=== PATIENT | male | born 1995 ===

== ENCOUNTER 2022-11-09 15:23 | Emergency (ER) | payer SELFPAY ==
[2022-11-09] MEDS ORDERED: cloNIDine HCL 0.1 MG TAB ONE (15:42)
[2022-11-09] MEDS ORDERED: NA CHLORIDE 0.9% 2,000 ML ONE (15:43)
[2022-11-09] MEDS ORDERED: ONDANSETRON 4 MG/2 ML VIAL ONE (15:43)
[2022-11-09 16:02] LABS: Absolute Lymphocytes (CBC) 3.2 K/uL (0.7-4.9); Hematocrit 38.8 % (39.6-49.0); Lymphocytes % 41.7 % (15.3-44.8); MCV 90.7 fL (80-100); MPV 7.5 fL (7.6-11.3); RBC Red Blood Cell Count 4.27 M/uL (4.33-5.43)
[2022-11-09 16:04] LABS: Specific Gravity 1.011 (1.005-1.030); Urine Bacteria None Seen /HPF (<20); Urine Bilirubin NEGATIVE (Negative); Urine Blood Negative (Negative); Urine Clarity Turbid (Clear); Urine Color Colorless (Yellow); Urine Glucose NEGATIVE (Negative); Urine Protein NEGATIVE (Negative); Urine RBC <5 /HPF (None Seen); Urine Urobilinogen Normal (Normal); Urine pH 7.5 (5.0-7.0)
--- OUTSIDE RECORDS SUMMARY | 2022-11-09 16:09 | XMS REPORT | Continuity of Care Document ---
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 oral 5-20 TID, PRN l tablet 01:31: Muscle [place] 00 Spasm, X 10 day, # 30 tab, 0 Refill(s), 170.18, cm, 09/16/20 20:25:00 CDT, Height, 81.818, kg, 09/16/20 20:25:00 CDT, Weight celecoxib Yes 100 mg = 1 Me moria 100 MG Oral 5-20 cap, PO, l Capsule 01:31: BID, PRN Benjamín n [Celebrex] 00 as needed for pain, # 30 cap, 0 Refill(s), 170.18, cm, 09/16/20 20:25:00 CDT, Height, 81.818, kg, 09/16/20 20:25:00 CDT, Weight { Yes See Mem[facility] (Methylpred 5-20 Instructio l nisolone 4 01:31: ns, PO, Herm sharad MG Oral 00 Take by Tablet mouth as [Medrol]) } directed Pack on label., [Medrol X 6 day, # Dosepak] 21 tab, 0 Refill(s), 170.18, cm, 09/16/20 20:25:00 CDT, Height, 81.818, kg, 09/16/20 20:25:00 CDT, Weight Flexeril 10 Yes 10 mg, PO, Memoria mg oral 5-20 TID, PRN l tablet 01:31: Muscle [place] 00 Spasm, X 10 day, # 30 tab, 0 Refill(s), 170.18, cm, 09/16/20 20:25:00 CDT, Height, 81.818, kg, 09/16/20 20:25:00 CDT, Weight celecoxib Yes 100 mg = 1 Me moria 100 MG Oral 5-20 cap, PO, l Capsule 01:31: BID, PRN Benjamín n [Celebrex] 00 as needed for pain, # 30 cap, 0 Refill(s), 170.18, cm, 09/16/20 20:25:00 CDT, Height, 81.818, kg, 09/16/20 20:25:00 CDT, Weight Dexamethaso No Notes: Doni delvin ne 5-20 dexamethas l 01:29: one 10 [place] 00 mg/1 ml VL INJ PF MEDICATION WASTE Product Size: 10 mg Product Wasted: ___ mg Ketorolac 2020-0 No 4 days Memor ia 5-20 l 01:29: MEDICATION [place] 00 WASTE Product Size: 60 mg Product Wasted: ___ mg Ketorolac 2020-0 No 4 days Mem[facility] ia 5-20 l 01:29: MEDICATION [place] 00 WASTE Product Size: 60 mg Product Wasted: ___ mg Dexamethaso 2020- No Notes: Doni delvin ne 5-20 dexamethas l 01:29: one 10 [place] 00 mg/1 ml VL INJ PF MEDICATION WASTE Product Size: 10 mg Product Wasted: ___ mg Acetaminoph Yes 1 tab, PO, Memoria en 300 MG / 5-11 Q6H, PRN l Codeine 08:52: Pain, X 3 Tamiko nn Phosphate 00 day, # 12 30 MG Oral tab, 0 Tablet Refill(s), [Tylenol Pharmacy: with [facility] Codeine #3] Pharmacy 18[facility], 172.72, cm, 09/08/20 2:31:00 CDT, Height, 86.364, kg, 09/08/20 2:31:00 CDT, Weight meloxicam Yes 7.5 mg = 1 Me moria 7.5 mg oral 5-11 tab, PO, l tablet 08:52: Daily, # [place] 00 10 tab, 0 Refill(s), Pharmacy: [facility], 172.72, cm, 09/08/20 2:31:00 CDT, Height, 86.364, kg, 09/08/20 2:31:00 CDT, Weight meloxicam 2020- Yes 7.5 mg = 1 Me moria 7.5 mg oral 5-11 tab, PO, l tablet 08:52: Daily, # [place] 00 10 tab, 0 Refill(s), Pharmacy: [facility], 172.72, cm, 09/08/20 2:31:00 CDT, Height, 86.364, kg, 09/08/20 2:31:00 CDT, Weight Acetaminoph 2020-0 Yes 1 tab, PO, Memoria en 300 MG / 5-11 Q6H, PRN l Codeine 08:52: Pain, X 3 Tamiko nn Phosphate 00 day, # 12 30 MG Oral tab, 0 Tablet Refill(s), [Tylenol Pharmacy: with [facility] #3] Pharmacy 1837, 172.72, cm, 09/08/20 2:31:00 CDT, Height, 86.364, kg, 09/08/20 2:31:00 CDT, Weight ketOROLAC 2020-0 No 30 mg, Memori a 30 mg/mL 5-11 Route: IM, l injectable 08:39: Drug form: H ermann solution 00 INJ, ONCE, Dosing Weight 86.364, kg, Priority: STAT, Start date: 09/08/20 3:39:00 CDT, Stop date: 09/08/20 3:39:00 CDT Flexeril 2020-0 No 10 mg, Memoria 5-11 Route: PO, l 08:39: ONCE, [place] Dosing Weight 86.364, kg, Priority: STAT, Start date: 09/08/20 3:39:00 CDT, Stop date: 09/08/20 3:39:00 CDT Acetaminoph 2020-0 No 1 tab, Doni delvin en 325 MG / 5-11 Route: PO, l Hydrocodone 08:39: Drug Form: [place] Bitartrate 00 TAB, 5 MG Oral Dosing Tablet Weight [[place] 86.364, 5/325] kg, ONCE, STAT, Start date: 09/08/20 3:39:00 CDT, Stop date: 09/08/20 3:39:00 CDT ketOROLAC 2020-0 No 30 mg, Memori a 30 mg/mL 5-11 Route: IM, l injectable 08:39: Drug form: H ermann solution 00 INJ, ONCE, Dosing Weight 86.364, kg, Priority: STAT, Start date: 09/08/20 3:39:00 CDT, Stop date: 09/08/20 3:39:00 CDT Flexeril 2020-0 No 10 mg, Memoria 5-11 Route: PO, l 08:39: ONCE, [place] 00 Dosing Weight 86.364, kg, Priority: STAT, Start date: 09/08/20 3:39:00 CDT, Stop date: 09/08/20 3:39:00 CDT Acetaminoph 0 No 1 tab, Doni delvin en 325 MG / 09-08 Route: PO, l Hydrocodone 08:39: Drug Form: [place] Bitartrate 00 TAB, 5 MG Oral Dosing Tablet Weight [[place] 86.364, 5/325] kg, ONCE, STAT, Start date: 09/08/20 3:39:00 CDT, Stop date: 09/08/20 3:39:00 CDT Ketorolac 2019-05 Yes 10 mg = 1 Mem oria Tromethamin 0-29 tab, PO, l e 10 MG 21:31: Q6H, X 5 Benjamín n Oral Tablet 00 day, # 20 tab, 0 Refill(s) Cyclobenzap 2019-05 Yes 10 mg = 1 M emoria rine 0-29 tab, PO, l hydrochlori 21:31: TID, PRN He rmann de 10 MG 00 for spasm, Oral Tablet X 10 day, [Flexeril] # 15 tab, 0 Refill(s) gabapentin 2019-05 Yes 300 mg = 1 M emoria 300 MG Oral 0-29 cap, PO, l Capsule 21:31: TID, # 30 Tamiko nn 00 cap, 0 Refill(s) Ketorolac 2019-05 Yes 10 mg = 1 Mem oria Tromethamin 0-29 tab, PO, l e 10 MG 21:31: Q6H, X 5 Benjamín n Oral Tablet 00 day, # 20 tab, 0 Refill(s) Cyclobenzap 2019-05 Yes 10 mg = 1 M emoria rine 0-29 tab, PO, l hydrochlori 21:31: TID, PRN He rmann de 10 MG 00 for spasm, Oral Tablet X 10 day, [Flexeril] # 15 tab, 0 Refill(s) gabapentin 2019-05 Yes 300 mg = 1 M emoria 300 MG Oral 0-29 cap, PO, l Capsule 21:31: TID, # 30 Tamiko nn 00 cap, 0 Refill(s) Morphine 2019-05 No Notes: Memoria 0-29 (Same l 20:15: as:MORPhin [place] 00 e Sulfate) Morphine 2019-05 No Notes: Memoria 0-29 (Same l 20:15: as:MORPhin [place] 00 e Sulfate) ketOROLAC 2019- No 15 mg, Memori a 30 mg/mL 0-29 Route: l injectable 19:51: IVP, Drug He rmann solution 00 form: INJ, ONCE, Dosing Weight 90.909, kg, Priority: STAT, Start date: 02/27/20 14:51:00 CDT, Stop date: 02/27/20 14:51:00 CDT Flexeril 2019- No 10 mg, Memoria 0-29 Route: PO, l 19:51: ONCE, [place] 00 Dosing Weight 90.909, kg, Priority: STAT, Start date: 02/27/20 14:51:00 CDT, Stop date: 02/27/20 14:51:00 CDT ketOROLAC 2019-05 No 15 mg, Memori a 30 mg/mL 0-29 Route: l injectable 19:51: IVP, Drug He r[place] solution 00 form: INJ, ONCE, Dosing Weight 90.909, kg, Priority: STAT, Start date: 02/27/20 14:51:00 CDT, Stop date: 02/27/20 14:51:00 CDT Flexeril 2019-05 No 10 mg, Memoria 0-29 Route: PO, l 19:51: ONCE, [place] 00 Dosing Weight 90.909, kg, Priority: STAT, Start date: 02/27/20 14:51:00 CDT, Stop date: 02/27/20 14:51:00 CDT Morphine 2019-05 No Notes: Memoria 0-29 (Same l 17:48: as:MORPhin [place] 00 e Sulfate) Morphine 2019- No Notes: Memoria 0-29 (Same l 17:48: as:MORPhin [place] 00 e Sulfate) Omnipaque 2019-05 No 45 Memoria 300 0-29 mL/min, l injectable 17:38: STAT, Benjamín n solution 00 Start date: 02/27/20 12:38:00 CDT, Stop date: 02/27/20 12:38:00 CDT Omnipaque 2019-05 No 45 Memoria 300 0-29 mL/min, l injectable 17:38: STAT, Benjamín n solution 00 Start date: 02/27/20 12:38:00 CDT, Stop date: 02/27/20 12:38:00 CDT Zofran 2020-1 No 4 mg, Memoria 0-29 Route: l 16:33: IVP, Drug [place] form: INJ, ONCE, Dosing Weight 90.909, kg, Priority: STAT, Start date: 02/27/20 11:33:00 CDT, Stop date: 02/27/20 11:33:00 CDT Zofran 2020-1 No 4 mg, Memoria 0-29 Route: l 16:33: IVP, Drug [place] form: INJ, ONCE, Dosing Weight 90.909, kg, Priority: STAT, Start date: 02/27/20 11:33:00 CDT, Stop date: 02/27/20 11:33:00 CDT Morphine 2019-1 No 4 mg, Memoria 0-29 Route: l 16:32: IVP, ONCE, Dosing Weight 90.909, kg, Priority: STAT, Start date: 02/27/20 11:32:00 CDT, Stop date: 02/27/20 11:32:00 CDT Morphine 2019-1 No 4 mg, Memoria 0-29 Route: l 16:32: IVP, ONCE, Dosing Weight 90.909, kg, Priority: STAT, Start date: 02/27/20 11:32:00 CDT, Stop date: 02/27/20 11:32:00 CDT Geodon 2020-0 No 10 mg, Memoria 7-23 Route: IM, l 12:58: ONCE, Dosing Weight 91.364, kg, Priority: STAT, Start date: 11/21/19 7:58:00 CDT, Stop date: 11/21/19 7:58:00 CDT Geodon 2020-0 No 10 mg, Memoria 7-23 Route: IM, l 12:58: ONCE, Dosing Weight 91.364, kg, Priority: STAT, Start date: 11/21/19 7:58:00 CDT, Stop date: 11/21/19 7:58:00 CDT Omnipaque 2020-0 No 45 Memoria 300 6-07 mL/min, l injectable 12:15: STAT, Benjamín n solution 00 Start date: 10/06/19 7:15:00 CDT, Stop date: 10/06/19 7:15:00 CDT Omnipaque 2020-0 No 45 Memoria 300 6-07 mL/min, l injectable 12:15: STAT, Benjamín n solution 00 Start date: 10/06/19 7:15:00 CDT, Stop date: 10/06/19 7:15:00 CDT Ondansetron 2019- Yes 4 mg = 1 Me moria 4 MG 2-21 tab, PO, l Disintegrat 12:16: TID, Benjamín n ing Tablet 00 Dissolve [Zofran] tab under tongue, # 6 tab, 0 Refill(s) Ondansetron 2019-0 Yes 4 mg = 1 Me moria 4 MG 2-21 tab, PO, l Disintegrat 12:16: TID, Benjamín n ing Tablet 00 Dissolve [Zofran] tab under tongue, # 6 tab, 0 Refill(s) Codeine 2019-0 Yes 10 ml, PO, Doni delvin Phosphate 2 2-21 Q6H, PRN l MG/ML / 12:10: for cough, Herm sharad Guaifenesin 00 X 5 day, # 20 MG/ML 120 mL, 0 Oral Refill(s) Solution [Cheratussi n] Codeine 2019-0 Yes 10 ml, PO, Doni delvin Phosphate 2 2-21 Q6H, PRN l MG/ML / 12:10: for cough, Herm sharad Guaifenesin 00 X 5 day, # 20 MG/ML 120 mL, 0 Oral Refill(s) Solution [Cheratussi n] albuterol 2019-0 Yes 2 puff, Memor ia 90 mcg/inh 2-21 INHALATION l inhalation 12:09: , QID, PRN H ermann aerosol 00 as needed for wheezing, # 17 gm, 0 Refill(s) Levofloxaci 2019-0 Yes 750 mg = 1 Memoria n 750 MG 2-21 tab, PO, l Oral Tablet 12:09: Daily, X 5 [place] [Levaquin] 00 day, # 5 tab, 0 Refill(s) albuterol 2019-0 Yes 2 puff, Memor ia 90 mcg/inh 2-21 INHALATION l inhalation 12:09: , QID, PRN H ermann aerosol 00 as needed for wheezing, # 17 gm, 0 Refill(s) Levofloxaci Yes 750 mg = 1 Memoria n 750 MG 2-21 tab, PO, l Oral Tablet 12:09: Daily, X 5 [place] [Levaquin] 00 day, # 5 tab, 0 Refill(s) Saline No Notes: Memoria Flush 0.9% 2-21 (Same as: l 11:13: BD [place] Posiflush) Saline No Notes: Memoria Flush 0.9% 2-21 (Same as: l 11:13: BD [place] Posiflush) Naproxen Yes 500 mg = 1 Mem oria 500 MG Oral 2-19 tab, PO, l Tablet 01:42: BID, PRN [place] [Naprosyn] 00 Pain, X 7 day, # 14 tab, 0 Refill(s) 200 ACTUAT 0 Yes 2 puff, Doni delvin Albuterol 2-19 INHALATION l 0.09 01:42: , Q6H, PRN [place] MG/ACTUAT 00 for Metered wheezing, Dose # 9 gm, 0 Inhaler Refill(s) [ProAir HFA] Azithromyci Yes 250 mg = 1 Memoria n 5 Day 2-19 tab, PO, l Dose Pack 01:42: Daily, Benjamín n 250 mg oral 00 TAKE 2 tablet TABLETS ON DAY 1; TAKE 1 TABLET ON DAYS 2 - 5, X 5 day, # 6 tab, 0 Refill(s) Naproxen Yes 500 mg = 1 Mem oria 500 MG Oral 2-19 tab, PO, l Tablet 01:42: BID, PRN [place] [Naprosyn] 00 Pain, X 7 day, # 14 tab, 0 Refill(s) 200 ACTUAT 0 Yes 2 puff, Doni delvin Albuterol 2-19 INHALATION l 0.09 01:42: , Q6H, PRN [place] MG/ACTUAT 00 for Metered wheezing, Dose # 9 gm, 0 Inhaler Refill(s) [ProAir HFA] Azithromyci Yes 250 mg = 1 Memoria n 5 Day 2-19 tab, PO, l Dose Pack 01:42: Daily, Benjamín n 250 mg oral 00 TAKE 2 tablet TABLETS ON DAY 1; TAKE 1 TABLET ON DAYS 2 - 5, X 5 day, # 6 tab, 0 Refill(s) Omnipaque No Notes: Memori a 300 2-18 (Same l injectable 23:55: as:Omnipaq H [place] solution 00 ue 300). WASTE: F/P - Black; E - Municipal Trash Bin Omnipaque No Notes: Memori a 300 2-18 (Same l injectable 23:55: as:Omnipaq H ermann solution 00 ue 300). WASTE: F/P - Black; E - Municipal Trash Bin Omnipaque No Notes: Memori a 300 2-18 (Same l injectable 23:49: as:Omnipaq H ermann solution 00 ue 300). WASTE: F/P - Black; E - Municipal Trash Bin Omnipaque No Notes: Memori a 300 2-18 (Same l injectable 23:49: as:Omnipaq H ermann solution 00 ue 300). WASTE: F/P - Black; E - Municipal Trash Bin Ondansetron No Notes: Doni delvin 2-18 (Same as: l 23:21: Zofran) [place] 00 MEDICATION WASTE Product Size: 4 mg Product Wasted: ___ mg Morphine No Notes: Memoria 2-18 (Same l 23:21: as:MORPhin [place] 00 e Sulfate) Sodium No 1,000 mL, Memori a Chloride -18 1000 l 0.9% 23:21: ml/hr, Adrian (Bolus) IV 00 Infuse Over: 1 hr, Route: IV, 1,000, Drug form: INJ, ONCE, Priority: STAT, Dosing Weight 93.045 kg, Start date: 06/18/18 17:21:00 [employer], Stop date: 06/18/18 17:21:00 [employer] Ondansetron No Notes: Doni delvin 2-18 (Same as: l 23:21: Zofran) [place] 00 MEDICATION WASTE Product Size: 4 mg Product Wasted: ___ mg Morphine No Notes: Memoria 2-18 (Same l 23:21: as:MORPhin [place] 00 e Sulfate) Sodium 20190 No 1,000 mL, Memori a Chloride 2-18 1000 l 0.9% 23:21: ml/hr, [place] (Bolus) IV 00 Infuse Over: 1 hr, Route: IV, 1,000, Drug form: INJ, ONCE, Priority: STAT, Dosing Weight 93.045 kg, Start date: 06/18/18 17:21:00 [employer], Stop date: 06/18/18 17:21:00 [employer] Ketorolac 2019-0 No 4 days Memor ia 2-18 l 21:26: MEDICATION [place] 00 WASTE Product Size: 30 mg Product Wasted: ___ mg Ketorolac 2018-0 No 4 days Memor ia -18 l 21:26: MEDICATION [place] 00 WASTE Product Size: 30 mg Product Wasted: ___ mg Sodium No 1,000 mL, Memori a Chloride 2-18 1,000 l 0.9% 21:25: ml/hr, [place] (Bolus) IV 00 Infuse Over: 1 hr, Route: IV, 1,000, Drug form: INJ, ONCE, Priority: STAT, Dosing Weight 96.818 kg, Start date: 06/18/18 15:25:00 [employer], Stop date: 06/18/18 15:25:00 [employer] Zofran 2018-0 No Notes: Memoria 2-18 (Same as: l 21:25: Zofran) [place] 00 MEDICATION WASTE Product Size: 4 mg Product Wasted: ___ mg Sodium No 1,000 mL, Memori a Chloride 2-18 1,000 l 0.9% 21:25: ml/hr, [place] (Bolus) IV 00 Infuse Over: 1 hr, Route: IV, 1,000, Drug form: INJ, ONCE, Priority: STAT, Dosing Weight 96.818 kg, Start date: 06/18/18 15:25:00 [employer], Stop date: 06/18/18 15:25:00 [employer] Zofran 2019-0 No Notes: Memoria 2-18 (Same as: l 21:25: Zofran) [place] 00 MEDICATION WASTE Product Size: 4 mg Product Wasted: ___ mg Acetaminoph 0 No Notes: Doni delvin en 325 MG / 2-18 (Same as: l Hydrocodone 16:02: [place] Tamiko nn Bitartrate 00 325/5) Do 5 MG Oral not exceed Tablet 4gm/day of [[place] acetaminop 5/325] hen. Acetaminoph 0 No Notes: Odni delvin en 325 MG / 2-18 (Same as: l Hydrocodone 16:02: [place] Tamiko nn Bitartrate 00 325/5) Do 5 MG Oral not exceed Tablet 4gm/day of [[place] acetaminop 5/325] hen. Ibuprofen 2019-0 No 600 mg, Memor ia 2-18 Route: PO, l 16:01: Drug form: [place] 00 TAB, ONCE, Dosing Weight 96.818, kg, Priority: STAT, Start date: 06/18/18 10:01:00 [employer], Stop date: 06/18/18 10:01:00 [employer] Ibuprofen 0 No 600 mg, Memor ia 2-18 Route: PO, l 16:01: Drug form: [place] 00 TAB, ONCE, Dosing Weight 96.818, kg, Priority: STAT, Start date: 06/18/18 10:01:00 [employer], Stop date: 06/18/18 10:01:00 [employer] Ondansetron 2018-0 No 4 mg, Memor ia 2-18 Route: l 15:40: IVP, ONCE, [place] 00 Dosing Weight 96.818, kg, Priority: STAT, Start date: 06/18/18 9:40:00 [employer], Stop date: 06/18/18 9:40:00 [employer] Saline 2018-0 No Notes: Memoria Flush 0.9% 2-18 (Same as: l 15:40: BD [place] 00 Posiflush) Sodium 2018-0 No 1,000 mL, Memori a Chloride 2-18 Infuse l 0.9% 15:40: Over: 1 [place] (Bolus) IV 00 hr, Route: IV, ONCE, Priority: STAT, Dosing Weight 96.818 kg, Start date: 06/18/18 9:40:00 [employer], Stop date: 06/18/18 9:40:00 [employer] Ondansetron 2019-0 No 4 mg, Memor ia 2-18 Route: l 15:40: IVP, ONCE, [place] 00 Dosing Weight 96.818, kg, Priority: STAT, Start date: 06/18/18 9:40:00 [employer], Stop date: 06/18/18 9:40:00 [employer] Saline 2019-0 No Notes: Memoria Flush 0.9% 2-18 (Same as: l 15:40: BD [place] 00 Posiflush) Sodium 2019-0 No 1,000 mL, Memori a Chloride 2-18 Infuse l 0.9% 15:40: Over: 1 [place] (Bolus) IV 00 hr, Route: IV, ONCE, Priority: STAT, Dosing Weight 96.818 kg, Start date: 06/18/18 9:40:00 [employer], Stop date: 06/18/18 9:40:00 [employer] Amoxicillin 2017-05 No 875 mg = 1 Memoria 875 MG / 1-23 tab, PO, l Clavulanate 23:21: BID, X 10 H ermann 125 MG Oral 00 day, # 20 Tablet tab, 0 [Augmentin Refill(s) 875-mg] Acetaminoph 2017-05 No 1 - 2 tab, Memoria en 300 MG / 1-23 PO, Q4H, l Codeine 23:21: PRN Pain, Tamiko nn Phosphate 00 X 2 day, # 30 MG Oral 15 tab, 0 Tablet Refill(s) [Tylenol with Codeine #3] Amoxicillin 2017-05 No 875 mg = 1 Memoria 875 MG / 1-23 tab, PO, l Clavulanate 23:21: BID, X 10 H ermann 125 MG Oral 00 day, # 20 Tablet tab, 0 [Augmentin Refill(s) 875-mg] Acetaminoph 2017-05 No 1 - 2 tab, Memoria en 300 MG / 1-23 PO, Q4H, l Codeine 23:21: PRN Pain, Tamiko nn Phosphate 00 X 2 day, # 30 MG Oral 15 tab, 0 Tablet Refill(s) [Tylenol with Codeine #3] Vital Signs Vital Name Observation Time Observation Value Comments Source Temperature Oral (F) 2021-08-14 17:00:00 98.4 F [facility] [place] Respitory Rate 2021-08-14 17:00:00 [facility] al [place] Heart Rate 2021-08-14 17:00:00 [facility] [place] Systolic (mm Hg) 2021-08-14 17:00:00 Doni rial [place] Diastolic (mm Hg) 2021-08-14 17:00:00 Mem o[facility] [place] Heart Rate 2021-08-14 13:08:21 [facility] [place] Respitory Rate 2021-08-14 13:08:21 [facility] al [place] Temperature Oral (F) 2021-08-14 13:08:10 98.6 F [facility] [place] Systolic (mm Hg) 2021-08-14 13:07:38 Doni rial [place] Diastolic (mm Hg) 2021-08-14 13:07:38 Mem orial [place] Heart Rate 2021-08-14 13:07:38 [facility] [place] Temperature Oral (F) 2021-08-14 09:03:00 98.7 F [facility] [place] Systolic (mm Hg) 2021-08-14 09:03:00 Doni rial [place] Diastolic (mm Hg) 2021-08-14 09:03:00 [facility] [place] Respitory Rate 2021-08-14 09:03:00 [facility] [place] Height 2021-08-13 14:36:00 170.18 cm [facility] [place] Weight 2021-08-13 14:36:00 [facility] [place] Height 2021-08-12 15:45:00 170.18 cm [facility] [place] Weight 2021-08-12 15:45:00 [facility] [place] BMI Calculated 2021-08-12 15:45:00 [facility] [place] Height 2021-08-12 10:07:00 170.18 cm [facility] [place] Weight 2021-08-12 10:07:00 [facility] [place] BMI Calculated 2021-08-12 05:45:00 [facility] [place] BMI Calculated 2021-08-12 05:38:00 [facility] [place] Height 2021-01-11 05:16:00 170.18 cm [facility] [place] BMI Calculated 2021-01-11 05:16:00 [facility] [place] Weight 2021-01-11 05:16:00 [facility] [place] Systolic (mm Hg) 2021-01-11 05:16:00 Doni rial [place] Diastolic (mm Hg) 2021-01-11 05:16:00 Mem orial [place] Heart Rate 2021-01-11 05:16:00 [facility] [place] Respitory Rate 2021-01-11 05:16:00 [facility] [place] Temperature Oral (F) 2021-01-11 05:16:00 98.3 F [facility] [place] Height 2021-01-10 23:13:00 170.18 cm [facility] [place] BMI Calculated 2021-01-10 23:13:00 [facility] [place] Weight 2021-01-10 23:13:00 [facility] [place] Systolic (mm Hg) 2021-01-10 23:13:00 Doni rial [place] Diastolic (mm Hg) 2021-01-10 23:13:00 Mem o[facility] [place] Heart Rate 2021-01-10 23:13:00 [facility] [place] Respitory Rate 2021-01-10 23:13:00 [facility] [place] Temperature Oral (F) 2021-01-10 23:13:00 98.3 F [facility] [place] Temperature Oral (F) 2020-09-17 03:48:00 98.2 F [facility] [place] Respitory Rate 2020-09-17 03:48:00 [facility] [place] Systolic (mm Hg) 2020-09-17 03:48:00 Doni rial [place] Diastolic (mm Hg) 2020-09-17 03:48:00 [facility] [place] Heart Rate 2020-09-17 03:48:00 [facility] [place] Height 2020-09-17 01:25:00 170.18 cm [facility] BMI Calculated 2020-09-17 01:25:00 [facility] [place] Weight 2020-09-17 01:25:00 [facility] [place] Systolic (mm Hg) 2020-09-17 01:25:00 Doni rial [place] Diastolic (mm Hg) 2020-09-17 01:25:00 [facility] [place] Heart Rate 2020-09-17 01:25:00 [facility] [place] Respitory Rate 2020-09-17 01:25:00 [facility] [place] Temperature Oral (F) 2020-09-17 01:25:00 98.2 F [facility] [place] Temperature Oral (F) 2020-09-08 08:43:00 97.8 F [facility] [place] Heart Rate 2020-09-08 08:43:00 [facility] [place] Respitory Rate 2020-09-08 08:43:00 [facility] [place] Systolic (mm Hg) 2020-09-08 08:43:00 Doni rial [place] Diastolic (mm Hg) 2020-09-08 08:43:00 [facility] [place] Height 2020-09-08 07:31:00 172.72 cm [facility] BMI Calculated 2020-09-08 07:31:00 [facility] [place] Weight 2020-09-08 07:31:00 [facility] [place] Systolic (mm Hg) 2020-09-08 07:31:00 Doni rial [place] Diastolic (mm Hg) 2020-09-08 07:31:00 [facility] o[facility] [place] Heart Rate 2020-09-08 07:31:00 [facility] [place] Respitory Rate 2020-09-08 07:31:00 [facility] [place] Temperature Oral (F) 2020-09-08 07:31:00 97.5 F [facility] [place] Systolic (mm Hg) 2020-02-27 21:00:00 Doni rial [place] Diastolic (mm Hg) 2020-02-27 21:00:00 [facility] [place] Respitory Rate 2020-02-27 21:00:00 [facility] al [place] Temperature Oral (F) 2020-02-27 21:00:00 98.1 F [facility] [place] Systolic (mm Hg) 2020-02-27 20:00:00 [facility]i [facility] [place] Diastolic (mm Hg) 2020-02-27 20:00:00 [facility] [place] Respitory Rate 2020-02-27 20:00:00 [facility] Systolic (mm Hg) 2020-02-27 19:00:00 [facility]i [facility] [place] Diastolic (mm Hg) 2020-02-27 19:00:00 [facility] Respitory Rate 2020-02-27 19:00:00 [facility] Temperature Oral (F) 2020-02-27 19:00:00 98.2 F [facility] Height 2020-02-27 15:57:00 172.72 cm [facility] BMI Calculated 2020-02-27 15:57:00 [facility] Weight 2020-02-27 15:57:00 [facility] Heart Rate 2020-02-27 15:57:00 [facility] [place] Temperature Oral (F) 2020-02-27 15:57:00 98.3 F [facility] [place] Temperature Oral (F) 2019-11-22 00:40:00 98.6 F [facility] Heart Rate 2019-11-22 00:40:00 [facility] [place] Respitory Rate 2019-11-22 00:40:00 [facility] [place] Systolic (mm Hg) 2019-11-22 00:40:00 [facility] [place] Diastolic (mm Hg) 2019-11-22 00:40:00 [facility] [place] Systolic (mm Hg) 2019-11-21 21:00:00 [facility] [place] Diastolic (mm Hg) 2019-11-21 21:00:00 [facility] [place] Respitory Rate 2019-11-21 21:00:00 [facility] [place] Heart Rate 2019-11-21 21:00:00 [facility] [place] Systolic (mm Hg) 2019-11-21 12:20:00 [facility] [place] Diastolic (mm Hg) 2019-11-21 12:20:00 [facility] Respitory Rate 2019-11-21 12:20:00 [facility] Heart Rate 2019-11-21 12:20:00 [facility] Temperature Oral (F) 2019-11-21 06:32:00 97.8 F [facility] [place] Height 2019-11-21 06:03:00 172.72 cm [facility] BMI Calculated 2019-11-21 06:03:00 [facility] [place] Weight 2019-11-21 06:03:00 [facility] [place] Systolic (mm Hg) 2019-10-06 14:30:00 [facility] [place] Diastolic (mm Hg) 2019-10-06 14:30:00 [facility] [place] Respitory Rate 2019-10-06 14:30:00 [facility] [place] Systolic (mm Hg) 2019-10-06 14:15:00 [facility] [place] Diastolic (mm Hg) 2019-10-06 14:15:00 [facility] [place] Respitory Rate 2019-10-06 14:15:00 [facility] [place] Systolic (mm Hg) 2019-10-06 14:00:00 [facility] [place] Diastolic (mm Hg) 2019-10-06 14:00:00 [facility] Respitory Rate 2019-10-06 14:00:00 [facility] [place] Heart Rate 2019-10-06 13:30:00 [facility] [place] Heart Rate 2019-10-06 13:15:00 [facility] Heart Rate 2019-10-06 13:00:00 [facility] [place] Height 2019-10-06 11:16:00 170.18 cm [facility] BMI Calculated 2019-10-06 11:16:00 [facility] Weight 2019-10-06 11:16:00 [facility] Temperature Oral (F) 2019-10-06 11:16:00 98.5 F [facility] Systolic (mm Hg) 2018-06-21 12:30:00 [facility] [place] Diastolic (mm Hg) 2018-06-21 12:30:00 [facility] Respitory Rate 2018-06-21 12:30:00 [facility] Heart Rate 2018-06-21 12:30:00 [facility] Temperature Oral (F) 2018-06-21 12:30:00 99.2 F [facility] Systolic (mm Hg) 2018-06-21 11:30:00 [facility] Diastolic (mm Hg) 2018-06-21 11:30:00 [facility] Heart Rate 2018-06-21 11:30:00 [facility] Respitory Rate 2018-06-21 11:30:00 [facility] Respitory Rate 2018-06-21 10:43:00 [facility] Heart Rate 2018-06-21 10:43:00 [facility] Systolic (mm Hg) 2018-06-21 10:43:00 [facility] Diastolic (mm Hg) 2018-06-21 10:43:00 [facility] Weight 2018-06-21 10:31:00 [facility] Height 2018-06-21 10:31:00 167.64 cm [facility] Temperature Oral (F) 2018-06-21 10:31:00 99.6 F [facility] BMI Calculated 2018-06-21 10:31:00 [facility] Respitory Rate 2018-06-19 01:49:00 [facility] Systolic (mm Hg) 2018-06-19 01:49:00 Doni [facility] Diastolic (mm Hg) 2018-06-19 01:49:00 [facility] Respitory Rate 2018-06-19 01:31:00 [facility] Systolic (mm Hg) 2018-06-19 01:31:00 Doni rial [facility] Diastolic (mm Hg) 2018-06-19 01:31:00 [facility] [facility] Heart Rate 2018-06-19 00:25:00 [facility] Respitory Rate 2018-06-19 00:25:00 [facility] Systolic (mm Hg) 2018-06-19 00:25:00 Doni [facility] Diastolic (mm Hg) 2018-06-19 00:25:00 [facility] Heart Rate 2018-06-19 00:10:00 [facility] Heart Rate 2018-06-18 23:10:00 [facility] Height 2018-06-18 21:26:00 167.64 cm [facility] BMI Calculated 2018-06-18 21:26:00 [facility] Weight 2018-06-18 21:26:00 [facility] Temperature Oral (F) 2018-06-18 21:26:00 98.4 F [facility] Systolic (mm Hg) 2018-06-18 16:26:00 Doni rial [facility] Diastolic (mm Hg) 2018-06-18 16:26:00 [facility] Respitory Rate 2018-06-18 16:26:00 [facility] Heart Rate 2018-06-18 16:26:00 [facility] Respitory Rate 2018-06-18 16:09:00 [facility] Heart Rate 2018-06-18 16:09:00 [facility] Systolic (mm Hg) 2018-06-18 16:09:00 [facility] [place] Diastolic (mm Hg) 2018-06-18 16:09:00 [facility] Height 2018-06-18 15:32:00 167.64 cm [facility] Systolic (mm Hg) 2018-06-18 15:32:00 Doni rial [facility] Diastolic (mm Hg) 2018-06-18 15:32:00 [facility] [facility] Temperature Oral (F) 2018-06-18 15:32:00 98.7 F [facility] Heart Rate 2018-06-18 15:32:00 [facility] Respitory Rate 2018-06-18 15:32:00 [facility] Weight 2018-06-18 15:32:00 [facility] BMI Calculated 2018-06-18 15:32:00 [facility] [facility] Weight 2018-03-23 23:18:00 [facility] BMI Calculated 2018-03-23 23:18:00 [facility] [facility] Height 2018-03-23 23:18:00 172.72 cm [facility] Systolic (mm Hg) 2018-03-23 23:18:00 Doni [facility] Diastolic (mm Hg) 2018-03-23 23:18:00 [facility] [place] Heart Rate 2018-03-23 23:18:00 [facility] Respitory Rate 2018-03-23 23:18:00 [facility] Temperature Oral (F) 2018-03-23 23:18:00 98.5 F [facility] Procedures Procedure Date / Time Performed Performing Clinician Abdifatah dixon Hernia repair [facility] Encounters Start End Encounter Admission Attending Care Care Encounter Source Date/Time Date/Time Type Type Clinicians Facility Department ID 2020-09-29 Inpatient HCAKW JUN [id number] [facility] 03:36:00 22 [facility] 2020-08-07 Inpatient HCAKW HCAKW [id number] [facility] 15:12:45 13 [facility] 2022-10-25 2022-10-26 Emergency TR Eugene, HCAKW JUN [id number] [facility] 21:29:00 04:56:00 Balwinedr 82 [facility] 2021-08-12 2021-08-[address] [facility] [id number] Memoria 05:37:33 21:00:00 r Adrian Knutson l [facility] 2021-08-12 2021-08-[address] [facility] [id number] Memoria 05:37:33 21:00:00 r Adrian Knutson l [facility] 2021-08-12 2021-08-14 Outpatient Bakari Priest [facility] [id number] 00:37:33 16:00:00 [facility] 13 2021-08-12 2021-08-14 Outpatient Bakari Priest [facility] [id number] 00:37:33 16:00:00 [facility] 13 2021-08-12 2021-08-14 Inpatient E BAKARI [facility] [id number] NE 00:37:00 16:00:00 2021-05-04 2021-05-04 Emergency [facility] [id number] [place] 01:14:00 01:57:00 [facility] 2021-01-11 2021-01-11 Emergency nullFlavo [facility] [id number] Memoria 05:14:19 06:49:[address] [place] [address] 2021-01-11 2021-01-11 Emergency nullFlavo [facility] [id number] Memoria 05:14:19 06:49:[address] Adrian [address] [place] [address] 2021-01-11 2021-01-11 Outpatient Weathers, [facility] [id number] 00:14:19 01:49:00 Daniel Calixto 2021-01-11 2021-01-11 Emergency E BELIA DOV NE 7512 NE 00:14:00 01:49:00 DANIEL 2021-01-10 2021-01-10 Emergency nullFlavo [facility] [id number] Memoria 23:05:36 23:20:00 r Adrian [address] [place] [address] 2021-01-10 2021-01-10 Emergency nullFlavo [facility] [id number] Memoria 23:05:36 23:20:00 oswald Campbell [address] [place] [address] 2021-01-10 2021-01-10 Outpatient Ubaldo [facility] [id number] 18:05:36 18:20:00 Denilson Winters 11 2021-01-10 2021-01-10 Emergency E UBALDO, DOV NE 7511 NE 18:05:00 18:20:00 DENILSON 2020-12-11 2020-12-11 Outpatient [facility] [id number] [address] [place] [address] 11:11:52 23:59:00 [facility] 2020-11-23 2020-11-23 Outpatient DIANE ANAGOR, [facility] [id number] [place] 15:27:47 16:20:44 [facility] 2020-11-09 2020-11-09 Outpatient DIANE ANAGOR, [facility] [id number] [place] 15:47:27 23:59:00 [facility] 2020-10-13 2020-10-13 Outpatient [facility] [id number] [place] 10:02:01 10:12:31 [facility] 2020-10-13 2020-10-13 Outpatient [facility] [id number] [place] 09:58:48 10:01:51 [facility] 2020-10-13 2020-10-13 Outpatient DIANE MANNING, [facility] [id number] [place] 08:31:19 09:29:44 [facility] 2020-09-17 2020-09-17 Emergency nullFlavo [facility] [id number] Memoria 01:12:02 03:56:00 oswald Campbell 10 l [facility] 2020-09-17 2020-09-17 Emergency nullFlavo [facility] [id number] Memoria 01:12:02 03:56:00 oswald Campbell [facility] 2020-09-16 2020-09-16 Outpatient Yamila [facility] [id number] 20:12:02 22:56:00 Chris Chowdhury [place] 2020-09-16 2020-09-16 Emergency E YAMILA NE NE 7510 MHNE 20:12:00 22:56:00 MONTEZUMA 2020-09-08 2020-09-08 Emergency nullFlavo [facility] [id number] Memoria 07:13:32 09:24:00 oswald dorman [facility] 2020-09-08 2020-09-08 Emergency nullFlavo [facility] [id number] Memoria 07:13:32 09:24:00 oswald dorman [facility] 2020-09-08 2020-09-08 Outpatient Lena Miller [facility] [id number] 02:13:32 04:24:00 Rufus 2020-09-08 2020-09-08 Emergency [id number] 02:13:00 04:24:00 2020-08-25 2020-08-25 Emergency ABIGAIL VILLATORO [facility] [id number] [place] 05:03:00 11:29:00 [facility] 2020-02-27 2020-02-27 Emergency nullFlavo [facility] [id number] Memoria 15:31:08 21:39:00 oswald dorman [facility] 2020-02-27 2020-02-27 Emergency nullFlavo [facility] [id number] Memoria 15:31:08 21:39:00 r Adrian 08 l [facility] 2020-02-27 2020-02-27 Outpatient Brayden [facility] [id number] 10:31:08 16:39:00 Leida Carrera 2020-02-27 2020-02-27 Emergency E BRAYDEN DOV [place] 7508 NE 10:31:00 16:39:00 LEIDA 2019-11-21 2019-11-22 Emergency nullFlavo [facility] [id number] Memoria 06:00:07 00:55:00 r Adrian 07 l [facility] 2019-11-21 2019-11-22 Emergency nullFlavo [facility] [id number] Memoria 06:00:07 00:55:00 r Adrian 07 l [facility] 2019-11-21 2019-11-21 Outpatient Johnny [facility] [id number] 01:00:07 19:55:00 Anna 2019-11-21 2019-11-21 Emergency E JOHNNY D[place] NE 7507 NE 01:00:00 19:55:00 ANNA 2019-10-06 2019-10-06 Emergency nullFlavo [facility] [id number] Memoria 11:14:48 14:50:00 r Adrian 06 lakia [facility] 2019-10-06 2019-10-06 Emergency nullFlavo [facility] [id number] Memoria 11:14:48 14:50:00 r Adrian 06 lakia [facility] 2019-10-06 2019-10-06 Outpatient Demario [facility] [id number] 06:14:48 09:50:00 Yesenia Tom 06 2019-10-06 2019-10-06 Emergency E DEMARIO DOV NE 7506 NE 06:14:00 09:50:00 YESENIA 2018-06-21 2018-06-21 Emergency nullFlavo [facility] [id number] Memoria 10:30:00 12:37:00 r Adrian dorman [facility] 2018-06-21 2018-06-21 Emergency nullFlavo [facility] [id number] Memoria 10:30:00 12:37:00 r Adrian dorman [facility] 2018-06-21 2018-06-21 Outpatient Neilsberg, [facility] [id number] 04:30:00 06:37:00 Edgardo Christianson 05 2018-06-18 2018-06-19 Emergency nullFlavo [facility] [id number] Memoria 21:05:00 02:02:00 oswald Campbell 04 lakia [facility] 2018-06-18 2018-06-19 Emergency nullFlavo [facility] [id number] Memoria 21:05:00 02:02:00 oswald Jovel l [facility] 2018-06-18 2018-06-18 Outpatient Jurado, [facility] [id number] 15:05:00 20:02:00 Wilian Donald 2018-06-18 2018-06-18 Emergency nullFlavo [facility] [id number] Memoria 15:31:00 17:10:00 oswald Campbell 03 l [facility] 2018-06-18 2018-06-18 Emergency [facility]Flavo [facility] [id number] Memoria 15:31:00 17:10:00 oswald Campbell 03 l [facility] 2018-06-18 2018-06-18 Outpatient Anjuashley, [facility] [id number] 09:31:00 11:10:00 Leonor Gonzalez 2018-03-23 2018-03-23 Emergency nullFlavo [facility] [id number] Memoria 23:10:00 23:26:00 oswald Campbell 02 l [facility] 2018-03-23 2018-03-23 Emergency [facility]Flavo [facility] [id number] Memoria 23:10:00 23:26:00 oswald Campbell 02 lakia [facility] 2018-03-23 2018-03-23 Outpatient Salvador, [facility] [id number] 17:10:00 17:26:00 Rodrigo Boykin 2017-10-08 2017-10-09 Out[facility] [id number] [place] 00:00:00 00:00:00 [facility] 2014-08-18 2014-08-18 EC nullFlavo [facility] [id number] Memoria 07:45:00 07:45:00 Emergency r Adrian 01 l [facility] 2014-08-18 2014-08-18 EC nullFlavo [facility] [id number] Memoria 07:45:00 07:45:00 Emergency r Adrian 01 l Center [facility] 2014-08-18 2014-08-18 Outpatient Luis, [id number] 02:45:00 02:45:00 Rajiv [id number] Andrzej [id number] 01 Results Test Description Test Time Test Comments Results Result Comments Source TSH REFLEX TO FT4 2022-10-26 00:03:00 Test Item Value Reference Range Interpretation Comme nts TSH REFLEX 0.824 0.465-4.68 N A positive bias may TO FT4 MIU/L occur for patie nts taking (test code BIOTINsupplements. = TSHREFLEX) BASIC METABOLIC [id number] 23:26:00 Test Item Value Reference Range Interpretation Comments SODIUM (test code = 142 mmol/L 137-145 N NA) POTASSIUM (test 3.6 mmol/L 3.4-5.0 N code = K) CHLORIDE (test code 110 mmol/L 98-107 H = CL) CARBON DIOXIDE 22 mmol/L 22-30 N (test code = CO2) ANION GAP (test 14 code = GAP) GLUCOSE (test code 87 mg/dL 74-106 N = GLU) BLOOD UREA NITROGEN 8 mg/dL 9-20 L (test code = BUN) GLOMERULAR 134 mL/min The Glomerular FILTRATION RATE Filtration R ate is a (test code = GFR) calculated parameterbased on serum Creatinin e, patient age and sex. GFR valuesless than 60 mL/min/1.73 squ are meters are fei cative ofChronic Kidne y Disease. Values less than 15 mL/min/1.73squa re meters indicate Kidney failure. The calculation for GFR is based on the CK D-EPI (2020) calculat ion. This formulais race indifferent and is the recommended for madalyn for GFRby the [facility] Found[facility] on for Adults.The GFR will not calculate i f the sex is unknown or if thepatient's ag e is <18 years. CREATININE (test 0.6 mg/dL 0.7-1.3 L code = CREAT) CALCIUM (test code 8.5 mg/dL 8.4-10.2 N = CA) INDEX HEMOLYSIS < 15 Index/DL 0-100 N (test code = HEMINDEX) LIVER FUNCTION [id number] 23:26:00 Test Item Value Reference Range Interpretation Comments TOTAL PROTEIN (test 6.7 g/dL 6.3-8.2 N code = PROT) "A positive bias may occur for patients taking Eltrombopag(a b one marrow stimulan t used to treat thrombocy topenia andaplastic anemia)." ALBUMIN (test code = 4.1 g/dL 3.5-5.0 N ALB) BILIRUBIN TOTAL 0.3 mg/dL 0.2-1.3 N "A positive bias may (test code = BILT) occur for patients taking Eltrombo pag(a bone marrow sti mulant used to treat thrombocytopeni a andaplastic ane ranulfo)." BILIRUBIN CONJUGATED 0 mg/dL 0-0.3 N "A posi tive bias may (test code = BILCON) occur f or patients taking Eltrombo pag(a bone marrow sti mulant used to treat thrombocytopeni a andaplastic ane ranulfo)." CON JUGATED BILIRUBIN IS TH E REPLACEMENT ASS AY FOR DIRECTBILIRUBIN . BILIRUBIN 0.2 mg/dL 0-1.1 N UNCONJUGATED (test code = BILUNC) SGOT/AST (test code 25 U/L 15-46 N = AST) SGPT/ALT (test code 22 U/L 0-49 N = ALT) ALKALINE PHOSPHATASE 49 U/L 38-126 N (test code = ALKP) CREATINE KINASE (CK)2022-10-25 23:26:00 Test Item Value Reference Range Interpretation Comments CREATINE KINASE (CK) (test code = CK) 73 U/L 55-170 N [id number] 23:26:00 Test Item Value Reference Range Interpretation Comments TROPONIN-I < 0.012 ng/mL 0.012-0.033 L (test code = TROPI) Please be advised of the updated ref erence ranges for the new Chemistry instrumentation . VITROS TROPO JOSÉ MIGUEL I CRITERIANORM AL PATIENT W/O CIRCULATING TNI: 0.012-0.033 ng/ mLAMI DIAGNOSTIC CUTO FF: >/= 0.120 ng/mL~~~~~~~~~~ ~~~~~~~~~~~~ ~~~~~~~~~~~~~~~ ~~~~~~~~~~~~ ~~~~~~~~~~The u se of serial sampling and te sting protocol is are commended practice.An vasu vated troponin level alone is often not suffi cient fordiagnosis of myocardial infarction. Tro ponin results obtaine d by different assay s may vary.Evaluation of the extent of myoca rdial damage based onincreas e of troponin would be valid only if similar methodology is used.~~~~~~~~~~ ~~~~~~~~~~~~ ~~~~~~~~~~~~~~~ ~~~~~~~~~~~~ ~~~~~~~~~~ A PO SITIVE BIAS MAY OCCUR FOR P ATIENTS TAKING BIOTIN SUPPLEMENTS~~~~ ~~~~~~~~~~~~ ~~~~~~~~~~~~~~~ ~~~~~~~~~~~~ ~~~~~~~~~~~~~~~ ~ [id number] 23:26:00 Test Item Value Reference Range Interpretation Comments ACETAMINOPHEN (test code = ACET) <10 ug/mL 10-30 L [id number] 23:26:00 Test Item Value Reference Range Interpretation Comments SALICYLATE (test code < 1.0 mg/dL Negati ve <2.0 = GARRISON) mg/dLTherapeuti c Range <20 mg/dL [id number] 23:26:00 Test Item Value Reference Range Interpretation Comments ALCOHOL (test code = 100 mg/dL <10 H ~~~~~~ ~~~~~~~~~~~~~~~~ ALC) ~~~~~~~~~~~~~~~ ~~~~~~~~ ~~~~~ RESULTS A RE TO BE USED FOR MEDICA L PURPOSES ONLY.F OR LEGAL PURPOSES THE SP ECIMEN MUST BE COLLECT ED BY A CHAINOF CUSTODY . LEGAL TESTING IS NOT PERFORMED BY IS FACILITY. ~~~~~~~~~~~~~~~ ~~~~~~~~ ~~~~~~~~~~~~~~~ ~~~~~~~~ ~~~~ UA RFLX MICR CULT IF [id number] 23:14:00 Test Item Value Reference Range Interpretation Comments UA COLOR (test code Straw Yellow = COLU) UA APPEARANCE (test Clear Clear code = APPU) UA GLUCOSE DIPSTICK Negative Negative (test code = DGLUU) UA BILIRUBIN Negative Negative DIPSTICK (test code = BILU) UA KETONE DIPSTICK Negative mg/dL Negative (test code = KETU) UA SPECIFIC GRAVITY 1.004 <1.030 (test code = SGU) UA BLOOD DIPSTICK Negative Negative (test code = DONNY) UA PH DIPSTICK (test 6.0 5.0-8.0 code = JENNIFER) UA PROTEIN DIPSTICK NEGATIVE mg/dL Negative (test code = PROU) UA UROBILINOGEN Negative mg/dL Negative DIPSTICK (test code = URO) UA NITRITE DIPSTICK Negative Negative (test code = HALEY) UA LEUKOCYTE NEGATIVE Negative ESTERASE DIPSTICK (test code = LEUU) UA WBC (test code = 0-3 /HPF See_Comment <10 WBC/ HPF = WBCUR) PYURIA ABSENT U RINE CULTURE NOT INDICATED [Automated mess age] The system [employer] h generated this result transmit liam reference range : <4-5. The refer ence range was not u sed to interpret th is result as normal/abnormal . UA RBC (test code = NONE /HPF See_Comment [Automa liam RBCU) message] The [employer] stem which generated this result transmitted reference range : <4-5. The refer ence range was not u sed to interpret th is result as normal/abnormal . UA BACTERIA (test None /HPF None-Rare code = BACU) Indication for culture: RiskForSepsis-no oth srcSOURCE OF URINE: CLEAN CATCHCBC W/AUTO [id number] 23:03:00 Test Item Value Reference Range Interpretation Comments WHITE BLOOD CELL (test code = 6.1 x10 3/uL 5.0-12.0 N WBC) RED BLOOD CELL (test code = 3.79 x10 6/uL 4.70-6.10 L RBC) HEMOGLOBIN (test code = HGB) 11.7 g/dL 14.0-18.0 L HEMATOCRIT (test code = HCT) 33.3 % 37.0-49.0 L MEAN CELL VOLUME (test code = 88 fL 80-94 N MCV) MEAN CELL HGB (test code = MCH) 30.9 pg 27-31 N MEAN CELL HGB CONCENTRATION 35.1 g/dL 33-37 N (test code = MCHC) RED CELL DISTRIBUTION WIDTH 12.8 % 11.5-15.5 N (test code = RDW) PLATELET COUNT (test code = 258 x10 3/uL 130-400 N PLT) MEAN PLATELET VOLUME (test code 9.1 fL 9.4-16.4 L = MPV) NEUTROPHIL % (test code = NT%) 54.2 % 43-65 N IMMATURE GRANULOCYTE % (test 0.2 % 0.0-2.0 N code = IG%) LYMPHOCYTE % (test code = LY%) 39.7 % 20.5-45.5 N MONOCYTE % (test code = MO%) 4.6 % 5.5-11.7 L EOSINOPHIL % (test code = EO%) 1.1 % 0.9-2.9 N BASOPHIL % (test code = BA%) 0.2 % 0.2-1.0 N NUCLEATED RBC % (test code = 0.0 % 0-1.0 N NRBC%) NEUTROPHIL # (test code = NT#) 3.33 x10 3/uL 2.2-4.8 N IMMATURE GRANULOCYTE # (test 0.01 x10 3/uL 0-0.03 N code = IG#) LYMPHOCYTE # (test code = LY#) 2.44 x10 3/uL 1.3-2.9 N MONOCYTE # (test code = MO#) 0.28 x10 3/uL 0.3-0.8 L EOSINOPHIL # (test code = EO#) 0.07 x10 3/uL 0.0-0.2 N BASOPHIL # (test code = BA#) 0.01 x10 3/uL 0.0-0.1 N - CT HEAD/BRAIN W/O [id number] 22:58:00 [facility] : 1995 Sex: M FAX: Mian Quiñones MD R2 [place]: St: REG Name: BILLY PEREZ [facility] : 1995 Age/S: 27/M [address] Unit: [id number] Loc: [place] [address] Phys: Mian Quiñones MD R2 Acct: [id number] Dis Date: Status: REG ER PHONE #: [phone] Exam Date: 10/25/20222245 FAX #: [phone] Reason: Altered mental status EXAMS: CPT CODE: [id number] CT HEAD/BRAIN W/O CONT 76104 EXAM: - CT HEAD/BRAIN W/O CONT LOCATION: H47 HISTORY: Altered mental status COMPARISON: None available at the time of interpretation. TECHNIQUE: Computerized tomography images from the skull base to the vertex were obtained. Coronal and sagittal reformatted images are provided. This exam was performed according to our departmental dose-optimizationprogram, which includes automated exposure control, adjustment of the mA and/or kV according to patient size and/or use of iterative reconstruction technique FINDINGS: Brain: The brain parenchymal architecture is unremarkable. The brain parenchyma is age appropriate. There is no evidence of an acute territorial infarct. There is no midline shift. Hemorrhage: There is no CT evidence of acute intracranial hemorrhage. Ventricles: There is no evidence of hydrocephalus. Bones: There is no evidence of acute displaced calvarial fracture. Sinuses: The visualized portions of the paranasal sinuses and mastoid air cells are free of significant opacification. Other/Soft Tissues: Unremarkable. IMPRESSION: 1. No CT evidence of acute intracranial abnormality. at 1358 Reported and signed by: Jorge Beltran MD PAGE 1 Signed Report (CONTINUED) FAX: Mian Quiñones MD R2 [place]: St: REG ------- Name: PEREZBILLY [facility] : 1995 Age/S: 27/M [address] Unit: [id number] Loc: [place] [address] Phys: Mian Quiñones MD R2 Acct: [id number] Dis Date: Status: REG ER PHONE #: [phone] Exam Date: 10/25/20222245 FAX #: [phone] Reason: Altered mental status EXAMS: CPT CODE: [id number] CT HEAD/BRAIN W/O CONT 99553 (Continued) CC: Mian Quiñones MD Technologist: SHONDA PIMENTEL; RUFUS BONILLA Trnscrd Dt/Tm: 10/25/2022 (2257) Timbo.HV2 Orig Print D/T: S: 10/25/2022 (1751 PAGE 2 Signed Report- XR CHEST 1 V 2022-10-25 22:17:00 [facility] 1995 Sex: M FAX: Mian Quiñones MD R2 [place]: St: REG Name: [place] : 1995 Age/S: 27/M [address] Unit #: [id number] Loc: [place] [address] Phys: Mian Quiñones MD R2 Acct: [id number] Dis Date: Status: REG ER PHONE #: [phone] Exam Date: 10/25/20222213 FAX #: [phone] Reason: Altered mental statusEXAMS: CPT CODE: [id number] XR CHEST 1 V 36985 EXAM: CHEST ONE VIEW INDICATION: Altered mental statusLOCATION: B2 COMPARISON: CT dated August 07, 2020 TECHNIQUE: AP view of the chest FINDINGS: The heartsize is normal. The lungs are clear bilaterally. The pulmonary vasculature is normal. No pneumothorax or pleural effusion is identified. The osseous structures are normal. IMPRESSION: No acute cardiopul monary process. at 2217 Reported and signed by: Rhina Godinez MD CC: Mian Quiñones MD Technologist: RT Jean-Paul (R) Trnscrd Date/Time/By: 10/25/2022 (2216) : By: 16 PAGE 1 Signed Report FAX: Mian Quiñones MD R2 [place]: St: REG-- Name: BILLY PEREZ [facility] [place] : 1995 Age/S: 27/M [address] Unit #: [id number] Loc: [place] [address] Phys: Mian Quiñones MD R2 Acct: [id number] Dis Date: Status: REG ER PHONE #: [phone] Exam Date: 10/25/20222213 FAX #: [phone] Reason: Altered mental status EXAMS: CPT CODE: [id number] XR CHEST 1 V 15834 (Continued) Orig Print D/T: S: 10/25/2022 (2219) PAGE 2 [facility]2022-04-16 07:37:00 Test Item Value Reference Range Interpretation Comments Glucose Lvl (test code = Glucose Lvl) 121 70-99 [place] [id number] 07:37:00 Test Item Value Reference Range Interpretation Comments BUN (test code = BUN) 8 7-22 [place] [id number] 07:37:00 Test Item Value Reference Range Interpretation Comments Creatinine Lvl (test code = Creatinine 0.73 0.50-1.40 Lvl) [place] 553202-04-16 07:37:00 Test Item Value Reference Range Interpretation Comments Sodium Lvl (test code = Sodium Lvl) 143 135-145 [place] 553202-04-16 07:37:00 Test Item Value Reference Range Interpretation Comments Potassium Lvl (test code = Potassium 3.6 3.5-5.1 Lvl) [place] 553202-04-16 07:37:00 Test Item Value Reference Range Interpretation Comments Chloride Lvl (test code = Chloride Lvl) 111 95-109 [place] 553202-04-16 07:37:00 Test Item Value Reference Range Interpretation Comments CO2 (test code = CO2) 25 24-32 [place] 553202-04-16 07:37:00 Test Item Value Reference Range Interpretation Comments Calcium Lvl (test code = Calcium Lvl) 8.8 8.5-10.5 [place] 553202-04-16 07:37:00 Test Item Value Reference Range Interpretation Comments AGAP (test code = AGAP) 10.6 10.0-20.0 [place] 553202-04-16 07:37:00 Test Item Value Reference Range Interpretation Comments eGFR (test code = eGFR) 126 [id number] 07:37:00 Test Item Value Reference Range Interpretation Comments WBC (test code = WBC) 6.6 3.7-10.4 [facility]281[facility] 07:37:00 Test Item Value Reference Range Interpretation Comments RBC (test code = RBC) 3.73 4.70-6.10 [facility]WQ1214-23-37 07:37:00 Test Item Value Reference Range Interpretation Comments Hgb (test code = Hgb) 11.6 14.0-18.0 [place] 66303-04-16 07:37:00 Test Item Value Reference Range Interpretation Comments Hct (test code = Hct) 33.7 42.0-54.0 [place] 015512-04-16 07:37:00 Test Item Value Reference Range Interpretation Comments MCV (test code = MCV) 90.4 80.0-94.0 [place] 015512-04-16 07:37:00 Test Item Value Reference Range Interpretation Comments MCH (test code = MCH) 31.0 pg 27.0-31.0 [place] 015512-04-16 07:37:00 Test Item Value Reference Range Interpretation Comments MCHC (test code = MCHC) 34.3 32.0-36.0 [id number] 07:37:00 Test Item Value Reference Range Interpretation Comments RDW (test code = RDW) 13.6 11.5-14.5 [facility] C[id number] 07:37:00 Test Item Value Reference Range Interpretation Comments Platelet (test code = Platelet) 213 133-450 [facility] CenterDignexqTKINVZVAGF8271-57-61 07:37:00 Test Item Value Reference Range Interpretation Comments MPV (test code = MPV) 8.9 7.4-10.4 [place] [address]-04-16 07:37:00 Test Item Value Reference Range Interpretation Comments Segs (test code = Segs) 59.9 45.0-75.0 [place] [address]-04-16 07:37:00 Test Item Value Reference Range Interpretation Comments Lymphocytes (test code = Lymphocytes) 32.8 20.0-40.0 [place] 015512-04-16 07:37:00 Test Item Value Reference Range Interpretation Comments Monocytes (test code = Monocytes) 4.8 2.0-12.0 [address]04-16 07:37:00 Test Item Value Reference Range Interpretation Comments Eosinophils (test code = 1.6 See_Comment [A utomated message] The Eosinophils) system which ge nerated this result tra nsmitted reference range : <=4.0. The reference r miladis was not used to int erpret this result as normal/abnormal . [address]04-16 07:37:00 Test Item Value Reference Range Interpretation Comments Basophils (test code = 0.9 See_Comment [Aut omated message] The Basophils) system which ge nerated this result tra nsmitted reference range : <=1.0. The reference r miladis was not used to int erpret this result as normal/abnormal . [address]04-16 07:37:00 Test Item Value Reference Range Interpretation Comments Neutrophils # (test code = Neutrophils 4.0 1.5-8.1 #) [address]04-16 07:37:00 Test Item Value Reference Range Interpretation Comments Lymphocytes # (test code = Lymphocytes 2.2 1.0-5.5 #) [address]04-16 07:37:00 Test Item Value Reference Range Interpretation Comments Monocytes # (test code 0.3 See_Comment [Aut omated message] The = Monocytes #) system which generated this result tra nsmitted reference range : <=0.8. The reference r miladis was not used to int erpret this result as normal/abnormal . [place] [address]-04-16 07:37:00 Test Item Value Reference Range Interpretation Comments Eosinophils # (test code 0.1 See_Comment [A utomated message] The = Eosinophils #) system whic h generated this result tra nsmitted reference range : <=0.5. The reference r miladis was not used to int erpret this result as normal/abnormal . [place] [address]-04-16 07:37:00 Test Item Value Reference Range Interpretation Comments Basophils # (test code 0.1 See_Comment [Aut omated message] The = Basophils #) system which generated this result tra nsmitted reference range : <=0.2. The reference r miladis was not used to int erpret this result as normal/abnormal . [place] 553202-04-16 07:37:00 Test Item Value Reference Range Interpretation Comments Glucose Lvl (test code = Glucose Lvl) 121 70-99 [place] [address]-04-16 07:37:00 Test Item Value Reference Range Interpretation Comments BUN (test code = BUN) 8 7-22 [place] 553202-04-16 07:37:00 Test Item Value Reference Range Interpretation Comments Creatinine Lvl (test code = Creatinine 0.73 0.50-1.40 Lvl) [place] [address]-04-16 07:37:00 Test Item Value Reference Range Interpretation Comments Sodium Lvl (test code = Sodium Lvl) 143 135-145 [place] 553202-04-16 07:37:00 Test Item Value Reference Range Interpretation Comments Potassium Lvl (test code = Potassium 3.6 3.5-5.1 Lvl) [place] 553202-04-16 07:37:00 Test Item Value Reference Range Interpretation Comments Chloride Lvl (test code = Chloride Lvl) 111 95-109 [place] 553202-04-16 07:37:00 Test Item Value Reference Range Interpretation Comments CO2 (test code = CO2) 25 24-32 [place] [address]-04-16 07:37:00 Test Item Value Reference Range Interpretation Comments Calcium Lvl (test code = Calcium Lvl) 8.8 8.5-10.5 [place] 553202-04-16 07:37:00 Test Item Value Reference Range Interpretation Comments AGAP (test code = AGAP) 10.6 10.0-20.0 [place] [address]-04-16 07:37:00 Test Item Value Reference Range Interpretation Comments eGFR (test code = eGFR) 126 [place] 015512-04-16 07:37:00 Test Item Value Reference Range Interpretation Comments WBC (test code = WBC) 6.6 3.7-10.4 [place] [address]-04-16 07:37:00 Test Item Value Reference Range Interpretation Comments RBC (test code = RBC) 3.73 4.70-6.10 [place] [address]-04-16 07:37:00 Test Item Value Reference Range Interpretation Comments Hgb (test code = Hgb) 11.6 14.0-18.0 [place] [address]-04-16 07:37:00 Test Item Value Reference Range Interpretation Comments Hct (test code = Hct) 33.7 42.0-54.0 [place] [address]-04-16 07:37:00 Test Item Value Reference Range Interpretation Comments MCV (test code = MCV) 90.4 80.0-94.0 [place] [address]-04-16 07:37:00 Test Item Value Reference Range Interpretation Comments MCH (test code = MCH) 31.0 pg 27.0-31.0 [place] 015512-04-16 07:37:00 Test Item Value Reference Range Interpretation Comments MCHC (test code = MCHC) 34.3 32.0-36.0 [place] [address]-04-16 07:37:00 Test Item Value Reference Range Interpretation Comments RDW (test code = RDW) 13.6 11.5-14.5 [place] 015512-04-16 07:37:00 Test Item Value Reference Range Interpretation Comments Platelet (test code = Platelet) 213 133-450 [place] 015512-04-16 07:37:00 Test Item Value Reference Range Interpretation Comments MPV (test code = MPV) 8.9 7.4-10.4 [place] [address]-04-16 07:37:00 Test Item Value Reference Range Interpretation Comments Segs (test code = Segs) 59.9 45.0-75.0 [place] 015512-04-16 07:37:00 Test Item Value Reference Range Interpretation Comments Lymphocytes (test code = Lymphocytes) 32.8 20.0-40.0 [place] [address]-04-16 07:37:00 Test Item Value Reference Range Interpretation Comments Monocytes (test code = Monocytes) 4.8 2.0-12.0 [place] [address]-04-16 07:37:00 Test Item Value Reference Range Interpretation Comments Eosinophils (test code = 1.6 See_Comment [A utomated message] The Eosinophils) system which ge nerated this result tra nsmitted reference range : <=4.0. The reference r miladis was not used to int erpret this result as normal/abnormal . [place] [address]-04-16 07:37:00 Test Item Value Reference Range Interpretation Comments Basophils (test code = 0.9 See_Comment [Aut omated message] The Basophils) system which ge nerated this result tra nsmitted reference range : <=1.0. The reference r miladis was not used to int erpret this result as normal/abnormal . [place] [address]-04-16 07:37:00 Test Item Value Reference Range Interpretation Comments Neutrophils # (test code = Neutrophils 4.0 1.5-8.1 #) [place] [address]-04-16 07:37:00 Test Item Value Reference Range Interpretation Comments Lymphocytes # (test code = Lymphocytes 2.2 1.0-5.5 #) [place] [address]-04-16 07:37:00 Test Item Value Reference Range Interpretation Comments Monocytes # (test code 0.3 See_Comment [Aut omated message] The = Monocytes #) system which generated this result tra nsmitted reference range : <=0.8. The reference r miladis was not used to int erpret this result as normal/abnormal . [facility] [id number] 07:37:00 Test Item Value Reference Range Interpretation Comments Eosinophils # (test code 0.1 See_Comment [A utomated message] The = Eosinophils #) system whic h generated this result tra nsmitted reference range : <=0.5. The reference r miladis was not used to int erpret this result as normal/abnormal . [facility] CenterJdybrjaWFGNZBKNTD6482-83-18 07:37:00 Test Item Value Reference Range Interpretation Comments Basophils # (test code 0.1 See_Comment [Aut omated message] The = Basophils #) system which generated this result tra nsmitted reference range : <=0.2. The reference r miladis was not used to int erpret this result as normal/abnormal . [place] 347692-04-15 22:26:00 Test Item Value Reference Range Interpretation Comments HIV Ag/Ab 4th Gen Negative *NA*(08/13/21 (test code = HIV 5:26 PM) Ag/Ab 4th Gen) [place] [address]-04-15 22:26:00 Test Item Value Reference Range Interpretation Comments HIV Ag/Ab 4th Gen Negative *NA*(08/13/21 (test code = HIV 5:26 PM) Ag/Ab 4th Gen) [place] [address]-04-15 07:19:00 Test Item Value Reference Range Interpretation Comments Glucose Lvl (test code = Glucose Lvl) 114 70-99 [place] 553202-04-15 07:19:00 Test Item Value Reference Range Interpretation Comments BUN (test code = BUN) 11 7- [place] 553202-04-15 07:19:00 Test Item Value Reference Range Interpretation Comments Creatinine Lvl (test code = Creatinine 0.88 0.50-1.40 Lvl) [place] 553202-04-15 07:19:00 Test Item Value Reference Range Interpretation Comments Sodium Lvl (test code = Sodium Lvl) 145 135-145 [place] 553202-04-15 07:19:00 Test Item Value Reference Range Interpretation Comments Potassium Lvl (test code = Potassium 3.5 3.5-5.1 Lvl) [place] 553202-04-15 07:19:00 Test Item Value Reference Range Interpretation Comments Chloride Lvl (test code = Chloride Lvl) 113 95-109 [place] 553202-04-15 07:19:00 Test Item Value Reference Range Interpretation Comments CO2 (test code = CO2) 27 24-32 [place] 553202-04-15 07:19:00 Test Item Value Reference Range Interpretation Comments Calcium Lvl (test code = Calcium Lvl) 8.7 8.5-10.5 [place] 553202-04-15 07:19:00 Test Item Value Reference Range Interpretation Comments AGAP (test code = AGAP) 8.5 10.0-20.0 [place] [address]-04-15 07:19:00 Test Item Value Reference Range Interpretation Comments eGFR (test code = eGFR) 117 [place] 015512-04-15 07:19:00 Test Item Value Reference Range Interpretation Comments WBC (test code = WBC) 8.7 3.7-10.4 [place] 015512-04-15 07:19:00 Test Item Value Reference Range Interpretation Comments RBC (test code = RBC) 3.46 4.70-6.10 [place] [address]-04-15 07:19:00 Test Item Value Reference Range Interpretation Comments Hgb (test code = Hgb) 10.9 14.0-18.0 [place] [address]-04-15 07:19:00 Test Item Value Reference Range Interpretation Comments Hct (test code = Hct) 31.2 42.0-54.0 [place] [address]-04-15 07:19:00 Test Item Value Reference Range Interpretation Comments MCV (test code = MCV) 90.1 80.0-94.0 [place] [address]-04-15 07:19:00 Test Item Value Reference Range Interpretation Comments MCH (test code = MCH) 31.5 pg 27.0-31.0 [place] [address]-04-15 07:19:00 Test Item Value Reference Range Interpretation Comments MCHC (test code = MCHC) 35.0 32.0-36.0 [place] 015512-04-15 07:19:00 Test Item Value Reference Range Interpretation Comments RDW (test code = RDW) 13.6 11.5-14.5 [place] 015512-04-15 07:19:00 Test Item Value Reference Range Interpretation Comments Platelet (test code = Platelet) 207 133-450 [facility] CenterQrcoqvkGOYNHCFGDK8032-57-04 07:19:00 Test Item Value Reference Range Interpretation Comments MPV (test code = MPV) 8.2 7.4-10.4 [place] [address]-04-15 07:19:00 Test Item Value Reference Range Interpretation Comments Segs (test code = Segs) 67.0 45.0-75.0 [place] 015512-04-15 07:19:00 Test Item Value Reference Range Interpretation Comments Lymphocytes (test code = Lymphocytes) 27.5 20.0-40.0 [place] [address]-04-15 07:19:00 Test Item Value Reference Range Interpretation Comments Monocytes (test code = Monocytes) 5.1 2.0-12.0 [place] [address]-04-15 07:19:00 Test Item Value Reference Range Interpretation Comments Eosinophils (test code = 0.1 See_Comment [A utomated message] The Eosinophils) system which ge nerated this result tra nsmitted reference range : <=4.0. The reference r miladis was not used to int erpret this result as normal/abnormal . [address]04-15 07:19:00 Test Item Value Reference Range Interpretation Comments Basophils (test code = 0.3 See_Comment [Aut omated message] The Basophils) system which ge nerated this result tra nsmitted reference range : <=1.0. The reference r miladis was not used to int erpret this result as normal/abnormal . [address]04-15 07:19:00 Test Item Value Reference Range Interpretation Comments Neutrophils # (test code = Neutrophils 5.8 1.5-8.1 #) [address]04-15 07:19:00 Test Item Value Reference Range Interpretation Comments Lymphocytes # (test code = Lymphocytes 2.4 1.0-5.5 #) [address]04-15 07:19:00 Test Item Value Reference Range Interpretation Comments Monocytes # (test code 0.4 See_Comment [Aut omated message] The = Monocytes #) system which generated this result tra nsmitted reference range : <=0.8. The reference r miladis was not used to int erpret this result as normal/abnormal . [place] 553202-04-15 07:19:00 Test Item Value Reference Range Interpretation Comments Glucose Lvl (test code = Glucose Lvl) 114 70-[address]04-15 07:19:00 Test Item Value Reference Range Interpretation Comments BUN (test code = BUN) 11 7-22 [place] [address]-04-15 07:19:00 Test Item Value Reference Range Interpretation Comments Creatinine Lvl (test code = Creatinine 0.88 0.50-1.40 Lvl) [address]04-15 07:19:00 Test Item Value Reference Range Interpretation Comments Sodium Lvl (test code = Sodium Lvl) 145 135-145 [place] [address]-04-15 07:19:00 Test Item Value Reference Range Interpretation Comments Potassium Lvl (test code = Potassium 3.5 3.5-5.1 Lvl) [address]04-15 07:19:00 Test Item Value Reference Range Interpretation Comments Chloride Lvl (test code = Chloride Lvl) 113 95-109 [place] 553202-04-15 07:19:00 Test Item Value Reference Range Interpretation Comments CO2 (test code = CO2) 27 24-32 [place] 553202-04-15 07:19:00 Test Item Value Reference Range Interpretation Comments Calcium Lvl (test code = Calcium Lvl) 8.7 8.5-10.5 [place] 553202-04-15 07:19:00 Test Item Value Reference Range Interpretation Comments AGAP (test code = AGAP) 8.5 10.0-20.0 [place] 553202-04-15 07:19:00 Test Item Value Reference Range Interpretation Comments eGFR (test code = eGFR) 117 [place] 015512-04-15 07:19:00 Test Item Value Reference Range Interpretation Comments WBC (test code = WBC) 8.7 3.7-10.4 [place] 015512-04-15 07:19:00 Test Item Value Reference Range Interpretation Comments RBC (test code = RBC) 3.46 4.70-6.10 [place] [address]-04-15 07:19:00 Test Item Value Reference Range Interpretation Comments Hgb (test code = Hgb) 10.9 14.0-18.0 [place] [address]-04-15 07:19:00 Test Item Value Reference Range Interpretation Comments Hct (test code = Hct) 31.2 42.0-54.0 [place] [address]-04-15 07:19:00 Test Item Value Reference Range Interpretation Comments MCV (test code = MCV) 90.1 80.0-94.0 [place] [address]-04-15 07:19:00 Test Item Value Reference Range Interpretation Comments MCH (test code = MCH) 31.5 pg 27.0-31.0 [place] [address]-04-15 07:19:00 Test Item Value Reference Range Interpretation Comments MCHC (test code = MCHC) 35.0 32.0-36.0 [place] [address]-04-15 07:19:00 Test Item Value Reference Range Interpretation Comments RDW (test code = RDW) 13.6 11.5-14.5 [place] [address]-04-15 07:19:00 Test Item Value Reference Range Interpretation Comments Platelet (test code = Platelet) 207 133-450 [place] 015512-04-15 07:19:00 Test Item Value Reference Range Interpretation Comments MPV (test code = MPV) 8.2 7.4-10.4 [place] [address]-04-15 07:19:00 Test Item Value Reference Range Interpretation Comments Segs (test code = Segs) 67.0 45.0-75.0 [place] [address]-04-15 07:19:00 Test Item Value Reference Range Interpretation Comments Lymphocytes (test code = Lymphocytes) 27.5 20.0-40.0 [place] [address]-04-15 07:19:00 Test Item Value Reference Range Interpretation Comments Monocytes (test code = Monocytes) 5.1 2.0-12.0 [place] [address]-04-15 07:19:00 Test Item Value Reference Range Interpretation Comments Eosinophils (test code = 0.1 See_Comment [A utomated message] The Eosinophils) system which ge nerated this result tra nsmitted reference range : <=4.0. The reference r miladis was not used to int erpret this result as normal/abnormal . [place] [address]-04-15 07:19:00 Test Item Value Reference Range Interpretation Comments Basophils (test code = 0.3 See_Comment [Aut omated message] The Basophils) system which ge nerated this result tra nsmitted reference range : <=1.0. The reference r miladis was not used to int erpret this result as normal/abnormal . [place] 015512-04-15 07:19:00 Test Item Value Reference Range Interpretation Comments Neutrophils # (test code = Neutrophils 5.8 1.5-8.1 #) [place] [address]-04-15 07:19:00 Test Item Value Reference Range Interpretation Comments Lymphocytes # (test code = Lymphocytes 2.4 1.0-5.5 #) [place] [address]-04-15 07:19:00 Test Item Value Reference Range Interpretation Comments Monocytes # (test code 0.4 See_Comment [Aut omated message] The = Monocytes #) system which generated this result tra nsmitted reference range : <=0.8. The reference r miladis was not used to int erpret this result as normal/abnormal . [facility] [employer] - [id number] 15:12:00 Test Item Value Reference Range Interpretation Comments MRSA by PCR (test Negative (08/12/21 10:12 code = MRSA by PCR) AM) [facility] [id number] 15:12:00 Test Item Value Reference Range Interpretation Comments MRSA by PCR (test Negative (08/12/21 10:12 code = MRSA by PCR) AM) [facility] [employer] [id number] 15:05:00 Test Item Value Reference Range Interpretation Comments Procalcitonin Lvl (test 27.74 See_Comment [Au tomated message] code = Procalcitonin Lvl) Th e system which generated this result transmitted ref erence range: <=0.10. The reference range was not used to interpr et this result as normal/abnormal . [facility] [employer] [id number] 15:05:00 Test Item Value Reference Range Interpretation Comments Procalcitonin Lvl (test 27.74 See_Comment [Au tomated message] code = Procalcitonin Lvl) Th e system which generated this result transmitted ref erence range: <=0.10. The reference range was not used to interpr et this result as normal/abnormal . [facility] [employer] - [id number] 11:35:00 Test Item Value Reference Range Interpretation Comments Source Strep (test code Urine *NA*(08/12/21 = Source Strep) 6:35 AM) [facility] [employer] - [id number] 11:35:00 Test Item Value Reference Range Interpretation Comments Strep pneumoniae Ag Negative (08/12/21 (test code = Strep 6:35 AM) pneumoniae Ag) [facility] [employer] [id number] 11:35:00 Test Item Value Reference Range Interpretation Comments U Amph Scr (test code Negative *NA*(08/12/21 = U Amph Scr) 6:35 AM) [facility] [employer] [id number] 11:35:00 Test Item Value Reference Range Interpretation Comments U Coby Scr (test code Negative *NA*(08/12/21 = U Coby Scr) 6:35 AM) [facility] [employer] [id number] 11:35:00 Test Item Value Reference Range Interpretation Comments U Benzodiaz Scr (test Positive *ABN*(08/12/21 code = U Benzodiaz Scr) 6:35 AM) [facility] [id number] 11:35:00 Test Item Value Reference Range Interpretation Comments U Cocaine Scr (test Negative *NA*(08/12/21 code = U Cocaine Scr) 6:35 AM) [facility] [id number] 11:35:00 Test Item Value Reference Range Interpretation Comments U Cannab Scr (test Negative *NA*(08/12/21 code = U Cannab Scr) 6:35 AM) [facility] [id number] 11:35:00 Test Item Value Reference Range Interpretation Comments U Opiate Scr (test Positive *ABN*(08/12/21 code = U Opiate Scr) 6:35 AM) [facility] [id number] 11:35:00 Test Item Value Reference Range Interpretation Comments U Phencyclidine Scr (test Negative code = U Phencyclidine *NA*(08/12/21 6:35 Scr) AM) [facility] [id number] 11:35:00 Test Item Value Reference Range Interpretation Comments UDS Note (test code = See Note (08/12/21 6:35 UDS Note) AM) [facility] [id number] 11:35:00 Test Item Value Reference Range Interpretation Comments UA Color (test code = Yellow *NA*(08/12/21 UA Color) 6:35 AM) [facility] [id number] 11:35:00 Test Item Value Reference Range Interpretation Comments UA Turbidity (test code Slight *ABN*(08/12/21 = UA Turbidity) 6:35 AM) [facility] [id number] 11:35:00 Test Item Value Reference Range Interpretation Comments UA Spec Grav (test code = UA Spec 1.047 1 Grav) [facility] [id number] 11:35:00 Test Item Value Reference Range Interpretation Comments UA pH (test code = UA pH) 6.0 1 5.0-8.0 [facility] [id number] 11:35:00 Test Item Value Reference Range Interpretation Comments UA Protein (test code = UA Protein) 30 mg/dL [facility] AND [id number] 11:35:00 Test Item Value Reference Range Interpretation Comments UA Glucose (test code = UA Negative mg/dL Glucose) [facility] AND [id number] 11:35:00 Test Item Value Reference Range Interpretation Comments UA Ketones (test code = UA Negative mg/dL Ketones) [facility] AND [id number] 11:35:00 Test Item Value Reference Range Interpretation Comments UA Bili (test code = Negative *NA*(08/12/21 UA Bili) 6:35 AM) [facility] AND [id number] 11:35:00 Test Item Value Reference Range Interpretation Comments UA Blood (test code = Small *ABN*(08/12/21 UA Blood) 6:35 AM) [facility] AND [id number] 11:35:00 Test Item Value Reference Range Interpretation Comments UA Nitrite (test code Negative (08/12/21 6:35 = UA Nitrite) AM) [facility] AND [id number] 11:35:00 Test Item Value Reference Range Interpretation Comments UA Leuk Est (test Negative (08/12/21 6:35 code = UA Leuk Est) AM) [facility] AND [id number] 11:35:00 Test Item Value Reference Range Interpretation Comments UA Sq Epi (test code = UA Sq Occasional /LPF Epi) [facility] AND [id number] 11:35:00 Test Item Value Reference Range Interpretation Comments UA WBC (test code = 6 See_Comment [Automa liam message] The UA WBC) system which ge nerated this result transmit liam reference range : <=5. The reference range was not used to interpr et this result as pedro l/abnormal. [facility] AND [id number] 11:35:00 Test Item Value Reference Range Interpretation Comments UA RBC (test code = 2 See_Comment [Automa liam message] The UA RBC) system which ge nerated this result transmit liam reference range : <=2. The reference range was not used to interpr et this result as pedro l/abnormal. [facility] AND [id number] 11:35:00 Test Item Value Reference Range Interpretation Comments UA Gran Cast (test code = UA Gran 3-5 /LPF Cast) [facility] [id number] 11:35:00 Test Item Value Reference Range Interpretation Comments UA Urobilinogen (test code = UA <=1.0 mg/dL 0.1-1.0 Urobilinogen) [facility] [id number] 11:35:00 Test Item Value Reference Range Interpretation Comments Source Strep (test code Urine *NA*(08/12/21 = Source Strep) 6:35 AM) [facility] [id number] 11:35:00 Test Item Value Reference Range Interpretation Comments Strep pneumoniae Ag Negative (08/12/21 (test code = Strep 6:35 AM) pneumoniae Ag) [facility] [id number] 11:35:00 Test Item Value Reference Range Interpretation Comments U Amph Scr (test code Negative *NA*(08/12/21 = U Amph Scr) 6:35 AM) [facility] [id number] 11:35:00 Test Item Value Reference Range Interpretation Comments U Coby Scr (test code Negative *NA*(08/12/21 = U Coby Scr) 6:35 AM) [facility] [id number] 11:35:00 Test Item Value Reference Range Interpretation Comments U Benzodiaz Scr (test Positive *ABN*(08/12/21 code = U Benzodiaz Scr) 6:35 AM) [facility] [id number] 11:35:00 Test Item Value Reference Range Interpretation Comments U Cocaine Scr (test Negative *NA*(08/12/21 code = U Cocaine Scr) 6:35 AM) [facility] [id number] 11:35:00 Test Item Value Reference Range Interpretation Comments U Cannab Scr (test Negative *NA*(08/12/21 code = U Cannab Scr) 6:35 AM) [facility] [id number] 11:35:00 Test Item Value Reference Range Interpretation Comments U Opiate Scr (test Positive *ABN*(08/12/21 code = U Opiate Scr) 6:35 AM) [facility] [id number] 11:35:00 Test Item Value Reference Range Interpretation Comments U Phencyclidine Scr (test Negative code = U Phencyclidine *NA*(08/12/21 6:35 Scr) AM) [facility] [id number] 11:35:00 Test Item Value Reference Range Interpretation Comments UDS Note (test code = See Note (08/12/21 6:35 UDS Note) AM) [facility] [id number] 11:35:00 Test Item Value Reference Range Interpretation Comments UA Color (test code = Yellow *NA*(08/12/21 UA Color) 6:35 AM) [facility] [id number] 11:35:00 Test Item Value Reference Range Interpretation Comments UA Turbidity (test code Slight *ABN*(08/12/21 = UA Turbidity) 6:35 AM) [facility] [id number] 11:35:00 Test Item Value Reference Range Interpretation Comments UA Spec Grav (test code = UA Spec 1.047 1 Grav) [facility] [id number] 11:35:00 Test Item Value Reference Range Interpretation Comments UA pH (test code = UA pH) 6.0 1 5.0-8.0 [facility] [id number] 11:35:00 Test Item Value Reference Range Interpretation Comments UA Protein (test code = UA Protein) 30 mg/dL [facility] [id number] 11:35:00 Test Item Value Reference Range Interpretation Comments UA Glucose (test code = UA Negative mg/dL Glucose) [facility] [id number] 11:35:00 Test Item Value Reference Range Interpretation Comments UA Ketones (test code = UA Negative mg/dL Ketones) [facility] [id number] 11:35:00 Test Item Value Reference Range Interpretation Comments UA Bili (test code = Negative *NA*(08/12/21 UA Bili) 6:35 AM) [facility] [id number] 11:35:00 Test Item Value Reference Range Interpretation Comments UA Blood (test code = Small *ABN*(08/12/21 UA Blood) 6:35 AM) [facility] [id number] 11:35:00 Test Item Value Reference Range Interpretation Comments UA Nitrite (test code Negative (08/12/21 6:35 = UA Nitrite) AM) [facility] [id number] 11:35:00 Test Item Value Reference Range Interpretation Comments UA Leuk Est (test Negative (08/12/21 6:35 code = UA Leuk Est) AM) [facility] [id number] 11:35:00 Test Item Value Reference Range Interpretation Comments UA Sq Epi (test code = UA Sq Occasional /LPF Epi) [facility] AND [id number] 11:35:00 Test Item Value Reference Range Interpretation Comments UA WBC (test code = 6 See_Comment [Automa liam message] The UA WBC) system which ge nerated this result transmit liam reference range : <=5. The reference range was not used to interpr et this result as pedro l/abnormal. [facility] [id number] 11:35:00 Test Item Value Reference Range Interpretation Comments UA RBC (test code = 2 See_Comment [Automa liam message] The UA RBC) system which ge nerated this result transmit liam reference range : <=2. The reference range was not used to interpr et this result as pedro l/abnormal. [facility] [id number] 11:35:00 Test Item Value Reference Range Interpretation Comments UA Gran Cast (test code = UA Gran 3-5 /LPF Cast) [facility] AND [id number] 11:35:00 Test Item Value Reference Range Interpretation Comments UA Urobilinogen (test code = UA <=1.0 mg/dL 0.1-1.0 Urobilinogen) [facility] [id number] 11:15:00 Test Item Value Reference Range Interpretation Comments Lactic Acid Lvl (test code = Lactic 1.1 0.5-2.2 Acid Lvl) [facility] [id number] 11:15:00 Test Item Value Reference Range Interpretation Comments Lactic Acid Lvl (test code = Lactic 1.1 0.5-2.2 Acid Lvl) [facility] [id number] 06:19:00 Test Item Value Reference Range Interpretation Comments Coronavirus (COVID-19) Not Detected (08/12/21 PATI (test code = 1:19 AM) Coronavirus (COVID-19) PATI) [facility] - [id number] 06:19:00 Test Item Value Reference Range Interpretation Comments Influ A (test code = Negative (08/12/21 1:19 Influ A) AM) [facility]ann[facility] - [id number] 06:19:00 Test Item Value Reference Range Interpretation Comments Influ B (test code = Negative (08/12/21 1:19 Influ B) AM) [facility] [id number] 06:19:00 Test Item Value Reference Range Interpretation Comments Coronavirus (COVID-19) Not Detected (08/12/21 PATI (test code = 1:19 AM) Coronavirus (COVID-19) PATI) [facility] - [id number] 06:19:00 Test Item Value Reference Range Interpretation Comments Influ A (test code = Negative (08/12/21 1:19 Influ A) AM) [facility] - [id number] 06:19:00 Test Item Value Reference Range Interpretation Comments Influ B (test code = Negative (08/12/21 1:19 Influ B) AM) [facility]annKSLECULAR [id number] 06:13:00 Test Item Value Reference Range Interpretation Comments S. aureus (test code = Not Detected (08/12/21 S. aureus) 1:13 AM) [facility]annKSLECULAR [id number] 06:13:00 Test Item Value Reference Range Interpretation Comments S. epidermidis (test Not Detected (08/12/21 code = S. epidermidis) 1:13 AM) [facility]annKSLE[facility]ULAR [id number] 06:13:00 Test Item Value Reference Range Interpretation Comments S. lugdunensis (test Not Detected (08/12/21 code = S. lugdunensis) 1:13 AM) [facility]annKSLE[facility] [id number] 06:13:00 Test Item Value Reference Range Interpretation Comments S. anginosus grp (test Not Detected (08/12/21 code = S. anginosus 1:13 AM) grp) [facility]LE[facility] [id number] 06:13:00 Test Item Value Reference Range Interpretation Comments S. agalactiae (test code Not Detected (08/12/21 = S. agalactiae) 1:13 AM) [id number] 06:13:00 Test Item Value Reference Range Interpretation Comments S. pneumoniae (test code Not Detected (08/12/21 = S. pneumoniae) 1:13 AM) [place] 704992-04-14 06:13:00 Test Item Value Reference Range Interpretation Comments S. pyogenes (test code Not Detected (08/12/21 = S. pyogenes) 1:13 AM) [place] [address]-04-14 06:13:00 Test Item Value Reference Range Interpretation Comments E. faecalis (test code Not Detected (08/12/21 = E. faecalis) 1:13 AM) [place] [address]-04-14 06:13:00 Test Item Value Reference Range Interpretation Comments E. faecium (test code Not Detected (08/12/21 = E. faecium) 1:13 AM) [place] [address]-04-14 06:13:00 Test Item Value Reference Range Interpretation Comments Staphylococcus spp. (test Detected code = Staphylococcus *ABN*(08/12/21 1:13 spp.) AM) [place] 704992-04-14 06:13:00 Test Item Value Reference Range Interpretation Comments Streptococcus spp. (test Not Detected code = Streptococcus (08/12/21 1:13 AM) spp.) [place] 704992-04-14 06:13:00 Test Item Value Reference Range Interpretation Comments Listeria spp. (test Not Detected (08/12/21 code = Listeria spp.) 1:13 AM) [place] 704992-04-14 06:13:00 Test Item Value Reference Range Interpretation Comments mecA Methicillin Not Detected (08/12/21 Resistance (test code = 1:13 AM) mecA Methicillin Resistance) [place] 704992-04-14 06:13:00 Test Item Value Reference Range Interpretation Comments Rahul Vancomycin Not Detected (08/12/21 Resistance (test code = 1:13 AM) Rahul Vancomycin Resistance) [place] [address]-04-14 06:13:00 Test Item Value Reference Range Interpretation Comments vanB Vancomycin Not Detected (08/12/21 Resistance (test code = 1:13 AM) vanB Vancomycin Resistance) [facility]2022-04-14 06:13:00 Test Item Value Reference Range Interpretation Comments S. aureus (test code = Not Detected (08/12/21 S. aureus) 1:13 AM) [facility]2022-04-14 06:13:00 Test Item Value Reference Range Interpretation Comments S. epidermidis (test Not Detected (08/12/21 code = S. epidermidis) 1:13 AM) [facility]2022-04-14 06:13:00 Test Item Value Reference Range Interpretation Comments S. lugdunensis (test Not Detected (08/12/21 code = S. lugdunensis) 1:13 AM) [facility]2022-04-14 06:13:00 Test Item Value Reference Range Interpretation Comments S. anginosus grp (test Not Detected (08/12/21 code = S. anginosus 1:13 AM) grp) [facility]2022-04-14 06:13:00 Test Item Value Reference Range Interpretation Comments S. agalactiae (test code Not Detected (08/12/21 = S. agalactiae) 1:13 AM) [facility]2022-04-14 06:13:00 Test Item Value Reference Range Interpretation Comments S. pneumoniae (test code Not Detected (08/12/21 = S. pneumoniae) 1:13 AM) [facility]2022-04-14 06:13:00 Test Item Value Reference Range Interpretation Comments S. pyogenes (test code Not Detected (08/12/21 = S. pyogenes) 1:13 AM) [facility]2022-04-14 06:13:00 Test Item Value Reference Range Interpretation Comments E. faecalis (test code Not Detected (08/12/21 = E. faecalis) 1:13 AM) [place] 704992-04-14 06:13:00 Test Item Value Reference Range Interpretation Comments E. faecium (test code Not Detected (08/12/21 = E. faecium) 1:13 AM) [facility]2022-04-14 06:13:00 Test Item Value Reference Range Interpretation Comments Staphylococcus spp. (test Detected code = Staphylococcus *ABN*(08/12/21 1:13 spp.) AM) [facility] [id number] 06:13:00 Test Item Value Reference Range Interpretation Comments Streptococcus spp. (test Not Detected code = Streptococcus (08/12/21 1:13 AM) spp.) [facility]2022-04-14 06:13:00 Test Item Value Reference Range Interpretation Comments Listeria spp. (test Not Detected (08/12/21 code = Listeria spp.) 1:13 AM) [facility] [id number] 06:13:00 Test Item Value Reference Range Interpretation Comments mecA Methicillin Not Detected (08/12/21 Resistance (test code = 1:13 AM) mecA Methicillin Resistance) [facility]2022-04-14 06:13:00 Test Item Value Reference Range Interpretation Comments Rahul Vancomycin Not Detected (08/12/21 Resistance (test code = 1:13 AM) Rahul Vancomycin Resistance) [facility]2022-04-14 06:13:00 Test Item Value Reference Range Interpretation Comments vanB Vancomycin Not Detected (08/12/21 Resistance (test code = 1:13 AM) vanB Vancomycin Resistance) [facility] HospitalHeyoAC [id number] 05:56:00 Test Item Value Reference Range Interpretation Comments Total CK (test code = Total CK) 117 12-191 [facility] InteractiveAC [id number] 05:56:00 Test Item Value Reference Range Interpretation Comments HS Troponin I (test code = HS Troponin 58 I) [facility] InteractiveAC [id number] 05:56:00 Test Item Value Reference Range Interpretation Comments BNP (test code = BNP) 5 [facility]Audio[facility] [id number] 05:56:00 Test Item Value Reference Range Interpretation Comments Glucose Lvl (test code = Glucose Lvl) 90 70-99 [facility] [id number] 05:56:00 Test Item Value Reference Range Interpretation Comments BUN (test code = BUN) 14 - [facility] [id number] 05:56:00 Test Item Value Reference Range Interpretation Comments Creatinine Lvl (test code = Creatinine 1.58 0.50-1.40 Lvl) [facility] [id number] 05:56:00 Test Item Value Reference Range Interpretation Comments Sodium Lvl (test code = Sodium Lvl) 146 135-145 [place] 553202-04-14 05:56:00 Test Item Value Reference Range Interpretation Comments Potassium Lvl (test code = Potassium 3.1 3.5-5.1 Lvl) [place] [address]-04-14 05:56:00 Test Item Value Reference Range Interpretation Comments Chloride Lvl (test code = Chloride Lvl) 114 95-109 [place] 553202-04-14 05:56:00 Test Item Value Reference Range Interpretation Comments CO2 (test code = CO2) 19 24-32 [place] [address]-04-14 05:56:00 Test Item Value Reference Range Interpretation Comments Calcium Lvl (test code = Calcium Lvl) 9.0 8.5-10.5 [place] 553202-04-14 05:56:00 Test Item Value Reference Range Interpretation Comments Total Protein (test code = Total 7.0 6.4-8.4 Protein) [place] 553202-04-14 05:56:00 Test Item Value Reference Range Interpretation Comments Albumin Lvl (test code = Albumin Lvl) 3.9 3.5-5.0 [facility] [id number] 05:56:00 Test Item Value Reference Range Interpretation Comments ALT (test code = ALT) 36 See_Comment [Auto mated message] The system which ge nerated this result transmit liam reference range : <=65. The reference range was not used to interpr et this result as pedro l/abnormal. [facility] [id number] 05:56:00 Test Item Value Reference Range Interpretation Comments AST (test code = AST) 50 See_Comment [Auto mated message] The system which ge nerated this result transmit liam reference range : <=37. The reference range was not used to interpr et this result as pedro l/abnormal. [place] 553202-04-14 05:56:00 Test Item Value Reference Range Interpretation Comments Alk Phos (test code = Alk Phos) 53 39-136 [place] 553202-04-14 05:56:00 Test Item Value Reference Range Interpretation Comments Bili Total (test code = Bili Total) 0.2 0.2-1.3 [place] 553202-04-14 05:56:00 Test Item Value Reference Range Interpretation Comments AGAP (test code = AGAP) 16.1 10.0-20.0 [place] 553202-04-14 05:56:00 Test Item Value Reference Range Interpretation Comments B/C Ratio (test code = B/C Ratio) 9 1 6-25 [place] [address]-04-14 05:56:00 Test Item Value Reference Range Interpretation Comments Globulin (test code = Globulin) 3.1 2.7-4.2 [place] [address]-04-14 05:56:00 Test Item Value Reference Range Interpretation Comments A/G Ratio (test code = A/G Ratio) 1.3 1 0.7-1.6 [place] 553202-04-14 05:56:00 Test Item Value Reference Range Interpretation Comments eGFR (test code = eGFR) 59 [place] 553202-04-14 05:56:00 Test Item Value Reference Range Interpretation Comments Lipase Lvl (test code = Lipase Lvl) 223 21-393 [place] 553202-04-14 05:56:00 Test Item Value Reference Range Interpretation Comments Lactic Acid Lvl (test code = Lactic 4.6 0.5-2.2 Acid Lvl) [place] 015512-04-14 05:56:00 Test Item Value Reference Range Interpretation Comments WBC (test code = WBC) 6.4 3.7-10.4 [place] 015512-04-14 05:56:00 Test Item Value Reference Range Interpretation Comments RBC (test code = RBC) 4.16 4.70-6.10 [place] [address]-04-14 05:56:00 Test Item Value Reference Range Interpretation Comments Hgb (test code = Hgb) 12.7 14.0-18.0 [place] [address]-04-14 05:56:00 Test Item Value Reference Range Interpretation Comments Hct (test code = Hct) 37.2 42.0-54.0 [place] [address]-04-14 05:56:00 Test Item Value Reference Range Interpretation Comments MCV (test code = MCV) 89.6 80.0-94.0 [address]04-14 05:56:00 Test Item Value Reference Range Interpretation Comments MCH (test code = MCH) 30.6 pg 27.0-31.0 [place] 015512-04-14 05:56:00 Test Item Value Reference Range Interpretation Comments MCHC (test code = MCHC) 34.2 32.0-36.0 [facility] CenterZpwxgvvEGGHCAFPNR5383-70-70 05:56:00 Test Item Value Reference Range Interpretation Comments RDW (test code = RDW) 13.5 11.5-14.5 [place] 015512-04-14 05:56:00 Test Item Value Reference Range Interpretation Comments Platelet (test code = Platelet) 225 133-450 [place] 015512-04-14 05:56:00 Test Item Value Reference Range Interpretation Comments MPV (test code = MPV) 7.7 7.4-10.4 [place] 015512-04-14 05:56:00 Test Item Value Reference Range Interpretation Comments PT (test code = PT) 13.7 s 12.0-14.7 [place] 015512-04-14 05:56:00 Test Item Value Reference Range Interpretation Comments INR (test code = INR) 1.06 1 0.85-1.17 [place] [address]-04-14 05:56:00 Test Item Value Reference Range Interpretation Comments PTT (test code = PTT) 31.4 s 22.9-35.8 [place] [address]-04-14 05:56:00 Test Item Value Reference Range Interpretation Comments Segs (test code = Segs) 85.5 45.0-75.0 [place] 015512-04-14 05:56:00 Test Item Value Reference Range Interpretation Comments Lymphocytes (test code = Lymphocytes) 10.7 20.0-40.0 [place] [address]-04-14 05:56:00 Test Item Value Reference Range Interpretation Comments Monocytes (test code = Monocytes) 3.6 2.0-12.0 [place] [address]-04-14 05:56:00 Test Item Value Reference Range Interpretation Comments Basophils (test code = 0.2 See_Comment [Aut omated message] The Basophils) system which ge nerated this result tra nsmitted reference range : <=1.0. The reference r miladis was not used to int erpret this result as normal/abnormal . [facility] HospitalPlrmrmyBWNXUAGZPW0773-42-57 05:56:00 Test Item Value Reference Range Interpretation Comments Neutrophils # (test code = Neutrophils 5.5 1.5-8.1 #) [facility]GcyllnbDRPJZIKWLI2904-[facility]-70 05:56:00 Test Item Value Reference Range Interpretation Comments Lymphocytes # (test code = Lymphocytes 0.7 1.0-5.5 #) [facility] CenterQwvbvfmDEKPGXNYGY2595-02-69 05:56:00 Test Item Value Reference Range Interpretation Comments Monocytes # (test code 0.2 See_Comment [Aut omated message] The = Monocytes #) system which generated this result tra nsmitted reference range : <=0.8. The reference r miladis was not used to int erpret this result as normal/abnormal . [facility] SoutheastWuehopfCBMRZZBBRY3610-26-42 05:56:00 Test Item Value Reference Range Interpretation Comments Ethanol Lvl (test code = Ethanol Lvl) 120 [facility] SoutheastXrdrhfzBGRMHEAFPJ2609-71-15 05:56:00 Test Item Value Reference Range Interpretation Comments Etoh (%) (test code = Etoh (%)) 0.120 [facility] Hospitalbabberly EPEQIRH5492-06-03 05:56:00 Test Item Value Reference Range Interpretation Comments Total CK (test code = Total CK) 117 12-191 [facility] HospitalQuvium2022-04-14 05:56:00 Test Item Value Reference Range Interpretation Comments HS Troponin I (test code = HS Troponin 58 I) [facility] SoutheastadvisorCONNECTCPZDNYH8034-07-98 05:56:00 Test Item Value Reference Range Interpretation Comments BNP (test code = BNP) 5 [facility] HospitalAudioC[facility] [id number] 05:56:00 Test Item Value Reference Range Interpretation Comments Glucose Lvl (test code = Glucose Lvl) 90 70-99 [facility]Audio[facility] [id number] 05:56:00 Test Item Value Reference Range Interpretation Comments BUN (test code = BUN) 14 7-22 [facility] [id number] 05:56:00 Test Item Value Reference Range Interpretation Comments Creatinine Lvl (test code = Creatinine 1.58 0.50-1.40 Lvl) [facility] [id number] 05:56:00 Test Item Value Reference Range Interpretation Comments Sodium Lvl (test code = Sodium Lvl) 146 135-145 [place] 553202-04-14 05:56:00 Test Item Value Reference Range Interpretation Comments Potassium Lvl (test code = Potassium 3.1 3.5-5.1 Lvl) [place] [address]-04-14 05:56:00 Test Item Value Reference Range Interpretation Comments Chloride Lvl (test code = Chloride Lvl) 114 95-109 [place] 553202-04-14 05:56:00 Test Item Value Reference Range Interpretation Comments CO2 (test code = CO2) 19 24-32 [place] [address]-04-14 05:56:00 Test Item Value Reference Range Interpretation Comments Calcium Lvl (test code = Calcium Lvl) 9.0 8.5-10.5 [place] 553202-04-14 05:56:00 Test Item Value Reference Range Interpretation Comments Total Protein (test code = Total 7.0 6.4-8.4 Protein) [place] 553202-04-14 05:56:00 Test Item Value Reference Range Interpretation Comments Albumin Lvl (test code = Albumin Lvl) 3.9 3.5-5.0 [facility] [id number] 05:56:00 Test Item Value Reference Range Interpretation Comments ALT (test code = ALT) 36 See_Comment [Auto mated message] The system which ge nerated this result transmit liam reference range : <=65. The reference range was not used to interpr et this result as pedro l/abnormal. [facility] [id number] 05:56:00 Test Item Value Reference Range Interpretation Comments AST (test code = AST) 50 See_Comment [Auto mated message] The system which ge nerated this result transmit liam reference range : <=37. The reference range was not used to interpr et this result as pedro l/abnormal. [place] 553202-04-14 05:56:00 Test Item Value Reference Range Interpretation Comments Alk Phos (test code = Alk Phos) 53 39-136 [place] 553202-04-14 05:56:00 Test Item Value Reference Range Interpretation Comments Bili Total (test code = Bili Total) 0.2 0.2-1.3 [place] 553202-04-14 05:56:00 Test Item Value Reference Range Interpretation Comments AGAP (test code = AGAP) 16.1 10.0-20.0 [place] 553202-04-14 05:56:00 Test Item Value Reference Range Interpretation Comments B/C Ratio (test code = B/C Ratio) 9 1 6-25 [place] [address]-04-14 05:56:00 Test Item Value Reference Range Interpretation Comments Globulin (test code = Globulin) 3.1 2.7-4.2 [place] [address]-04-14 05:56:00 Test Item Value Reference Range Interpretation Comments A/G Ratio (test code = A/G Ratio) 1.3 1 0.7-1.6 [place] 553202-04-14 05:56:00 Test Item Value Reference Range Interpretation Comments eGFR (test code = eGFR) 59 [place] 553202-04-14 05:56:00 Test Item Value Reference Range Interpretation Comments Lipase Lvl (test code = Lipase Lvl) 493 53-393 [place] 553202-04-14 05:56:00 Test Item Value Reference Range Interpretation Comments Lactic Acid Lvl (test code = Lactic 4.6 0.5-2.2 Acid Lvl) [place] 015512-04-14 05:56:00 Test Item Value Reference Range Interpretation Comments WBC (test code = WBC) 6.4 3.7-10.4 [place] 015512-04-14 05:56:00 Test Item Value Reference Range Interpretation Comments RBC (test code = RBC) 4.16 4.70-6.10 [place] [address]-04-14 05:56:00 Test Item Value Reference Range Interpretation Comments Hgb (test code = Hgb) 12.7 14.0-18.0 [place] [address]-04-14 05:56:00 Test Item Value Reference Range Interpretation Comments Hct (test code = Hct) 37.2 42.0-54.0 [place] [address]-04-14 05:56:00 Test Item Value Reference Range Interpretation Comments MCV (test code = MCV) 89.6 80.0-94.[address]04-14 05:56:00 Test Item Value Reference Range Interpretation Comments MCH (test code = MCH) 30.6 pg 27.0-31.0 [place] 015512-04-14 05:56:00 Test Item Value Reference Range Interpretation Comments MCHC (test code = MCHC) 34.2 32.0-36.0 [facility] CenterVdtcpaxHWSVXJVNBJ4353-25-14 05:56:00 Test Item Value Reference Range Interpretation Comments RDW (test code = RDW) 13.5 11.5-14.5 [place] 015512-04-14 05:56:00 Test Item Value Reference Range Interpretation Comments Platelet (test code = Platelet) 225 133-450 [place] 015512-04-14 05:56:00 Test Item Value Reference Range Interpretation Comments MPV (test code = MPV) 7.7 7.4-10.4 [place] 015512-04-14 05:56:00 Test Item Value Reference Range Interpretation Comments PT (test code = PT) 13.7 s 12.0-14.7 [place] 015512-04-14 05:56:00 Test Item Value Reference Range Interpretation Comments INR (test code = INR) 1.06 1 0.85-1.17 [place] [address]-04-14 05:56:00 Test Item Value Reference Range Interpretation Comments PTT (test code = PTT) 31.4 s 22.9-35.8 [place] [address]-04-14 05:56:00 Test Item Value Reference Range Interpretation Comments Segs (test code = Segs) 85.5 45.0-75.0 [place] 015512-04-14 05:56:00 Test Item Value Reference Range Interpretation Comments Lymphocytes (test code = Lymphocytes) 10.7 20.0-40.0 [place] [address]-04-14 05:56:00 Test Item Value Reference Range Interpretation Comments Monocytes (test code = Monocytes) 3.6 2.0-12.0 [place] [address]-04-14 05:56:00 Test Item Value Reference Range Interpretation Comments Basophils (test code = 0.2 See_Comment [Aut omated message] The Basophils) system which ge nerated this result tra nsmitted reference range : <=1.0. The reference r miladis was not used to int erpret this result as normal/abnormal . [facility]JlngzamHDTABTAMKI7267-98-34 05:56:00 Test Item Value Reference Range Interpretation Comments Neutrophils # (test code = Neutrophils 5.5 1.5-8.1 #) [facility]-73 05:56:00 Test Item Value Reference Range Interpretation Comments Lymphocytes # (test code = Lymphocytes 0.7 1.0-5.5 #) [facility] CenterLhsnkjvTIAVIFOFUX6884-83-51 05:56:00 Test Item Value Reference Range Interpretation Comments Monocytes # (test code 0.2 See_Comment [Aut omated message] The = Monocytes #) system which generated this result tra nsmitted reference range : <=0.8. The reference r miladis was not used to int erpret this result as normal/abnormal . [facility]YndpkhlGVKEKUISEQ3895-44-93 05:56:00 Test Item Value Reference Range Interpretation Comments Ethanol Lvl (test code = Ethanol Lvl) 120 [facility]53 05:56:00 Test Item Value Reference Range Interpretation Comments Etoh (%) (test code = Etoh (%)) 0.120 [facility] ABD PELVIS W/[id number] 06:29:00 [facility] : 1995 Sex: M [place]: St: REG -- Name: BILLY PEREZ : 1995 Age/S: 25/M [address] Unit: [id number] Loc: [place] [address] Phys: Kavin Styles MD Acct: [id number] Dis Date: Status: REG ER PHONE #: [phone] Exam Date: 09/29/2020 0503 FAX #: [phone] Reason: rlq pain, prior iliacus inflammation EXAMS: CPT CODE: [id number] CT ABD PELVIS W/CONT 26763 Location: H59 EXAM: CT ABDOMEN AND PELVIS WITH CONTRAST INDICATION: rlq pain, prior iliacus inflammation COMPARISON: CT abdomen pelvis dated 08/07/2020 TECHNIQUE: CT of the abdomen and pelvis was performed with intravenous contrast. All CT scans are performed using radiation dose reduction technique. Technical factors are evaluated and adjusted to insure appropriate moderation of exposure. Automated dose management technology is applied to adjust the radiation dose to minimize exposure while achieving a diagnostic quality image. DLP: 485.03 mGy-cm F INDINGS: Thoracic: Included images of the lower chest demonstrate no abnormalities. Hepatobiliary: No focal liver lesion is identified. No intrahepatic or extrahepatic biliary dilatation is seen. The main portal vein is patent. Gallbladder: The gallbladder is normal. Pancreas: Unremarkable. Spleen: Unremarkable. Adrenals: Unremarkable. Kidneys: There is no evidence of renal calculus. There is no evidence of hydronephrosis of either kidney. No solid renal lesion is identified. Bladder/Reproductive system: Evaluation of the bladder is limited, but no obvious bladder abnormality is present. The prostate has unremarkable CT appearance. PAGE 1 Signed Report (CONTINUED) [place]: St: REG Name: BILLY PEREZ : 1995 Age/S: 25/M [address] Unit: [id number] Loc: [place] [address] Phys: Kavin Styles MD Acct: [id number] Dis Date: Status: REG ER PHONE #: [phone] Exam Date: 09/29/2020 05 FAX #: [phone] Reason: rlq pain, prior iliacus inflammation EXAMS: CPT CODE: [id number] CT ABD PELVIS W/CONT 95582 (Continued) Gastrointestinal: No bowel obstruction or perienteric inflammation. The appendix is normal. There is a large fecal burden within the cecum and proximal transverse colon. There is mild gaseous and fecal distention of the sigmoid colon and rectum. There are a few minimal, questionable diverticula of the descending and sigmoid colon. Vascular: The aorta is grossly normal in appearance. Lymphatics: No enlarged lymph nodes by CT size criteria. Bones/Soft Tissues: No acute osseous findings. Interval resolution of the previously identified right iliacus muscle hematoma. No ventral hernias. Peritoneum/Other: No extraluminal air. No extraluminal fluid. IMPRESSION: Large fecal burden within the cecum, ascending colon and proximal transverse colon. Recommend clinical correlation for the possibility of constipation. Interval resolution of the previously identified, rightiliacus muscle hematoma. No other acute abdominal or pelvic abnormalities. There are few, questionable diverticuli of the descending and sigmoid colon, without CT evidence of diverticulitis. at 0629 Reported and signed by: Rosales Art MD CC: Technologist: ALBERT ALONZO JR; PATRICIA RIDER RT (R) Trnscrd Dt/Tm: 09/29/2020 (0629) t.[email or web address] Orig Print D/T: S: 09/29/2020 (0632 PAGE 2 Signed [id number] 04:52:00 Test Item Value Reference Range Interpretation Comments ACETAMINOPHEN (test code = ACET) <10 ug/mL 10-30 L [id number] 04:52:00 Test Item Value Reference Range Interpretation Comments ALCOHOL (test code = 35 mg/dL <10 H ~~~~~~ ~~~~~~~~~~~~~~~~ ALC) ~~~~~~~~~~~~~~~ ~~~~~~~~ ~~~~~ RESULTS A RE TO BE USED FOR MEDICA L PURPOSES ONLY.F OR LEGAL PURPOSES THE SP ECIMEN MUST BE COLLECT ED BY A CHAINOF CUSTODY . LEGAL TESTING IS NOT PERFORMED BY [facility]. ~~~~~~~~~~~~~~~ ~~~~~~~~ ~~~~~~~~~~~~~~~ ~~~~~~~~ ~~~~ COMPREHENSIVE METABOLIC [id number] 04:52:00 Test Item Value Reference Range Interpretation Comments SODIUM (test code = 141 mmol/L 137-145 N NA) POTASSIUM (test code 3.6 mmol/L 3.4-5.0 N = K) CHLORIDE (test code 102 mmol/L 98-107 N = CL) CARBON DIOXIDE (test 27 mmol/L 22-30 N code = CO2) GLUCOSE (test code = 73 mg/dL 74-106 L GLU) BLOOD UREA NITROGEN 11 mg/dL 9-20 N (test code = BUN) GLOMERULAR 123 >60 The estimated FILTRATION RATE glomerular f iltration (test code = GFR) rate is co mputed usingpatient ra ce, age (>18), sex, and serum creatinine. If anyof the needed data elements are mi ssing the Laboratory cannot compute an nellie mation of the glomerul ar filtration rate . CREATININE (test 0.8 mg/dL 0.7-1.3 N code = CREAT) TOTAL PROTEIN (test 7.9 g/dL 6.3-8.2 N code = PROT) " A positive bias m ay occur for patients ta cristela Eltrombopag(a b one marrow stimulan t used to treat thrombocytopeni a andaplastic anemia)." ALBUMIN (test code = 5.0 g/dL 3.5-5.0 N ALB) CALCIUM (test code = 9.5 mg/dL 8.4-10.2 N CA) BILIRUBIN TOTAL 0.1 mg/dL 0.2-1.3 L "A positive bias may (test code = BILT) occur for patients taking Eltrombo pag(a bone marrow sti mulant used to treat thrombocytopeni a andaplastic ane ranulfo)." BILIRUBIN CONJUGATED 0 mg/dL 0-0.3 N "A posi tive bias may (test code = BILCON) occur f or patients taking Eltrombo pag(a bone marrow sti mulant used to treat thrombocytopeni a andaplastic ane ranulfo)." C ONJUGATE D BILIRUBIN IS THE REPLACEMENT ASS AY FOR DIRECTBILIRUBIN . BILIRUBIN 0 mg/dL 0-1.1 N UNCONJUGATED (test code = BILUNC) SGOT/AST (test code 36 U/L 15-46 N = AST) SGPT/ALT (test code 26 U/L 0-34 N = ALT) ALKALINE PHOSPHATASE 70 U/L 38-126 N (test code = ALKP) CREATINE KINASE (CK)2020-09-29 04:52:00 Test Item Value Reference Range Interpretation Comments CREATINE KINASE (CK) (test code = CK) 57 U/L 55-170 N CBC W/AUTO [id number] 04:39:00 Test Item Value Reference Range Interpretation Comments WHITE BLOOD CELL (test code = 7.3 x10 3/uL 5.0-12.0 N WBC) RED BLOOD CELL (test code = 4.23 x10 6/uL 4.70-6.10 L RBC) HEMOGLOBIN (test code = HGB) 13.4 g/dL 14.0-18.0 L HEMATOCRIT (test code = HCT) 37.5 % 37.0-49.0 N MEAN CELL VOLUME (test code = 89 fL 80-94 N MCV) MEAN CELL HGB (test code = MCH) 31.7 pg 27-31 H MEAN CELL HGB CONCENTRATION 35.7 g/dL 33-37 N (test code = MCHC) RED CELL DISTRIBUTION WIDTH 11.8 % 11.5-15.5 N (test code = RDW) PLATELET COUNT (test code = 294 x10 3/uL 130-400 N PLT) MEAN PLATELET VOLUME (test code 9.1 fL 9.4-16.4 L = MPV) NEUTROPHIL % (test code = NT%) 42.7 % 43-65 L IMMATURE GRANULOCYTE % (test 0.0 % 0.0-2.0 N code = IG%) LYMPHOCYTE % (test code = LY%) 46.0 % 20.5-45.5 H MONOCYTE % (test code = MO%) 8.1 % 5.5-11.7 N EOSINOPHIL % (test code = EO%) 2.6 % 0.9-2.9 N BASOPHIL % (test code = BA%) 0.6 % 0.2-1.0 N NUCLEATED RBC % (test code = 0.0 % 0-1.0 N NRBC%) NEUTROPHIL # (test code = NT#) 3.10 x10 3/uL 2.2-4.8 N IMMATURE GRANULOCYTE # (test 0.00 x10 3/uL 0-0.03 N code = IG#) LYMPHOCYTE # (test code = LY#) 3.34 x10 3/uL 1.3-2.9 H MONOCYTE # (test code = MO#) 0.59 x10 3/uL 0.3-0.8 N EOSINOPHIL # (test code = EO#) 0.19 x10 3/uL 0.0-0.2 N BASOPHIL # (test code = BA#) 0.04 x10 3/uL 0.0-0.1 N CREATINE KINASE (CK)2020-08-10 06:53:00 Test Item Value Reference Range Interpretation Comments CREATINE KINASE (CK) 40533 U/L 55-170 HH Critica l Value reported (test code = CK) Yumi Cordova e:[id number] Last Name:RESUL TS READ BACK AND VERIFI Kyieldby C.LAB.MH2, on 0 08/10/20, @ 0653.~~~~~~~~~~ ~~~~~~~~ ~~~~~~~~~~~~~~~ ~~~~~~~~ ~~~~~~~~~~~~~~~ ~~~~Repo rted results ve rified with auto dilut ion procedure.~~~~~ ~~~~~~~~ ~~~~~~~~~~~~~~~ ~~~~~~~~ ~~~~~~~~~~~~~~~ ~~~~~~~~ ~ CREATINE KINASE (CK)2020-08-09 14:57:00 Test Item Value Reference Range Interpretation Comments CREATINE KINASE (CK) U/L 55-170 HH Critica l Value reported (test code = CK) Yumi Cordova e:[id number] Last Name:RESUL TS READ BACK AND VERIFI Kyieldby C.LAB.LAS1, on 08/09/20, @ 1456.~~~~~~~~~~ ~~~~~~~~ ~~~~~~~~~~~~~~~ ~~~~~~~~ ~~~~~~~~~~~~~~~ ~~~~Repo rted results ve rified with auto dilut ion procedure.~~~~~ ~~~~~~~~ ~~~~~~~~~~~~~~~ ~~~~~~~~ ~~~~~~~~~~~~~~~ ~~~~~~~~ ~ CREATINE KINASE (CK)2020-08-09 08:05:00 Test Item Value Reference Range Interpretation Comments CREATINE KINASE (CK) 17463 U/L 55-170 HH Critic al Value (test code = CK) reported to First Name:[id number] L ast Name:RESULTS RE AD BACK AND VERIFIEDby C.LAB.LAS1, on 08/09/20, @ 0805.~~~~~~~~~~ ~~~~~~~~ ~~~~~~~~~~~~~~~ ~~~~~~~~ ~~~~~~~~~~~~~~~ ~~~~Repo rted results ve rified with auto dilut ion procedure.~~~~~ ~~~~~~~~ ~~~~~~~~~~~~~~~ ~~~~~~~~ ~~~~~~~~~~~~~~~ ~~~~~~~~ ~ BASIC METABOLIC [id number] 07:07:00 Test Item Value Reference Range Interpretation Comments SODIUM (test code = 137 mmol/L 137-145 N NA) POTASSIUM (test code 4.2 mmol/L 3.4-5.0 N = K) CHLORIDE (test code = 102 mmol/L 98-107 N CL) CARBON DIOXIDE (test 33 mmol/L 22-30 H code = CO2) GLUCOSE (test code = 99 mg/dL 74-106 N GLU) BLOOD UREA NITROGEN 6 mg/dL 9-20 L (test code = BUN) GLOMERULAR FILTRATION 123 >60 The es timated RATE (test code = glomerular filtration GFR) rate is compute d usingpatient ra ce, age (>18), sex, and serum creatinine. If anyof the needed data elements are mi ssing the Laboratory cannot compute an nellie mation of the glomerul ar filtration rate . CREATININE (test code 0.8 mg/dL 0.7-1.3 N = CREAT) CALCIUM (test code = 8.9 mg/dL 8.4-10.2 N CA) CBC W/AUTO [id number] 06:56:00 Test Item Value Reference Range Interpretation Comments WHITE BLOOD CELL (test code = 9.7 x10 3/uL 5.0-12.0 N WBC) RED BLOOD CELL (test code = 3.54 x10 6/uL 4.70-6.10 L RBC) HEMOGLOBIN (test code = HGB) 11.2 g/dL 14.0-18.0 L HEMATOCRIT (test code = HCT) 32.3 % 37.0-49.0 L MEAN CELL VOLUME (test code = 91 fL 80-94 N MCV) MEAN CELL HGB (test code = MCH) 31.6 pg 27-31 H MEAN CELL HGB CONCENTRATION 34.7 g/dL 33-37 N (test code = MCHC) RED CELL DISTRIBUTION WIDTH 12.6 % 11.5-15.5 N (test code = RDW) PLATELET COUNT (test code = 211 x10 3/uL 130-400 N PLT) MEAN PLATELET VOLUME (test code 9.1 fL 9.4-16.4 L = MPV) NEUTROPHIL % (test code = NT%) 65.0 % 43-65 N IMMATURE GRANULOCYTE % (test 0.3 % 0.0-2.0 N code = IG%) LYMPHOCYTE % (test code = LY%) 26.4 % 20.5-45.5 N MONOCYTE % (test code = MO%) 6.0 % 5.5-11.7 N EOSINOPHIL % (test code = EO%) 2.1 % 0.9-2.9 N BASOPHIL % (test code = BA%) 0.2 % 0.2-1.0 N NUCLEATED RBC % (test code = 0.0 % 0-1.0 N NRBC%) NEUTROPHIL # (test code = NT#) 6.27 x10 3/uL 2.2-4.8 H IMMATURE GRANULOCYTE # (test 0.03 x10 3/uL 0-0.03 N code = IG#) LYMPHOCYTE # (test code = LY#) 2.55 x10 3/uL 1.3-2.9 N MONOCYTE # (test code = MO#) 0.58 x10 3/uL 0.3-0.8 N EOSINOPHIL # (test code = EO#) 0.20 x10 3/uL 0.0-0.2 N BASOPHIL # (test code = BA#) 0.02 x10 3/uL 0.0-0.1 N CREATINE KINASE (CK)2020-08-08 19:26:00 Test Item Value Reference Range Interpretation Comments CREATINE KINASE (CK) 17120 U/L 55-170 HH Critic al Value (test code = CK) reported to First Name:[id number] [place] Name:RESULTS RE AD BACK AND VERIFIEDby RODOLFO, on , @ 1926.~~~~~~~~~~ ~~~~~~~~ ~~~~~~~~~~~~~~~ ~~~~~~~~ ~~~~~~~~~~~~~~~ ~~~~Repo rted results ve rified with auto dilut ion procedure.~~~~~ ~~~~~~~~ ~~~~~~~~~~~~~~~ ~~~~~~~~ ~~~~~~~~~~~~~~~ ~~~~~~~~ ~ CREATINE KINASE (CK)2020-08-08 14:58:00 Test Item Value Reference Range Interpretation Comments CREATINE KINASE (CK) 62778 U/L 55-170 HH Critica l Value reported (test code = CK) Yumi Cordova e:[id number] Last Name:[facility] PHIL READ BACK AND EMI WELDON.LAV1, on 08/08/20, @ 1458.~~~~~~~~~~ ~~~~~~~~ ~~~~~~~~~~~~~~~ ~~~~~~~~ ~~~~~~~~~~~~~~~ ~~~~Repo rted results ve rified with auto dilut ion procedure.~~~~~ ~~~~~~~~ ~~~~~~~~~~~~~~~ ~~~~~~~~ ~~~~~~~~~~~~~~~ ~~~~~~~~ ~ BASIC METABOLIC [id number] 08:31:00 Test Item Value Reference Range Interpretation Comments SODIUM (test code = 140 mmol/L 137-145 N NA) POTASSIUM (test code 4.2 mmol/L 3.4-5.0 N = K) CHLORIDE (test code = 104 mmol/L 98-107 N CL) CARBON DIOXIDE (test 33 mmol/L 22-30 H code = CO2) GLUCOSE (test code = 102 mg/dL 74-106 N GLU) BLOOD UREA NITROGEN 9 mg/dL 9-20 N (test code = BUN) GLOMERULAR FILTRATION 123 >60 The es timated RATE (test code = glomerular filtration GFR) rate is compute d usingpatient ra ce, age (>18), sex, and serum creatinine. If anyof the needed data elements are mi ssing the Laboratory cannot compute an nellie mation of the glomerul ar filtration rate . CREATININE (test code 0.8 mg/dL 0.7-1.3 N = CREAT) CALCIUM (test code = 8.9 mg/dL 8.4-10.2 N CA) CBC W/AUTO [id number] 08:12:00 Test Item Value Reference Range Interpretation Comments WHITE BLOOD CELL (test code = 13.2 x10 3/uL 5.0-12.0 H WBC) RED BLOOD CELL (test code = 3.85 x10 6/uL 4.70-6.10 L RBC) HEMOGLOBIN (test code = HGB) 12.1 g/dL 14.0-18.0 L HEMATOCRIT (test code = HCT) 34.7 % 37.0-49.0 L MEAN CELL VOLUME (test code = 90 fL 80-94 N MCV) MEAN CELL HGB (test code = MCH) 31.4 pg 27-31 H MEAN CELL HGB CONCENTRATION 34.9 g/dL 33-37 N (test code = MCHC) RED CELL DISTRIBUTION WIDTH 13.0 % 11.5-15.5 N (test code = RDW) PLATELET COUNT (test code = 238 x10 3/uL 130-400 N PLT) MEAN PLATELET VOLUME (test code 9.2 fL 9.4-16.4 L = MPV) NEUTROPHIL % (test code = NT%) 73.1 % 43-65 H IMMATURE GRANULOCYTE % (test 0.3 % 0.0-2.0 N code = IG%) LYMPHOCYTE % (test code = LY%) 20.6 % 20.5-45.5 N MONOCYTE % (test code = MO%) 5.3 % 5.5-11.7 L EOSINOPHIL % (test code = EO%) 0.5 % 0.9-2.9 L BASOPHIL % (test code = BA%) 0.2 % 0.2-1.0 N NUCLEATED RBC % (test code = 0.0 % 0-1.0 N NRBC%) NEUTROPHIL # (test code = NT#) 9.65 x10 3/uL 2.2-4.8 H IMMATURE GRANULOCYTE # (test 0.04 x10 3/uL 0-0.03 H code = IG#) LYMPHOCYTE # (test code = LY#) 2.72 x10 3/uL 1.3-2.9 N MONOCYTE # (test code = MO#) 0.70 x10 3/uL 0.3-0.8 N EOSINOPHIL # (test code = EO#) 0.07 x10 3/uL 0.0-0.2 N BASOPHIL # (test code = BA#) 0.02 x10 3/uL 0.0-0.1 N CREATINE KINASE (CK)2020-08-08 07:32:00 Test Item Value Reference Range Interpretation Comments CREATINE KINASE (CK) 59809 U/L 55-170 HH Critica l Value reported (test code = CK) Yumi Cordova e:[id number] Last Name:[facility] READ BACK AND [employer] C.LAB.MH2, on 0 08/08/20, @ 0732.~~~~~~~~~~ ~~~~~~~~ ~~~~~~~~~~~~~~~ ~~~~~~~~ ~~~~~~~~~~~~~~~ ~~~~Repo rted results ve rified with auto dilut ion procedure.~~~~~ ~~~~~~~~ ~~~~~~~~~~~~~~~ ~~~~~~~~ ~~~~~~~~~~~~~~~ ~~~~~~~~ ~ CREATINE KINASE (CK)2020-08-08 01:46:00 Test Item Value Reference Range Interpretation Comments CREATINE KINASE (CK) 16302 U/L 55-170 HH Critica l Value reported (test code = CK) Yumi Cordova e:[id number] Last Name:[facility] READ BACK AND [employer] C.LAB.WR, on , @ 0146.~~~~~~~~~~ ~~~~~~~~ ~~~~~~~~~~~~~~~ ~~~~~~~~ ~~~~~~~~~~~~~~~ ~~~~Repo rted results ve rified with auto dilut ion procedure.~~~~~ ~~~~~~~~ ~~~~~~~~~~~~~~~ ~~~~~~~~ ~~~~~~~~~~~~~~~ ~~~~~~~~ ~ Coronavirus 2018 nCoV [id number] 18:29:00 Test Item Value Reference Range Interpretation Comments Coronavirus 2018 Negative NEGATIVE This test h as been nCoV Bedside (test authorize d by FDA under code = [id number]) an EUA for use byauthorized laboratories; T his test has been author ized only for the detecti on ofnucleic acid from SARS-CoV-2, not for any other viruses orpathogens; an d This test is only au thorized for the duratio n of thedeclaration that circumstances e xist justifying theauthorizatio n of emergency use o f in vitro diagnostic test sfor detection and/o r diagnosis of CO VID-19 under Wznasxg53 4(b)(1) of the Act, 21 U.S .C. 360bbb-3(b)(1), unless theauthorizatio n is terminated or r evoked sooner. LACTIC [id number] 17:12:00 Test Item Value Reference Range Interpretation Comments LACTIC ACID (test code = LACT) 2.0 mmol/L 0.7-2.0 N - CT CHEST W/[id number] 16:42:00 [facility] : 1995 Sex: M [place]: RIM[address] St: REG -- Name: BILLY PEREZ : 1995 Age/S: 25/M [address] Unit: [id number] Loc: [place] [address] Phys: Kavin Styles MD Acct: [id number] Dis Date: Status: REG ER PHONE #: [phone] Exam Date: 08/07/2020 1544 FAX #: [phone] Reason: FALL EXAMS: CPT CODE: [id number] CT CHEST W/CONTRAST 49641 EXAMINATION: - CT T-SPINE W/O CONTRAST, - CT CHEST W/CONTRAST, - CT L-SPINE W/O CONTRAST, - CT ABD PELVIS W/CONT. LOCATION: S17. HISTORY: Fall, right leg pain, weakness, loss of sensation, pelvic pain, right hip pain, recent alcohol use, found down. COMPARISON: None. TECHNIQUE: CTA imaging was performed of chest and abdomen intravenous administration of 100 cc of Isovue-370, subsequently venous phase of abdomen and pelvis was obtained. MIP imaging was obtained. Oral contrast material was not administered. One or more the following dose reduction techniques were used: Automated exposure control, adjustment of mA and/or kV according to patient size, and use of iterative reconstruction technique. TECHNIQUE: CT of thoracolumbar spine spine was performed without intravenous contrast as per protocol. FINDINGS: Examination is limited due to lack of oral contrast and patient's arms by their side resulting in beam hardening artifact. Partially visualized thyroid gland appears unremark able. No axillary, mediastinal or hilar bulky lymphadenopathy is identified. No mediastinal mass is noted. No aneurysmal dilatation of thoracic aorta. Bovine arch configuration noted. No pericardial orpleural effusion. The trachea and central bronchi are patent. No pneumothorax. Bilateral lower lobe and right upper lobe predominant groundglass airspace opacities. Bibasilar dependent changes. Liver, gallbladder, spleen, pancreas, adrenals and kidneys appear unremarkable. No hydronephrosis. Underdistended urinary bladder. The bowel loops appear normal in course and caliber. No bowel obstruction. Unremarkable appendix. No abdominal or pelvic bulky lymphadenopathy. PAGE 1 Signed Report (CONTINUED) [place]: St: REG -- Name: BILLY PEREZ [facility] : 1995 Age/S: 25/M [address] Unit: [id number] Loc: [place] [address] Phys: Kavin Styles MD Acct: [id number] Dis Date: Status: REG ER PHONE #: [phone] Exam Date: 08/07/2020 8363 FAX #: [phone] Reason: FALL EXAMS: CPT CODE: [id number] CT CHEST W/CONTRAST 23579 (Continued) No pneumoperitoneum. Stranding is noted in right retroperitoneal region. Asymmetric enlargement of right iliac is musculature Evaluation of thoracolumbar spine demonstrates no compression fracture. IMPRESSION: Asymmetric enlargement of right iliacus muscle with surrounding stranding. Bilateral lower lobe and right upper lobe dependent groundglass airspace opacities, nonspecific, may represent aspiration pneumonia in the appropriate clinical setting. Other findings as above. Findings discussed with Kavin Styles MD at 08/07/2020 4:31 PM. at 1642 Reported and signed by: Vikki Martin MD CC: Technologist: Josie Segura; SILVIA LARIOS Trnscrd Dt/Tm: 08/07/2020 (1642) t.[email or web address].[email or web address] Orig Print D/T: S: 08/07/2020 (3935 PAGE 2 Signed Report- CT ABD PELVIS W/[id number] 16:42:00 [facility] : 1995 Sex: M [place]: St: REG -- Name: [facility] [place] : 1995 Age/S: 25/M [address] Unit: [id number] Loc: [place] [address] Phys: Kavin Styles MD Acct: [id number] Dis Date: Status: REG ER PHONE #: [phone] Exam Date: 08/07/2020 1547 FAX #: [phone] Reason: FALL R PELVIC PAIN EXAMS: CPT CODE: [id number] CT ABD PELVIS W/CONT 32826 EXAMINATION: - CT T-SPINE W/O CONTRAST, - CT CHEST W/CONTRAST, - CT L-SPINE W/O CONTRAST, - CT ABD PELVIS W/CONT. LOCATION: S17. HISTORY: Fall, right leg pain, weakness, loss of sensation, pelvic pain, right hip pain, recent alcohol use, found down. COMPARISON: None. TECHNIQUE: CTA imaging was performed of chest and abdomen intravenous administration of 100 cc of Isovue-370, subsequently venous phase of abdomen and pelvis was obtained. MIP imaging was obtained. Oral contrast material was not administered. One or more the following dose reduction techniques were used: Automated exposure control, adjustment of mA and/or kV according to patient size, and use of iterative reconstruction technique. TECHNIQUE: CT of thoracolumbar spine spine was performed without intravenous contrast as per protocol. FINDINGS: Examination is limited due to lack of oral contrast and pa tient's arms by their side resulting in beam hardening artifact. Partially visualized thyroid gland appears unremarkable. No axillary, mediastinal or hilar bulky lymphadenopathy is identified. No mediastinal mass is noted. No aneurysmal dilatation of thoracic aorta. Bovine arch configuration noted. No pericardial or pleural effusion. The trachea and central bronchi are patent. No pneumothorax. Bilateral lower lobe and right upper lobe predominant groundglass airspace opacities. Bibasilar dependent changes. Liver, gallbladder, spleen, pancreas, adrenals and kidneys appear unremarkable. No hydronephrosis. Underdistended urinary bladder. The bowel loops appear normal in course and caliber. No bowel obstruction. Unremarkable appendix. No abdominal or pelvic bulky lymphadenopathy. PAGE 1 Signed Report (CONTINUED) [place]: St: REG --------- Name: BILLY PEREZ [facility] : 1995 Age/S: 25/M [address] Unit: [id number] Loc: [place] [address] Phys: Kavin Styles MD Acct: [id number] Dis Date: Status: REG ER PHONE #: [phone] Exam Date: 08/07/2020 1544 FAX #: [phone] Reason: FALL R PELVIC PAIN EXAMS: CPT CODE: [id number] CT ABD PELVIS W/CONT 93777 (Continued) No pneumoperitoneum. Stranding is noted in right retroperitoneal region. Asymmetric enlargement of right iliac is musculature Evaluationof thoracolumbar spine demonstrates no compression fracture. IMPRESSION: Asymmetric enlargement of right iliacus muscle with surrounding stranding. Bilateral lower lobe and right upper lobe dependent gr oundglass airspace opacities, nonspecific, may represent aspiration pneumonia in the appropriate clinical setting. Other findings as above. Findings discussed with Kavin Styles MD at 08/07/2020 4:31 PM. at 1642 Reported and signedby: Vikki Martin MD CC: Technologist: Josie Segura; SILVIA LARIOS [facility] Dt/Tm: 08/07/2020 (1642) [email or web address] Orig Print D/T: S: 08/07/2020 (4005 PAGE 2 Signed Report- CT L-SPINE W/O [id number] 16:42:00 [facility] 1995 Sex: M [place]: St: REG -- Name: BILLY PEREZ [facility] : 1995 Age/S: 25/M [address] Unit: [id number] Loc: [place] [address] Phys: Kavin Styles MD Acct: [id number] Dis Date: Status: REG ER PHONE #: [phone] Exam Date: 08/07/2020 1545 FAX #: [phone] Reason: FALL PAIN EXAMS: CPT CODE: [id number] CT L-SPINE W/O CONTRAST 53971 EXAMINATION: - CT T-SPINE W/O CONTRAST, - CT CHEST W/CONTRAST, - CT L-SPINE W/O CONTRAST, - CT ABD PELVIS W/CONT. LOCATION: S17. HISTORY: Fall, right leg pain, weakness, loss of sensation, pelvic pain, right hip pain, recent alcohol use, found down. COMPARISON: None. TECHNIQUE: CTA imaging was performed of chest and abdomen intravenous administration of 100 cc of Isovue-370, subsequently venous phase of abdomen and pelvis was obtained. MIP imaging was obtained. Oral contrast material was not administered. One or more the following dose reduction techniques were used: Aut omated exposure control, adjustment of mA and/or kV according to patient size, and use of iterative reconstruction technique. TECHNIQUE: CT of thoracolumbar spine spine was performed without intravenous contrast as per protocol. FINDINGS: Examination is limited due to lack of oral contrast and patient's arms by their side resulting in beam hardening artifact. Partially visualized thyroid gland appears unremarkable. No axillary, mediastinal or hilar bulky lymphadenopathy is identified. No mediastinalmass is noted. No aneurysmal dilatation of thoracic aorta. Bovine arch configuration noted. No pericardial or pleural effusion. The trachea and central bronchi are patent. No pneumothorax. Bilateral lower lobe and right upper lobe predominant groundglass airspace opacities. Bibasilar dependent changes. Liver, gallbladder, spleen, pancreas, adrenals and kidneys appear unremarkable. No hydronephrosis. Underdistended urinary bladder. The bowel loops appear normal in course and caliber. No bowel obstruction. Unremarkable appendix. No abdominal or pelvic bulky lymphadenopathy. PAGE 1 Signed Report (CONTINUED) [place]: St: REG ---- Name: BILLY PEREZ [facility] : 1995 Age/S: 25/M [address] Unit: [id number] Loc: [place] [address] Phys: Kavin Styles MD Acct: [id number] Dis Date: Status: REG ER PHONE #: [phone] Exam Date: 08/07/2020 2023 FAX #: [phone] Reason: FALL PAIN EXAMS: CPT CODE: [id number] CT L-SPINE W/O CONTRAST 16966 (Continued) No pneumoperitoneum. Stranding is noted in right retroperitoneal region. Asymmetric enlargement of right iliac is musculature Evaluation of thoracolumbar spine demonstrates no compression fracture. IMPRESSION: Asymmetric enlargement of right iliacusmuscle with surrounding stranding. Bilateral lower lobe and right upper lobe dependent groundglass airspace opacities, nonspecific, may represent aspiration pneumonia in the appropriate clinical setting. Other findings as above. Findings discussed with Kavin Styles MD at 08/07/2020 4:31 PM. at 1642 Reported and signed by: Vikki Martin MD CC: Technologist: Josie Segura; SILVIA LARIOS Trnscrd Dt/Tm: 08/07/2020 (1641) [email or web address] Orig Print D/T: S: 08/07/2020 (8495 PAGE 2 Signed Report- CT T-SPINE W/O [id number] 16:42:00 [facility] : 1995 Sex: M [place]: St: REG -- Name: BILLY PEREZ [facility] : 1995 Age/S: 25/M [address] Unit: [id number] Loc: [place] [address] Phys: Kavin Styles MD Acct: [id number] Dis Date: Status: REG ER PHONE #: [phone] Exam Date: 08/07/2020 1544 FAX #: [phone] Reason: FALL PAIN EXAMS: CPT CODE: [id number] CT T-SPINE W/O CONTRAST 87585 EXAMINATION: - CT T-SPINE W/O CONTRAST, - CT CHEST W/CONTRAST, - CT L-SPINE W/O CONTRAST, - CT ABD PELVIS W/CONT. LOCATION: S17. HISTORY: Fall, right leg pain, weakness, loss of sensation, pelvic pain, right hip pain, recent alcohol use, found down. COMPARISON: None. TECHNIQUE: CTA imaging was performed of chest and abdomen intravenous administration of 100 cc of Isovue-370, subsequently venous phase of abdomen and pelvis was obtained. MIP imaging was obtained. Oral contrast material was not administered. One or more the following dose reduction techniques were used: Automated exposure control, adjustment of mA and/or kV according to patient size, and use of iterative reconstruction technique. TECHNIQUE: CT of thoracolumbar spine spine was performed without intravenouscontrast as per protocol. FINDINGS: Examination is limited due to lack of oral contrast and patient's arms by their side resulting in beam hardening artifact. Partially visualized thyroid gland appearsunremarkable. No axillary, mediastinal or hilar bulky lymphadenopathy is identified. No mediastinal mass is noted. No aneurysmal dilatation of thoracic aorta. Bovine arch configuration noted. No pericardial or pleural effusion. The trachea and central bronchi are patent. No pneumothorax. Bilateral lower lobe and right upper lobe predominant groundglass airspace opacities. Bibasilar dependent changes. Liver, gallbladder, spleen, pancreas, adrenals and kidneys appear unremarkable. No hydronephrosis.Underdistended urinary bladder. The bowel loops appear normal in course and caliber. No bowel obstruction. Unremarkable appendix. No abdominal or pelvic bulky lymphadenopathy. PAGE 1 Signed Report (CONTINUED) [place]: St: REG ---- Name: PEREZBILLY [facility] : 1995 Age/S: 25/M [address] Unit: [id number] Loc: [place] [address] Phys: Kavin Styles MD Acct: [id number] Dis Date: Status: REG ER PHONE #: [phone] Exam Date: 08/07/2020 1544 FAX #: [phone] Reason: FALL PAIN EXAMS: CPT CODE: [id number] CT T-SPINE W/O CONTRAST 61090 (Continued) No pneumoperitoneum. Stranding is noted in right retroperitoneal region. Asymmetric enlargement of right iliac is musculature Evaluation of thoracolumbar spine demonstrates no compression fracture. IMPRESSION: Asymmetric enlargement of right iliacusmuscle with surrounding stranding. Bilateral lower lobe and right upper lobe dependent groundglass airspace opacities, nonspecific, may represent aspiration pneumonia in the appropriate clinical setting. Other findings as above. Findings discussed with Kavin Styles MD at 08/07/2020 4:31 PM. at 1642 Reported and signed by: Vikki Martin MD CC: Technologist: Josie Segura; SILVIA LARIOS Trnscrd Dt/Tm: 08/07/2020 (5332) [email or web address] Orig Print D/T: S: 08/07/2020 (0693 PAGE 2 Signed Report- CT HEAD/BRAIN W/O [id number] 16:23:00 [facility] : 1995 Sex: M [place]: St: REG -- Name: BILLY PEREZ : 1995 Age/S: 25/M [address] Unit: [id number] Loc: [place] [address] Phys: Kavin Styles MD Acct: [id number] Dis Date: Status: REG ER PHONE #: [phone] Exam Date: 08/07/2020 2510 FAX #: [phone] Reason: HEADACHE EXAMS: CPT CODE: [id number] CT HEAD/BRAIN W/O CONT 54708 EXAMINATIONS: 1. Head CT without contrast 2. CT cervical spine without contrast INDICATION: Trauma, headache, neck pain COMPARISON: None LOCATION: C3 TECHNIQUE: Axial noncontrast head CT was performed. Axial noncontrast CT cervical spine was performed. Sagittal and coronal reformatted images were created. CT radiation dose optimization is achieved for this examination by theuse of a CT protocol in accordance with ACR practice guidelines and adherence to paving and surfacing labourer recommendations. DLP: 1334 mGy-cm. FINDINGS: Head: No mass effect, intracranial hemorrhage, or extra-axial fluid collection. No CT evidence of acute cortical infarct. Imaged portions of orbits are unremarkable. Imaged paranasal sinuses and mastoid air cells are clear. No acute osseous abnormality is identified. Cervical spine: No static subluxation. Preserved vertebral body heights. No cervical fracture identified. Grossly preserved disc spaces. IMPRESSION: 1. No acute intracranial abnormality identified. 2. No cervical fracture identified. at 1623 Reported and signed by: Singh Snider M.D. PAGE 1 Signed Report (CONTINUED) [place]: St: REG---- Name: BILLY PEREZ [facility] : 1995 Age/S: 25/M [address] Unit: [id number] Loc: [place], [place] [address]Otfl: Kavin Styles MD Acct: [id number] Dis Date: Status: REG ER PHONE #: [phone] Exam Date:08/07/2020 4022 FAX #: [phone] Reason: HEADACHE EXAMS: CPT CODE: [id number] CT HEAD/BRAIN W/O CONT 30018 (Continued) CC: Technologist: Josie Segura; SILVIA LARIOS Trnscrd Dt/Tm: 08/07/2020 (1623) [email or web address] Orig Print D/T: S: 08/07/2020 (1626 PAGE 2 Signed Report- CT C-SPINE W/O [id number] 16:23:00 [facility] : 1995 Sex: M [place]: St: REG -- Name: BILLY PEREZ [facility] : 1995 Age/S: 25/M [address] Unit: [id number] Loc: [place] [address] Phys: Kavin Styles MD Acct: [id number] Dis Date: Status: REG ER PHONE #: [phone] Exam Date: 08/07/2020 1544 FAX #: [phone] Reason: NECK PAIN EXAMS: CPT CODE: [id number] CTC-SPINE W/O CONT 36265 EXAMINATIONS: 1. Head CT without contrast 2. CT cervical spine without contrast INDICATION: Trauma, headache, neck pain COMPARISON: None LOCATION: C3 TECHNIQUE: Axial noncontrast head CT was performed. Axial noncontrast CT cervical spine was performed. Sagittal and coronal reformatted images were created. CT radiation dose optimization is achieved for this examination by the use of a CT protocol in accordance with ACR practice guidelines and adherence to paving and surfacing labourer recommendations. DLP: 1334 mGy-cm. FINDINGS: Head: No mass effect, intracranial hemorrhage, or extra-axial fluid collection. No CT evidence of acute cortical infarct. Imaged portions of orbits are unremarkable. Imaged paranasal sinuses and mastoid air cells are clear. No acute osseous abnormality is identified. Cervical spine: No static subluxation. Preserved vertebral body heights. No cervical fracture identified. Grossly preserved disc spaces. IMPRESSION: 1. No acute intracranial abnormality identified.2. No cervical fracture identified. at 1623 Reported and signed by: Singh Snider M.D. PAGE 1 Signed Report (CONTINUED) [place]: St: REG---- Name: BILLY PEREZ [facility] : 1995 Age/S: 25/M [address] Unit: [id number] Loc: [place] [address] Phys: Kavin Styles MD Acct: [id number] Dis Date: Status: REG ER PHONE #: [phone] Exam Date:08/07/2020 1540 FAX #: [phone] Reason: NECK PAIN EXAMS: CPT CODE: [id number] CT C-SPINE W/O [id number] (Continued) CC: Technologist: Josie Segura; SILVIA LARIOS Trnscrd Dt/Tm: 08/07/2020 (0543) [email or web address] Orig Print D/T: S: 08/07/2020 (0396 PAGE 2 Signed ReportURINALYSIS [id number] 15:57:00 Test Item Value Reference Range Interpretation Comments UA COLOR (test code Straw Yellow = COLU) UA APPEARANCE (test Clear Clear code = APPU) UA GLUCOSE DIPSTICK Negative Negative (test code = DGLUU) UA BILIRUBIN Negative Negative DIPSTICK (test code = BILU) UA KETONE DIPSTICK Negative mg/dL Negative (test code = KETU) UA SPECIFIC GRAVITY 1.012 <1.030 (test code = SGU) UA BLOOD DIPSTICK 3+ Negative A (test code = DONNY) UA PH DIPSTICK (test 5.0 5.0-8.0 code = JENNIFER) UA PROTEIN DIPSTICK NEGATIVE mg/dL Negative (test code = PROU) UA UROBILINOGEN Negative mg/dL Negative DIPSTICK (test code = URO) UA NITRITE DIPSTICK Negative Negative (test code = HALEY) UA LEUKOCYTE NEGATIVE Negative ESTERASE DIPSTICK (test code = LEUU) UA WBC (test code = 0-3 /HPF See_Comment [Automa liam WBCU) message] The system which generated this result transmit liam reference range : <4-5. The reference range was not used to interpret this result as normal/abnormal . UA RBC (test code = 0-3 /HPF See_Comment [Automa liam RBCU) message] The system which generated this result transmit liam reference range : <4-5. The reference range was not used to interpret this result as normal/abnormal . UA BACTERIA (test None /HPF None-Rare code = BACU) UA SQUAMOUS CELLS 0-5 (RARE) /HPF See_Comment [Autom ated (test code = SQU) message] T he system which generated this result transmit liam reference range : 0-5 (RARE). The reference range was not used to interpret this result as normal/abnormal . UA MUCUS (test code Rare /LPF See_Comment [Automa liam = MUCU) message] The system which generated this result transmit liam reference range : <Rare. The reference range was not used to interpret this result as normal/abnormal . BASIC METABOLIC [id number] 15:53:00 Test Item Value Reference Range Interpretation Comments SODIUM (test code = 139 mmol/L 137-145 N NA) POTASSIUM (test code 4.1 mmol/L 3.4-5.0 N = K) CHLORIDE (test code = 103 mmol/L 98-107 N CL) CARBON DIOXIDE (test 29 mmol/L 22-30 N code = CO2) GLUCOSE (test code = 84 mg/dL 74-106 N GLU) BLOOD UREA NITROGEN 13 mg/dL 9-20 N (test code = BUN) GLOMERULAR FILTRATION 108 >60 The es timated RATE (test code = glomerular filtration GFR) rate is compute d usingpatient ra ce, age (>18), sex, and serum creatinine. If anyof the needed data elements are mi ssing the Laboratory cannot compute an nellie mation of the glomerul ar filtration rate . CREATININE (test code 0.9 mg/dL 0.7-1.3 N = CREAT) CALCIUM (test code = 9.0 mg/dL 8.4-10.2 N CA) Spec Comments: WITH INRLIVER FUNCTION [id number] 15:53:00 Test Item Value Reference Range Interpretation Comments TOTAL PROTEIN (test 6.7 g/dL 6.3-8.2 N code = PROT) "A positive bias may occur for patients taking Eltrombopag(a b one marrow stimulan t used to treat thrombocy topenia andaplastic anemia)." ALBUMIN (test code = 4.4 g/dL 3.5-5.0 N ALB) BILIRUBIN TOTAL 0.4 mg/dL 0.2-1.3 N "A positive bias may (test code = BILT) occur for patients taking Eltrombo pag(a bone marrow sti mulant used to treat thrombocytopeni a andaplastic ane rnaulfo)." BILIRUBIN CONJUGATED 0 mg/dL 0-0.3 N "A posi tive bias may (test code = BILCON) occur f or patients taking Eltrombo pag(a bone marrow sti mulant used to treat thrombocytopeni a andaplastic ane ranulfo)." CON JUGATED BILIRUBIN IS TH E REPLACEMENT ASS AY FOR DIRECTBILIRUBIN . BILIRUBIN 0.4 mg/dL 0-1.1 N UNCONJUGATED (test code = BILUNC) SGOT/AST (test code 494 U/L 15-46 H = AST) SGPT/ALT (test code 111 U/L 0-34 H = ALT) ALKALINE PHOSPHATASE 54 U/L 38-126 N (test code = ALKP) Spec Comments: WITH INRCREATINE KINASE (CK)2020-08-07 15:53:00 Test Item Value Reference Range Interpretation Comments CREATINE KINASE (CK) 79726 U/L 55-170 HH Critica l Value reported (test code = CK) Yumi Cordova e:[id number] Last Name:LINDA VILLARREAL [employer].AC2, on 0 08/07/20, @ 1553.~~~~~~~~~~ ~~~~~~~~ ~~~~~~~~~~~~~~~ ~~~~~~~~ ~~~~~~~~~~~~~~~ ~~~~Repo rted results ve rified with auto dilut ion procedure.~~~~~ ~~~~~~~~ ~~~~~~~~~~~~~~~ ~~~~~~~~ ~~~~~~~~~~~~~~~ ~~~~~~~~ ~ Spec Comments: WITH [id number] 15:53:00 Test Item Value Reference Range Interpretation Comments ALCOHOL (test code = < 10 mg/dL <10 ~~~~~~ ~~~~~~~~~~~~~~~ ALC) ~~~~~~~~~~~~~~~ ~~~~~~~ ~~~~~~~ RESULTS ARE TO BE USED FOR MED ICAL PURPOSES ONLY.F OR LEGAL PURPOSES THE SPECIMEN MUST B E COLLECTED BY A CHAINOF CUSTODY. LEGAL TESTING IS NOT PERFORME D BY THIS FACILITY. ~~~~~~~~~~~~~~~ ~~~~~~~ ~~~~~~~~~~~~~~~ ~~~~~~~ ~~~~~~ Spec Comments: WITH INRBEDSIDE [id number] 15:50:00 Test Item Value Reference Range Interpretation Comments BEDSIDE CREATININE (test code = 0.90 mg/dL 0.51-1.19 N CREATBED) DRUGS OF ABUSE [id number] 15:43:00 Test Item Value Reference Range Interpretation Comments UR COCAINE (test code = NEGATIVE NEGATIVE CUTO FF >/= 300 NG/ML COCAU) UR THC CANABINOIDS QL POSITIVE NEGATIVE CUTOFF >/= 20 NG/ML SQN (test code = CANU) UR AMPHETAMINE QL SQN NEGATIVE NEGATIVE CUTOFF >/= 500 NG/ML (test code = AMPHU) UR BARBITURATE QUAL NEGATIVE NEGATIVE CUTOFF > /= 200 NG/ML (test code = BARBQLU) UR BENZODIAZEPINE (test POSITIVE NEGATIVE CUTO FF >/= 200 NG/ML code = BENZU) UR OPIATES QUAL (test NEGATIVE NEGATIVE CUTOFF >/= 300 NG/ML code = OPIAQLU) UR PHENCYCLIDINE (PCP) NEGATIVE NEGATIVE CUTOF F >/= 25 NG/ML A (test code = PHENCU) Positiv e drug screen result provides only a "PreliminaryPos itive" test result.If a confirmation of positive result is necessary, a morespecific confirmatory te st must be ordered by the physician. Drug screens are per formed for medical (i. e. treatment)purpo ses only. Unconfirm ed screening resul ts must not beused for non-medical pur poses (e.g employment testing). Spec Comments: WITH INRBASIC METABOLIC [id number] 15:42:00 Test Item Value Reference Range Interpretation Comments SODIUM (test code = 139 mmol/L 137-145 N NA) POTASSIUM (test code 4.1 mmol/L 3.4-5.0 N = K) CHLORIDE (test code = 103 mmol/L 98-107 N CL) CARBON DIOXIDE (test 29 mmol/L 22-30 N code = CO2) GLUCOSE (test code = 84 mg/dL 74-106 N GLU) BLOOD UREA NITROGEN 13 mg/dL 9-20 N (test code = BUN) GLOMERULAR FILTRATION 108 >60 The es timated RATE (test code = glomerular filtration GFR) rate is compute d usingpatient ra ce, age (>18), sex, and serum creatinine. If anyof the needed data elements are mi ssing the Laboratory cannot compute an nellie mation of the glomerul ar filtration rate . CREATININE (test code 0.9 mg/dL 0.7-1.3 N = CREAT) CALCIUM (test code = 9.0 mg/dL 8.4-10.2 N CA) Spec Comments: WITH INRLIVER FUNCTION [id number] 15:42:00 Test Item Value Reference Range Interpretation Comments TOTAL PROTEIN (test 6.7 g/dL 6.3-8.2 N code = PROT) "A positive bias may occur for patients taking Eltrombopag(a b one marrow stimulan t used to treat thrombocy topenia andaplastic anemia)." ALBUMIN (test code = 4.4 g/dL 3.5-5.0 N ALB) BILIRUBIN TOTAL 0.4 mg/dL 0.2-1.3 N "A positive bias may (test code = BILT) occur for patients taking Eltrombo pag(a bone marrow sti mulant used to treat thrombocytopeni a andaplastic ane ranulfo)." BILIRUBIN CONJUGATED 0 mg/dL 0-0.3 N "A posi tive bias may (test code = BILCON) occur f or patients taking Eltrombo pag(a bone marrow sti mulant used to treat thrombocytopeni a andaplastic ane ranulfo)." CON JUGATED BILIRUBIN IS TH E REPLACEMENT ASS AY FOR DIRECTBILIRUBIN . BILIRUBIN 0.4 mg/dL 0-1.1 N UNCONJUGATED (test code = BILUNC) SGOT/AST (test code 494 U/L 15-46 H = AST) SGPT/ALT (test code 111 U/L 0-34 H = ALT) ALKALINE PHOSPHATASE 54 U/L 38-126 N (test code = ALKP) Spec Comments: WITH INRCREATINE KINASE (CK)2020-08-07 15:42:00 Test Item Value Reference Range Interpretation Comments CREATINE KINASE (CK) (test code = CK) U/L 55-170 Spec Comments: WITH [id number] 15:42:00 Test Item Value Reference Range Interpretation Comments ALCOHOL (test code = < 10 mg/dL <10 ~~~~~~ ~~~~~~~~~~~~~~~ ALC) ~~~~~~~~~~~~~~~ ~~~~~~~ ~~~~~~~ RESULTS ARE TO BE USED FOR MED ICAL PURPOSES ONLY.F OR LEGAL PURPOSES THE SPECIMEN MUST B E COLLECTED BY A CHAINOF CUSTODY. LEGAL TESTING IS NOT PERFORME D BY THIS FACILITY. ~~~~~~~~~~~~~~~ ~~~~~~~ ~~~~~~~~~~~~~~~ ~~~~~~~ ~~~~~~ Spec Comments: WITH INRPROTHROMBIN [id number] 15:32:00 Test Item Value Reference Range Interpretation Comments PROTHROMBIN TIME 13.2 SECONDS 9.2-12.1 H PATIENT (test code = PTP) INTERNATIONAL NORMAL 1.2 The INR is to be used RATIO (test code = only for monitoring INR) ORAL ANTICOAGULANTTH ERAPY. Indication INR Value1. Prophylaxis/brandon atment of: Venous Thro mbosis, Pulmonary Embol ism 2.0 - 3.02. Prevent ion of systemic emboli sm from: Tissue he art valves 2.0 - 3. 0 Acute myocardial infa rction (to present sys temic embolism)* 2.0 - 3.0 Valvular heart disease 2.0 - 3.0 Atria l fibrillation 2 .0 - 3.03. Mechanica l prosthetic valv es (high risk) 2.5 - 3.5 * If oral anticoagulant t herapy is elected to preventrecurren t myocardial infa rction, an INR of 2.5-3 .5 isrecommended, consistent with Food and Drug Administrationr ecommen dations. Spec Comments: WITH INRTHROMBOPLASTIN TIME [id number] 15:32:00 Test Item Value Reference Range Interpretation Comments THROMBOPLASTIN TIME 26.0 SECONDS 23.4-37.0 N Therape utic Range PARTIAL (test code = for Hep edyta PTT) EFFECTIVE Heparin IU/mL a PTT Seconds0.3 64.3 0.7 88.8 Spec Comments: WITH INRCBC W/AUTO [id number] 15:22:00 Test Item Value Reference Range Interpretation Comments WHITE BLOOD CELL (test code = 20.0 x10 3/uL 5.0-12.0 H WBC) RED BLOOD CELL (test code = 4.11 x10 6/uL 4.70-6.10 L RBC) HEMOGLOBIN (test code = HGB) 12.7 g/dL 14.0-18.0 L HEMATOCRIT (test code = HCT) 37.1 % 37.0-49.0 N MEAN CELL VOLUME (test code = 90 fL 80-94 N MCV) MEAN CELL HGB (test code = 30.9 pg 27-31 N MCH) MEAN CELL HGB CONCENTRATION 34.2 g/dL 33-37 N (test code = MCHC) RED CELL DISTRIBUTION WIDTH 12.9 % 11.5-15.5 N (test code = RDW) PLATELET COUNT (test code = 260 x10 3/uL 130-400 N PLT) MEAN PLATELET VOLUME (test 9.2 fL 9.4-16.4 L code = MPV) NEUTROPHIL % (test code = NT%) 82.8 % 43-65 H IMMATURE GRANULOCYTE % (test 0.7 % 0.0-2.0 N code = IG%) LYMPHOCYTE % (test code = LY%) 10.8 % 20.5-45.5 L MONOCYTE % (test code = MO%) 5.6 % 5.5-11.7 N EOSINOPHIL % (test code = EO%) 0.0 % 0.9-2.9 L BASOPHIL % (test code = BA%) 0.1 % 0.2-1.0 L NUCLEATED RBC % (test code = 0.0 % 0-1.0 N NRBC%) NEUTROPHIL # (test code = NT#) 16.53 x10 3/uL 2.2-4.8 H IMMATURE GRANULOCYTE # (test 0.14 x10 3/uL 0-0.03 H code = IG#) LYMPHOCYTE # (test code = LY#) 2.15 x10 3/uL 1.3-2.9 N MONOCYTE # (test code = MO#) 1.12 x10 3/uL 0.3-0.8 H EOSINOPHIL # (test code = EO#) 0.00 x10 3/uL 0.0-0.2 N BASOPHIL # (test code = BA#) 0.02 x10 3/uL 0.0-0.1 N - XR FOOT 3 + V [id number] 15:22:00 [facility] 1995 Sex: M [place]: St: REG -- Name: BILLY PEREZ [facility] : 1995 Age/S: 25/M [address] Unit #: [id number] Loc: [place] [address] Phys: Kavin Styles MD Acct: [id number] Dis Date: Status: REG ER PHONE #: [phone] Exam Date: 08/07/2020 1500 FAX #: [phone] Reason: FOOT PAIN EXAMS: CPT CODE: [id number] XR FOOT 3 + [place] RT [id number] EXAMINATION: 3 views right foot INDICATION: Right foot pain COMPARISON: None LOCATION: C3 FINDINGS: No fracture or dislocation identified. Grossly preserved joint spaces. IMPRESSION: No acute osseous abnormality identified. Electronically Signed by Michaela Snider on 1at 1522 Reported and signed by: Singh Snider M.D. CC: Technologist: El Munson Date/Time/By: 08/07/2020 (1522) : By: [email or web address] PAGE 1 Signed Report [place]: St: REG Name: BILLY PEREZ [facility] [place] : 1995 Age/S: 25/M [address] Unit #: [id number] Loc: [place] [address] Phys: Kavin Styles MD Acct: [id number] Dis Date: Status: REG ER PHONE #: [phone] Exam Date: 08/07/2020 1500FAX #: [phone] Reason: FOOT PAIN EXAMS: CPT CODE: [id number] XR FOOT 3 + V RT [id number] (Continued)Orig Print D/T: S: 08/07/2020 (1525) PAGE 2 Signed Report- XR TIBIA/FIBULA 2 V [id number] 15:22:00 [facility] : 1995 Sex: M [place]: St: REG -- Name: BILLY PEREZ [facility] [place] : 1995 Age/S: 25/M [address] Unit #: [id number] Loc: [place] [address] Phys: Kavin Styles MD Acct: [id number] Dis Date: Status: REG ER PHONE #: [phone] Exam Date: 08/07/2020 1500 FAX #: [phone] Reason: LEG PAIN EXAMS: CPT CODE: [id number] XR TIBIA/FIBUL[place] [address] [place] [id number] EXAMINATION: 2 views right tibia and fibula INDICATION: Right lower leg pain COMPARISON: None LOCATION: C3 FINDINGS: No fracture or dislocation identified. Grossly preserved joint spaces. IMPRESSION: No acute osseous abnormality identified. at 1522 Reported and signed by: Singh Snider M.D. CC: Technologist: El Munson Date/Time/By: 08/07/2020 (1522) : By: [email or web address] PAGE 1 Signed Report [place]: St: REG- Name: BILLY PEREZ [facility] : 1995 Age/S: 25/M [address] Unit #: [id number] [place]: [place] [address] Phys: Kavin Styles MD Acct: [id number] Dis Date: Status: REG ER PHONE #: [phone] ExamDate: 08/07/2020 1500 FAX #: [phone] Reason: LEG PAIN EXAMS: CPT CODE: [id number] XR TIBIA/FIBULA 2 [place] [id number] (Continued) Orig Print D/T: S: 08/07/2020 (1525) PAGE 2 Signed Report- XR FEMUR MIN 2 VW [id number] 15:21:00 [facility] : 1995 Sex: M [place]: [facility]: REG -- Name: [facility]ILL[facility] PEREZ [facility] : 1995 Age/S: 25/M [address] Unit #: [id number] Loc: [place] [address] Phys: Kavin Styles MD Acct: [id number] Dis Date: Status: REG ER PHONE #: [phone] Exam Date: 08/07/2020 2589 FAX #: [phone] Reason: THIGH PAIN EXAMS: CPT CODE: [id number] FEMUR MIN 2 [place] [address] EXAMINATION: 4 views right femur INDICATION: Right thigh pain COMPARISON:None LOCATION: C3 FINDINGS: No fracture or dislocation identified. Grossly preserved joint spaces. IMPRESSION: No acute osseous abnormality identified. at 1521 Reported and signed by: Singh Snider M.D. CC: Technologist: El Munson Date/Time/By: 08/07/2020 (1521) : By: [email or web address] PAGE 1 Signed Report [place]: [facility]: REG Name: BILLY PEREZ HCAHanna Adhikari : 1995 Age/S: 25/M [address] Unit #: [id number] Loc: [place] [address] Phys: Kavin Styles MD Acct: [id number] Dis Date: Status: REG ER PHONE #: [phone] Exam Date: 08/08/19 1500 FAX #: [phone] Reason: THIGH PAIN EXAMS: CPT CODE: [id number] XR FEMUR MIN 2 [place] [address] (Continued) Orig Print D/T: S: 08/07/2020 (1524) PAGE 2 Signed Report- XR ANKLE 3 + V [id number] 15:21:00 [facility] : 1995 Sex: M [place]: St: REG -- Name: BILLY PEREZ [facility] : 1995 Age/S: 25/M [address] Unit #: [id number] Loc: [place] [address] Phys: Kavin Styles MD Acct: [id number] Dis Date: Status: REG ER PHONE #: [phone] Exam Date: 08/07/2020 1500 FAX #: [phone] Reason: ANKLE PAIN EXAMS: CPT CODE: [id number] ANKLE 3 + V LT [address]7795 EXAMINATION: 3 views left ankle INDICATION: Left ankle pain COMPARISON: NoneLOCATION: C3 FINDINGS: No fracture or dislocation identified. Grossly preserved joint spaces. IMPRESSION: No acute osseous abnormality identified. at 1521 Reported and signed by: Singh Snider M.D. CC: Technologist: El Munson Date/Time/By: 08/07/2020 (1521) : By: [email or web address] PAGE 1 Signed Report [place]: St: REG Name: ANABILLY [facility] : 1995 Age/S: 25/M [address] Unit #: [id number] Loc: [place] [address] Phys: Kavin Styles MD Acct: [id number] Dis Date: Status: REG ER PHONE #: [phone] Exam Date: 08/07/2020 1500 FAX #: [phone] Reason: ANKLE PAIN EXAMS: CPT CODE: [id number] XR ANKLE 3 + V LT 24744 (Continued) Orig Print D/T: S: 08/07/2020 (1524) PAGE 2 Signed Report- XR KNEE 3 V [id number] 15:20:00 [facility] : 1995 Sex: M [place]: St: REG -- Name: BILLY PEREZ [facility] : 1995 Age/S: 25/M [address] Unit #: [id number] Loc: [place] [address] Phys: Kavin Styles MD Acct: [id number] Dis Date: Status: [facility] ER PHONE #: [phone] Exam Date: 08/07/2020 1500 FAX #: [phone] Reason: KNEE PAIN EXAMS: CPT CODE: [id number] XR KNEE 3 V LT [address]8597 EXAMINATION: 3 views left knee INDICATION: Left knee pain COMPARISON: None LOCATION: C3 FINDINGS: No fracture or dislocation identified. Grossly preserved joint spaces. IMPRESSION: No acute osseous abnormality identified. [id number] Reported and signed by: Singh Snider M.D. CC: Technologist: El Munson Date/Time/By: 08/07/2020 (1520) : By: [email or web address] PAGE 1 Signed Report [place]: [facility]: REG Name: BILLY PEREZ [facility] : 1995 Age/S: 25/M [address] Unit #: [id number] Loc: [place] [address] Phys: Kavin Styles MD Acct: [id number] Dis Date: Status: REG ER PHONE #: [phone] Exam Date: 08/07/2020 1500 FAX #: [phone] Reason: KNEE PAIN EXAMS: CPT CODE: [id number] XR KNEE 3 V LT 69349 (Continued) OrigPrint D/T: S: 08/07/2020 (1523) PAGE 2 Signed Report- XR PELVIS 1/2 [id number] 15:19:00 [facility] : 1995 Sex: M [place]: St: REG -- Name: BILLY PEREZ [facility] : 1995 Age/S: 25/M [address] Unit #: [id number] Loc: [place] [address] Phys: Kavin Styles MD Acct: [id number] Dis Date: Status: REG ER PHONE #: [phone] Exam Date: 08/07/2020 1500 FAX #: [phone] Reason: PELVIC PAIN EXAMS: CPT CODE: [id number] XR PELVIS 1/2 VIEWS 37874 EXAMINATION: AP view of pelvis INDICATION: Pelvic pain COMPARISON: None LOCATION: C3 FINDINGS: No fracture or dislocation identified. Grossly preserved joint spaces. IMPRESSION: No acute osseous abnormality identified. at 1519 Reported and signed by: Singh Snider M.D. CC: Technologist: El Munson Date/Time/By: 08/07/2020 (5969) : By: [email or web address] PAGE 1 Signed Report [place]: St: REG Name: BILLY PEREZ [facility] : 1995 Age/S: 25/M [address] Unit #: [id number] Loc: [place] [address] Phys: Kavin Styles MD Acct: [id number] Dis Date: Status: REG ER PHONE #: [phone] Exam Date: 08/07/2020 1500 FAX #: [phone] Reason: PELVIC PAIN EXAMS: CPT CODE: [id number] XR PELVIS 1/2 VIEWS 88187 (Continued) Orig Print D/T: S: 08/07/2020 (1522) PAGE 2 Signed Report- XR CHEST 1 [id number] 15:18:00 [facility] : 1995 Sex: M [place]: St: REG -- Name: BILLY PERE[place] : 1995 Age/S: 25/M [address] Unit #: [id number] Loc: [place] [address] Phys: Kavin Styles MD Acct: [id number] Dis Date: Status: REG ER PHONE #: [phone] Exam Date: 08/07/2020 1500 FAX #: [phone] Reason: Trauma alert/activation EXAMS: CPT CODE: [id number] XR CHEST 1 V 90179 EXAMINATION: Frontal chest radiograph INDICATION: Chest pain, trauma COMPARISON: None LOCATION: C3 FINDINGS: Clear lungs. No pleural effusion or pneumothorax. Normal cardiomediastinal silhouette. IMPRESSION: No acute abnormality identified. at 1518 Reported and signed by: Singh Snider M.D. CC: Technologist: El Munson Date/Time/By: 08/07/2020 (4818) : By: [email or web address] PAGE 1 Signed Report [place]: St: REG -- Name: BILLY PEREZ [place] : 1995 Age/S: 25/M [address] Unit #: [id number] Loc: [place] [address] Phys: Kavin Styles MD Acct: [id number] Dis Date: Status: REG ER PHONE #: [phone] Date: 08/07/2020 1500 FAX #: [phone] Reason: Trauma alert/activation EXAMS: CPT CODE: [id number] XR CHEST 1 V 59475 (Continued) Orig Print D/T: S: 08/07/2020 (1521) PAGE 2 Signed ReportDRUG [id number] 18:39:00 Test Item Value Reference Range Interpretation Comments U Amph Scr (test code Negative *NA*(02/27/20 = U Amph Scr) 1:39 PM) [facility] [id number] 18:39:00 Test Item Value Reference Range Interpretation Comments U Coby Scr (test code Negative *NA*(02/27/20 = U Coby Scr) 1:39 PM) [facility] [id number] 18:39:00 Test Item Value Reference Range Interpretation Comments U Benzodiaz Scr (test Positive code = U Benzodiaz Scr) *ABN*(02/27/20 1:39 PM) [facility] [id number] 18:39:00 Test Item Value Reference Range Interpretation Comments U Cocaine Scr (test Negative *NA*(02/27/20 code = U Cocaine Scr) 1:39 PM) [facility] [id number] 18:39:00 Test Item Value Reference Range Interpretation Comments U Cannab Scr (test Negative *NA*(02/27/20 code = U Cannab Scr) 1:39 PM) [facility] [id number] 18:39:00 Test Item Value Reference Range Interpretation Comments U Opiate Scr (test Positive *ABN*(02/27/20 code = U Opiate Scr) 1:39 PM) [facility] [id number] 18:39:00 Test Item Value Reference Range Interpretation Comments U Phencyclidine Scr (test Negative code = U Phencyclidine *NA*(02/27/20 1:39 Scr) PM) [facility] [id number] 18:39:00 Test Item Value Reference Range Interpretation Comments UDS Note (test code = See Note (02/27/20 1:39 UDS Note) PM) [facility] [id number] 18:39:00 Test Item Value Reference Range Interpretation Comments UA Color (test code = Yellow *NA*(02/27/20 UA Color) 1:39 PM) [facility] AND [id number] 18:39:00 Test Item Value Reference Range Interpretation Comments UA Turbidity (test code = Clear (02/27/20 1:39 UA Turbidity) PM) [facility] AND [id number] 18:39:00 Test Item Value Reference Range Interpretation Comments UA Spec Grav (test code = UA Spec 1.015 1 Grav) [facility] AND [id number] 18:39:00 Test Item Value Reference Range Interpretation Comments UA pH (test code = UA pH) 7.0 1 5.0-8.0 [facility] AND [id number] 18:39:00 Test Item Value Reference Range Interpretation Comments UA Protein (test code = UA Negative mg/dL Protein) [facility] AND [id number] 18:39:00 Test Item Value Reference Range Interpretation Comments UA Glucose (test code = UA Negative mg/dL Glucose) [facility] AND [id number] 18:39:00 Test Item Value Reference Range Interpretation Comments UA Ketones (test code = UA Negative mg/dL Ketones) [facility] AND [id number] 18:39:00 Test Item Value Reference Range Interpretation Comments UA Bili (test code = Negative *NA*(02/27/20 UA Bili) 1:39 PM) [facility] AND [id number] 18:39:00 Test Item Value Reference Range Interpretation Comments UA Blood (test code = Negative (02/27/20 1:39 UA Blood) PM) [facility] AND [id number] 18:39:00 Test Item Value Reference Range Interpretation Comments UA Nitrite (test code Negative (02/27/20 1:39 = UA Nitrite) PM) [facility] AND [id number] 18:39:00 Test Item Value Reference Range Interpretation Comments UA Leuk Est (test Negative (02/27/20 1:39 code = UA Leuk Est) PM) [facility] AND [id number] 18:39:00 Test Item Value Reference Range Interpretation Comments UA RBC (test code = no gt See_Comment [Automa liam message] The UA RBC) system which ge nerated this result transmit liam reference range : <=2. The reference range was not used to interpr et this result as pedro l/abnormal. [facility] [id number] 18:39:00 Test Item Value Reference Range Interpretation Comments UA Mucus (test code = UA Mucus) Few /LPF [facility] [id number] 18:39:00 Test Item Value Reference Range Interpretation Comments UA Sq Epi (test code = UA Sq Epi) None Seen [facility] [id number] 18:39:00 Test Item Value Reference Range Interpretation Comments UA Urobilinogen (test code = UA <=1.0 mg/dL 0.1-1.0 Urobilinogen) [facility] [id number] 18:39:00 Test Item Value Reference Range Interpretation Comments U Amph Scr (test code Negative *NA*(02/27/20 = U Amph Scr) 1:39 PM) [facility] [id number] 18:39:00 Test Item Value Reference Range Interpretation Comments U Coby Scr (test code Negative *NA*(02/27/20 = U Coby Scr) 1:39 PM) [facility] [id number] 18:39:00 Test Item Value Reference Range Interpretation Comments U Benzodiaz Scr (test Positive code = U Benzodiaz Scr) *ABN*(02/27/20 1:39 PM) [facility] [id number] 18:39:00 Test Item Value Reference Range Interpretation Comments U Cocaine Scr (test Negative *NA*(02/27/20 code = U Cocaine Scr) 1:39 PM) [facility] [id number] 18:39:00 Test Item Value Reference Range Interpretation Comments U Cannab Scr (test Negative *NA*(02/27/20 code = U Cannab Scr) 1:39 PM) [facility] [id number] 18:39:00 Test Item Value Reference Range Interpretation Comments U Opiate Scr (test Positive *ABN*(02/27/20 code = U Opiate Scr) 1:39 PM) [facility] [id number] 18:39:00 Test Item Value Reference Range Interpretation Comments U Phencyclidine Scr (test Negative code = U Phencyclidine *NA*(02/27/20 1:39 Scr) PM) [facility] [id number] 18:39:00 Test Item Value Reference Range Interpretation Comments UDS Note (test code = See Note (02/27/20 1:39 UDS Note) PM) [facility] [id number] 18:39:00 Test Item Value Reference Range Interpretation Comments UA Color (test code = Yellow *NA*(02/27/20 UA Color) 1:39 PM) [facility] [id number] 18:39:00 Test Item Value Reference Range Interpretation Comments UA Turbidity (test code = Clear (02/27/20 1:39 UA Turbidity) PM) [facility] [id number] 18:39:00 Test Item Value Reference Range Interpretation Comments UA Spec Grav (test code = UA Spec 1.015 1 Grav) [facility] [id number] 18:39:00 Test Item Value Reference Range Interpretation Comments UA pH (test code = UA pH) 7.0 1 5.0-8.0 [facility] [id number] 18:39:00 Test Item Value Reference Range Interpretation Comments UA Protein (test code = UA Negative mg/dL Protein) [facility] [id number] 18:39:00 Test Item Value Reference Range Interpretation Comments UA Glucose (test code = UA Negative mg/dL Glucose) [facility] [id number] 18:39:00 Test Item Value Reference Range Interpretation Comments UA Ketones (test code = UA Negative mg/dL Ketones) [facility] [id number] 18:39:00 Test Item Value Reference Range Interpretation Comments UA Bili (test code = Negative *NA*(02/27/20 UA Bili) 1:39 PM) [facility] [id number] 18:39:00 Test Item Value Reference Range Interpretation Comments UA Blood (test code = Negative (02/27/20 1:39 UA Blood) PM) [facility] [id number] 18:39:00 Test Item Value Reference Range Interpretation Comments UA Nitrite (test code Negative (02/27/20 1:39 = UA Nitrite) PM) [facility] [id number] 18:39:00 Test Item Value Reference Range Interpretation Comments UA Leuk Est (test Negative (02/27/20 1:39 code = UA Leuk Est) PM) [facility] [id number] 18:39:00 Test Item Value Reference Range Interpretation Comments UA RBC (test code = no gt See_Comment [Automa liam message] The UA RBC) system which ge nerated this result transmit liam reference range : <=2. The reference range was not used to interpr et this result as pedro l/abnormal. [facility] [id number] 18:39:00 Test Item Value Reference Range Interpretation Comments UA Mucus (test code = UA Mucus) Few /LPF [facility] [id number] 18:39:00 Test Item Value Reference Range Interpretation Comments UA Sq Epi (test code = UA Sq Epi) None Seen [facility] [id number] 18:39:00 Test Item Value Reference Range Interpretation Comments UA Urobilinogen (test code = UA <=1.0 mg/dL 0.1-1.0 Urobilinogen) [facility] [id number] 16:58:00 Test Item Value Reference Range Interpretation Comments Troponin-I (test code no gt See_Comment [Auto mated message] The = Troponin-I) system which g enerated this result transmit liam reference range : <=0.40. The reference r miladis was not used to interpr et this result as pedro l/abnormal. [facility] [id number] 16:58:00 Test Item Value Reference Range Interpretation Comments Total CK (test code = Total CK) 151 12-191 [facility] [id number] 16:58:00 Test Item Value Reference Range Interpretation Comments CK MB (test code = CK MB) 1.0 0.5-3.6 [facility] [id number] 16:58:00 Test Item Value Reference Range Interpretation Comments CK MB Index (test 0.7 1 See_Comment [Automate d message] The code = CK MB Index) [facility] generated this result transmit liam reference range : <=2.5. The reference range was not used to interpr et this result as pedro l/abnormal. [facility]annCHE[facility] [id number] 16:58:00 Test Item Value Reference Range Interpretation Comments Glucose Lvl (test code = Glucose Lvl) 97 70-99 [place] [id number] 16:58:00 Test Item Value Reference Range Interpretation Comments BUN (test code = BUN) 10 7-22 [place] [id number] 16:58:00 Test Item Value Reference Range Interpretation Comments Creatinine Lvl (test code = Creatinine 0.93 0.50-1.40 Lvl) [facility]2020-10-29 16:58:00 Test Item Value Reference Range Interpretation Comments Sodium Lvl (test code = Sodium Lvl) 141 135-145 [facility] [place]DA[place] [id number] 16:58:00 Test Item Value Reference Range Interpretation Comments Potassium Lvl (test code = Potassium 4.0 3.5-5.1 Lvl) [facility]2020-10-29 16:58:00 Test Item Value Reference Range Interpretation Comments Chloride Lvl (test code = Chloride Lvl) 105 95-109 [facility]2020-10-29 16:58:00 Test Item Value Reference Range Interpretation Comments CO2 (test code = CO2) 29 24-32 [place] [id number] 16:58:00 Test Item Value Reference Range Interpretation Comments Calcium Lvl (test code = Calcium Lvl) 10.0 8.5-10.5 [facility]2020-10-29 16:58:00 Test Item Value Reference Range Interpretation Comments Total Protein (test code = Total 8.2 6.4-8.4 Protein) [facility]2020-10-29 16:58:00 Test Item Value Reference Range Interpretation Comments Albumin Lvl (test code = Albumin Lvl) 4.4 3.5-5.0 [facility] [id number] 16:58:00 Test Item Value Reference Range Interpretation Comments ALT (test code = ALT) 30 See_Comment [Auto mated message] The system which ge nerated this result transmit liam reference range : <=65. The reference range was not used to interpr et this result as pedro l/abnormal. [facility] [id number] 16:58:00 Test Item Value Reference Range Interpretation Comments AST (test code = AST) 20 See_Comment [Auto mated message] The system which ge nerated this result transmit liam reference range : <=37. The reference range was not used to interpr et this result as pedro l/abnormal. [facility] [id number] 16:58:00 Test Item Value Reference Range Interpretation Comments Alk Phos (test code = Alk Phos) 67 39-136 [facility]2020-10-29 16:58:00 Test Item Value Reference Range Interpretation Comments Bili Total (test code = Bili Total) 0.5 0.2-1.3 [facility]2020-10-29 16:58:00 Test Item Value Reference Range Interpretation Comments AGAP (test code = AGAP) 11.0 10.0-20.0 [facility]2020-10-29 16:58:00 Test Item Value Reference Range Interpretation Comments B/C Ratio (test code = B/C Ratio) 11 1 6-25 [facility] [id number] 16:58:00 Test Item Value Reference Range Interpretation Comments Globulin (test code = Globulin) 3.8 2.7-4.2 [facility] [id number] 16:58:00 Test Item Value Reference Range Interpretation Comments A/G Ratio (test code = A/G Ratio) 1.2 1 0.7-1.6 [place] [id number] 16:58:00 Test Item Value Reference Range Interpretation Comments eGFR (test code = eGFR) 113 [facility] CenterHlmzispBFIIPUMKZG1572-13-66 16:58:00 Test Item Value Reference Range Interpretation Comments WBC (test code = WBC) 9.3 3.7-10.4 [place] [id number] 16:58:00 Test Item Value Reference Range Interpretation Comments RBC (test code = RBC) 4.71 4.70-6.10 [place] [id number] 16:58:00 Test Item Value Reference Range Interpretation Comments Hgb (test code = Hgb) 14.5 14.0-18.0 [place] [id number] 16:58:00 Test Item Value Reference Range Interpretation Comments Hct (test code = Hct) 42.9 42.0-54.0 [place] [id number] 16:58:00 Test Item Value Reference Range Interpretation Comments MCV (test code = MCV) 91.1 80.0-94.0 [facility] CenterKbuoevbTZNIKTMWWH7966-56-97 16:58:00 Test Item Value Reference Range Interpretation Comments MCH (test code = MCH) 30.8 pg 27.0-31.0 [facility] CenterQvuhwutRRSKXPVEZS7189-39-16 16:58:00 Test Item Value Reference Range Interpretation Comments MCHC (test code = MCHC) 33.8 32.0-36.0 [facility] CenterCaegsgtZEOVDMHHPU6244-53-44 16:58:00 Test Item Value Reference Range Interpretation Comments RDW (test code = RDW) 13.7 11.5-14.5 [facility] CenterIrwcsmrAVSAQAUOEF0471-96-38 16:58:00 Test Item Value Reference Range Interpretation Comments Platelet (test code = Platelet) 314 133-450 [facility] CenterHkdthtjCBIOEEHOCZ8388-18-59 16:58:00 Test Item Value Reference Range Interpretation Comments MPV (test code = MPV) 7.2 7.4-10.4 [facility] CenterYiprutwMFSTCIAAVV2538-85-75 16:58:00 Test Item Value Reference Range Interpretation Comments PT (test code = PT) 12.9 s 12.0-14.7 [facility] CenterFzfvoriNRCSVDTBTX1662-41-10 16:58:00 Test Item Value Reference Range Interpretation Comments INR (test code = INR) 0.97 1 0.85-1.17 [facility] CenterDffpvarDEZIOXMQHY3909-80-08 16:58:00 Test Item Value Reference Range Interpretation Comments PTT (test code = PTT) 28.1 s 22.9-35.8 [facility] CenterVoxajjqNILNEWAAQV1995-45-70 16:58:00 Test Item Value Reference Range Interpretation Comments Segs (test code = Segs) 67.5 45.0-75.0 [facility] CenterBbikmxnHJCBOYWKRY5202-27-20 16:58:00 Test Item Value Reference Range Interpretation Comments Lymphocytes (test code = Lymphocytes) 21.8 20.0-40.0 [facility] CenterMbdpfyjNQIAYOSPIL0075-35-41 16:58:00 Test Item Value Reference Range Interpretation Comments Monocytes (test code = Monocytes) 8.9 2.0-12.0 [facility] CenterFiamkshFIVXQXZMAX8903-98-97 16:58:00 Test Item Value Reference Range Interpretation Comments Eosinophils (test code = 1.4 See_Comment [A utomated message] The Eosinophils) system which ge nerated this result tra nsmitted reference range : <=4.0. The reference r miladis was not used to int erpret this result as normal/abnormal . [facility] HospitalWqscedaIMMYZCQKYN3139-39-15 16:58:00 Test Item Value Reference Range Interpretation Comments Basophils (test code = 0.4 See_Comment [Aut omated message] The Basophils) system which ge nerated this result tra nsmitted reference range : <=1.0. The reference r miladis was not used to int erpret this result as normal/abnormal . [facility] CenterZniibnsRCTMXSYATJ2523-90-19 16:58:00 Test Item Value Reference Range Interpretation Comments Neutrophils # (test code = Neutrophils 6.3 1.5-8.1 #) [facility] CenterYiwmhvxPNIDHYNRUN9564-96-48 16:58:00 Test Item Value Reference Range Interpretation Comments Lymphocytes # (test code = Lymphocytes 2.0 1.0-5.5 #) [facility] CenterOgnjmrnFKLHPALRON9929-48-67 16:58:00 Test Item Value Reference Range Interpretation Comments Monocytes # (test code 0.8 See_Comment [Aut omated message] The = Monocytes #) system which generated this result tra nsmitted reference range : <=0.8. The reference r miladis was not used to int erpret this result as normal/abnormal . [facility] HospitalIcpidluAJJOYZAGAN0613-31-81 16:58:00 Test Item Value Reference Range Interpretation Comments Eosinophils # (test code 0.1 See_Comment [A utomated message] The = Eosinophils #) system whic h generated this result tra nsmitted reference range : <=0.5. The reference r miladis was not used to int erpret this result as normal/abnormal . [facility] [id number] 16:58:00 Test Item Value Reference Range Interpretation Comments Troponin-I (test code no gt See_Comment [Auto mated message] The = Troponin-I) system which g enerated this result transmit liam reference range : <=0.40. The reference r miladis was not used to interpr et this result as pedro l/abnormal. [facility] Southeast[facility] [id number] 16:58:00 Test Item Value Reference Range Interpretation Comments Total CK (test code = Total CK) 151 12-191 [facility] SoutheastCARTradeBriefsAC [id number] 16:58:00 Test Item Value Reference Range Interpretation Comments CK MB (test code = CK MB) 1.0 0.5-3.6 [facility]annCARD[facility] NFMJKJW3991-05-39 16:58:00 Test Item Value Reference Range Interpretation Comments CK MB Index (test 0.7 1 See_Comment [Automate d message] The code = CK MB Index) system w [employer] generated this result transmit liam reference range : <=2.5. The reference range was not used to interpr et this result as perdo l/abnormal. [facility] [employer] [id number] 16:58:00 Test Item Value Reference Range Interpretation Comments Glucose Lvl (test code = Glucose Lvl) 97 70-99 [facility]2020-10-29 16:58:00 Test Item Value Reference Range Interpretation Comments BUN (test code = BUN) 10 7-22 [facility]2020-10-29 16:58:00 Test Item Value Reference Range Interpretation Comments Creatinine Lvl (test code = Creatinine 0.93 0.50-1.40 Lvl) [facility]2020-10-29 16:58:00 Test Item Value Reference Range Interpretation Comments Sodium Lvl (test code = Sodium Lvl) 141 135-145 [facility]2020-10-29 16:58:00 Test Item Value Reference Range Interpretation Comments Potassium Lvl (test code = Potassium 4.0 3.5-5.1 Lvl) [facility]2020-10-29 16:58:00 Test Item Value Reference Range Interpretation Comments Chloride Lvl (test code = Chloride Lvl) 105 95-109 [facility]2020-10-29 16:58:00 Test Item Value Reference Range Interpretation Comments CO2 (test code = CO2) 29 24-32 [facility]2020-10-29 16:58:00 Test Item Value Reference Range Interpretation Comments Calcium Lvl (test code = Calcium Lvl) 10.0 8.5-10.5 [facility]2020-10-29 16:58:00 Test Item Value Reference Range Interpretation Comments Total Protein (test code = Total 8.2 6.4-8.4 Protein) [facility]2020-10-29 16:58:00 Test Item Value Reference Range Interpretation Comments Albumin Lvl (test code = Albumin Lvl) 4.4 3.5-5.0 [facility]2020-10-29 16:58:00 Test Item Value Reference Range Interpretation Comments ALT (test code = ALT) 30 See_Comment [Auto mated message] The system which ge nerated this result transmit liam reference range : <=65. The reference range was not used to interpr et this result as epdro l/abnormal. [facility]2020-10-29 16:58:00 Test Item Value Reference Range Interpretation Comments AST (test code = AST) 20 See_Comment [Auto mated message] The system which ge nerated this result transmit liam reference range : <=37. The reference range was not used to interpr et this result as pedro l/abnormal. [place] 553200-10-29 16:58:00 Test Item Value Reference Range Interpretation Comments Alk Phos (test code = Alk Phos) 67 39-136 [facility]2020-10-29 16:58:00 Test Item Value Reference Range Interpretation Comments Bili Total (test code = Bili Total) 0.5 0.2-1.3 [place] 553200-10-29 16:58:00 Test Item Value Reference Range Interpretation Comments AGAP (test code = AGAP) 11.0 10.0-20.0 [place] 553200-10-29 16:58:00 Test Item Value Reference Range Interpretation Comments B/C Ratio (test code = B/C Ratio) 11 1 6-25 [place] 553200-10-29 16:58:00 Test Item Value Reference Range Interpretation Comments Globulin (test code = Globulin) 3.8 2.7-4.2 [place] 553200-10-29 16:58:00 Test Item Value Reference Range Interpretation Comments A/G Ratio (test code = A/G Ratio) 1.2 1 0.7-1.6 [place] 553200-10-29 16:58:00 Test Item Value Reference Range Interpretation Comments eGFR (test code = eGFR) 113 [facility]wcpncnWGSKAYDJNM3822-89-30 16:58:00 Test Item Value Reference Range Interpretation Comments WBC (test code = WBC) 9.3 3.7-10.4 [facility] CenterIctqlhfUBRFTDSTAL4636-80-98 16:58:00 Test Item Value Reference Range Interpretation Comments RBC (test code = RBC) 4.71 4.70-6.10 [facility] CenterNsnhkuwOAZDJCKKZF8572-85-49 16:58:00 Test Item Value Reference Range Interpretation Comments Hgb (test code = Hgb) 14.5 14.0-18.0 [facility] CenterYvydvfyRKXHYXZKJT3851-17-16 16:58:00 Test Item Value Reference Range Interpretation Comments Hct (test code = Hct) 42.9 42.0-54.0 [facility] CenterBrgpqppWOWFKLTRCL7327-85-01 16:58:00 Test Item Value Reference Range Interpretation Comments MCV (test code = MCV) 91.1 80.0-94.0 [facility] CenterIyxfxmkPLVNJANKLF5385-48-65 16:58:00 Test Item Value Reference Range Interpretation Comments MCH (test code = MCH) 30.8 pg 27.0-31.0 [facility] CenterCzulnozVHQWIMIDZN6297-84-96 16:58:00 Test Item Value Reference Range Interpretation Comments MCHC (test code = MCHC) 33.8 32.0-36.0 [facility] CenterPdpetwnUORHVQZXNX1037-78-11 16:58:00 Test Item Value Reference Range Interpretation Comments RDW (test code = RDW) 13.7 11.5-14.5 [facility] CenterGlxolwwEVVBGKBXQP0105-23-77 16:58:00 Test Item Value Reference Range Interpretation Comments Platelet (test code = Platelet) 314 133-450 [facility] CenterYwmehbiXORBOIIPBT6777-49-79 16:58:00 Test Item Value Reference Range Interpretation Comments MPV (test code = MPV) 7.2 7.4-10.4 [facility] CenterPamqgrlAQVHNEVPAO1138-84-88 16:58:00 Test Item Value Reference Range Interpretation Comments PT (test code = PT) 12.9 s 12.0-14.7 [facility] CenterIeyodcoZTVPMMEXHF4851-19-67 16:58:00 Test Item Value Reference Range Interpretation Comments INR (test code = INR) 0.97 1 0.85-1.17 [facility] CenterUvtsbbaWDJUSJBZWH3486-78-33 16:58:00 Test Item Value Reference Range Interpretation Comments PTT (test code = PTT) 28.1 s 22.9-35.8 [facility] CenterUiesdnhTPNGQBQXBL8093-90-78 16:58:00 Test Item Value Reference Range Interpretation Comments Segs (test code = Segs) 67.5 45.0-75.0 [place] 015510-10-29 16:58:00 Test Item Value Reference Range Interpretation Comments Lymphocytes (test code = Lymphocytes) 21.8 20.0-40.0 [facility] CenterXdykfkxWUJZAEALHM0319-26-21 16:58:00 Test Item Value Reference Range Interpretation Comments Monocytes (test code = Monocytes) 8.9 2.0-12.0 [place] 015510-10-29 16:58:00 Test Item Value Reference Range Interpretation Comments Eosinophils (test code = 1.4 See_Comment [A utomated message] The Eosinophils) system which ge nerated this result tra nsmitted reference range : <=4.0. The reference r miladis was not used to int erpret this result as normal/abnormal . [place] 015510-10-29 16:58:00 Test Item Value Reference Range Interpretation Comments Basophils (test code = 0.4 See_Comment [Aut omated message] The Basophils) system which ge nerated this result tra nsmitted reference range : <=1.0. The reference r miladis was not used to int erpret this result as normal/abnormal . [facility] CenterRldywrkVLRHMLRAPC5657-35-40 16:58:00 Test Item Value Reference Range Interpretation Comments Neutrophils # (test code = Neutrophils 6.3 1.5-8.1 #) [place] 015510-10-29 16:58:00 Test Item Value Reference Range Interpretation Comments Lymphocytes # (test code = Lymphocytes 2.0 1.0-5.5 #) [place] 015510-10-29 16:58:00 Test Item Value Reference Range Interpretation Comments Monocytes # (test code 0.8 See_Comment [Aut omated message] The = Monocytes #) system which generated this result tra nsmitted reference range : <=0.8. The reference r miladis was not used to int erpret this result as normal/abnormal . [facility] CenterCanszhgNVLZFZDEFC7714-03-09 16:58:00 Test Item Value Reference Range Interpretation Comments Eosinophils # (test code 0.1 See_Comment [A utomated message] The = Eosinophils #) system whic h generated this result tra nsmitted reference range : <=0.5. The reference r miladis was not used to int erpret this result as normal/abnormal . [place] 553200-07-23 06:32:00 Test Item Value Reference Range Interpretation Comments Glucose Lvl (test code = Glucose Lvl) 94 70-99 [place] 553200-07-23 06:32:00 Test Item Value Reference Range Interpretation Comments BUN (test code = BUN) 10 7-22 [place] 553200-07-23 06:32:00 Test Item Value Reference Range Interpretation Comments Creatinine Lvl (test code = Creatinine 0.81 0.50-1.40 Lvl) [place] 553200-07-23 06:32:00 Test Item Value Reference Range Interpretation Comments Sodium Lvl (test code = Sodium Lvl) 141 135-145 [place] 553200-07-23 06:32:00 Test Item Value Reference Range Interpretation Comments Potassium Lvl (test code = Potassium 3.7 3.5-5.1 Lvl) [place] 553200-07-23 06:32:00 Test Item Value Reference Range Interpretation Comments Chloride Lvl (test code = Chloride Lvl) 106 95-109 [place] 553200-07-23 06:32:00 Test Item Value Reference Range Interpretation Comments CO2 (test code = CO2) 28 24-32 [place] 553200-07-23 06:32:00 Test Item Value Reference Range Interpretation Comments Calcium Lvl (test code = Calcium Lvl) 8.9 8.5-10.5 [place] 553200-07-23 06:32:00 Test Item Value Reference Range Interpretation Comments Total Protein (test code = Total 8.0 6.4-8.4 Protein) [place] 553200-07-23 06:32:00 Test Item Value Reference Range Interpretation Comments Albumin Lvl (test code = Albumin Lvl) 4.3 3.5-5.0 [place] 553200-07-23 06:32:00 Test Item Value Reference Range Interpretation Comments ALT (test code = ALT) 45 See_Comment [Auto mated message] The system which ge nerated this result transmit liam reference range : <=65. The reference range was not used to interpr et this result as pedro l/abnormal. [facility] [id number] 06:32:00 Test Item Value Reference Range Interpretation Comments AST (test code = AST) 26 See_Comment [Auto mated message] The system which ge nerated this result transmit liam reference range : <=37. The reference range was not used to interpr et this result as pedro l/abnormal. [facility] [employer] [id number] 06:32:00 Test Item Value Reference Range Interpretation Comments Alk Phos (test code = Alk Phos) 55 39-136 [facility] [employer] [id number] 06:32:00 Test Item Value Reference Range Interpretation Comments Bili Total (test code = Bili Total) 0.2 0.2-1.3 [facility] [employer] [id number] 06:32:00 Test Item Value Reference Range Interpretation Comments AGAP (test code = AGAP) 10.7 10.0-20.0 [facility] [employer] [id number] 06:32:00 Test Item Value Reference Range Interpretation Comments B/C Ratio (test code = B/C Ratio) 12 1 6-25 [facility]2020-07-23 06:32:00 Test Item Value Reference Range Interpretation Comments Globulin (test code = Globulin) 3.7 2.7-4.2 [facility]2020-07-23 06:32:00 Test Item Value Reference Range Interpretation Comments A/G Ratio (test code = A/G Ratio) 1.2 1 0.7-1.6 [facility] [employer] [id number] 06:32:00 Test Item Value Reference Range Interpretation Comments eGFR (test code = eGFR) 123 [facility] [employer] [id number] 06:32:00 Test Item Value Reference Range Interpretation Comments U Amph Scr (test code Negative *NA*(11/21/19 = U Amph Scr) 1:32 AM) [facility] [employer] [id number] 06:32:00 Test Item Value Reference Range Interpretation Comments U Coby Scr (test code Negative *NA*(11/21/19 = U Coby Scr) 1:32 AM) [facility] [id number] 06:32:00 Test Item Value Reference Range Interpretation Comments U Benzodiaz Scr (test Positive *ABN*(11/21/19 code = U Benzodiaz Scr) 1:32 AM) [facility] BFCDUU6582-06-31 06:32:00 Test Item Value Reference Range Interpretation Comments U Cocaine Scr (test Positive *ABN*(11/21/19 code = U Cocaine Scr) 1:32 AM) [facility] [id number] 06:32:00 Test Item Value Reference Range Interpretation Comments U Cannab Scr (test Positive *ABN*(11/21/19 code = U Cannab Scr) 1:32 AM) [facility] [id number] 06:32:00 Test Item Value Reference Range Interpretation Comments U Opiate Scr (test Negative *NA*(11/21/19 code = U Opiate Scr) 1:32 AM) [facility] [id number] 06:32:00 Test Item Value Reference Range Interpretation Comments U Phencyclidine Scr (test Negative code = U Phencyclidine *NA*(11/21/19 1:32 Scr) AM) [facility] [id number] 06:32:00 Test Item Value Reference Range Interpretation Comments UDS Note (test code = See Note (11/21/19 1:32 UDS Note) AM) [facility]OiqdcegSQQGNQEQFI9466-86-80 06:32:00 Test Item Value Reference Range Interpretation Comments WBC (test code = WBC) 8.3 3.7-10.4 [facility] HospitalSvbfziqDBSIGYSLWC0389-04-34 06:32:00 Test Item Value Reference Range Interpretation Comments RBC (test code = RBC) 4.39 4.70-6.10 [facility] HospitalMxjshkxRGBPJNLEWM8188-76-02 06:32:00 Test Item Value Reference Range Interpretation Comments Hgb (test code = Hgb) 13.8 14.0-18.0 [facility] HospitalYwuczwcEYBBNNJESH0556-89-25 06:32:00 Test Item Value Reference Range Interpretation Comments Hct (test code = Hct) 40.4 42.0-54.0 [facility] HospitalPvygpuqJBUNSSULYZ1515-35-86 06:32:00 Test Item Value Reference Range Interpretation Comments MCV (test code = MCV) 92.0 80.0-94.0 [facility] HospitalPedtgupTVPYUVZFLC6271-66-65 06:32:00 Test Item Value Reference Range Interpretation Comments MCH (test code = MCH) 31.4 pg 27.0-31.0 [place] 015510-07-23 06:32:00 Test Item Value Reference Range Interpretation Comments MCHC (test code = MCHC) 34.2 32.0-36.0 [place] 015510-07-23 06:32:00 Test Item Value Reference Range Interpretation Comments RDW (test code = RDW) 12.9 11.5-14.5 [place] 015510-07-23 06:32:00 Test Item Value Reference Range Interpretation Comments Platelet (test code = Platelet) 371 133-450 [facility] CenterOtsxqjvYHTQFSFXVM1912-31-30 06:32:00 Test Item Value Reference Range Interpretation Comments MPV (test code = MPV) 6.8 7.4-10.4 [place] 015510-07-23 06:32:00 Test Item Value Reference Range Interpretation Comments Segs (test code = Segs) 50.3 45.0-75.0 [place] 015510-07-23 06:32:00 Test Item Value Reference Range Interpretation Comments Lymphocytes (test code = Lymphocytes) 42.2 20.0-40.0 [place] 015510-07-23 06:32:00 Test Item Value Reference Range Interpretation Comments Monocytes (test code = Monocytes) 5.8 2.0-12.0 [facility] CenterWqikvwfYSWINWICOO8310-86-52 06:32:00 Test Item Value Reference Range Interpretation Comments Eosinophils (test code = 1.2 See_Comment [A utomated message] The Eosinophils) system which ge nerated this result tra nsmitted reference range : <=4.0. The reference r miladis was not used to int erpret this result as normal/abnormal . [facility] CenterEepcgrhCVAGMCBYUC1610-78-77 06:32:00 Test Item Value Reference Range Interpretation Comments Basophils (test code = 0.5 See_Comment [Aut omated message] The Basophils) system which ge nerated this result tra nsmitted reference range : <=1.0. The reference r miladis was not used to int erpret this result as normal/abnormal . [place] 015510-07-23 06:32:00 Test Item Value Reference Range Interpretation Comments Neutrophils # (test code = Neutrophils 4.2 1.5-8.1 #) [facility] CenterNpmkdlrDRKJTQQEHD3710-66-49 06:32:00 Test Item Value Reference Range Interpretation Comments Lymphocytes # (test code = Lymphocytes 3.5 1.0-5.5 #) [facility]G2137[facility]14-55 06:32:00 Test Item Value Reference Range Interpretation Comments Monocytes # (test code 0.5 See_Comment [Aut omated message] The = Monocytes #) system which generated this result tra nsmitted reference range : <=0.8. The reference r miladis was not used to int erpret this result as normal/abnormal . [facility]QasmzyfIZJWASNAPS6070-21-57 06:32:00 Test Item Value Reference Range Interpretation Comments Eosinophils # (test code 0.1 See_Comment [A utomated message] The = Eosinophils #) system whic h generated this result tra nsmitted reference range : <=0.5. The reference r miladis was not used to int erpret this result as normal/abnormal . [facility]vx[facility]rAIINRUEDIN4161-66-71 06:32:00 Test Item Value Reference Range Interpretation Comments Acetaminoph Lvl (test code (11/21/19 1:32 AM) 10-20 = Acetaminoph Lvl) [place] [id number] 06:32:00 Test Item Value Reference Range Interpretation Comments Ethanol Lvl (test code = Ethanol Lvl) 183 [place] [id number] 06:32:00 Test Item Value Reference Range Interpretation Comments Etoh (%) (test code = Etoh (%)) 0.183 [place] [id number] 06:32:00 Test Item Value Reference Range Interpretation Comments Salicylate Lvl (test 1.8 See_Comment [Autom ated message] The code = Salicylate Lvl) syste m which generated this result tra nsmitted reference range : <=30.0. The reference r miladis was not used to int erpret this result as normal/abnormal . [facility] [id number] 06:32:00 Test Item Value Reference Range Interpretation Comments UA Turbidity (test code = Clear (11/21/19 1:32 UA Turbidity) AM) [facility] [id number] 06:32:00 Test Item Value Reference Range Interpretation Comments UA Spec Grav (test code = UA Spec 1.008 1 Grav) [facility] [id number] 06:32:00 Test Item Value Reference Range Interpretation Comments UA pH (test code = UA pH) 6.0 1 5.0-8.0 [facility] [id number] 06:32:00 Test Item Value Reference Range Interpretation Comments UA Protein (test code = UA Negative mg/dL Protein) [facility] [id number] 06:32:00 Test Item Value Reference Range Interpretation Comments UA Glucose (test code = UA Negative mg/dL Glucose) [facility] [id number] 06:32:00 Test Item Value Reference Range Interpretation Comments UA Ketones (test code = UA Negative mg/dL Ketones) [facility] [id number] 06:32:00 Test Item Value Reference Range Interpretation Comments UA Bili (test code = Negative *NA*(11/21/19 UA Bili) 1:32 AM) [facility] [id number] 06:32:00 Test Item Value Reference Range Interpretation Comments UA Blood (test code = Negative (11/21/19 1:32 UA Blood) AM) [facility] [id number] 06:32:00 Test Item Value Reference Range Interpretation Comments UA Nitrite (test code Negative (11/21/19 1:32 = UA Nitrite) AM) [facility] [id number] 06:32:00 Test Item Value Reference Range Interpretation Comments UA Leuk Est (test Negative (11/21/19 1:32 code = UA Leuk Est) AM) [facility] [id number] 06:32:00 Test Item Value Reference Range Interpretation Comments UA RBC (test code = 2 See_Comment [Automa liam message] The UA RBC) system which ge nerated this result transmit liam reference range : <=2. The reference range was not used to interpr et this result as pedro l/abnormal. [facility] [id number] 06:32:00 Test Item Value Reference Range Interpretation Comments UA Bacteria (test code = UA Occasional /HPF Bacteria) [facility] [id number] 06:32:00 Test Item Value Reference Range Interpretation Comments UA Mucus (test code = UA Mucus) Few /LPF [facility] [id number] 06:32:00 Test Item Value Reference Range Interpretation Comments UA Sq Epi (test code = UA Sq Epi) None Seen [facility] [id number] 06:32:00 Test Item Value Reference Range Interpretation Comments UA Color (test code = UA Color) STRAW [facility] [id number] 06:32:00 Test Item Value Reference Range Interpretation Comments UA Urobilinogen (test code = UA <=1.0 mg/dL 0.1-1.0 Urobilinogen) [place] 553200-07-23 06:32:00 Test Item Value Reference Range Interpretation Comments Glucose Lvl (test code = Glucose Lvl) 94 70-99 [place] 553200-07-23 06:32:00 Test Item Value Reference Range Interpretation Comments BUN (test code = BUN) 10 - [place] 553200-07-23 06:32:00 Test Item Value Reference Range Interpretation Comments Creatinine Lvl (test code = Creatinine 0.81 0.50-1.40 Lvl) [facility]2020-07-23 06:32:00 Test Item Value Reference Range Interpretation Comments Sodium Lvl (test code = Sodium Lvl) 141 135-145 [facility]2020-07-23 06:32:00 Test Item Value Reference Range Interpretation Comments Potassium Lvl (test code = Potassium 3.7 3.5-5.1 Lvl) [facility]2020-07-23 06:32:00 Test Item Value Reference Range Interpretation Comments Chloride Lvl (test code = Chloride Lvl) 106 95-109 [facility]2020-07-23 06:32:00 Test Item Value Reference Range Interpretation Comments CO2 (test code = CO2) 28 24-32 [facility]2020-07-23 06:32:00 Test Item Value Reference Range Interpretation Comments Calcium Lvl (test code = Calcium Lvl) 8.9 8.5-10.5 [place] 553200-07-23 06:32:00 Test Item Value Reference Range Interpretation Comments Total Protein (test code = Total 8.0 6.4-8.4 Protein) [facility]2020-07-23 06:32:00 Test Item Value Reference Range Interpretation Comments Albumin Lvl (test code = Albumin Lvl) 4.3 3.5-5.0 [facility] [id number] 06:32:00 Test Item Value Reference Range Interpretation Comments ALT (test code = ALT) 45 See_Comment [Auto mated message] The system which ge nerated this result transmit liam reference range : <=65. The reference range was not used to interpr et this result as pedro l/abnormal. [facility] [id number] 06:32:00 Test Item Value Reference Range Interpretation Comments AST (test code = AST) 26 See_Comment [Auto mated message] The system which ge nerated this result transmit liam reference range : <=37. The reference range was not used to interpr et this result as pedro l/abnormal. [facility] [id number] 06:32:00 Test Item Value Reference Range Interpretation Comments Alk Phos (test code = Alk Phos) 55 39-136 [facility] [employer] [id number] 06:32:00 Test Item Value Reference Range Interpretation Comments Bili Total (test code = Bili Total) 0.2 0.2-1.3 [facility] [employer] [id number] 06:32:00 Test Item Value Reference Range Interpretation Comments AGAP (test code = AGAP) 10.7 10.0-20.0 [facility] [id number] 06:32:00 Test Item Value Reference Range Interpretation Comments B/C Ratio (test code = B/C Ratio) 12 1 6-25 [facility] [employer] [id number] 06:32:00 Test Item Value Reference Range Interpretation Comments Globulin (test code = Globulin) 3.7 2.7-4.2 [facility] [employer] [id number] 06:32:00 Test Item Value Reference Range Interpretation Comments A/G Ratio (test code = A/G Ratio) 1.2 1 0.7-1.6 [facility] [employer] [id number] 06:32:00 Test Item Value Reference Range Interpretation Comments eGFR (test code = eGFR) 123 [facility] [employer] [id number] 06:32:00 Test Item Value Reference Range Interpretation Comments U Amph Scr (test code Negative *NA*(7/23/20 = U Amph Scr) 1:32 AM) [facility] [id number] 06:32:00 Test Item Value Reference Range Interpretation Comments U Coby Scr (test code Negative *NA*(11/21/19 = U Coby Scr) 1:32 AM) [facility] [id number] 06:32:00 Test Item Value Reference Range Interpretation Comments U Benzodiaz Scr (test Positive *ABN*(11/21/19 code = U Benzodiaz Scr) 1:32 AM) [facility] [id number] 06:32:00 Test Item Value Reference Range Interpretation Comments U Cocaine Scr (test Positive *ABN*(11/21/19 code = U Cocaine Scr) 1:32 AM) [facility] [id number] 06:32:00 Test Item Value Reference Range Interpretation Comments U Cannab Scr (test Positive *ABN*(11/21/19 code = U Cannab Scr) 1:32 AM) [facility] [id number] 06:32:00 Test Item Value Reference Range Interpretation Comments U Opiate Scr (test Negative *NA*(11/21/19 code = U Opiate Scr) 1:32 AM) [facility] [id number] 06:32:00 Test Item Value Reference Range Interpretation Comments U Phencyclidine Scr (test Negative code = U Phencyclidine *NA*(11/21/19 1:32 Scr) AM) [facility] [id number] 06:32:00 Test Item Value Reference Range Interpretation Comments UDS Note (test code = See Note (11/21/19 1:32 UDS Note) AM) [facility]dooqwgBZGUQANVEQ3934-91-78 06:32:00 Test Item Value Reference Range Interpretation Comments WBC (test code = WBC) 8.3 3.7-10.4 [facility] [id number] 06:32:00 Test Item Value Reference Range Interpretation Comments RBC (test code = RBC) 4.39 4.70-6.10 [facility] CcshsdrWYAXGTMLWJ1633-15-49 06:32:00 Test Item Value Reference Range Interpretation Comments Hgb (test code = Hgb) 13.8 14.0-18.0 [facility] CeixqmoRVXHYIIHAN1147-47-62 06:32:00 Test Item Value Reference Range Interpretation Comments Hct (test code = Hct) 40.4 42.0-54.0 [place] 015510-07-23 06:32:00 Test Item Value Reference Range Interpretation Comments MCV (test code = MCV) 92.0 80.0-94.0 [place] 015510-07-23 06:32:00 Test Item Value Reference Range Interpretation Comments MCH (test code = MCH) 31.4 pg 27.0-31.0 [place] 015510-07-23 06:32:00 Test Item Value Reference Range Interpretation Comments MCHC (test code = MCHC) 34.2 32.0-36.0 [place] 015510-07-23 06:32:00 Test Item Value Reference Range Interpretation Comments RDW (test code = RDW) 12.9 11.5-14.5 [place] 015510-07-23 06:32:00 Test Item Value Reference Range Interpretation Comments Platelet (test code = Platelet) 371 133-450 [facility]VzfhhpyJEPQGUTKRZ2254-38-13 06:32:00 Test Item Value Reference Range Interpretation Comments MPV (test code = MPV) 6.8 7.4-10.4 [facility] CenterYvegqzfTVHEDOSNCE3747-19-92 06:32:00 Test Item Value Reference Range Interpretation Comments Segs (test code = Segs) 50.3 45.0-75.0 [facility] CenterUaaikinNCBVUYPPYM3611-36-73 06:32:00 Test Item Value Reference Range Interpretation Comments Lymphocytes (test code = Lymphocytes) 42.2 20.0-40.0 [place] 015510-07-23 06:32:00 Test Item Value Reference Range Interpretation Comments Monocytes (test code = Monocytes) 5.8 2.0-12.0 [place] 35567-07-23 06:32:00 Test Item Value Reference Range Interpretation Comments Eosinophils (test code = 1.2 See_Comment [A utomated message] The Eosinophils) system which ge nerated this result tra nsmitted reference range : <=4.0. The reference r miladis was not used to int erpret this result as normal/abnormal . [place] 015510-07-23 06:32:00 Test Item Value Reference Range Interpretation Comments Basophils (test code = 0.5 See_Comment [Aut omated message] The Basophils) system which ge nerated this result tra nsmitted reference range : <=1.0. The reference r miladis was not used to int erpret this result as normal/abnormal . [facility] CenterPesajzwNBUEGOWPXH7929-31-85 06:32:00 Test Item Value Reference Range Interpretation Comments Neutrophils # (test code = Neutrophils 4.2 1.5-8.1 #) [facility] CenterOixpohrZUVYPIRESI6321-60-76 06:32:00 Test Item Value Reference Range Interpretation Comments Lymphocytes # (test code = Lymphocytes 3.5 1.0-5.5 #) [facility] CenterTryuchlPDFQSEYVGG9216-07-70 06:32:00 Test Item Value Reference Range Interpretation Comments Monocytes # (test code 0.5 See_Comment [Aut omated message] The = Monocytes #) system which generated this result tra nsmitted reference range : <=0.8. The reference r miladis was not used to int erpret this result as normal/abnormal . [facility] Cent[id number] 06:32:00 Test Item Value Reference Range Interpretation Comments Eosinophils # (test code 0.1 See_Comment [A utomated message] The = Eosinophils #) system whic h generated this result tra nsmitted reference range : <=0.5. The reference r miladis was not used to int erpret this result as normal/abnormal . [place] [id number] 06:32:00 Test Item Value Reference Range Interpretation Comments Acetaminoph Lvl (test code (11/21/19 1:32 AM) 10-20 = Acetaminoph Lvl) [place] [id number] 06:32:00 Test Item Value Reference Range Interpretation Comments Ethanol Lvl (test code = Ethanol Lvl) 183 [place] [id number] 06:32:00 Test Item Value Reference Range Interpretation Comments Etoh (%) (test code = Etoh (%)) 0.183 [place] [id number] 06:32:00 Test Item Value Reference Range Interpretation Comments Salicylate Lvl (test 1.8 See_Comment [Autom ated message] The code = Salicylate Lvl) syste m which generated this result tra nsmitted reference range : <=30.0. The reference r miladis was not used to int erpret this result as normal/abnormal . [facility] AND [id number] 06:32:00 Test Item Value Reference Range Interpretation Comments UA Turbidity (test code = Clear (11/21/19 1:32 UA Turbidity) AM) [facility] AND [id number] 06:32:00 Test Item Value Reference Range Interpretation Comments UA Spec Grav (test code = UA Spec 1.008 1 Grav) [facility] AND [id number] 06:32:00 Test Item Value Reference Range Interpretation Comments UA pH (test code = UA pH) 6.0 1 5.0-8.0 [facility] AND [id number] 06:32:00 Test Item Value Reference Range Interpretation Comments UA Protein (test code = UA Negative mg/dL Protein) [facility] [id number] 06:32:00 Test Item Value Reference Range Interpretation Comments UA Glucose (test code = UA Negative mg/dL Glucose) [facility] [id number] 06:32:00 Test Item Value Reference Range Interpretation Comments UA Ketones (test code = UA Negative mg/dL Ketones) [facility] [id number] 06:32:00 Test Item Value Reference Range Interpretation Comments UA Bili (test code = Negative *NA*(11/21/19 UA Bili) 1:32 AM) [facility] AND [id number] 06:32:00 Test Item Value Reference Range Interpretation Comments UA Blood (test code = Negative (11/21/19 1:32 UA Blood) AM) [facility] [id number] 06:32:00 Test Item Value Reference Range Interpretation Comments UA Nitrite (test code Negative (11/21/19 1:32 = UA Nitrite) AM) [facility] AND [id number] 06:32:00 Test Item Value Reference Range Interpretation Comments UA Leuk Est (test Negative (11/21/19 1:32 code = UA Leuk Est) AM) [facility] [id number] 06:32:00 Test Item Value Reference Range Interpretation Comments UA RBC (test code = 2 See_Comment [Automa liam message] The UA RBC) system which ge nerated this result transmit liam reference range : <=2. The reference range was not used to interpr et this result as pedro l/abnormal. [facility] [id number] 06:32:00 Test Item Value Reference Range Interpretation Comments UA Bacteria (test code = UA Occasional /HPF Bacteria) [facility] [id number] 06:32:00 Test Item Value Reference Range Interpretation Comments UA Mucus (test code = UA Mucus) Few /LPF [facility] [id number] 06:32:00 Test Item Value Reference Range Interpretation Comments UA Sq Epi (test code = UA Sq Epi) None Seen [facility] [id number] 06:32:00 Test Item Value Reference Range Interpretation Comments UA Color (test code = UA Color) STRAW [facility] [id number] 06:32:00 Test Item Value Reference Range Interpretation Comments UA Urobilinogen (test code = UA <=1.0 mg/dL 0.1-1.0 Urobilinogen) [facility]2020-06-07 11:41:00 Test Item Value Reference Range Interpretation Comments Glucose Lvl (test code = Glucose Lvl) 124 70-99 [facility]2020-06-07 11:41:00 Test Item Value Reference Range Interpretation Comments BUN (test code = BUN) 16 7-22 [facility]2020-06-07 11:41:00 Test Item Value Reference Range Interpretation Comments Creatinine Lvl (test code = Creatinine 0.96 0.50-1.40 Lvl) [facility]2020-06-07 11:41:00 Test Item Value Reference Range Interpretation Comments Sodium Lvl (test code = Sodium Lvl) 139 135-145 [place] 553200-06-07 11:41:00 Test Item Value Reference Range Interpretation Comments Potassium Lvl (test code = Potassium 4.0 3.5-5.1 Lvl) [facility]2020-06-07 11:41:00 Test Item Value Reference Range Interpretation Comments Chloride Lvl (test code = Chloride Lvl) 105 95-109 [facility]2020-06-07 11:41:00 Test Item Value Reference Range Interpretation Comments CO2 (test code = CO2) 30 24-32 [place] 553200-06-07 11:41:00 Test Item Value Reference Range Interpretation Comments AGAP (test code = AGAP) 8.0 10.0-20.0 [facility]2020-06-07 11:41:00 Test Item Value Reference Range Interpretation Comments Calcium Lvl (test code = Calcium Lvl) 8.5 8.5-10.5 [facility]2020-06-07 11:41:00 Test Item Value Reference Range Interpretation Comments B/C Ratio (test code = B/C Ratio) 17 1 6-25 [facility]2020-06-07 11:41:00 Test Item Value Reference Range Interpretation Comments Albumin Lvl (test code = Albumin Lvl) 3.9 3.5-5.0 [facility]2020-06-07 11:41:00 Test Item Value Reference Range Interpretation Comments AST (test code = AST) 30 See_Comment [Auto mated message] The system which ge nerated this result transmit liam reference range : <=37. The reference range was not used to interpr et this result as pedro l/abnormal. [facility] [id number] 11:41:00 Test Item Value Reference Range Interpretation Comments Alk Phos (test code = Alk Phos) 57 39-136 [facility] [id number] 11:41:00 Test Item Value Reference Range Interpretation Comments Bili Total (test code = Bili Total) 0.3 0.2-1.3 [facility]2020-06-07 11:41:00 Test Item Value Reference Range Interpretation Comments eGFR (test code = eGFR) 109 [facility]2020-06-07 11:41:00 Test Item Value Reference Range Interpretation Comments Total Protein (test code = Total 7.5 6.4-8.4 Protein) [facility] [id number] 11:41:00 Test Item Value Reference Range Interpretation Comments Globulin (test code = Globulin) 3.6 2.7-4.2 [facility]2020-06-07 11:41:00 Test Item Value Reference Range Interpretation Comments A/G Ratio (test code = A/G Ratio) 1.1 1 0.7-1.6 [facility]2020-06-07 11:41:00 Test Item Value Reference Range Interpretation Comments ALT (test code = ALT) 38 See_Comment [Auto mated message] The system which ge nerated this result transmit liam reference range : <=65. The reference range was not used to interpr et this result as pedro l/abnormal. [facility] [id number] 11:41:00 Test Item Value Reference Range Interpretation Comments U Amph Scr (test code Negative *NA*(10/06/19 = U Amph Scr) 6:41 AM) [facility] [id number] 11:41:00 Test Item Value Reference Range Interpretation Comments U Coby Scr (test code Negative *NA*(10/06/19 = U Coby Scr) 6:41 AM) [facility] [id number] 11:41:00 Test Item Value Reference Range Interpretation Comments U Benzodiaz Scr (test Negative *NA*(10/06/19 code = U Benzodiaz Scr) 6:41 AM) [facility] [id number] 11:41:00 Test Item Value Reference Range Interpretation Comments U Cocaine Scr (test Negative *NA*(10/06/19 code = U Cocaine Scr) 6:41 AM) [facility] [id number] 11:41:00 Test Item Value Reference Range Interpretation Comments U Cannab Scr (test Positive *ABN*(10/06/19 code = U Cannab Scr) 6:41 AM) [facility] [id number] 11:41:00 Test Item Value Reference Range Interpretation Comments U Opiate Scr (test Negative *NA*(10/06/19 code = U Opiate Scr) 6:41 AM) [facility] [id number] 11:41:00 Test Item Value Reference Range Interpretation Comments U Phencyclidine Scr (test Negative *NA*(10/06/19 code = U Phencyclidine 6:41 AM) Scr) [facility] [id number] 11:41:00 Test Item Value Reference Range Interpretation Comments UDS Note (test code = See Note (10/06/19 6:41 UDS Note) AM) [facility] Hos[id number] 11:41:00 Test Item Value Reference Range Interpretation Comments WBC (test code = WBC) 7.1 3.7-10.4 [facility] [id number] 11:41:00 Test Item Value Reference Range Interpretation Comments RBC (test code = RBC) 4.07 4.70-6.10 [facility] [id number] 11:41:00 Test Item Value Reference Range Interpretation Comments Hgb (test code = Hgb) 13.5 14.0-18.0 [facility] [id number] 11:41:00 Test Item Value Reference Range Interpretation Comments Hct (test code = Hct) 37.6 42.0-54.0 [facility] C[id number] 11:41:00 Test Item Value Reference Range Interpretation Comments MCV (test code = MCV) 92.3 80.0-94.0 [facility] CenterRuvdoswRWDVDHIVOH9168-06-07 11:41:00 Test Item Value Reference Range Interpretation Comments MCH (test code = MCH) 33.1 pg 27.0-31.0 [facility] CenterCffbswcPCARZQJLVA9212-26-68 11:41:00 Test Item Value Reference Range Interpretation Comments MCHC (test code = MCHC) 35.8 32.0-36.0 [facility] CenterVwxecgaMBUQYAQTZT8081-84-03 11:41:00 Test Item Value Reference Range Interpretation Comments RDW (test code = RDW) 13.1 11.5-14.5 [facility] C[id number] 11:41:00 Test Item Value Reference Range Interpretation Comments Platelet (test code = Platelet) 301 133-450 [facility] CenterLrnqitoAKINZLMXPB1584-16-14 11:41:00 Test Item Value Reference Range Interpretation Comments MPV (test code = MPV) 7.3 7.4-10.4 [facility] CenterKedlknxDCQUSELJUJ7113-99-80 11:41:00 Test Item Value Reference Range Interpretation Comments Segs (test code = Segs) 37.1 45.0-75.0 [facility] CenterPqvwqtbCZZVQNDVVA1833-72-03 11:41:00 Test Item Value Reference Range Interpretation Comments Lymphocytes (test code = Lymphocytes) 50.2 20.0-40.0 [facility] CenterCgxrnhnVYEHFDFAVF0749-31-59 11:41:00 Test Item Value Reference Range Interpretation Comments Monocytes (test code = Monocytes) 9.7 2.0-12.0 [facility] CenterHgfflxrZUXMONCQRB3859-69-64 11:41:00 Test Item Value Reference Range Interpretation Comments Eosinophils (test code = 2.6 See_Comment [A utomated message] The Eosinophils) system which ge nerated this result tra nsmitted reference range : <=4.0. The reference r miladis was not used to int erpret this result as normal/abnormal . [facility] CenterPqjaibiDNMFOEVQNM4449-17-66 11:41:00 Test Item Value Reference Range Interpretation Comments Basophils (test code = 0.4 See_Comment [Aut omated message] The Basophils) system which ge nerated this result tra nsmitted reference range : <=1.0. The reference r miladis was not used to int erpret this result as normal/abnormal . [facility] CenterTsorjzdIZOJVAJGIQ5945-01-95 11:41:00 Test Item Value Reference Range Interpretation Comments Neutrophils # (test code = Neutrophils 2.6 1.5-8.1 #) [facility] CenterRkpnzhxUJJISCBIJD4773-35-75 11:41:00 Test Item Value Reference Range Interpretation Comments Lymphocytes # (test code = Lymphocytes 3.6 1.0-5.5 #) [facility] C[id number] 11:41:00 Test Item Value Reference Range Interpretation Comments Monocytes # (test code 0.7 See_Comment [Aut omated message] The = Monocytes #) system which generated this result tra nsmitted reference range : <=0.8. The reference r miladis was not used to int erpret this result as normal/abnormal . [facility] CenterLvcifxpUCMSZSOGMM4091-35-21 11:41:00 Test Item Value Reference Range Interpretation Comments Eosinophils # (test code 0.2 See_Comment [A utomated message] The = Eosinophils #) system whic h generated this result tra nsmitted reference range : <=0.5. The reference r miladis was not used to int erpret this result as normal/abnormal . [facility] [id number] 11:41:00 Test Item Value Reference Range Interpretation Comments UA Color (test code = Yellow *NA*(10/06/19 6:41 UA Color) AM) [facility] [id number] 11:41:00 Test Item Value Reference Range Interpretation Comments UA Turbidity (test code = Clear (10/06/19 6:41 UA Turbidity) AM) [facility] [id number] 11:41:00 Test Item Value Reference Range Interpretation Comments UA Spec Grav (test code = UA Spec 1.021 1 Grav) [facility] [id number] 11:41:00 Test Item Value Reference Range Interpretation Comments UA pH (test code = UA pH) 6.0 1 5.0-8.0 [facility] [id number] 11:41:00 Test Item Value Reference Range Interpretation Comments UA Protein (test code = UA Negative mg/dL Protein) [facility] [id number] 11:41:00 Test Item Value Reference Range Interpretation Comments UA Glucose (test code = UA Negative mg/dL Glucose) [facility] [id number] 11:41:00 Test Item Value Reference Range Interpretation Comments UA Ketones (test code = UA Negative mg/dL Ketones) [facility] [id number] 11:41:00 Test Item Value Reference Range Interpretation Comments UA Bili (test code = Negative *NA*(10/06/19 UA Bili) 6:41 AM) [facility] [id number] 11:41:00 Test Item Value Reference Range Interpretation Comments UA Blood (test code = Small *ABN*(10/06/19 UA Blood) 6:41 AM) [facility] [id number] 11:41:00 Test Item Value Reference Range Interpretation Comments UA Nitrite (test code Negative (10/06/19 6:41 = UA Nitrite) AM) [facility] [id number] 11:41:00 Test Item Value Reference Range Interpretation Comments UA Leuk Est (test Negative (10/06/19 6:41 code = UA Leuk Est) AM) [facility] [id number] 11:41:00 Test Item Value Reference Range Interpretation Comments UA WBC (test code = 1 See_Comment [Automa liam message] The UA WBC) system which ge nerated this result transmit liam reference range : <=5. The reference range was not used to interpr et this result as pedro l/abnormal. [facility] [id number] 11:41:00 Test Item Value Reference Range Interpretation Comments UA RBC (test code = 9 See_Comment [Automa liam message] The UA RBC) system which ge nerated this result transmit liam reference range : <=2. The reference range was not used to interpr et this result as pedro l/abnormal. [facility]2020-06-07 11:41:00 Test Item Value Reference Range Interpretation Comments UA Mucus (test code = UA Mucus) Few /LPF [facility] [id number] 11:41:00 Test Item Value Reference Range Interpretation Comments UA Sq Epi (test code = UA Sq Epi) None Seen [facility]2020-06-07 11:41:00 Test Item Value Reference Range Interpretation Comments UA Urobilinogen (test code = UA <=1.0 mg/dL 0.1-1.0 Urobilinogen) [facility]2020-06-07 11:41:00 Test Item Value Reference Range Interpretation Comments Glucose Lvl (test code = Glucose Lvl) 124 70-99 [facility]2020-06-07 11:41:00 Test Item Value Reference Range Interpretation Comments BUN (test code = BUN) 16 7-22 [facility]2020-06-07 11:41:00 Test Item Value Reference Range Interpretation Comments Creatinine Lvl (test code = Creatinine 0.96 0.50-1.40 Lvl) [facility]2020-06-07 11:41:00 Test Item Value Reference Range Interpretation Comments Sodium Lvl (test code = Sodium Lvl) 139 135-145 [place] 553200-06-07 11:41:00 Test Item Value Reference Range Interpretation Comments Potassium Lvl (test code = Potassium 4.0 3.5-5.1 Lvl) [facility]2020-06-07 11:41:00 Test Item Value Reference Range Interpretation Comments Chloride Lvl (test code = Chloride Lvl) 105 95-109 [facility]2020-06-07 11:41:00 Test Item Value Reference Range Interpretation Comments CO2 (test code = CO2) 30 24-32 [facility]2020-06-07 11:41:00 Test Item Value Reference Range Interpretation Comments AGAP (test code = AGAP) 8.0 10.0-20.0 [place] 553200-06-07 11:41:00 Test Item Value Reference Range Interpretation Comments Calcium Lvl (test code = Calcium Lvl) 8.5 8.5-10.5 [facility] DanceTrippinannCHEM [id number] 11:41:00 Test Item Value Reference Range Interpretation Comments B/C Ratio (test code = B/C Ratio) 17 1 6-25 [facility] HermannCHEM [id number] 11:41:00 Test Item Value Reference Range Interpretation Comments Albumin Lvl (test code = Albumin Lvl) 3.9 3.5-5.0 [facility] DanceTrippinannCHEM [id number] 11:41:00 Test Item Value Reference Range Interpretation Comments AST (test code = AST) 30 See_Comment [Auto mated message] The system which ge nerated this result transmit liam reference range : <=37. The reference range was not used to interpr et this result as pedro l/abnormal. [facility]rippinann[facility] [id number] 11:41:00 Test Item Value Reference Range Interpretation Comments Alk Phos (test code = Alk Phos) 57 39-136 [facility] DanceTrippinannCHEM [id number] 11:41:00 Test Item Value Reference Range Interpretation Comments Bili Total (test code = Bili Total) 0.3 0.2-1.3 [facility] DanceTrippinannCHEM [id number] 11:41:00 Test Item Value Reference Range Interpretation Comments eGFR (test code = eGFR) 109 [facility] DanceTrippinannCHEM [id number] 11:41:00 Test Item Value Reference Range Interpretation Comments Total Protein (test code = Total 7.5 6.4-8.4 Protein) [facility] DanceTrippinannCHEM [id number] 11:41:00 Test Item Value Reference Range Interpretation Comments Globulin (test code = Globulin) 3.6 2.7-4.2 [facility] DanceTrippinannCHEM [id number] 11:41:00 Test Item Value Reference Range Interpretation Comments A/G Ratio (test code = A/G Ratio) 1.1 1 0.7-1.6 [facility] DanceTrippinannCHEM [id number] 11:41:00 Test Item Value Reference Range Interpretation Comments ALT (test code = ALT) 38 See_Comment [Auto mated message] The system which ge nerated this result transmit liam reference range : <=65. The reference range was not used to interpr et this result as pedro l/abnormal. [facility]ripp[facility]annDR[facility] [id number] 11:41:00 Test Item Value Reference Range Interpretation Comments U Amph Scr (test code Negative *NA*(10/06/19 = U Amph Scr) 6:41 AM) [facility] [id number] 11:41:00 Test Item Value Reference Range Interpretation Comments U Coby Scr (test code Negative *NA*(10/06/19 = U Coby Scr) 6:41 AM) [facility] [id number] 11:41:00 Test Item Value Reference Range Interpretation Comments U Benzodiaz Scr (test Negative *NA*(10/06/19 code = U Benzodiaz Scr) 6:41 AM) [facility] [id number] 11:41:00 Test Item Value Reference Range Interpretation Comments U Cocaine Scr (test Negative *NA*(10/06/19 code = U Cocaine Scr) 6:41 AM) [facility] [id number] 11:41:00 Test Item Value Reference Range Interpretation Comments U Cannab Scr (test Positive *ABN*(10/06/19 code = U Cannab Scr) 6:41 AM) [facility] [id number] 11:41:00 Test Item Value Reference Range Interpretation Comments U Opiate Scr (test Negative *NA*(10/06/19 code = U Opiate Scr) 6:41 AM) [facility] [id number] 11:41:00 Test Item Value Reference Range Interpretation Comments U Phencyclidine Scr (test Negative *NA*(10/06/19 code = U Phencyclidine 6:41 AM) Scr) [facility] [id number] 11:41:00 Test Item Value Reference Range Interpretation Comments UDS Note (test code = See Note (10/06/19 6:41 UDS Note) AM) [facility] H[id number] 11:41:00 Test Item Value Reference Range Interpretation Comments WBC (test code = WBC) 7.1 3.7-10.4 [facility] GgukspkBPHKAKWMDV8426-43-02 11:41:00 Test Item Value Reference Range Interpretation Comments RBC (test code = RBC) 4.07 4.70-6.10 [facility] IngnihoCLEVVPNKMV2624-65-28 11:41:00 Test Item Value Reference Range Interpretation Comments Hgb (test code = Hgb) 13.5 14.0-18.0 [facility]JgkjyftVPUBEUNBQD3375-18-58 11:41:00 Test Item Value Reference Range Interpretation Comments Hct (test code = Hct) 37.6 42.0-54.0 [facility] CenterEoakmnjMRFCZKAZHK2926-27-59 11:41:00 Test Item Value Reference Range Interpretation Comments MCV (test code = MCV) 92.3 80.0-94.0 [facility] CenterQxqynybQZZWGTBYKV1400-32-20 11:41:00 Test Item Value Reference Range Interpretation Comments MCH (test code = MCH) 33.1 pg 27.0-31.0 [facility] CenterEstbesuGSPJMXUUPR3714-50-88 11:41:00 Test Item Value Reference Range Interpretation Comments MCHC (test code = MCHC) 35.8 32.0-36.0 [facility] CenterAvewkmrFCSSCKELTC2167-97-90 11:41:00 Test Item Value Reference Range Interpretation Comments RDW (test code = RDW) 13.1 11.5-14.5 [facility] CenterCjxjaavUHPRNRZNUY9362-91-84 11:41:00 Test Item Value Reference Range Interpretation Comments Platelet (test code = Platelet) 301 133-450 [facility] CenterQymqmdrIFTMTQOONI5612-92-24 11:41:00 Test Item Value Reference Range Interpretation Comments MPV (test code = MPV) 7.3 7.4-10.4 [facility] CenterOvhyevgVZMIKPPNAF0562-66-80 11:41:00 Test Item Value Reference Range Interpretation Comments Segs (test code = Segs) 37.1 45.0-75.0 [facility] CenterMsuflsbYUXFPOLRNL1302-38-48 11:41:00 Test Item Value Reference Range Interpretation Comments Lymphocytes (test code = Lymphocytes) 50.2 20.0-40.0 [facility] CenterMczgthdBQVOAPMWGV9914-70-36 11:41:00 Test Item Value Reference Range Interpretation Comments Monocytes (test code = Monocytes) 9.7 2.0-12.0 [place] [id number] 11:41:00 Test Item Value Reference Range Interpretation Comments Eosinophils (test code = 2.6 See_Comment [A utomated message] The Eosinophils) system which ge nerated this result tra nsmitted reference range : <=4.0. The reference r miladis was not used to int erpret this result as normal/abnormal . [facility] CenterZjyuubfAKGSASONEW0860-98-44 11:41:00 Test Item Value Reference Range Interpretation Comments Basophils (test code = 0.4 See_Comment [Aut omated message] The Basophils) system which ge nerated this result tra nsmitted reference range : <=1.0. The reference r miladis was not used to int erpret this result as normal/abnormal . [facility] CenterNnzmgquAYXKCMNTBB1779-42-91 11:41:00 Test Item Value Reference Range Interpretation Comments Neutrophils # (test code = Neutrophils 2.6 1.5-8.1 #) [facility] CenterEeesnuoOALWKIXOIX8534-86-43 11:41:00 Test Item Value Reference Range Interpretation Comments Lymphocytes # (test code = Lymphocytes 3.6 1.0-5.5 #) [facility] CenterSbywfviKNRDKGRYPP6526-08-41 11:41:00 Test Item Value Reference Range Interpretation Comments Monocytes # (test code 0.7 See_Comment [Aut omated message] The = Monocytes #) system which generated this result tra nsmitted reference range : <=0.8. The reference r miladis was not used to int erpret this result as normal/abnormal . [facility] CenterXcmfqfuAJJGHTKBQU6395-43-09 11:41:00 Test Item Value Reference Range Interpretation Comments Eosinophils # (test code 0.2 See_Comment [A utomated message] The = Eosinophils #) system whic h generated this result tra nsmitted reference range : <=0.5. The reference r miladis was not used to int erpret this result as normal/abnormal . [facility] AND [id number] 11:41:00 Test Item Value Reference Range Interpretation Comments UA Color (test code = Yellow *NA*(10/06/19 6:41 UA Color) AM) [facility] AND [id number] 11:41:00 Test Item Value Reference Range Interpretation Comments UA Turbidity (test code = Clear (10/06/19 6:41 UA Turbidity) AM) [facility] AND [id number] 11:41:00 Test Item Value Reference Range Interpretation Comments UA Spec Grav (test code = UA Spec 1.021 1 Grav) [facility] AND [id number] 11:41:00 Test Item Value Reference Range Interpretation Comments UA pH (test code = UA pH) 6.0 1 5.0-8.0 [facility] AND [id number] 11:41:00 Test Item Value Reference Range Interpretation Comments UA Protein (test code = UA Negative mg/dL Protein) [facility] AND [id number] 11:41:00 Test Item Value Reference Range Interpretation Comments UA Glucose (test code = UA Negative mg/dL Glucose) [facility] AND [id number] 11:41:00 Test Item Value Reference Range Interpretation Comments UA Ketones (test code = UA Negative mg/dL Ketones) [facility] AND [id number] 11:41:00 Test Item Value Reference Range Interpretation Comments UA Bili (test code = Negative *NA*(10/06/19 UA Bili) 6:41 AM) [facility] AND [id number] 11:41:00 Test Item Value Reference Range Interpretation Comments UA Blood (test code = Small *ABN*(10/06/19 UA Blood) 6:41 AM) [facility] AND [id number] 11:41:00 Test Item Value Reference Range Interpretation Comments UA Nitrite (test code Negative (10/06/19 6:41 = UA Nitrite) AM) [facility] AND [id number] 11:41:00 Test Item Value Reference Range Interpretation Comments UA Leuk Est (test Negative (10/06/19 6:41 code = UA Leuk Est) AM) [facility] AND [id number] 11:41:00 Test Item Value Reference Range Interpretation Comments UA WBC (test code = 1 See_Comment [Automa liam message] The UA WBC) system which ge nerated this result transmit liam reference range : <=5. The reference range was not used to interpr et this result as pedro l/abnormal. [facility] AND [id number] 11:41:00 Test Item Value Reference Range Interpretation Comments UA RBC (test code = 9 See_Comment [Automa liam message] The UA RBC) system which ge nerated this result transmit liam reference range : <=2. The reference range was not used to interpr et this result as pedro l/abnormal. [facility] AND [id number] 11:41:00 Test Item Value Reference Range Interpretation Comments UA Mucus (test code = UA Mucus) Few /LPF [facility] AND [id number] 11:41:00 Test Item Value Reference Range Interpretation Comments UA Sq Epi (test code = UA Sq Epi) None Seen [facility] AND [id number] 11:41:00 Test Item Value Reference Range Interpretation Comments UA Urobilinogen (test code = UA <=1.0 mg/dL 0.1-1.0 Urobilinogen) [facility] [id number] 11:22:00 Test Item Value Reference Range Interpretation Comments Total CK (test code = Total CK) 314 12-191 [facility] [id number] 11:22:00 Test Item Value Reference Range Interpretation Comments Troponin-I (test code no gt See_Comment [Auto mated message] The = Troponin-I) system which g enerated this result transmit liam reference range : <=0.40. The reference r miladis was not used to interpr et this result as pedro l/abnormal. [facility] [employer] [id number] 11:22:00 Test Item Value Reference Range Interpretation Comments eGFR (test code = eGFR) 127 [facility] [id number] 11:22:00 Test Item Value Reference Range Interpretation Comments Calcium Lvl (test code = Calcium Lvl) 9.0 8.5-10.5 [facility] [id number] 11:22:00 Test Item Value Reference Range Interpretation Comments CO2 (test code = CO2) 23 24-32 [facility]2019-02-21 11:22:00 Test Item Value Reference Range Interpretation Comments Glucose Lvl (test code = Glucose Lvl) 116 70-99 [facility] [id number] 11:22:00 Test Item Value Reference Range Interpretation Comments Sodium Lvl (test code = Sodium Lvl) 139 135-145 [facility] [id number] 11:22:00 Test Item Value Reference Range Interpretation Comments Creatinine Lvl (test code = Creatinine 0.76 0.50-1.40 Lvl) [facility]2019-02-21 11:22:00 Test Item Value Reference Range Interpretation Comments BUN (test code = BUN) 9 7-22 [facility] [id number] 11:22:00 Test Item Value Reference Range Interpretation Comments Potassium Lvl (test code = Potassium 4.4 3.5-5.1 Lvl) [facility]2019-02-21 11:22:00 Test Item Value Reference Range Interpretation Comments Chloride Lvl (test code = Chloride Lvl) 106 95-109 [facility]2019-02-21 11:22:00 Test Item Value Reference Range Interpretation Comments AGAP (test code = AGAP) 14.4 10.0-20.0 [facility] CenterFstjkypICVZTOKXVO2253-58-79 11:22:00 Test Item Value Reference Range Interpretation Comments Monocytes (test code = Monocytes) 9.9 2.0-12.0 [facility] CenterLmojfesQSAPCGCPTS5693-45-14 11:22:00 Test Item Value Reference Range Interpretation Comments Neutrophils # (test code = Neutrophils 1.8 1.5-8.1 #) [facility] CenterBuejrcyHFSFSLJXFD2135-15-35 11:22:00 Test Item Value Reference Range Interpretation Comments Basophils (test code = 0.2 See_Comment [Aut omated message] The Basophils) system which ge nerated this result tra nsmitted reference range : <=1.0. The reference r miladis was not used to int erpret this result as normal/abnormal . [facility] CenterSyeoqunYSYZCGCDBT6442-63-11 11:22:00 Test Item Value Reference Range Interpretation Comments Lymphocytes # (test code = Lymphocytes 2.8 1.0-5.5 #) [facility] CenterRqcpapgZLXXVETJTP7106-81-39 11:22:00 Test Item Value Reference Range Interpretation Comments Monocytes # (test code 0.5 See_Comment [Aut omated message] The = Monocytes #) system which generated this result tra nsmitted reference range : <=0.8. The reference r miladis was not used to int erpret this result as normal/abnormal . [facility] CenterXzycbocPXXQZBEWHH0712-96-24 11:22:00 Test Item Value Reference Range Interpretation Comments Lymphocytes (test code = Lymphocytes) 55.2 20.0-40.0 [facility] CenterDwbuylhXWIZLIQTFB2626-51-60 11:22:00 Test Item Value Reference Range Interpretation Comments Segs (test code = Segs) 34.7 45.0-75.0 [facility] CenterCiunbwzXMTFGVIXFJ8177-45-61 11:22:00 Test Item Value Reference Range Interpretation Comments WBC (test code = WBC) 5.1 3.7-10.4 [facility]CbvhnfySQUESAWGRQ6454-41-85 11:22:00 Test Item Value Reference Range Interpretation Comments RDW (test code = RDW) 13.8 11.5-14.5 [facility] HospitalJcjyotlQFBJSVRYWQ3369-03-86 11:22:00 Test Item Value Reference Range Interpretation Comments MCHC (test code = MCHC) 34.5 32.0-36.0 [facility] HospitalXmecikoQXOVVRQVEK3792-96-48 11:22:00 Test Item Value Reference Range Interpretation Comments MCH (test code = MCH) 31.8 pg 27.0-31.0 [facility] HospitalHedohhuABVHRTGWRT5892-99-98 11:22:00 Test Item Value Reference Range Interpretation Comments Hgb (test code = Hgb) 14.4 14.0-18.0 [facility] HospitalCsvmmqzWLLNVGHLAT6082-55-03 11:22:00 Test Item Value Reference Range Interpretation Comments RBC (test code = RBC) 4.53 4.70-6.10 [facility] HospitalLyqzgaxQUAKQIQVYS2542-96-99 11:22:00 Test Item Value Reference Range Interpretation Comments MCV (test code = MCV) 92.2 80.0-94.0 [facility] HospitalXehkezhLUVVGHBHFN3014-51-95 11:22:00 Test Item Value Reference Range Interpretation Comments Hct (test code = Hct) 41.8 42.0-54.0 [facility] HospitalGslcvyjPLVXRPBQXY3390-41-92 11:22:00 Test Item Value Reference Range Interpretation Comments MPV (test code = MPV) 9.6 7.4-10.4 [facility] HospitalPscoztfGVRRVJAJKM1782-45-29 11:22:00 Test Item Value Reference Range Interpretation Comments Platelet (test code = Platelet) 134 133-450 [facility] [id number] 11:22:00 Test Item Value Reference Range Interpretation Comments Total CK (test code = Total CK) 314 12-191 [facility] [id number] 11:22:00 Test Item Value Reference Range Interpretation Comments Troponin-I (test code no gt See_Comment [Auto mated message] The = Troponin-I) system which g enerated this result transmit liam reference range : <=0.40. The reference r miladis was not used to interpr et this result as pedro l/abnormal. [facility]2019-02-21 11:22:00 Test Item Value Reference Range Interpretation Comments eGFR (test code = eGFR) 127 [facility]2019-02-21 11:22:00 Test Item Value Reference Range Interpretation Comments Calcium Lvl (test code = Calcium Lvl) 9.0 8.5-10.5 [facility]2019-02-21 11:22:00 Test Item Value Reference Range Interpretation Comments CO2 (test code = CO2) 23 24-32 [facility]2019-02-21 11:22:00 Test Item Value Reference Range Interpretation Comments Glucose Lvl (test code = Glucose Lvl) 116 70-99 [facility]2019-02-21 11:22:00 Test Item Value Reference Range Interpretation Comments Sodium Lvl (test code = Sodium Lvl) 139 135-145 [facility]2019-02-21 11:22:00 Test Item Value Reference Range Interpretation Comments Creatinine Lvl (test code = Creatinine 0.76 0.50-1.40 Lvl) [facility]2019-02-21 11:22:00 Test Item Value Reference Range Interpretation Comments BUN (test code = BUN) 9 7-22 [facility]2019-02-21 11:22:00 Test Item Value Reference Range Interpretation Comments Potassium Lvl (test code = Potassium 4.4 3.5-5.1 Lvl) [facility]2019-02-21 11:22:00 Test Item Value Reference Range Interpretation Comments Chloride Lvl (test code = Chloride Lvl) 106 95-109 [facility]2019-02-21 11:22:00 Test Item Value Reference Range Interpretation Comments AGAP (test code = AGAP) 14.4 10.0-20.0 [facility] CenterBvcxgroTLEWDOMQWF7233-03-90 11:22:00 Test Item Value Reference Range Interpretation Comments Monocytes (test code = Monocytes) 9.9 2.0-12.0 [facility] CenterKmedkqqWLRAIQOKFL8628-81-56 11:22:00 Test Item Value Reference Range Interpretation Comments Neutrophils # (test code = Neutrophils 1.8 1.5-8.1 #) [facility] CenterPshguwvIVYRBNZMTX9795-83-92 11:22:00 Test Item Value Reference Range Interpretation Comments Basophils (test code = 0.2 See_Comment [Aut omated message] The Basophils) system which ge nerated this result tra nsmitted reference range : <=1.0. The reference r miladis was not used to int erpret this result as normal/abnormal . [facility] CenterCdfchktDKBMRHPOCU0376-43-40 11:22:00 Test Item Value Reference Range Interpretation Comments Lymphocytes # (test code = Lymphocytes 2.8 1.0-5.5 #) [facility] CenterFfmejtjGZIAIBTNDI6311-64-27 11:22:00 Test Item Value Reference Range Interpretation Comments Monocytes # (test code 0.5 See_Comment [Aut omated message] The = Monocytes #) system which generated this result tra nsmitted reference range : <=0.8. The reference r miladis was not used to int erpret this result as normal/abnormal . [facility] CenterSxinfbiXIXMIBMKTH1382-08-20 11:22:00 Test Item Value Reference Range Interpretation Comments Lymphocytes (test code = Lymphocytes) 55.2 20.0-40.0 [facility] CenterBpbcvbmCELVPXUGLV4361-70-29 11:22:00 Test Item Value Reference Range Interpretation Comments Segs (test code = Segs) 34.7 45.0-75.0 [facility] CenterUledoksSVFSNOYVAG4745-23-30 11:22:00 Test Item Value Reference Range Interpretation Comments WBC (test code = WBC) 5.1 3.7-10.4 [facility] CenterTjadqrkLNNDAVIQQV9065-18-29 11:22:00 Test Item Value Reference Range Interpretation Comments RDW (test code = RDW) 13.8 11.5-14.5 [facility] CenterTyxstxeBJTCPVTAHU3279-64-97 11:22:00 Test Item Value Reference Range Interpretation Comments MCHC (test code = MCHC) 34.5 32.0-36.0 [facility] CenterCednkzfPEOYLOQPDL4084-15-11 11:22:00 Test Item Value Reference Range Interpretation Comments MCH (test code = MCH) 31.8 pg 27.0-31.0 [facility] CenterFlgmkbqONKEFLENTT9876-83-31 11:22:00 Test Item Value Reference Range Interpretation Comments Hgb (test code = Hgb) 14.4 14.0-18.0 [facility] CenterNwaejtbPCXQKBKVEP4302-09-39 11:22:00 Test Item Value Reference Range Interpretation Comments RBC (test code = RBC) 4.53 4.70-6.10 [facility] CenterUdahfoaBVFAZRBFQW7926-92-33 11:22:00 Test Item Value Reference Range Interpretation Comments MCV (test code = MCV) 92.2 80.0-94.0 [facility] CenterUqqwhqgDBTTCLZTCA3903-16-23 11:22:00 Test Item Value Reference Range Interpretation Comments Hct (test code = Hct) 41.8 42.0-54.0 [facility] CenterSzhkesfVDOINUXTWI1162-99-82 11:22:00 Test Item Value Reference Range Interpretation Comments MPV (test code = MPV) 9.6 7.4-10.4 [facility] CenterHjcpfhoQETATQUOLO9526-38-56 11:22:00 Test Item Value Reference Range Interpretation Comments Platelet (test code = Platelet) 134 133-450 [facility]2019-02-18 16:01:00 Test Item Value Reference Range Interpretation Comments Lipase Lvl (test code = Lipase Lvl) 253 73-393 [facility]2019-02-18 16:01:00 Test Item Value Reference Range Interpretation Comments Bili Indirect Unable to See_Comment [Automated (test code = Bili Calculate message] T he system Indirect) which generated this result transmitted reference range : <=1.0. The reference range was not used to interpret this result as normal/abnormal . [facility]2019-02-18 16:01:00 Test Item Value Reference Range Interpretation Comments AST (test code = AST) 125 See_Comment [Auto mated message] The system which ge nerated this result transmit liam reference range : <=37. The reference range was not used to interpr et this result as pedro l/abnormal. [facility]2019-02-18 16:01:00 Test Item Value Reference Range Interpretation Comments Alk Phos (test code = Alk Phos) 156 39-136 [facility]2019-02-18 16:01:00 Test Item Value Reference Range Interpretation Comments Bili Total (test code = Bili Total) 0.3 0.2-1.3 [facility]2019-02-18 16:01:00 Test Item Value Reference Range Interpretation Comments Bili Direct (test code no gt See_Comment [Aut omated message] The = Bili Direct) system which generated this result tra nsmitted reference range : <=0.3. The reference r miladis was not used to int erpret this result as pedro l/abnormal. [facility] [id number] 16:01:00 Test Item Value Reference Range Interpretation Comments Total Protein (test code = Total 7.9 6.4-8.4 Protein) [facility]2019-02-18 16:01:00 Test Item Value Reference Range Interpretation Comments Albumin Lvl (test code = Albumin Lvl) 4.2 3.5-5.0 [facility]2019-02-18 16:01:00 Test Item Value Reference Range Interpretation Comments A/G Ratio (test code = A/G Ratio) 1.1 1 0.7-1.6 [facility]2019-02-18 16:01:00 Test Item Value Reference Range Interpretation Comments Globulin (test code = Globulin) 3.7 2.7-4.2 [facility]2019-02-18 16:01:00 Test Item Value Reference Range Interpretation Comments ALT (test code = ALT) 121 See_Comment [Auto mated message] The system which ge nerated this result transmit liam reference range : <=65. The reference range was not used to interpr et this result as pedro l/abnormal. [facility]IdfnsdmGOONUDUOONZE2985-97-80 16:01:00 Test Item Value Reference Range Interpretation Comments AGAP (test code = AGAP) 8.8 10.0-20.0 [facility] HospitalHfwfzvuIEDUKOIYFBTB0469-53-86 16:01:00 Test Item Value Reference Range Interpretation Comments eGFR (test code = eGFR) 114 [facility] HospitalAyiklbsJRUONJLADVQS4740-49-74 16:01:00 Test Item Value Reference Range Interpretation Comments Sodium Lvl (test code = Sodium Lvl) 139 135-145 [facility] HospitalPxvvimpFHSPWLRAEPOE0171-43-99 16:01:00 Test Item Value Reference Range Interpretation Comments Creatinine Lvl (test code = Creatinine 0.93 0.50-1.40 Lvl) [facility] HospitalImvhdevZELUATGTUOXY3576-77-91 16:01:00 Test Item Value Reference Range Interpretation Comments Glucose Lvl (test code = Glucose Lvl) 86 70-99 [facility] HospitalCttmngwMGFZJTGVPQSZ1562-58-64 16:01:00 Test Item Value Reference Range Interpretation Comments BUN (test code = BUN) 12 7-22 [facility] HospitalGhbxeowPQCSQFWQQJFC1973-46-18 16:01:00 Test Item Value Reference Range Interpretation Comments Calcium Lvl (test code = Calcium Lvl) 8.7 8.5-10.5 [facility] HospitalNdapsslCCIENKZZYYMG9838-42-98 16:01:00 Test Item Value Reference Range Interpretation Comments Potassium Lvl (test code = Potassium 3.8 3.5-5.1 Lvl) [facility] HospitalZswgsngHNJMIOCPCNNV0606-15-58 16:01:00 Test Item Value Reference Range Interpretation Comments CO2 (test code = CO2) 28 24-32 [facility] HospitalImefjnrSYYEDJAIYAWU3551-48-40 16:01:00 Test Item Value Reference Range Interpretation Comments Chloride Lvl (test code = Chloride Lvl) 106 95-109 [facility] CenterMlycpjfGMHRRXOYHY2353-19-94 16:01:00 Test Item Value Reference Range Interpretation Comments Eosinophils (test code = 0.1 See_Comment [A utomated message] The Eosinophils) system which ge nerated this result tra nsmitted reference range : <=4.0. The reference r miladis was not used to int erpret this result as normal/abnormal . [facility] CenterWlojiqhUXCQUYNXIA2636-13-29 16:01:00 Test Item Value Reference Range Interpretation Comments Basophils (test code = 0.5 See_Comment [Aut omated message] The Basophils) system which ge nerated this result tra nsmitted reference range : <=1.0. The reference r miladis was not used to int erpret this result as normal/abnormal . [facility] CenterOzrdwhiWENIWDCYMB1889-83-30 16:01:00 Test Item Value Reference Range Interpretation Comments Monocytes # (test code 0.3 See_Comment [Aut omated message] The = Monocytes #) system which generated this result tra nsmitted reference range : <=0.8. The reference r miladis was not used to int erpret this result as normal/abnormal . [facility] CenterPnakfidLONNAAUJVV7480-26-53 16:01:00 Test Item Value Reference Range Interpretation Comments Lymphocytes # (test code = Lymphocytes 1.9 1.0-5.5 #) [facility] CenterHhacxnyLXKNLYRIAT9152-50-29 16:01:00 Test Item Value Reference Range Interpretation Comments Neutrophils # (test code = Neutrophils 3.9 1.5-8.1 #) [facility] CenterQkntvjnERWFCDMCLC0119-81-73 16:01:00 Test Item Value Reference Range Interpretation Comments Monocytes (test code = Monocytes) 5.4 2.0-12.0 [facility] CenterZjdahoyAXKAJNXMGJ2923-43-97 16:01:00 Test Item Value Reference Range Interpretation Comments Lymphocytes (test code = Lymphocytes) 30.8 20.0-40.0 [facility] CenterGccdyiuLVJYSVSHIF4185-06-65 16:01:00 Test Item Value Reference Range Interpretation Comments Segs (test code = Segs) 63.2 45.0-75.0 [facility] CenterBrtngqnLAFOGZLYOT7938-13-35 16:01:00 Test Item Value Reference Range Interpretation Comments Platelet (test code = Platelet) 161 133-450 [facility] CenterXjcedznHXQRFNCSYR9128-09-97 16:01:00 Test Item Value Reference Range Interpretation Comments MPV (test code = MPV) 8.4 7.4-10.4 [facility] CenterYhzousnPFEWDVYRFJ0224-09-67 16:01:00 Test Item Value Reference Range Interpretation Comments RDW (test code = RDW) 13.8 11.5-14.5 [facility] CenterYajszvvTMKZDBJNEG8952-46-04 16:01:00 Test Item Value Reference Range Interpretation Comments MCV (test code = MCV) 92.2 80.0-94.0 [facility]DqgxlolIEHCZRRNYR2106-27-23 16:01:00 Test Item Value Reference Range Interpretation Comments MCH (test code = MCH) 31.7 pg 27.0-31.0 [facility] CenterMmimtrhIGFZSSBJUK2093-00-72 16:01:00 Test Item Value Reference Range Interpretation Comments MCHC (test code = MCHC) 34.3 32.0-36.0 [facility] Cent[id number] 16:01:00 Test Item Value Reference Range Interpretation Comments RBC (test code = RBC) 4.48 4.70-6.10 [facility] CenterIqxlspkBTHBTRWDNU7653-65-35 16:01:00 Test Item Value Reference Range Interpretation Comments Hgb (test code = Hgb) 14.2 14.0-18.0 [facility] Cent[id number] 16:01:00 Test Item Value Reference Range Interpretation Comments WBC (test code = WBC) 6.1 3.7-10.4 [facility] [id number] 16:01:00 Test Item Value Reference Range Interpretation Comments Hct (test code = Hct) 41.3 42.0-54.0 [facility] [id number] 16:01:00 Test Item Value Reference Range Interpretation Comments UA RBC (test code = 1 See_Comment [Automa liam message] The UA RBC) system which ge nerated this result transmit liam reference range : <=2. The reference range was not used to interpr et this result as pedro l/abnormal. [facility] [id number] 16:01:00 Test Item Value Reference Range Interpretation Comments UA WBC (test code = 1 See_Comment [Automa liam message] The UA WBC) system which ge nerated this result transmit liam reference range : <=5. The reference range was not used to interpr et this result as pedro l/abnormal. [facility] [id number] 16:01:00 Test Item Value Reference Range Interpretation Comments UA Bacteria (test code = UA Occasional /HPF Bacteria) [facility] AND [id number] 16:01:00 Test Item Value Reference Range Interpretation Comments UA Sq Epi (test code = None Seen (06/18/18 UA Sq Epi) 10:01 AM) [facility] AND [id number] 16:01:00 Test Item Value Reference Range Interpretation Comments UA Color (test code = UA Color) STRAW [facility] AND [id number] 16:01:00 Test Item Value Reference Range Interpretation Comments UA Turbidity (test code = Clear (06/18/18 10:01 UA Turbidity) AM) [facility] AND [id number] 16:01:00 Test Item Value Reference Range Interpretation Comments UA Spec Grav (test code = UA Spec 1.004 1 Grav) [facility] AND [id number] 16:01:00 Test Item Value Reference Range Interpretation Comments UA Urobilinogen (test code = UA <=1.0 mg/dL 0.1-1.0 Urobilinogen) [facility] AND [id number] 16:01:00 Test Item Value Reference Range Interpretation Comments UA Blood (test code = Small *ABN*(06/18/18 UA Blood) 10:01 AM) [facility] AND [id number] 16:01:00 Test Item Value Reference Range Interpretation Comments UA Ketones (test code Negative *NA*(06/18/18 = UA Ketones) 10:01 AM) [facility] AND [id number] 16:01:00 Test Item Value Reference Range Interpretation Comments UA Glucose (test code Negative *NA*(06/18/18 = UA Glucose) 10:01 AM) [facility] AND [id number] 16:01:00 Test Item Value Reference Range Interpretation Comments UA Bili (test code = Negative *NA*(06/18/18 UA Bili) 10:01 AM) [facility] AND [id number] 16:01:00 Test Item Value Reference Range Interpretation Comments UA Nitrite (test code Negative (06/18/18 10:01 = UA Nitrite) AM) [facility] AND [id number] 16:01:00 Test Item Value Reference Range Interpretation Comments UA Protein (test code Negative (06/18/18 10:01 = UA Protein) AM) [facility] AND [id number] 16:01:00 Test Item Value Reference Range Interpretation Comments UA pH (test code = UA pH) 7.0 1 5.0-8.0 [facility] AND [id number] 16:01:00 Test Item Value Reference Range Interpretation Comments UA Leuk Est (test Negative (06/18/18 10:01 code = UA Leuk Est) AM) [facility] [id number] 16:01:00 Test Item Value Reference Range Interpretation Comments Lipase Lvl (test code = Lipase Lvl) 253 73-393 [facility] [id number] 16:01:00 Test Item Value Reference Range Interpretation Comments Bili Indirect Unable to See_Comment [Automated (test code = Bili Calculate message] T he system Indirect) which generated this result transmitted reference range : <=1.0. The reference range was not used to interpret this result as normal/abnormal . [facility] [id number] 16:01:00 Test Item Value Reference Range Interpretation Comments AST (test code = AST) 125 See_Comment [Auto mated message] The system which ge nerated this result transmit liam reference range : <=37. The reference range was not used to interpr et this result as pedro l/abnormal. [facility] [id number] 16:01:00 Test Item Value Reference Range Interpretation Comments Alk Phos (test code = Alk Phos) 156 39-136 [facility] [id number] 16:01:00 Test Item Value Reference Range Interpretation Comments Bili Total (test code = Bili Total) 0.3 0.2-1.3 [facility]2019-02-18 16:01:00 Test Item Value Reference Range Interpretation Comments Bili Direct (test code no gt See_Comment [Aut omated message] The = Bili Direct) system which generated this result tra nsmitted reference range : <=0.3. The reference r miladis was not used to int erpret this result as pedro l/abnormal. [facility] [id number] 16:01:00 Test Item Value Reference Range Interpretation Comments Total Protein (test code = Total 7.9 6.4-8.4 Protein) [facility]2019-02-18 16:01:00 Test Item Value Reference Range Interpretation Comments Albumin Lvl (test code = Albumin Lvl) 4.2 3.5-5.0 [facility] [id number] 16:01:00 Test Item Value Reference Range Interpretation Comments A/G Ratio (test code = A/G Ratio) 1.1 1 0.7-1.6 [facility] [id number] 16:01:00 Test Item Value Reference Range Interpretation Comments Globulin (test code = Globulin) 3.7 2.7-4.2 [facility] [id number] 16:01:00 Test Item Value Reference Range Interpretation Comments ALT (test code = ALT) 121 See_Comment [Auto mated message] The system which ge nerated this result transmit liam reference range : <=65. The reference range was not used to interpr et this result as pedro l/abnormal. [facility] HospitalYfttlccNRBJDTHETECB6623-45-85 16:01:00 Test Item Value Reference Range Interpretation Comments AGAP (test code = AGAP) 8.8 10.0-20.0 [id number] 16:01:00 Test Item Value Reference Range Interpretation Comments eGFR (test code = eGFR) 114 [facility] Hospital[id number] 16:01:00 Test Item Value Reference Range Interpretation Comments Sodium Lvl (test code = Sodium Lvl) 139 135-145 [facility] HospitalGppqzbfZDOITIUKCTMF6917-49-27 16:01:00 Test Item Value Reference Range Interpretation Comments Creatinine Lvl (test code = Creatinine 0.93 0.50-1.40 Lvl) [facility] Hospital[id number] 16:01:00 Test Item Value Reference Range Interpretation Comments Glucose Lvl (test code = Glucose Lvl) 86 70-99 [facility] HospitalZvfjtdfHAEJOQQVQXJE9396-10-06 16:01:00 Test Item Value Reference Range Interpretation Comments BUN (test code = BUN) 12 7-22 [facility] HospitalBvschgcSPVDDCSGXQTS3622-75-72 16:01:00 Test Item Value Reference Range Interpretation Comments Calcium Lvl (test code = Calcium Lvl) 8.7 8.5-10.5 [facility] HospitalHalrefnPEXXDZXWRKTA0172-01-93 16:01:00 Test Item Value Reference Range Interpretation Comments Potassium Lvl (test code = Potassium 3.8 3.5-5.1 Lvl) [facility] HospitalFdcqdxxTPLTNWPWAFRY0357-85-97 16:01:00 Test Item Value Reference Range Interpretation Comments CO2 (test code = CO2) 28 24-32 [facility] HospitalOqoiwamEVAHNZJPGHEL9239-71-95 16:01:00 Test Item Value Reference Range Interpretation Comments Chloride Lvl (test code = Chloride Lvl) 106 95-109 [facility] CenterKlifbgdTTJTBFIUJE3533-07-00 16:01:00 Test Item Value Reference Range Interpretation Comments Eosinophils (test code = 0.1 See_Comment [A utomated message] The Eosinophils) system which ge nerated this result tra nsmitted reference range : <=4.0. The reference r miladis was not used to int erpret this result as normal/abnormal . [facility] [id number] 16:01:00 Test Item Value Reference Range Interpretation Comments Basophils (test code = 0.5 See_Comment [Aut omated message] The Basophils) system which ge nerated this result tra nsmitted reference range : <=1.0. The reference r miladis was not used to int erpret this result as normal/abnormal . [facility] Cent[id number] 16:01:00 Test Item Value Reference Range Interpretation Comments Monocytes # (test code 0.3 See_Comment [Aut omated message] The = Monocytes #) system which generated this result tra nsmitted reference range : <=0.8. The reference r miladis was not used to int erpret this result as normal/abnormal . [facility] CenterEjstxesAHPYIRIIUM0413-32-74 16:01:00 Test Item Value Reference Range Interpretation Comments Lymphocytes # (test code = Lymphocytes 1.9 1.0-5.5 #) [facility] CenterIewapdcTBBMLJJAAL5310-05-47 16:01:00 Test Item Value Reference Range Interpretation Comments Neutrophils # (test code = Neutrophils 3.9 1.5-8.1 #) [facility] CenterIltthueRSAQKFMEEC8455-95-09 16:01:00 Test Item Value Reference Range Interpretation Comments Monocytes (test code = Monocytes) 5.4 2.0-12.0 [facility] CenterHmchkezSVWWVRJTMO7758-96-72 16:01:00 Test Item Value Reference Range Interpretation Comments Lymphocytes (test code = Lymphocytes) 30.8 20.0-40.0 [facility] CenterKcbesptVIXFRETTUE4576-27-29 16:01:00 Test Item Value Reference Range Interpretation Comments Segs (test code = Segs) 63.2 45.0-75.0 [facility] CenterTcvgalgXWZCQFBCJB0609-91-16 16:01:00 Test Item Value Reference Range Interpretation Comments Platelet (test code = Platelet) 161 133-450 [facility] CenterHrjkvdlVSPAMBDKDN6104-79-16 16:01:00 Test Item Value Reference Range Interpretation Comments MPV (test code = MPV) 8.4 7.4-10.4 [facility] CenterPfwlwwpXDYZBIJSVK0529-45-68 16:01:00 Test Item Value Reference Range Interpretation Comments RDW (test code = RDW) 13.8 11.5-14.5 [facility] CenterHtfiutuNIOZETBFDU4555-56-75 16:01:00 Test Item Value Reference Range Interpretation Comments MCV (test code = MCV) 92.2 80.0-94.0 [facility] CenterCdoesapJYHTZIJAME8039-04-15 16:01:00 Test Item Value Reference Range Interpretation Comments MCH (test code = MCH) 31.7 pg 27.0-31.0 [facility] CenterGqsnqcaAAWKRPISEZ1861-10-16 16:01:00 Test Item Value Reference Range Interpretation Comments MCHC (test code = MCHC) 34.3 32.0-36.0 [facility] CenterOybqmacAZZMAGGJCM6618-27-27 16:01:00 Test Item Value Reference Range Interpretation Comments RBC (test code = RBC) 4.48 4.70-6.10 [facility] CenterViogisoADSHDWBMTW4614-30-81 16:01:00 Test Item Value Reference Range Interpretation Comments Hgb (test code = Hgb) 14.2 14.0-18.0 [facility] CenterXjdzllkJYYWTNBCFS3594-33-81 16:01:00 Test Item Value Reference Range Interpretation Comments WBC (test code = WBC) 6.1 3.7-10.4 [facility] CenterFjhrtztHADMSRETEG4593-75-27 16:01:00 Test Item Value Reference Range Interpretation Comments Hct (test code = Hct) 41.3 42.0-54.0 [facility] AND [id number] 16:01:00 Test Item Value Reference Range Interpretation Comments UA RBC (test code = 1 See_Comment [Automa liam message] The UA RBC) system which ge nerated this result transmit liam reference range : <=2. The reference range was not used to interpr et this result as pedro l/abnormal. [facility] AND [id number] 16:01:00 Test Item Value Reference Range Interpretation Comments UA WBC (test code = 1 See_Comment [Automa liam message] The UA WBC) system which ge nerated this result transmit liam reference range : <=5. The reference range was not used to interpr et this result as pedro l/abnormal. [facility] AND [id number] 16:01:00 Test Item Value Reference Range Interpretation Comments UA Bacteria (test code = UA Occasional /HPF Bacteria) [facility] AND [id number] 16:01:00 Test Item Value Reference Range Interpretation Comments UA Sq Epi (test code = None Seen (06/18/18 UA Sq Epi) 10:01 AM) [facility] AND [id number] 16:01:00 Test Item Value Reference Range Interpretation Comments UA Color (test code = UA Color) STRAW [facility] AND [id number] 16:01:00 Test Item Value Reference Range Interpretation Comments UA Turbidity (test code = Clear (06/18/18 10:01 UA Turbidity) AM) [facility] AND [id number] 16:01:00 Test Item Value Reference Range Interpretation Comments UA Spec Grav (test code = UA Spec 1.004 1 Grav) [facility] AND [id number] 16:01:00 Test Item Value Reference Range Interpretation Comments UA Urobilinogen (test code = UA <=1.0 mg/dL 0.1-1.0 Urobilinogen) [facility] AND [id number] 16:01:00 Test Item Value Reference Range Interpretation Comments UA Blood (test code = Small *ABN*(06/18/18 UA Blood) 10:01 AM) [facility] AND [id number] 16:01:00 Test Item Value Reference Range Interpretation Comments UA Ketones (test code Negative *NA*(06/18/18 = UA Ketones) 10:01 AM) [facility] AND [id number] 16:01:00 Test Item Value Reference Range Interpretation Comments UA Glucose (test code Negative *NA*(06/18/18 = UA Glucose) 10:01 AM) [facility] AND [id number] 16:01:00 Test Item Value Reference Range Interpretation Comments UA Bili (test code = Negative *NA*(06/18/18 UA Bili) 10:01 AM) [facility] AND [id number] 16:01:00 Test Item Value Reference Range Interpretation Comments UA Nitrite (test code Negative (06/18/18 10:01 = UA Nitrite) AM) [facility] AND [id number] 16:01:00 Test Item Value Reference Range Interpretation Comments UA Protein (test code Negative (06/18/18 10:01 = UA Protein) AM) [facility] AND [id number] 16:01:00 Test Item Value Reference Range Interpretation Comments UA pH (test code = UA pH) 7.0 1 5.0-8.0 [facility] AND [id number] 16:01:00 Test Item Value Reference Range Interpretation Comments UA Leuk Est (test Negative (06/18/18 10:01 code = UA Leuk Est) AM) [facility]ann[facility]AC [id number] 15:58:00 Test Item Value Reference Range Interpretation Comments Troponin-I (test code no gt See_Comment [Auto mated message] The = Troponin-I) system which g enerated this result transmit liam reference range : <=0.40. The reference r miladis was not used to interpr et this result as pedro l/abnormal. [facility] [id number] 15:58:00 Test Item Value Reference Range Interpretation Comments Troponin-I (test code no gt See_Comment [Auto mated message] The = Troponin-I) system which g enerated this result transmit liam reference range : <=0.40. The reference r miladis was not used to interpr et this result as pedro l/abnormal. [facility] Notes Date/Time Note Provider Source 2022-10-26 00:37:00-00:[address] [facility] ([facility]) EMERGENCY PROVIDER REPORT REPORT#:[id number] REPORT STATUS: Signed DATE:10/26/22 TIME: 36 PATIENT: BILLY PEREZ UNIT #: [id number] ROOM/BED: AGE: 27 SEX: M PCP PHYS: No Primary or Family Ph ysician SERVICE AUTHOR: Mian Quiñones MD R3 * ALL edits or amendments must be made on the [employer]/computer document * Mian Quiñones 10/26/22 0037: HPI-General Illness Free Text HPI Notes Free Text HPI Notes 27-year-old male was brought in by EMS after hav ing a witnessed seizure. History provided by EMS and reports patient was initially picked up by PD for being intoxicated in public. While in PD custody patient began to have a seizure and thus EMS was called. When EMS arrive d patient was becoming combative and received 5 mg IV of droperidol. On arrival to the ED patient is sleeping but maintaining airway. HPI and ROS rm ited accordingly General Initial Greet Date/Time 10/25/222130 Presentation Chief Complaint Altered mental status Review of Systems ROS Statements Unable to Obtain ROS Altered mental status Past Medical History - Adult Stated Complaint SEIZURE Allergies Coded Allergies: No Known Allergies (08/07/20) Home Medications Active Scripts METHOCARBAMOL (ROBAXIN) 750 MG PO Q8H PRN PRN ac [place] pain METHOCARBAMOL (ROBAXIN) 750 MG PO Q8H PRN PRN a cute pain #30 TABS Prov: 08/14/20 traMADol (ULTRAM) 50 MG PO Q6H PRN PRN ACUTE WANDA N traMADol (ULTRAM) 50 MG PO Q6H PRN PRN ACUTE PA IN #15 TABS Prov: 08/14/20 METHOCARBAMOL (ROBAXIN) 750 MG PO Q8HR METHOCARBAMOL (ROBAXIN) 750 MG PO Q8HR #30 TAB Prov: 08/08/20 traMADol (ULTRAM) 50 MG PO Q6HR traMADol (ULTRAM) 50 MG PO Q6HR #20 TAB Prov: 08/08/20 Additional Medical History 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 etoh use Alcohol Use Alcohol use Smoking status for patients 13 years old or olde r: Unknown,if ever smoked Physical Exam Vital Signs Vital Signs First Documented: Result Date Time Pulse Ox 97 10/25 2137 B/P 115/73 10/25 2137 B/P Mean 87 10/25 2137 O2 Delivery Room air 10/25 2137 Pulse 113 10/25 2137 Resp 17 10/25 2137 Last Documented: Result Date Time Pulse Ox 96 10/25 2237 B/P 132/70 10/25 2237 B/P Mean 90.8 10/25 2237 Pulse 82 10/25 2237 O2 Delivery Room air 10/25 2137 Resp 17 10/25 2137 Review of Vital Signs Reviewed Free Text PE Notes Free Text PE Notes PHYSICAL EXAM: - GENERAL: Somnolent - HENT: Moist mucous membranes. - LUNGS: Nonlabored breathing. No accessory musc le use. - CARDIOVASCULAR: Regular rate and rhythm. Warm, well-perfused. - ABDOMEN: Soft, non-tender and non-distended. - NEUROLOGIC: Appears nonfocal - PSYCHIATRIC: Cooperative. Appropriate mood and affect. Interpretation Diagnostics Lab Results Interpretation Results Laboratory Tests 10/25/22 2214: [Embedded Image Not Available] Laboratory Tests: 10/258 2214 2214 Chemistry Sodium (137 - 145 mmol/L) 142 Potassium (3.4 - 5.0 mmol/L) 3.6 Chloride (98 - 107 mmol/L) 110 H Carbon Dioxide (22 - 30 mmol/L) 22 Anion Gap 14 BUN (9 - 20 mg/dL) 8 L Creatinine (0.7 - 1.3 mg/dL) 0.6 L Glomerular Filtr Rate (mL/min) 134 Glucose (74 - 106 mg/dL) 87 Calcium (8.4 - 10.2 mg/dL) 8.5 Total Bilirubin (0.2 - 1.3 mg/dL) 0.3 Conjugated Bilirubin (0 - 0.3 mg/dL) 0 Unconjugated Bilirubin (0 - 1.1 mg/dL) 0.2 AST (15 - 46 U/L) 25 ALT (0 - 49 U/L) 22 Total Alk Phosphatase (38 - 126 U/L) 49 Total Creatine Kinase (55 - 170 U/L) 73 Troponin I (0.012 - 0.033 ng/mL) < 0.012 L Total Protein (6.3 - 8.2 g/dL) 6.7 Albumin (3.5 - 5.0 g/dL) 4.1 TSH (0.465 - 4.68 MIU/L) 0.824 Specimen Hemolysis (0 - 100 Index/DL) < 15 Hematology WBC (5.0 - 12.0 x10 3/uL) 6.1 RBC (4.70 - 6.10 x10 6/uL) 3.79 L Hgb (14.0 - 18.0 g/dL) 11.7 L Hct (37.0 - 49.0 %) 33.3 L MCV (80 - 94 fL) 88 MCH (27 - 31 pg) 30.9 MCHC (33 - 37 g/dL) 35.1 RDW (11.5 - 15.5 %) 12.8 Plt Count (130 - 400 x10 3/uL) 258 MPV (9.4 - 16.4 fL) 9.1 L Neut % (Auto) (43 - 65 %) 54.2 Lymph % (Auto) (20.5 - 45.5 %) 39.7 [place] % (Auto) (5.5 - 11.7 %) 4.6 L Eos % (Auto) (0.9 - 2.9 %) 1.1 Baso % (Auto) (0.2 - 1.0 %) 0.2 Neut # (Auto) (2.2 - 4.8 x10 3/uL) 3.33 Lymph # (Auto) (1.3 - 2.9 x10 3/uL) 2.44 [place] # (Auto) (0.3 - 0.8 x10 3/uL) 0.28 L Eos # (Auto) (0.0 - 0.2 x10 3/uL) 0.07 Baso # (Auto) (0.0 - 0.1 x10 3/uL) 0.01 Immature Gran % (0.0 - 2.0 %) 0.2 Nucleated RBC % (0 - 1.0 %) 0.0 Toxicology Salicylates (mg/dL) < 1.0 Acetaminophen (10 - 30 ug/mL) <10 L Ethyl Alcohol (<10 mg/dL) 100 H Urines Urine Color (Yellow) Straw Urine Appearance (Clear) Clear Urine pH (5.0 - 8.0) 6.0 Ur Specific [place] (<1.030) 1.004 Urine Protein (Negative mg/dL) NEGATIVE Urine Glucose (UA) (Negative) Negative Urine Ketones (Negative mg/dL) Negative Urine Blood (Negative) Negative Urine Nitrite (Negative) Negative Urine Bilirubin (Negative) Negative Urine Urobilinogen (Negative mg/dL) Negative Ur Leukocyte Esterase (Negative) NEGATIVE Urine RBC (<4 - 5 /HPF) NONE Urine WBC (<4 - 5 /HPF) 0-3 Urine Bacteria (None - Rare /HPF) None Recent Impressions: RADIOLOGY - XR CHEST 1 V 10/25 2212 Report Impression - Status: SIGNED Entered: 10/25/2022 2220 IMPRESSION: No acute cardiopulmonary process. Impression By: Rhina Maldonado MD CAT SCAN - CT HEAD/BRAIN W/O CONT 10/253 Report Impression - Status: SIGNED Entered: 10/25/2022 2301 IMPRESSION: 1. No CT evidence of acute intracranial abnormal ity. Impression By: Jorge Gutierrez MD Lab Imaging Statement Laboratory radiographic studies reviewed and con sidered in the medical decision-making. ECG #1 Interpretation Text/Dict Note EKG performed at 2344 reveals a sinus rhythm, ra te of 77, normal axis, normal intervals, nonspecific ST segment and T wave ozzy nges. No acute injury pattern ECG Documented in MUSE Yes Date 10/26/22 Time 0040 Interpreted by and reviewed by me Re-Evaluation MDM Free Text MDM Notes Free Text MDM Notes 27-year-old male here with AMS. Reportedly found to be drunk and having seizures. Imaging negative for acute process. La bs reviewed and significant for elevated alcohol. EKG negative for acute isc hemia. Patient treated with IVF and will be monitored in the ED until he is clinically sober to be discharged home ED Course Medication(s) Ordered Medication(s) Ordered: Central Nervous System Agents Sig/Miguel Start time Last Medication Dose Route Stop Time Status Admin Ketorolac 30 MG X1ED STA 10/25 2232 DC 10/25 Tromethamine IV 10/253 Electrolytic, Caloric, And [place] Sig/Miguel Start time Last Medication Dose Route Stop Time Status Admin Lactated Ringer's 1,000 ML X1ED STA 10/25 2136 DC 10/25 IV 10/258 Patient Discharge Departure Vital Signs/Condition Vital Signs First Documented: Result Date Time Pulse Ox 97 10/25 2137 B/P 115/73 10/25 2137 B/P Mean 87 10/25 2137 O2 Delivery Room air 10/25 2137 Pulse 113 10/25 2137 Resp 17 10/25 2137 Last Documented: Result Date Time Pulse Ox 96 10/25 2237 B/P 132/70 10/25 2237 B/P Mean 90.8 10/25 2237 Pulse 82 10/25 2237 O2 Delivery Room air 10/25 2137 Resp 10/25 All vital signs available at the time of this en try have been reviewed. Condition Stable Clinical Impression Clinical Impression Primary Impression: Alcohol intoxication Time of Impression 0041 Discharge/Care Plan Counseled Regarding Diagnosi s, Lab results, Imaging studies, Need for follow-up, When to return to ED Patient Instructions ED Alcohol Intoxication Additional Instructions Thank you for coming to the Emergency Department today. The care we provided was on an emergency basis. It is not a substitute for regularly scheduled appointments with your prima ry care provider (PCP). It is essential to have a PCP who can help manage adult basic education manager mary medical conditions and arrange for necessary screening tests, etc. Call your primary care provider within the next 24 hours to schedule a follow-up appointment in the next 2 to 3 days. If you do not have a primary care provider please contact the [facility] at the provided contact number in your discharge paperwork. [facility] [phone] [place] [address] Use ibuprofen (Advil, Motrin ) 400 mg every 6 hours and/or acetaminophen (Tylenol ) 500 mg every 4 hours as needed for pain and/or fever. If prescribed Mobic take it as directed do not use ibuprofen with it Discharge Note I have spoken with the patie nt and/or caregivers. I have explained the patient's condition, diagnoses and brandon atment plan based on the information available to me at this time. I have answered the patient's and/ or caregiver's questions and addressed any concerns. The patient and/or careg yehuda have as good an understanding of the patient 's diagnosis, condition and treatment plan as can be expected at this point. The vital signs have bee n stable. The patient's condition is stable and appr opriate for discharge from the emergency department. The patient will pursue further outpatient evalu ation with the primary care physician or other designated or consulting phys ician as outlined in the discharge instructions. The patient and/or caregivers are agreeable to this plan of care and follow-up instructions have been exp lained in detail. The patient and/or caregivers have received these instructio ns in written format and have expressed an understanding of the discharge inst ructions. The patient and/or caregivers are aware that any significant change in condition or worsening of symptoms should prompt an immediate return to [facility] or the closest emergency department or a call to 911. Balwinder Knight 10/26/22 0434: Re-Evaluation MDM Re-Evaluation/Progress #1 Text/Dict Note Patient is awake alert and oriented. He is not postictal. He is texting on the phone for a ride. He is requesting discharge. Hi s vital signs are stable. Ambulatory without difficulty. Looks well. Stabl e for discharge Time of Re-Eval 0434 Re-Eval Status Improved Findings/Social Determinants Presentation Acute Severity Evaluation Serious condition Diagnosis Appears Evident Relevant Comorbidities none Social Concerns EtOH/drug abuse Patient Discharge Departure Disposition Decision Discharge )( Discharged to Home Yes )( Time 0435 )( Date 10/26/22 Supervising Physician Note Resident Saw Pt This patient was seen by a resident. I have pers onally seen the patient, performed the critical or stacy portions o f the service, and participated in the management of the patient. I have review ed and agree with the resident's note, and I have reviewed all labs , ECGs, and imaging studies or reports. I agree with this resident's findings, exam and plan. Electronically Signed by Mian Quiñones MD R3 on 10/26 at 0042 Electronically Signed by Balwinder Knight MD on at 0048 RPT #:[id number] END OF REPORT 2022-10-25 23:44:00-00:00 [id number] [facility] [address] [facility] [address] [place] [address] PATIENT NAME: BILLY PEREZ ADMIT DATE: 3 ACCOUNT NO: [id number] ROOM NO: AGE: 27 REPORT TYPE: ELECTROCARDIOGRAM SEX: M ADMITTING PHYSICIAN: ATTENDING PHYSICIAN: Order: [id number] Test Reason : Test Date/Time Stamp: MonOct 25 2022 23:44:29 Blood Pressure : / mmHG Vent. Rate : 077 BPM Atrial Rate : 077 BPM P-R Int : 140 ms QRS Dur : 090 ms QT Int : 376 ms P-R-T Axes : 055 083 026 degree s QTc Int : 425 ms Normal sinus rhythm with sinus arrhythmia Normal ECG Confirmed by LANDY HIDALGO ([id number]) on 3 2:14:18 PM Referred By: Self Referred Confirmed by:LANDY SALDANA at 1414 PATIENT NAME: BILLY PEREZ [id number] 2021-08-12 03:55:00-00:00 Radiation Dose CTDIVOL = 0 (mGy): DLP = 833 (mGy-cm) [facility] PROCEDURE INFORMATION: Exam: CT Head Without Contrast Exam date and time: 08/12/2021 3:59 AM Age: 26 years old Clinical indication: /ams TECHNIQUE: Imaging protocol: Computed tomography of the hea d without contrast. Radiation optimization: All CT scans at this facility use at least one of these dose optimization techniques: automated exposure control; mA and/or kV adjustment per patient size (includes targeted e xams where dose is matched to clinical indication); or iterative reconstructio n. COMPARISON: BRAIN/NECK CTA 02/27/2020 1:13 PM RADIATION DOSE METRICS: Total DLP (mGy-cm): 833 FINDINGS: Brain: Normal. No hemorrhage. Unremarkable white matter. No mass effect. Cerebral ventricles: No ventriculomegaly. Paranasal sinuses: Small perez ateral sphenoid air-fluid levels are present. There is mild left maxillary and left ethmoid mucosal thickening. Mastoid air cells: Visualized mastoid air cells are well aerated. Bones/joints: Unremarkable. No acute fracture. Soft tissues: Unremarkable. IMPRESSION: 1. No acute intracranial abnormality. 2. Age-indeterminate bilateral sphenoid sinus di sease. Willard Garay MD On 08/12/2021 04:27:51; [id number] 2021-08-12 03:55:00-00:00 Radiation Dose CTDIVOL = 0 (mGy): DLP = 790 (mGy-cm) [facility] PROCEDURE INFORMATION: Exam: CTA Chest With Contrast Exam date and time: 08/12/2021 4:03 AM Age: 26 years old Clinical indication: /rule out pe TECHNIQUE: Imaging protocol: Computed tomographic a ngiography of the chest with contrast. 3D rendering (Not supervised by radiologist): AR P and/or 3D reconstructed images were created by the technologist. Radiation optimization: All CT scans at this facility use at least one of these dose optimization techniques: automated exposure control; mA and/or kV adjustment per patient size (includes targeted e xams where dose is matched to clinical indication); or iterative reconstructio n. Contrast material: OMNI 350; Contrast volume: 80 ml; Contrast route: INTRAVENOUS (IV); COMPARISON: CHEST ABDOMEN PELVIS W CONTRAST CT 02/27/2020 1: 13 PM RADIATION DOSE METRICS: Total DLP (mGy-cm): 790 FINDINGS: Limitations: Motion artifact. Suboptimal timing of contrast bolus. Pulmonary arteries: No central or lobar pulmonary embolus is present. There is limited evaluation for segmental pulmonary embol i. Aorta: Unremarkable. No aortic aneurysm. No aort ic dissection. Lungs: There are small consolidations involving the right middle lobe, right upper lobe, and lingula. There are small consoli dations in the right lower lobe. Moderate consolidations in the left lower lobe are noted. Pleural spaces: Unremarkable. No pneumothorax. N o pleural effusion. Heart: Unremarkable. No cardiomegaly. No pericar dial effusion. Lymph nodes: Unremarkable. No enlarged lymph nod es. Bones/joints: Unremarkable. No acute fracture. Soft tissues: Unremarkable. IMPRESSION: 1. Moderate left lower lobe pneumonia. 2. Mild pneumonia in lingula, right lower lobe, right middle lobe, and right upper lobe. 3. No central or lobar pulmonary embolus. Limite d evaluation for segmental emboli. Willard Garay MD On 08/12/2021 04:30:28; [id number] 2021-08-12 03:55:00-00:00 Radiation Dose CTDIVOL = 0 (mGy): DLP = 833 (mGy-cm) [facility] PROCEDURE INFORMATION: Exam: CT Head Without Contrast Exam date and time: 08/12/2021 3:59 AM Age: 26 years old Clinical indication: /ams TECHNIQUE: Imaging protocol: Computed tomography of the hea d without contrast. Radiation optimization: All CT scans at this facility use at least one of these dose optimization techniques: automated exposure control; mA and/or kV adjustment per patient size (includes targeted e xams where dose is matched to clinical indication); or iterative reconstructio n. COMPARISON: BRAIN/NECK CTA 02/27/2020 1:13 PM RADIATION DOSE METRICS: Total DLP (mGy-cm): 833 FINDINGS: Brain: Normal. No hemorrhage. Unremarkable white matter. No mass effect. Cerebral ventricles: No ventriculomegaly. Paranasal sinuses: Small perez ateral sphenoid air-fluid levels are present. There is mild left maxillary and left ethmoid mucosal thickening. Mastoid air cells: Visualized mastoid air cells are well aerated. Bones/joints: Unremarkable. No acute fracture. Soft tissues: Unremarkable. IMPRESSION: 1. No acute intracranial abnormality. 2. Age-indeterminate bilateral sphenoid sinus di sease. Willard Garay MD On 08/12/2021 04:27:51; [id number] 2021-08-12 03:55:00-00:00 Radiation Dose CTDIVOL = 0 (mGy): DLP = 790 (mGy-cm) [facility] PROCEDURE INFORMATION: Exam: CTA Chest With Contrast Exam date and time: 08/12/2021 4:03 AM Age: 26 years old Clinical indication: /rule out pe TECHNIQUE: Imaging protocol: Computed tomographic a ngiography of the chest with contrast. 3D rendering (Not supervised by radiologist): AR P and/or 3D reconstructed images were created by the technologist. Radiation optimization: All CT scans at this facility use at least one of these dose optimization techniques: automated exposure control; mA and/or kV adjustment per patient size (includes targeted e xams where dose is matched to clinical indication); or iterative reconstructio n. Contrast material: OMNI 350; Contrast volume: 80 ml; Contrast route: INTRAVENOUS (IV); COMPARISON: CHEST ABDOMEN PELVIS W CONTRAST CT 02/27/2020 1: 13 PM RADIATION DOSE METRICS: Total DLP (mGy-cm): 790 FINDINGS: Limitations: Motion artifact. Suboptimal timing of contrast bolus. Pulmonary arteries: No central or lobar pulmonary embolus is present. There is limited evaluation for segmental pulmonary embol i. Aorta: Unremarkable. No aortic aneurysm. No aort ic dissection. Lungs: There are small consolidations involving the right middle lobe, right upper lobe, and lingula. There are small consoli dations in the right lower lobe. Moderate consolidations in the left lower lobe are noted. Pleural spaces: Unremarkable. No pneumothorax. N o pleural effusion. Heart: Unremarkable. No cardiomegaly. No pericar dial effusion. Lymph nodes: Unremarkable. No enlarged lymph nod es. Bones/joints: Unremarkable. No acute fracture. Soft tissues: Unremarkable. IMPRESSION: 1. Moderate left lower lobe pneumonia. 2. Mild pneumonia in lingula, right lower lobe, right middle lobe, and right upper lobe. 3. No central or lobar pulmonary embolus. Limite d evaluation for segmental emboli. Willard Garay MD On 08/12/2021 04:30:28; [id number] 2021-08-12 01:40:00-00:00 PROCEDURE INFORMATION: [facility] Exam: XR Chest Exam date and time: 08/12/2021 1:40 AM Age: 26 years old Clinical indication: /chest pain TECHNIQUE: Imaging protocol: XR of the chest. Views: 1 view. COMPARISON: CHEST ABDOMEN PELVIS W CONTRAST CT 02/27/2020 1: 13 PM FINDINGS: Lungs: Shallow lung volumes. Questionable mild l eft perihilar and basilar patchy airspace opacities. Pleural spaces: Unremarkable. No pleural effusio n. No pneumothorax. Heart/Mediastinum: Contours within normal limits . Bones/joints: No acute osseous process. IMPRESSION: Questionable mild left perihilar and basilar pat tika airspace opacities. Evaluation is limited secondary to shallow lung volumes. If further workup is indicated, consider PA and lateral chest radiogr aph with full inspiratory effort for further assessment. Joie Pendleton MD On 08/12/2021 02:02:18; VR-RRAO_ [id number] 01:40:00-00:00 PROCEDURE INFORMATION: Veronica Exam: XR Chest Exam date and time: 08/12/2021 1:40 AM Age: 26 years old Clinical indication: /chest pain TECHNIQUE: Imaging protocol: XR of the chest. Views: 1 view. COMPARISON: CHEST ABDOMEN PELVIS W CONTRAST CT 02/27/2020 1: 13 PM FINDINGS: Lungs: Shallow lung volumes. Questionable mild l eft perihilar and basilar patchy airspace opacities. Pleural spaces: Unremarkable. No pleural effusio n. No pneumothorax. Heart/Mediastinum: Contours within normal limits . Bones/joints: No acute osseous process. IMPRESSION: Questionable mild left perihilar and basilar pat tika airspace opacities. Evaluation is limited secondary to shallow lung volumes. If further workup is indicated, consider PA and lateral chest radiogr aph with full inspiratory effort for further assessment. Joie Pendleton MD On 08/12/2021 02:02:18; VR-RRAO_ [id number] 04:08:00-00:[address] [facility] ([facility]) EMERGENCY PROVIDER REPORT REPORT#:[id number] REPORT STATUS: Signed DATE:09/29/20 TIME: 407 PATIENT: BILLY PEREZ UNIT #: [id number] ROOM/BED: AGE: 25 SEX: M PCP PHYS: No Primary or Family P hysician SERVICE AUTHOR: Kavin Styles MD * ALL edits or amendments must be made on the [employer]/computer document * Joanna Styles 09/29/20 0408: HPI-General Illness Free Text HPI Notes Free Text HPI Notes Patient returns by EMS He was here in July for right iliac is muscle inflammation and rhabdomyolysis He was admitted for 2 days and discharged on tra madol He has since run out of tramadol Has been able to walk The pain gradually worsening again from right gr oin down to the right lower extremity Now pain is severe He reports he is his first f ollow-up after hospitalization is coming up, pending General Initial Greet Date/Time 09/29/20 0348 Presentation Chief Complaint RLE PAIN Sudden in Onset? No Onset Occurred Days ago Location Lower extremity R Quality Aching Radiation Does not radiate. Severity: Onset Mild Severity: Current Moderate, Severe Associated with Denies: Abdominal pain. Exacerbated by Moving affected area Review of Systems ROS Statements All systems rev neg except as marked. Review of Systems Constitutional Denies: Fever. Respiratory Denies: Shortness of breath. Cardiovascular Denies: Chest pain. GI Denies: Abdominal pain. Musculoskeletal Reports: Extremity pain. Past Medical History - Adult Stated Complaint RIGHT LEG PAIN X 2 MONTHS Allergies Coded Allergies: No Known Allergies (08/07/20) Home Medications Active Scripts METHOCARBAMOL (ROBAXIN) 750 MG PO Q8H PRN PRN ac [place] pain METHOCARBAMOL (ROBAXIN) 750 MG PO Q8H PRN PRN a cute pain #30 TABS Prov: 08/14/20 traMADol (ULTRAM) 50 MG PO Q6H PRN PRN ACUTE WANDA N traMADol (ULTRAM) 50 MG PO Q6H PRN PRN ACUTE PA IN #15 TABS Prov: 08/14/20 METHOCARBAMOL (ROBAXIN) 750 MG PO Q8HR METHOCARBAMOL (ROBAXIN) 750 MG PO Q8HR #30 TAB Prov: 08/08/20 traMADol (ULTRAM) 50 MG PO Q6HR traMADol (ULTRAM) 50 MG PO Q6HR #20 TAB Prov: 08/08/20 Additional Medical History 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 etoh use Alcohol Use Alcohol use Physical Exam Vital Signs Vital Signs First Documented: Result Date Time Pulse Ox 98 06/ 0348 B/P 135/82 06/ 0348 B/P Mean 99 06/ 0348 Temp 98.6 06/ 0348 Pulse 96 06/ 0348 Resp 16 09/29 0348 Last Documented: Result Date Time Pulse Ox 98 06/ 0348 B/P 135/82 06/ 0348 B/P Mean 99 06/ 0348 Temp 98.6 06/ 0348 Pulse 96 06/ 0348 Resp 16 09/29 0348 Review of Vital Signs Reviewed Physical Exam General/Const General/Const Awake, Alert MS Head Head Normocephalic Eyes Eyes PERRL Ears/Nose/Throat Ears/Nose/Throat Airway patent, Mucous membrane s moist, Pharynx NL MS Neck Neck Supple, No meningismus, Full range of mike on, No swelling, Non-tender, No masses Resp/Chest Respiratory/Chest Breath sounds NL, Breath soun ds = bilat, No respiratory distress, No rales, No rhonchi, No wheezing Cardiovascular Cardiovascular Heart rate NL, Regular r hythm, Heart sounds NL, Cap refill not delayed, Peripheral circulation NL Abdomen/GI Abdomen/GI Soft, Non-tender, No guarding, No re bound MS Back Back Inspection NL, Painless range of motion, N on-tender, No CVA tenderness Lymphatic Lymphatic No gross adenopathy MS Upper Extrem Upper Extremity/MS Inspection NL, No swelling, Non-tender, No erythema, No deformity, Neurologic intact, Vascular intact, N o clubbing/cyanosis MS Wrist/Hand Wrist/Hand Inspection NL, No swelling, No erythema, Non-tender, No deformity, Neurologic intact, Vascular intact, No clubbing/ cyanosis MS Lower Extrem Text/Dict Notes Nonfocal TTP No deformity Strong distal pulses Neurovascular intact Soft compartments of thigh, leg and foot MS Ankle/Foot Ankle/Foot Inspection NL, No swelling, No erythema, Non-tender, No deformity, Neurologic intact, Vascular intact, No edema Skin Skin Color NL, Warm, Dry, Turgor NL Neurologic Neurologic Oriented X3, Speech NL, No motor def icits, No sensory deficits Psychiatric Psychiatric Affect NL, Mood NL, Thought content NL Interpretation Diagnostics Lab Results Interpretation Results Laboratory Tests 09/29/20414: [Embedded Image Not Available] Laboratory Tests: 09/29 414 Chemistry Sodium (137 - 145 mmol/L) 141 Potassium (3.4 - 5.0 mmol/L) 3.6 Chloride (98 - 107 mmol/L) 102 Carbon Dioxide (22 - 30 mmol/L) 27 BUN (9 - 20 mg/dL) 11 Creatinine (0.7 - 1.3 mg/dL) 0.8 Glomerular Filtr Rate (>60) 123 Glucose (74 - 106 mg/dL) 73 L Calcium (8.4 - 10.2 mg/dL) 9.5 Total Bilirubin (0.2 - 1.3 mg/dL) 0.1 L Conjugated Bilirubin (0 - 0.3 mg/dL) 0 Unconjugated Bilirubin (0 - 1.1 mg/dL) 0 AST (15 - 46 U/L) 36 ALT (0 - 34 U/L) 26 Total Alk Phosphatase (38 - 126 U/L) 70 Total Creatine Kinase (55 - 170 U/L) 57 Total Protein (6.3 - 8.2 g/dL) 7.9 Albumin (3.5 - 5.0 g/dL) 5.0 Hematology WBC (5.0 - 12.0 x10 3/uL) 7.3 RBC (4.70 - 6.10 x10 6/uL) 4.23 L Hgb (14.0 - 18.0 g/dL) 13.4 L Hct (37.0 - 49.0 %) 37.5 MCV (80 - 94 fL) 89 MCH (27 - 31 pg) 31.7 H MCHC (33 - 37 g/dL) 35.7 RDW (11.5 - 15.5 %) 11.8 Plt Count (130 - 400 x10 3/uL) 294 MPV (9.4 - 16.4 fL) 9.1 L Neut % (Auto) (43 - 65 %) 42.7 L Lymph % (Auto) (20.5 - 45.5 %) 46.0 H [place] % (Auto) (5.5 - 11.7 %) 8.1 Eos % (Auto) (0.9 - 2.9 %) 2.6 Baso % (Auto) (0.2 - 1.0 %) 0.6 Neut # (Auto) (2.2 - 4.8 x10 3/uL) 3.10 Lymph # (Auto) (1.3 - 2.9 x10 3/uL) 3.34 H [place] # (Auto) (0.3 - 0.8 x10 3/uL) 0.59 Eos # (Auto) (0.0 - 0.2 x10 3/uL) 0.19 Baso # (Auto) (0.0 - 0.1 x10 3/uL) 0.04 Immature Gran % (0.0 - 2.0 %) 0.0 Nucleated RBC % (0 - 1.0 %) 0.0 Toxicology Acetaminophen (10 - 30 ug/mL) <10 L Ethyl Alcohol (<10 mg/dL) 35 H Recent Impressions: CAT SCAN - CT ABD PELVIS W/CONT 09/29 0550 Report Impression - Status: SIGNED Entered: 09/29/2020 0632 IMPRESSION: Large fecal burden within the cecum, ascending c olon and proximal transverse colon. Recommend clinical correlation for the possibility of constipation. Interval resolution of the previously identified , right iliacus muscle hematoma. No other acute abdominal or pelvic abnormalities . There are few, questionable diverticuli of the d escending and sigmoid colon, without CT evidence of diverticulitis. Impression By: [email or web address] - Rosales Art MD Re-Evaluation MDM ED Course Medication(s) Ordered Medication(s) Ordered: Antihistamine Drugs Sig/Miguel Start time Last Medication Dose Route Stop Time Status Admin Diphenhydramine HCl 25 MG X1ED STA 09/29 0617 D C 09/29 IV 09/29 0618 0625 Central Nervous System Agents Sig/Miguel Start time Last Medication Dose Route Stop Time Status Admin Fentanyl Citrate 50 MCG X1ED STA 09/29 0514 DC / IV 06/ 0515 0549 Ketorolac 30 MG X1ED STA 09/29 0408 DC 09/29 Tromethamine IV 09/29 0409 0423 Morphine Sulfate 4 MG X1ED STA 09/29 0408 DC 06 / IV 06/ 0409 0423 Diagnostic Agents Sig/Miguel Start time Last Medication Dose Route Stop Time Status Admin Iopamidol 100 ML .STK-MED ONE 09/29 0557 DC 06/ IV 09/29 0558 0557 Electrolytic, Caloric, And Douglas Sig/Miguel Start time Last Medication Dose Route Stop Time Status Admin Sodium Chloride 1,000 ML X1ED STA 09/29 0408 DC / IV 09/29 0409 0423 Patient Discharge Departure Vital Signs/Condition Vital Signs First Documented: Result Date Time Pulse Ox 98 06/01 0348 B/P 135/82 06/01 0348 B/P Mean 99 06/01 0348 Temp 98.6 06/01 0348 Pulse 96 06/01 0348 Resp 16 06/ 0348 Last Documented: Result Date Time Pulse Ox 98 06/01 0348 B/P 135/82 06/01 0348 B/P Mean 99 06/01 0348 Temp 98.6 06/01 0348 Pulse 96 06/01 0348 Resp 16 06/ 0348 All vital signs available at the time of this en try have been reviewed. Rei Weaver 09/29/20 0727: Physical Exam Free Text PE Notes Free Text PE Notes Normal steady gait. No abdominal tenderness palp ation Interpretation Diagnostics Lab Results Interpretation Lab Imaging Statement Laboratory radiographic studies reviewed and con sidered in the medical decision-making. Point of Care Testing Pulse Oximetry Pulse Ox % 98 On: Room air Interpretation Interpreted by me Re-Evaluation MDM Free Text MDM Notes Free Text MDM Notes Patient signed out to me thi s morning from Dr. Styles at approximately 6:15 AM as reevaluate after CT for like ly discharge home, prior injury in July with right iliac hematoma presenting with chronic a nd persistent pain since that time. CT negative. CK total of negative. Patient remains ambulatory. No pain with full range of motion to suggest septic arthritis and no effusion present on CT. No systemic signs or symptoms. No abdominal tendern ess palpation to suggest appendicitis, diverticulitis, perforation obstru ction CT is also reassuring. Patient is feeling better and agrees with discha rge. Understands return precautio ns and need for follow up as soon as possible but no later than 1-2 days. Understands that there is some diagnostic uncert ainty and the importance of returning if symptoms don't improve or there are any other concerns. Patient Discharge Departure Clinical Impression Clinical Impression Primary Impression: RIGHT LOWER EXTREMITY PAIN Secondary Impressions: Constipation, Diverticulo sis, Hip pain Disposition Decision Discharge )( Discharged to Home Yes )( Time 0720 )( Date 09/29/20 Discharge/Care Plan Counseled Regarding Diagnosi s, Lab results, Imaging studies, Need for follow-up, When to return to ED Patient Instructions ED Chronic Pain, ED Constip ation (Adult) Additional Instructions As we discussed be sure to f ollow-up with your primary care doctor in the next 1 to 2 days. Seek immediate medical attention if y ou develop worsening pain, change in your pain, numbness, weakness bowel or bladder problems fever or any other new or concerning symptom. For your consti pation take oykm-uxg-fwhgwne psyllium husk 1000 mg twice a day. Also take ove m-xun-svxcjoa senna/docusate with escalating doses as indicated on the bottle until your constipation is relieved. Continue taking the acetaminop hen/Tylenol, naproxen, gabapentin that you have been prescribed. Discharge Note I have spoken with the patie nt and/or caregivers. I have explained the patient's condition, diagnoses and brandon atment plan based on the information available to me at this time. I have answered the patient's and/ or caregiver's questions and addressed any concerns. The patient and/or careg yehuda have as good an understanding of the patient 's diagnosis, condition and treatment plan as can be expected at this point. The vital signs have bee n stable. The patient's condition is stable and appr opriate for discharge from the emergency department. The patient will pursue further outpatient evalu ation with the primary care physician or other designated or consulting phys ician as outlined in the discharge instructions. The patient and/or caregivers are agreeable to this plan of care and follow-up instructions have been exp lained in detail. The patient and/or caregivers have received these instructio ns in written format and have expressed an understanding of the discharge inst ructions. The patient and/or caregivers are aware that any significant change in condition or worsening of symptoms should prompt an immediate return to [facility] or the closest emergency department or a call to 911. at 0733 RPT #:[id number] END OF REPORT 2020-09-29 04:08[facility]00-00:00 [facility] EMERGENCY PROVIDER REPORT REPORT#:[id number] REPORT STATUS: Signed DATE:09/29/20 TIME: 407 PATIENT: BILLY PEREZ UNIT #: [id number] ROOM/BED: AGE: 25 SEX: M PCP PHYS: No Primary or Family Ph ysician SERVICE AUTHOR: Kavin Styles MD * ALL edits or amendments must be made on the [employer]/computer document * Joanan Styles 09/29/20 0408: HPI-General Illness Free Text HPI Notes Free Text HPI Notes Patient returns by EMS He was here in July for right iliac is muscle inflammation and rhabdomyolysis He was admitted for 2 days and discharged on tra madol He has since run out of tramadol Has been able to walk The pain gradually worsening again from right gr oin down to the right lower extremity Now pain is severe He reports he is his first f ollow-up after hospitalization is coming up, pending General Initial Greet Date/Time 09/29/20 0348 Presentation Chief Complaint RLE PAIN Sudden in Onset? No Onset Occurred Days ago Location Lower extremity R Quality Aching Radiation Does not radiate. Severity: Onset Mild Severity: Current Moderate, Severe Associated with Denies: Abdominal pain. Exacerbated by Moving affected area Review of Systems ROS Statements All systems rev neg except as marked. Review of Systems Constitutional Denies: Fever. Respiratory Denies: Shortness of breath. Cardiovascular Denies: Chest pain. GI Denies: Abdominal pain. Musculoskeletal Reports: Extremity pain. Past Medical History - Adult Stated Complaint RIGHT LEG PAIN X 2 MONTHS Allergies Coded Allergies: No Known Allergies (08/07/20) Home Medications Active Scripts METHOCARBAMOL (ROBAXIN) 750 MG PO Q8H PRN PRN ac [place] pain METHOCARBAMOL (ROBAXIN) 750 MG PO Q8H PRN PRN a cute pain #30 TABS Prov: 08/14/20 traMADol (ULTRAM) 50 MG PO Q6H PRN PRN ACUTE WANDA N traMADol (ULTRAM) 50 MG PO Q6H PRN PRN ACUTE PA IN #15 TABS Prov: 08/14/20 METHOCARBAMOL (ROBAXIN) 750 MG PO Q8HR METHOCARBAMOL (ROBAXIN) 750 MG PO Q8HR #30 TAB Prov: 08/08/20 traMADol (ULTRAM) 50 MG PO Q6HR traMADol (ULTRAM) 50 MG PO Q6HR #20 TAB Prov: 08/08/20 Additional Medical History 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 etoh use Alcohol Use Alcohol use Physical Exam Vital Signs Review of Vital Signs Reviewed Physical Exam General/Const General/Const Awake, Alert MS Head Head Normocephalic Eyes Eyes PERRL Ears/Nose/Throat Ears/Nose/Throat Airway patent, Mucous membrane s moist, Pharynx NL MS Neck Neck Supple, No meningismus, Full range of mike on, No swelling, Non-tender, No masses Resp/Chest Respiratory/Chest Breath sounds NL, Breath soun ds = bilat, No respiratory distress, No rales, No rhonchi, No wheezing Cardiovascular Cardiovascular Heart rate NL, Regular r hythm, Heart sounds NL, Cap refill not delayed, Peripheral circulation NL Abdomen/GI Abdomen/GI Soft, Non-tender, No guarding, No re bound MS Back Back Inspection NL, Painless range of motion, N on-tender, No CVA tenderness Lymphatic Lymphatic No gross adenopathy MS Upper Extrem Upper Extremity/MS Inspection NL, No swelling, Non-tender, No erythema, No deformity, Neurologic intact, Vascular intact, N o clubbing/cyanosis MS Wrist/Hand Wrist/Hand Inspection NL, No swelling, No erythema, Non-tender, No deformity, Neurologic intact, Vascular intact, No clubbing/ cyanosis MS Lower Extrem Text/Dict Notes Nonfocal TTP No deformity Strong distal pulses Neurovascular intact Soft compartments of thigh, leg and foot MS Ankle/Foot Ankle/Foot Inspection NL, No swelling, No erythema, Non-tender, No deformity, Neurologic intact, Vascular intact, No edema Skin Skin Color NL, Warm, Dry, Turgor NL Neurologic Neurologic Oriented X3, Speech NL, No motor def icits, No sensory deficits Psychiatric Psychiatric Affect NL, Mood NL, Thought content NL Re-Evaluation MDM Free Text MDM Notes Free Text MDM Notes 0600: persisting pain pending ct abd signed out to dr. weaver ED Course Medication(s) Ordered Medication(s) Ordered: Antihistamine Drugs Sig/Miguel Start time Last Medication Dose Route Stop Time Status Admin Diphenhydramine HCl 25 MG X1ED STA 09/29 0617 D C 09/29 IV 09/29 0618 0625 Central Nervous System Agents Sig/Miguel Start time Last Medication Dose Route Stop Time Status Admin Fentanyl Citrate 50 MCG X1ED STA 09/29 0514 DC 09/29 IV 09/29 0515 0549 Ketorolac 30 MG X1ED STA 09/29 0408 DC 09/29 Tromethamine IV 09/29 0409 0423 Morphine Sulfate 4 MG X1ED STA 09/29 0408 DC IV 09/29 0409 0423 Diagnostic Agents Sig/Miguel Start time Last Medication Dose Route Stop Time Status Admin Iopamidol 100 ML .STK-MED ONE 09/29 0557 DC IV 09/29 0558 0557 Electrolytic, Caloric, And Douglas Sig/Miguel Start time Last Medication Dose Route Stop Time Status Admin Sodium Chloride 1,000 ML X1ED STA 09/29 0408 DC 09/29 IV 09/29 0409 0423 Differential Diagnosis Differential Diagnosis rhabdomyolysis, mary, elec trolytes, mass, hematoma Patient Discharge Departure Vital Signs/Condition Condition Stable, Improved Rei Weaver 06/01/21 0727: Physical Exam Vital Signs Vital Signs First Documented: Result Date Time Pulse Ox 98 09/29 0348 B/P 135/82 09/29 0348 B/P Mean 99 09/29 0348 Temp 37.0 09/30 347 Pulse 96 09/29 0348 Resp 16 09/30 347 Last Documented: Result Date Time Pulse Ox 98 09/29 0348 B/P 135/82 09/29 0348 B/P Mean 99 09/29 0348 Temp 37.0 09/30 347 Pulse 96 09/30 347 Resp 16 09/30 347 Free Text PE Notes Free Text PE Notes Normal steady gait. No abdominal tenderness palp ation Interpretation Diagnostics Lab Results Interpretation Results Laboratory Tests 09/29/20414: [Embedded Image Not Available] Laboratory Tests: 09/29 414 Chemistry Sodium (137 - 145 mmol/L) 141 Potassium (3.4 - 5.0 mmol/L) 3.6 Chloride (98 - 107 mmol/L) 102 Carbon Dioxide (22 - 30 mmol/L) 27 BUN (9 - 20 mg/dL) 11 Creatinine (0.7 - 1.3 mg/dL) 0.8 Glomerular Filtr Rate (>60) 123 Glucose (74 - 106 mg/dL) 73 L Calcium (8.4 - 10.2 mg/dL) 9.5 Total Bilirubin (0.2 - 1.3 mg/dL) 0.1 L Conjugated Bilirubin (0 - 0.3 mg/dL) 0 Unconjugated Bilirubin (0 - 1.1 mg/dL) 0 AST (15 - 46 U/L) 36 ALT (0 - 34 U/L) 26 Total Alk Phosphatase (38 - 126 U/L) 70 Total Creatine Kinase (55 - 170 U/L) 57 Total Protein (6.3 - 8.2 g/dL) 7.9 Albumin (3.5 - 5.0 g/dL) 5.0 Hematology WBC (5.0 - 12.0 x10 3/uL) 7.3 RBC (4.70 - 6.10 x10 6/uL) 4.23 L Hgb (14.0 - 18.0 g/dL) 13.4 L Hct (37.0 - 49.0 %) 37.5 MCV (80 - 94 fL) 89 MCH (27 - 31 pg) 31.7 H MCHC (33 - 37 g/dL) 35.7 RDW (11.5 - 15.5 %) 11.8 Plt Count (130 - 400 x10 3/uL) 294 MPV (9.4 - 16.4 fL) 9.1 L Neut % (Auto) (43 - 65 %) 42.7 L Lymph % (Auto) (20.5 - 45.5 %) 46.0 H [place] % (Auto) (5.5 - 11.7 %) 8.1 Eos % (Auto) (0.9 - 2.9 %) 2.6 Baso % (Auto) (0.2 - 1.0 %) 0.6 Neut # (Auto) (2.2 - 4.8 x10 3/uL) 3.10 Lymph # (Auto) (1.3 - 2.9 x10 3/uL) 3.34 H [place] # (Auto) (0.3 - 0.8 x10 3/uL) 0.59 Eos # (Auto) (0.0 - 0.2 x10 3/uL) 0.19 Baso # (Auto) (0.0 - 0.1 x10 3/uL) 0.04 Immature Gran % (0.0 - 2.0 %) 0.0 Nucleated RBC % (0 - 1.0 %) 0.0 Toxicology Acetaminophen (10 - 30 ug/mL) <10 L Ethyl Alcohol (<10 mg/dL) 35 H Recent Impressions: CAT SCAN - CT ABD PELVIS W/CONT 09/29 0550 Report Impression - Status: SIGNED Entered: 09/29/2020 0632 IMPRESSION: Large fecal burden within the cecum, ascending c olon and proximal transverse colon. Recommend clinical correlation for the possibility of constipation. Interval resolution of the previously identified , right iliacus muscle hematoma. No other acute abdominal or pelvic abnormalities . There are few, questionable diverticuli of the d escending and sigmoid colon, without CT evidence of diverticulitis. Impression By: [email or web address] - Rosales Art MD Lab Imaging Statement Laboratory radiographic studies reviewed and con sidered in the medical decision-making. Point of Care Testing Pulse Oximetry Pulse Ox % 98 On: Room air Interpretation Interpreted by me Re-Evaluation MDM Free Text MDM Notes Free Text MDM Notes Patient signed out to me thi s morning from Dr. Styles at approximately 6:15 AM as reevaluate after CT for like ly discharge home, prior injury in July with right iliac hematoma presenting with chronic a nd persistent pain since that time. CT negative. CK total of negative. Patient remains ambulatory. No pain with full range of motion to suggest septic arthritis and no effusion present on CT. No systemic signs or symptoms. No abdominal tendern ess palpation to suggest appendicitis, diverticulitis, perforation obstru ction CT is also reassuring. Patient is feeling better and agrees with discha rge. Understands return precautio ns and need for follow up as soon as possible but no later than 1-2 days. Understands that there is some diagnostic uncert ainty and the importance of returning if symptoms don't improve or there are any other concerns. Patient Discharge Departure Vital Signs/Condition Vital Signs First Documented: Result Date Time Pulse Ox 98 06/ 0348 B/P 135/82 06/ 0348 B/P Mean 99 / 0348 Temp 37.0 / 0348 Pulse 96 / 0348 Resp 16 09/29 0348 Last Documented: Result Date Time Pulse Ox 98 06/01 0348 B/P 135/82 06/ 0348 B/P Mean 99 / 0348 Temp 37.0 / 0348 Pulse 96 / 0348 Resp 16 / 0348 All vital signs available at the time of this en try have been reviewed. Clinical Impression Clinical Impression Primary Impression: RIGHT LOWER EXTREMITY PAIN Secondary Impressions: Constipation, Diverticulo sis, Hip pain Disposition Decision Discharge )( Discharged to Home Yes )( Time 0720 )( Date 09/29/20 Discharge/Care Plan Counseled Regarding Diagnosi s, Lab results, Imaging studies, Need for follow-up, When to return to ED Patient Instructions ED Chronic Pain, ED Constip ation (Adult) Additional Instructions As we discussed be sure to f ollow-up with your primary care doctor in the next 1 to 2 days. Seek immediate medical attention if y ou develop worsening pain, change in your pain, numbness, weakness bowel or bladder problems fever or any other new or concerning symptom. For your consti pation take zncl-brp-abkqxum psyllium husk 1000 mg twice a day. Also take ove b-xxp-phryenv senna/docusate with escalating doses as indicated on the bottle until your constipation is relieved. Continue taking the acetaminop hen/Tylenol, naproxen, gabapentin that you have been prescribed. Discharge Note I have spoken with the patie nt and/or caregivers. I have explained the patient's condition, diagnoses and brandon atment plan based on the information available to me at this time. I have answered the patient's and/ or caregiver's questions and addressed any concerns. The patient and/or careg yehuda have as good an understanding of the patient 's diagnosis, condition and treatment plan as can be expected at this point. The vital signs have bee n stable. The patient's condition is stable and appr opriate for discharge from the emergency department. The patient will pursue further outpatient evalu ation with the primary care physician or other designated or consulting phys ician as outlined in the discharge instructions. The patient and/or caregivers are agreeable to this plan of care and follow-up instructions have been exp lained in detail. The patient and/or caregivers have received these instructio ns in written format and have expressed an understanding of the discharge inst ructions. The patient and/or caregivers are aware that any significant change in condition or worsening of symptoms should prompt an immediate return to [facility] or the closest emergency department or a call to 911. at 0733 Electronically Signed by Kavin Styles MD on at 0743 RPT #:[id number] END OF REPORT 2020-08-09 15:01:00-00:00 [facility]) Trauma Progress Note REPORT#:[id number] REPORT STATUS: Signed DATE:08/09/20 TIME: 1501 PATIENT: BILLY PEREZ UNIT #: [id number] ROOM/BED: [address] : [birth year] AGE: 25 SEX: M ATTEND: Amos Hand DO ADM AUTHOR: Jarrod Whyte * ALL edits or amendments must be made on the [employer]/computer document * Subjective Chief Complaint: left leg pain HPI: patient with pain to let sti ll presistent. with numbess to the right thight, but iproved, ROM also improved over all doing better Objective Physical Exam VS/I O: Vital Signs: Date Time Temp Pulse Resp B/P B/P Pulse O2 O2 F low FiO2 Mean Ox Delivery Rate 08/09 1156 98.4 54 17 134/66 88.9 94 08/09 0802 98.1 66 17 155/48 83.4 95 08/09 0235 69 97 08/09 0234 97.5 79 14 144/80 101.4 88 Nasal cannula 08/08 2353 98.1 74 14 141/93 108.7 92 Room air 08/08 1914 97.9 73 14 151/108 122.5 93 Room air 08/08 1608 97.7 75 17 143/89 107.4 93 Room air 24 hour I O ending at 0700: 08/09 0700 08/08 1900 Intake Total Output Total Balance Number Voids 3 Patient 96.615 kg Weight PATIENT WEIGHT: Weight (lb): 213 Weight (oz): 2.99 Weight (kg): 96.615 Medications: Active Meds + DC'd Last 24 Hrs Polyethylene Glycol 1 PKT DAILY PO (CKD) Morphine Sulfate 4 MG Q3H PRN PRN IV Oxycodone HCl 5 MG Q6H PRN PRN PO Ibuprofen 200 MG Q6HR PO Tramadol HCl 50 MG Q6HR PO Methocarbamol 750 MG Q8HR PO Acetaminophen 975 MG Q8HR PRN PO Lactated Ringer's 1,000 ML .Q6H40M IV Ondansetron HCl 4 MG Q4H PRN PRN IV Results Findings/Data: Laboratory Tests 08/09 08/09 08/09 08/08 1351 0645 0645 1812 Chemistry Sodium (137 - 145 mmol/L) 137 Potassium (3.4 - 5.0 mmol/L) 4.2 Chloride (98 - 107 mmol/L) 102 Carbon Dioxide (22 - 30 mmol/L) 33 H BUN (9 - 20 mg/dL) 6 L Creatinine (0.7 - 1.3 mg/dL) 0.8 Glomerular Filtr Rate (>60) 123 Glucose (74 - 106 mg/dL) 99 Calcium (8.4 - 10.2 mg/dL) 8.9 Total Creatine Kinase (55 - 170 U/L) 03102 *H 2 1883 *H 46431 *H Laboratory Tests 08/09 0645 Hematology WBC (5.0 - 12.0 x10 3/uL) 9.7 RBC (4.70 - 6.10 x10 6/uL) 3.54 L Hgb (14.0 - 18.0 g/dL) 11.2 L Hct (37.0 - 49.0 %) 32.3 L MCV (80 - 94 fL) 91 MCH (27 - 31 pg) 31.6 H MCHC (33 - 37 g/dL) 34.7 RDW (11.5 - 15.5 %) 12.6 Plt Count (130 - 400 x10 3/uL) 211 MPV (9.4 - 16.4 fL) 9.1 L Neut % (Auto) (43 - 65 %) 65.0 Lymph % (Auto) (20.5 - 45.5 %) 26.4 [place] % (Auto) (5.5 - 11.7 %) 6.0 Eos % (Auto) (0.9 - 2.9 %) 2.1 Baso % (Auto) (0.2 - 1.0 %) 0.2 Neut # (Auto) (2.2 - 4.8 x10 3/uL) 6.27 H Lymph # (Auto) (1.3 - 2.9 x10 3/uL) 2.55 [place] # (Auto) (0.3 - 0.8 x10 3/uL) 0.58 Eos # (Auto) (0.0 - 0.2 x10 3/uL) 0.20 Baso # (Auto) (0.0 - 0.1 x10 3/uL) 0.02 Immature Gran % (0.0 - 2.0 %) 0.3 Nucleated RBC % (0 - 1.0 %) 0.0 Free Text Obj Notes Free Text Obj Notes: Constitutional: Patient appears healthy, no acute distress, HR, BP, Saturation reviewed in records Eyes: pupils equal, round, reactive to light, no icterus HENT: normal cephalic, atraumatic, no facial ten derness or crepitus, normal external inspection of ears/nose, no septal hematoma Neck: trachea midline, no crepitus, thyroid with out mass CV: regular rate, rhythm, bi lateral radial pulses 2+, no cyanosis, no edema, no pulsatile abdominal mass Respiratory: lungs clear bilaterally, no tendern ess to palpation, normal inspection of chest Abdomen: soft, non-tender, no masses, Lymph nodes: no cervical or supraclavicular mass es noted Musculoskeletal: -right lower extremity with focal tenderness the proximal thigh, without deformity, with ROM intact, but weak. Able to fl ex and extend thigh -left lower extremity with f ocal tenderness, without deformity, with ROM intact -no cervical spine tenderness with full ROM -no thoracic spine tenderness or step-off -no lumbar spine tenderness or step-off Vascular: radial, femoral, DP, PT pulses equal t o palpation bilaterally Skin: no lacerations, abrasions to head, skin wa rm to palpation Psychiatric: normal mood and affect, memory inta ct. Neurologic: bilateral upper sensation intact low er extremity sensation diminished to right lateral thigh but improveing , strength intact, GCS 15 Diagnosis, Assessment Plan Free Text A P: ASSESSMENT: fall Injuries/Acute Problems: -right iliacus/psoas hematoma, possible compartm ent syndrome Chronic Medical Problems/Comorbidities: -denies Consultants: Procedures: PLAN: -right iliacus/psoas hematoma, possible compartm ent syndrome no evident fracture Distal pulses are intact, neuro comprom ise to LLE lateral thigh. Patient with full ROM to RLE, but weak possible due to pain Will monitor with serial CK and compartment exa ms. continue 150cc/LR . OK for regualr diet CK down to 11k overnight but not back to 20k. W ill monitor overnight again. Continue hydration. -Tertiary survey negative for additional injury -PT/OT eval Cm consult. L/D/A: PIV DVT prophylaxis: SCDs Lovenox GI prophylaxis: diet Diet: clear Activity: WBAT Dispo: admit to trauma ICU Code Status: FULL Quality: Trauma Gen Surg Advanced Care Plan 65 or Older Discussed with: patient Current Medications Current medication review: I attest that the foregoing medication list in t he medical record is true, accurate, and complete to the best of my knowled ge. VTE Prophylaxis - General VTE prophylaxis initiated: yes, no pharmacologic , reason: (hematoma) at 1505 RPT #:[id number] END OF REPORT 2020-08-09 15:01:00-00:[address] [facility] ([facility]) Trauma Progress Note REPORT#:[id number] REPORT STATUS: Signed DATE:08/09/20 TIME: 1501 PATIENT: BILLY PEREZ UNIT #: [id number] ROOM/BED: [address] : [birth year] AGE: 25 SEX: M ATTEND: Amos Hand DO ADM AUTHOR: Jarrod Whyte * ALL edits or amendments must be made on the [employer]/computer document * Jarrod Whyte 08/09/20 1501: Subjective Chief Complaint: left leg pain HPI: patient with pain to let sti ll presistent. with numbess to the right thight, but iproved, ROM also improved over all doing better Objective Physical Exam VS/I O: Vital Signs: Date Time Temp Pulse Resp B/P B/P Pulse O2 O2 F low FiO2 Mean Ox Delivery Rate 08/09 1156 98.4 54 17 134/66 88.9 94 08/09 0802 98.1 66 17 155/48 83.4 95 08/09 0235 69 97 08/09 0234 97.5 79 14 144/80 101.4 88 Nasal cannula 08/08 2353 98.1 74 14 141/93 108.7 92 Room air 08/08 1914 97.9 73 14 151/108 122.5 93 Room air 08/08 1608 97.7 75 17 143/89 107.4 93 Room air 24 hour I O ending at 0700: 08/09 0700 08/08 1900 Intake Total Output Total Balance Number Voids 3 Patient 96.615 kg Weight PATIENT WEIGHT: Weight (lb): 213 Weight (oz): 2.99 Weight (kg): 96.615 Medications: Active Meds + DC'd Last 24 Hrs Polyethylene Glycol 1 PKT DAILY PO (CKD) Morphine Sulfate 4 MG Q3H PRN PRN IV Oxycodone HCl 5 MG Q6H PRN PRN PO Ibuprofen 200 MG Q6HR PO Tramadol HCl 50 MG Q6HR PO Methocarbamol 750 MG Q8HR PO Acetaminophen 975 MG Q8HR PRN PO Lactated Ringer's 1,000 ML .Q6H40M IV Ondansetron HCl 4 MG Q4H PRN PRN IV Results Findings/Data: Laboratory Tests 08/09 08/09 08/09 08/08 1351 0645 0645 1812 Chemistry Sodium (137 - 145 mmol/L) 137 Potassium (3.4 - 5.0 mmol/L) 4.2 Chloride (98 - 107 mmol/L) 102 Carbon Dioxide (22 - 30 mmol/L) 33 H BUN (9 - 20 mg/dL) 6 L Creatinine (0.7 - 1.3 mg/dL) 0.8 Glomerular Filtr Rate (>60) 123 Glucose (74 - 106 mg/dL) 99 Calcium (8.4 - 10.2 mg/dL) 8.9 Total Creatine Kinase (55 - 170 U/L) 56696 *H 2 1883 *H 81435 *H Laboratory Tests 08/09 0645 Hematology WBC (5.0 - 12.0 x10 3/uL) 9.7 RBC (4.70 - 6.10 x10 6/uL) 3.54 L Hgb (14.0 - 18.0 g/dL) 11.2 L Hct (37.0 - 49.0 %) 32.3 L MCV (80 - 94 fL) 91 MCH (27 - 31 pg) 31.6 H MCHC (33 - 37 g/dL) 34.7 RDW (11.5 - 15.5 %) 12.6 Plt Count (130 - 400 x10 3/uL) 211 MPV (9.4 - 16.4 fL) 9.1 L Neut % (Auto) (43 - 65 %) 65.0 Lymph % (Auto) (20.5 - 45.5 %) 26.4 [place] % (Auto) (5.5 - 11.7 %) 6.0 Eos % (Auto) (0.9 - 2.9 %) 2.1 Baso % (Auto) (0.2 - 1.0 %) 0.2 Neut # (Auto) (2.2 - 4.8 x10 3/uL) 6.27 H Lymph # (Auto) (1.3 - 2.9 x10 3/uL) 2.55 [place] # (Auto) (0.3 - 0.8 x10 3/uL) 0.58 Eos # (Auto) (0.0 - 0.2 x10 3/uL) 0.20 Baso # (Auto) (0.0 - 0.1 x10 3/uL) 0.02 Immature Gran % (0.0 - 2.0 %) 0.3 Nucleated RBC % (0 - 1.0 %) 0.0 Free Text Obj Notes Free Text Obj Notes: Constitutional: Patient appears healthy, no acute distress, HR, BP, Saturation reviewed in records Eyes: pupils equal, round, reactive to light, no icterus HENT: normal cephalic, atraumatic, no facial ten derness or crepitus, normal external inspection of ears/nose, no septal hematoma Neck: trachea midline, no crepitus, thyroid with out mass CV: regular rate, rhythm, bi lateral radial pulses 2+, no cyanosis, no edema, no pulsatile abdominal mass Respiratory: lungs clear bilaterally, no tendern ess to palpation, normal inspection of chest Abdomen: soft, non-tender, no masses, Lymph nodes: no cervical or supraclavicular mass es noted Musculoskeletal: -right lower extremity with focal tenderness the proximal thigh, without deformity, with ROM intact, but weak. Able to fl ex and extend thigh -left lower extremity with f ocal tenderness, without deformity, with ROM intact -no cervical spine tenderness with full ROM -no thoracic spine tenderness or step-off -no lumbar spine tenderness or step-off Vascular: radial, femoral, DP, PT pulses equal t o palpation bilaterally Skin: no lacerations, abrasions to head, skin wa rm to palpation Psychiatric: normal mood and affect, memory inta ct. Neurologic: bilateral upper sensation intact low er extremity sensation diminished to right lateral thigh but improveing , strength intact, GCS 15 Diagnosis, Assessment Plan Free Text A P: ASSESSMENT: fall Injuries/Acute Problems: -right iliacus/psoas hematoma, possible compartm ent syndrome Chronic Medical Problems/Comorbidities: -denies Consultants: Procedures: PLAN: -right iliacus/psoas hematoma, possible compartm ent syndrome no evident fracture Distal pulses are intact, neuro comprom ise to LLE lateral thigh. Patient with full ROM to RLE, but weak possible due to pain Will monitor with serial CK and compartment exa ms. continue 150cc/LR . OK for regualr diet CK down to 11k overnight but not back to 20k. W ill monitor overnight again. Continue hydration. -Tertiary survey negative for additional injury -PT/OT eval Cm consult. L/D/A: PIV DVT prophylaxis: SCDs Lovenox GI prophylaxis: diet Diet: clear Activity: WBAT Dispo: admit to trauma ICU Code Status: FULL Quality: Trauma Gen Surg Advanced Care Plan 65 or Older Discussed with: patient Current Medications Current medication review: I attest that the foregoing medication list in t he medical record is true, accurate, and complete to the best of my knowled ge. VTE Prophylaxis - General VTE prophylaxis initiated: yes, no pharmacologic , reason: (hematoma) Heath Hand 09/01/20 0055: Attestations Physician Attestation Agree w/findings plan: Agree with the findings and plan as documented Lexii Whyte at 1505 RPT #:[id number] END OF REPORT 2020-08-09 15:01:00-00:00 [facility]) Trauma Progress Note REPORT#:[id number] REPORT STATUS: Signed DATE:08/09/20 TIME: 1501 PATIENT: BILLY PEREZ UNIT #: [id number] ROOM/BED: [address] : [birth year] AGE: 25 SEX: M ATTEND: Amos Hand DO ADM AUTHOR: Jarrod Whyte * ALL edits or amendments must be made on the [employer]/computer document * Jarrod Whyte 08/09/20 1501: Subjective Chief Complaint: left leg pain HPI: patient with pain to let sti ll presistent. with numbess to the right thight, but iproved, ROM also improved over all doing better Objective Physical Exam VS/I O: Vital Signs: Date Time Temp Pulse Resp B/P B/P Pulse O2 O2 F low FiO2 Mean Ox Delivery Rate 08/09 1156 98.4 54 17 134/66 88.9 94 08/09 0802 98.1 66 17 155/48 83.4 95 08/09 0235 69 97 08/09 0234 97.5 79 14 144/80 101.4 88 Nasal cannula 08/08 2353 98.1 74 14 141/93 108.7 92 Room air 08/08 1914 97.9 73 14 151/108 122.5 93 Room air 08/08 1608 97.7 75 17 143/89 107.4 93 Room air 24 hour I O ending at 0700: 08/09 0700 08/08 1900 Intake Total Output Total Balance Number Voids 3 Patient 96.615 kg Weight PATIENT WEIGHT: Weight (lb): 213 Weight (oz): 2.99 Weight (kg): 96.615 Medications: Active Meds + DC'd Last 24 Hrs Polyethylene Glycol 1 PKT DAILY PO (CKD) Morphine Sulfate 4 MG Q3H PRN PRN IV Oxycodone HCl 5 MG Q6H PRN PRN PO Ibuprofen 200 MG Q6HR PO Tramadol HCl 50 MG Q6HR PO Methocarbamol 750 MG Q8HR PO Acetaminophen 975 MG Q8HR PRN PO Lactated Ringer's 1,000 ML .Q6H40M IV Ondansetron HCl 4 MG Q4H PRN PRN IV Results Findings/Data: Laboratory Tests 08/09 08/09 08/09 08/08 1351 0645 0645 1812 Chemistry Sodium (137 - 145 mmol/L) 137 Potassium (3.4 - 5.0 mmol/L) 4.2 Chloride (98 - 107 mmol/L) 102 Carbon Dioxide (22 - 30 mmol/L) 33 H BUN (9 - 20 mg/dL) 6 L Creatinine (0.7 - 1.3 mg/dL) 0.8 Glomerular Filtr Rate (>60) 123 Glucose (74 - 106 mg/dL) 99 Calcium (8.4 - 10.2 mg/dL) 8.9 Total Creatine Kinase (55 - 170 U/L) 41203 *H 2 1883 *H 92423 *H Laboratory Tests 08/09 0645 Hematology WBC (5.0 - 12.0 x10 3/uL) 9.7 RBC (4.70 - 6.10 x10 6/uL) 3.54 L Hgb (14.0 - 18.0 g/dL) 11.2 L Hct (37.0 - 49.0 %) 32.3 L MCV (80 - 94 fL) 91 MCH (27 - 31 pg) 31.6 H MCHC (33 - 37 g/dL) 34.7 RDW (11.5 - 15.5 %) 12.6 Plt Count (130 - 400 x10 3/uL) 211 MPV (9.4 - 16.4 fL) 9.1 L Neut % (Auto) (43 - 65 %) 65.0 Lymph % (Auto) (20.5 - 45.5 %) 26.4 [place] % (Auto) (5.5 - 11.7 %) 6.0 Eos % (Auto) (0.9 - 2.9 %) 2.1 Baso % (Auto) (0.2 - 1.0 %) 0.2 Neut # (Auto) (2.2 - 4.8 x10 3/uL) 6.27 H Lymph # (Auto) (1.3 - 2.9 x10 3/uL) 2.55 [place] # (Auto) (0.3 - 0.8 x10 3/uL) 0.58 Eos # (Auto) (0.0 - 0.2 x10 3/uL) 0.20 Baso # (Auto) (0.0 - 0.1 x10 3/uL) 0.02 Immature Gran % (0.0 - 2.0 %) 0.3 Nucleated RBC % (0 - 1.0 %) 0.0 Free Text Obj Notes Free Text Obj Notes: Constitutional: Patient appears healthy, no acute distress, HR, BP, Saturation reviewed in records Eyes: pupils equal, round, reactive to light, no icterus HENT: normal cephalic, atraumatic, no facial ten derness or crepitus, normal external inspection of ears/nose, no septal hematoma Neck: trachea midline, no crepitus, thyroid with out mass CV: regular rate, rhythm, bi lateral radial pulses 2+, no cyanosis, no edema, no pulsatile abdominal mass Respiratory: lungs clear bilaterally, no tendern ess to palpation, normal inspection of chest Abdomen: soft, non-tender, no masses, Lymph nodes: no cervical or supraclavicular mass es noted Musculoskeletal: -right lower extremity with focal tenderness the proximal thigh, without deformity, with ROM intact, but weak. Able to fl ex and extend thigh -left lower extremity with f ocal tenderness, without deformity, with ROM intact -no cervical spine tenderness with full ROM -no thoracic spine tenderness or step-off -no lumbar spine tenderness or step-off Vascular: radial, femoral, DP, PT pulses equal t o palpation bilaterally Skin: no lacerations, abrasions to head, skin wa rm to palpation Psychiatric: normal mood and affect, memory inta ct. Neurologic: bilateral upper sensation intact low er extremity sensation diminished to right lateral thigh but improveing , strength intact, GCS 15 Diagnosis, Assessment Plan Free Text A P: ASSESSMENT: fall Injuries/Acute Problems: -right iliacus/psoas hematoma, possible compartm ent syndrome Chronic Medical Problems/Comorbidities: -denies Consultants: Procedures: PLAN: -right iliacus/psoas hematoma, possible compartm ent syndrome no evident fracture Distal pulses are intact, neuro comprom ise to LLE lateral thigh. Patient with full ROM to RLE, but weak possible due to pain Will monitor with serial CK and compartment exa ms. continue 150cc/LR . OK for regualr diet CK down to 11k overnight but not back to 20k. W ill monitor overnight again. Continue hydration. -Tertiary survey negative for additional injury -PT/OT eval Cm consult. L/D/A: PIV DVT prophylaxis: SCDs Lovenox GI prophylaxis: diet Diet: clear Activity: WBAT Dispo: admit to trauma ICU Code Status: FULL Quality: Trauma Gen Surg Advanced Care Plan 65 or Older Discussed with: patient Current Medications Current medication review: I attest that the foregoing medication list in t he medical record is true, accurate, and complete to the best of my knowled ge. VTE Prophylaxis - General VTE prophylaxis initiated: yes, no pharmacologic , reason: (hematoma) Heath Hand 09/01/20 0055: Attestations Physician Attestation Agree w/findings plan: Agree with the findings and plan as documented Lexii Whyte at 1505 at 0118 RPT #:[id number] END OF REPORT 2020-08-08 19:03:00-00:[address] [facility] ([facility]) Trauma Progress Note REPORT#:[id number] REPORT STATUS: Signed DATE:08/08/20 TIME: 1902 PATIENT: BILLY PEREZ UNIT #: [id number] [id number] AGE: 25 SEX: M ATTEND: Amos Hand DO ADM AUTHOR: Jarrod Whyte * ALL edits or amendments must be made on the [employer]/computer document * Jarrod Whyte 08/08/20 1903: Subjective HPI: improved leg and buttock pain toelrating diet no new complaints Objective Physical Exam VS/I O: Vital Signs: Date Time Temp Pulse Resp B/P B/P Pulse O2 O2 F low FiO2 Mean Ox Delivery Rate 08/08 1608 97.7 75 17 143/89 107.4 93 Room air 08/08 1235 97.7 76 16 147/91 109.2 90 Room air 08/08 0855 97.7 72 17 134/90 105.0 93 Room air 08/08 0306 97.7 81 14 130/74 92.5 93 Room air 08/07 2333 97.5 87 14 131/70 90.1 94 Room air 08/07 2132 98.1 92 14 137/76 96.1 96 Room air 08/07 2108 89 18 134/76 95 96 Room air 08/07 1934 98.3 89 17 143/96 111 96 Room air 24 hour I O ending at 0700: 08/08 0700 08/07 1900 Intake Total 1800.00 Output Total Balance 1800.00 Intake, IV 1800.00 Number Voids 3 Patient 96.7 kg 95 kg Weight Weight Bed scale Stated/Reported Measurement Method PATIENT WEIGHT: Weight (lb): 213 Weight (oz): 2.99 Weight (kg): 96.615 Medications: Active Meds + DC'd Last 24 Hrs Polyethylene Glycol 1 PKT DAILY PO (CKD) Morphine Sulfate 4 MG Q3H PRN PRN IV Oxycodone HCl 5 MG Q6H PRN PRN PO Acetaminophen 975 MG Q6HR PO (DC) Ibuprofen 200 MG Q6HR PO Tramadol HCl 50 MG Q6HR PO Methocarbamol 750 MG Q8HR PO Acetaminophen 975 MG Q8HR PRN PO Lactated Ringer's 1,000 ML .Q6H40M IV Morphine Sulfate 2 MG Q3H PRN PRN IV (DC) Ondansetron HCl 4 MG Q4H PRN PRN IV Results Findings/Data: Laboratory Tests 04/10 04/10 04/10 04/10 1308 0743 0651 0025 Chemistry Sodium (137 - 145 mmol/L) 140 Potassium (3.4 - 5.0 mmol/L) 4.2 Chloride (98 - 107 mmol/L) 104 Carbon Dioxide (22 - 30 mmol/L) 33 H BUN (9 - 20 mg/dL) 9 Creatinine (0.7 - 1.3 mg/dL) 0.8 Glomerular Filtr Rate (>60) 123 Glucose (74 - 106 mg/dL) 102 Calcium (8.4 - 10.2 mg/dL) 8.9 Total Creatine Kinase (55 - 170 U/L) 51047 *H 2 4104 *H 44606 *H Laboratory Tests 08/08 0743 Hematology WBC (5.0 - 12.0 x10 3/uL) 13.2 H RBC (4.70 - 6.10 x10 6/uL) 3.85 L Hgb (14.0 - 18.0 g/dL) 12.1 L Hct (37.0 - 49.0 %) 34.7 L MCV (80 - 94 fL) 90 MCH (27 - 31 pg) 31.4 H MCHC (33 - 37 g/dL) 34.9 RDW (11.5 - 15.5 %) 13.0 Plt Count (130 - 400 x10 3/uL) 238 MPV (9.4 - 16.4 fL) 9.2 L Neut % (Auto) (43 - 65 %) 73.1 H Lymph % (Auto) (20.5 - 45.5 %) 20.6 [place] % (Auto) (5.5 - 11.7 %) 5.3 L Eos % (Auto) (0.9 - 2.9 %) 0.5 L Baso % (Auto) (0.2 - 1.0 %) 0.2 Neut # (Auto) (2.2 - 4.8 x10 3/uL) 9.65 H Lymph # (Auto) (1.3 - 2.9 x10 3/uL) 2.72 [place] # (Auto) (0.3 - 0.8 x10 3/uL) 0.70 Eos # (Auto) (0.0 - 0.2 x10 3/uL) 0.07 Baso # (Auto) (0.0 - 0.1 x10 3/uL) 0.02 Immature Gran % (0.0 - 2.0 %) 0.3 Nucleated RBC % (0 - 1.0 %) 0.0 Free Text Obj Notes Free Text Obj Notes: Constitutional: Patient appears healthy, no acute distress, HR, BP, Saturation reviewed in records Eyes: pupils equal, round, reactive to light, no icterus HENT: normal cephalic, atraumatic, no facial ten derness or crepitus, normal external inspection of ears/nose, no septal hematoma Neck: trachea midline, no crepitus, thyroid with out mass CV: regular rate, rhythm, bi lateral radial pulses 2+, no cyanosis, no edema, no pulsatile abdominal mass Respiratory: lungs clear bilaterally, no tendern ess to palpation, normal inspection of chest Abdomen: soft, non-tender, no masses, no hernia noted : normal external genitalia, pelvis stable Lymph nodes: no cervical or supraclavicular mass es noted Musculoskeletal: -right upper extremity without focal tenderness , without deformity, with ROM intact -left upper extremity without focal tenderness , without deformity, with ROM intact -right lower extremity with focal tenderness the proximal thigh, without deformity, with ROM intact, but weak. Able to fl ex and extend thigh -left lower extremity with f ocal tenderness, without deformity, with ROM intact -no cervical spine tenderness with full ROM -no thoracic spine tenderness or step-off -no lumbar spine tenderness or step-off Vascular: radial, femoral, DP, PT pulses equal t o palpation bilaterally Skin: no lacerations, abrasions to head, skin wa rm to palpation Psychiatric: normal mood and affect, memory inta ct. Neurologic: bilateral upper sensation intact low er extremity sensation diminished to right lateral thigh but improveing , strength intact, GCS 15 Diagnosis, Assessment Plan Free Text A P: ASSESSMENT: fall Injuries/Acute Problems: -right iliacus/psoas hematoma, possible compartm ent syndrome Chronic Medical Problems/Comorbidities: -denies Consultants: Procedures: PLAN: -right iliacus/psoas hematoma, possible compartm ent syndrome no evident fracture Distal pulses are intact, neuro comprom ise to LLE lateral thigh. Patient with full ROM to RLE, but weak possible due to pain Will monitor with serial CK and compartment exa ms. 150cc/LR for now. OK for regualr diet CK down, but still above 22k. Will monitor over night again. Continue hydration -Tertiary survey negative for additional injury -PT/OT eval Cm consult. L/D/A: PIV DVT prophylaxis: SCDs Lovenox GI prophylaxis: diet Diet: clear Activity: WBAT Dispo: admit to trauma ICU Code Status: FULL Quality: Trauma Gen Surg Advanced Care Plan 65 or Older Discussed with: patient Current Medications Current medication review: I attest that the foregoing medication list in t he medical record is true, accurate, and complete to the best of my knowled ge. VTE Prophylaxis - General VTE prophylaxis initiated: yes, no pharmacologic , reason: (hematoma) Heath Hand 09/01/20 0054: Attestations Physician Attestation Agree w/findings plan: Agree with the findings and plan as documented Lexii Whyte; no compartment syndrome at 1905 RPT #:[id number] END OF REPORT 2020-08-08 19:03:00-00:00 [facility] Trauma Progress Note REPORT#:[id number] REPORT STATUS: Signed DATE:08/08/20 TIME: 1902 PATIENT: BILLY PEREZ UNIT #: [id number] ROOM/BED: [address] : [address] AGE: 25 SEX: M ATTEND: Amos Hand DO ADM AUTHOR: Jarrod Whyte * ALL edits or amendments must be made on the [employer]/computer document * Jarrod Whyte 08/08/20 190: Subjective HPI: improved leg and buttock pain toelrating diet no new complaints Objective Physical Exam VS/I O: Vital Signs: Date Time Temp Pulse Resp B/P B/P Pulse O2 O2 Flow FiO2 Mean Ox Delivery Rate 08/08 1608 97.7 75 17 143/89 107.4 93 Room air 08/08 1235 97.7 76 16 147/91 109.2 90 Room air 08/08 0855 97.7 72 17 134/90 105.0 93 Room air 08/08 0306 97.7 81 14 130/74 92.5 93 Room air 08/07 2333 97.5 87 14 131/70 90.1 94 Room air 08/07 2132 98.1 92 14 137/76 96.1 96 Room air 08/07 2108 89 18 134/76 95 96 Room air 08/07 1934 98.3 89 17 143/96 111 96 Room air 24 hour I O ending at 0700: 08/08 0700 08/07 1900 Intake Total 1800.00 Output Total Balance 1800.00 Intake, IV 1800.00 Number Voids 3 Patient 96.7 kg 95 kg Weight Weight Bed scale Stated/Reported Measurement Method PATIENT WEIGHT: Weight (lb): 213 Weight (oz): 2.99 Weight (kg): 96.615 Medications: Active Meds + DC'd Last 24 Hrs Polyethylene Glycol 1 PKT DAILY PO (CKD) Morphine Sulfate 4 MG Q3H PRN PRN IV Oxycodone HCl 5 MG Q6H PRN PRN PO Acetaminophen 975 MG Q6HR PO (DC) Ibuprofen 200 MG Q6HR PO Tramadol HCl 50 MG Q6HR PO Methocarbamol 750 MG Q8HR PO Acetaminophen 975 MG Q8HR PRN PO Lactated Ringer's 1,000 ML .Q6H40M IV Morphine Sulfate 2 MG Q3H PRN PRN IV (DC) Ondansetron HCl 4 MG Q4H PRN PRN IV Results Findings/Data: Laboratory Tests 08/08 08/08 08/08 08/08 1308 0743 0651 0025 Chemistry Sodium (137 - 145 mmol/L) 140 Potassium (3.4 - 5.0 mmol/L) 4.2 Chloride (98 - 107 mmol/L) 104 Carbon Dioxide (22 - 30 mmol/L) 33 H BUN (9 - 20 mg/dL) 9 Creatinine (0.7 - 1.3 mg/dL) 0.8 Glomerular Filtr Rate (>60) 123 Glucose (74 - 106 mg/dL) 102 Calcium (8.4 - 10.2 mg/dL) 8.9 Total Creatine Kinase (55 - 170 U/L) 41960 *H 2 4104 *H 31676 *H Laboratory Tests 08/08 0743 Hematology WBC (5.0 - 12.0 x10 3/uL) 13.2 H RBC (4.70 - 6.10 x10 6/uL) 3.85 L Hgb (14.0 - 18.0 g/dL) 12.1 L Hct (37.0 - 49.0 %) 34.7 L MCV (80 - 94 fL) 90 MCH (27 - 31 pg) 31.4 H MCHC (33 - 37 g/dL) 34.9 RDW (11.5 - 15.5 %) 13.0 Plt Count (130 - 400 x10 3/uL) 238 MPV (9.4 - 16.4 fL) 9.2 L Neut % (Auto) (43 - 65 %) 73.1 H Lymph % (Auto) (20.5 - 45.5 %) 20.6 [place] % (Auto) (5.5 - 11.7 %) 5.3 L Eos % (Auto) (0.9 - 2.9 %) 0.5 L Baso % (Auto) (0.2 - 1.0 %) 0.2 Neut # (Auto) (2.2 - 4.8 x10 3/uL) 9.65 H Lymph # (Auto) (1.3 - 2.9 x10 3/uL) 2.72 [place] # (Auto) (0.3 - 0.8 x10 3/uL) 0.70 Eos # (Auto) (0.0 - 0.2 x10 3/uL) 0.07 Baso # (Auto) (0.0 - 0.1 x10 3/uL) 0.02 Immature Gran % (0.0 - 2.0 %) 0.3 Nucleated RBC % (0 - 1.0 %) 0.0 Free Text Obj Notes Free Text Obj Notes: Constitutional: Patient appears healthy, no acute distress, HR, BP, Saturation reviewed in records Eyes: pupils equal, round, reactive to light, no icterus HENT: normal cephalic, atraumatic, no facial ten derness or crepitus, normal external inspection of ears/nose, no septal hematoma Neck: trachea midline, no crepitus, thyroid with out mass CV: regular rate, rhythm, bi lateral radial pulses 2+, no cyanosis, no edema, no pulsatile abdominal mass Respiratory: lungs clear bilaterally, no tendern ess to palpation, normal inspection of chest Abdomen: soft, non-tender, no masses, no hernia noted : normal external genitalia, pelvis stable Lymph nodes: no cervical or supraclavicular mass es noted Musculoskeletal: -right upper extremity without focal tenderness , without deformity, with ROM intact -left upper extremity without focal tenderness , without deformity, with ROM intact -right lower extremity with focal tenderness the proximal thigh, without deformity, with ROM intact, but weak. Able to fl ex and extend thigh -left lower extremity with f ocal tenderness, without deformity, with ROM intact -no cervical spine tenderness with full ROM -no thoracic spine tenderness or step-off -no lumbar spine tenderness or step-off Vascular: radial, femoral, DP, PT pulses equal t o palpation bilaterally Skin: no lacerations, abrasions to head, skin wa rm to palpation Psychiatric: normal mood and affect, memory inta ct. Neurologic: bilateral upper sensation intact low er extremity sensation diminished to right lateral thigh but improveing , strength intact, GCS 15 Diagnosis, Assessment Plan Free Text A P: ASSESSMENT: fall Injuries/Acute Problems: -right iliacus/psoas hematoma, possible compartm ent syndrome Chronic Medical Problems/Comorbidities: -denies Consultants: Procedures: PLAN: -right iliacus/psoas hematoma, possible compartm ent syndrome no evident fracture Distal pulses are intact, neuro comprom ise to LLE lateral thigh. Patient with full ROM to RLE, but weak possible due to pain Will monitor with serial CK and compartment exa ms. 150cc/LR for now. OK for regualr diet CK down, but still above 22k. Will monitor over night again. Continue hydration -Tertiary survey negative for additional injury -PT/OT eval Cm consult. L/D/A: PIV DVT prophylaxis: SCDs Lovenox GI prophylaxis: diet Diet: clear Activity: WBAT Dispo: admit to trauma ICU Code Status: FULL Quality: Trauma Gen Surg Advanced Care Plan 65 or Older Discussed with: patient Current Medications Current medication review: I attest that the foregoing medication list in t he medical record is true, accurate, and complete to the best of my knowled ge. VTE Prophylaxis - General VTE prophylaxis initiated: yes, no pharmacologic , reason: (hematoma) Heath Hand 09/01/20 0054: Attestations Physician Attestation Agree w/findings plan: Agree with the findings and plan as documented Lexii Whyte; no compartment syndrome at 1905 at 0118 RPT #:[id number] END OF REPORT 2020-08-08 19:03:00-00:[address] [facility] Note REPORT#:[id number] REPORT STATUS: Signed DATE:08/08/20 TIME: 1902 PATIENT: BILLY PEREZ UNIT #: [id number] ROOM/BED: [address] : [address] AGE: 25 SEX: M ATTEND: Amos Hand DO ADM AUTHOR: Jarrod Whyte * ALL edits or amendments must be made on the [employer]/computer document * Subjective HPI: improved leg and buttock pain toelrating diet no new complaints Objective Physical Exam VS/I O: Vital Signs: Date Time Temp Pulse Resp B/P B/P Pulse O2 O2 F low FiO2 Mean Ox Delivery Rate 08/08 1608 97.7 75 17 143/89 107.4 93 Room air 08/08 1235 97.7 76 16 147/91 109.2 90 Room air 08/08 0855 97.7 72 17 134/90 105.0 93 Room air 08/08 0306 97.7 81 14 130/74 92.5 93 Room air 08/07 2333 97.5 87 14 131/70 90.1 94 Room air 08/07 2132 98.1 92 14 137/76 96.1 96 Room air 08/07 2108 89 18 134/76 95 96 Room air 08/07 1934 98.3 89 17 143/96 111 96 Room air 24 hour I O ending at 0700: 08/08 0700 08/07 1900 Intake Total 1800.00 Output Total Balance 1800.00 Intake, IV 1800.00 Number Voids 3 Patient 96.7 kg 95 kg Weight Weight Bed scale Stated/Reported Measurement Method PATIENT WEIGHT: Weight (lb): 213 Weight (oz): 2.99 Weight (kg): 96.615 Medications: Active Meds + DC'd Last 24 Hrs Polyethylene Glycol 1 PKT DAILY PO (CKD) Morphine Sulfate 4 MG Q3H PRN PRN IV Oxycodone HCl 5 MG Q6H PRN PRN PO Acetaminophen 975 MG Q6HR PO (DC) Ibuprofen 200 MG Q6HR PO Tramadol HCl 50 MG Q6HR PO Methocarbamol 750 MG Q8HR PO Acetaminophen 975 MG Q8HR PRN PO Lactated Ringer's 1,000 ML .Q6H40M IV Morphine Sulfate 2 MG Q3H PRN PRN IV (DC) Ondansetron HCl 4 MG Q4H PRN PRN IV Results Findings/Data: Laboratory Tests 08/08 08/08 08/08 08/08 1308 0743 0651 0025 Chemistry Sodium (137 - 145 mmol/L) 140 Potassium (3.4 - 5.0 mmol/L) 4.2 Chloride (98 - 107 mmol/L) 104 Carbon Dioxide (22 - 30 mmol/L) 33 H BUN (9 - 20 mg/dL) 9 Creatinine (0.7 - 1.3 mg/dL) 0.8 Glomerular Filtr Rate (>60) 123 Glucose (74 - 106 mg/dL) 102 Calcium (8.4 - 10.2 mg/dL) 8.9 Total Creatine Kinase (55 - 170 U/L) 03983 *H 12400 *H 33412 *H Laboratory Tests 08/08 0743 Hematology WBC (5.0 - 12.0 x10 3/uL) 13.2 H RBC (4.70 - 6.10 x10 6/uL) 3.85 L Hgb (14.0 - 18.0 g/dL) 12.1 L Hct (37.0 - 49.0 %) 34.7 L MCV (80 - 94 fL) 90 MCH (27 - 31 pg) 31.4 H MCHC (33 - 37 g/dL) 34.9 RDW (11.5 - 15.5 %) 13.0 Plt Count (130 - 400 x10 3/uL) 238 MPV (9.4 - 16.4 fL) 9.2 L Neut % (Auto) (43 - 65 %) 73.1 H Lymph % (Auto) (20.5 - 45.5 %) 20.6 [place] % (Auto) (5.5 - 11.7 %) 5.3 L Eos % (Auto) (0.9 - 2.9 %) 0.5 L Baso % (Auto) (0.2 - 1.0 %) 0.2 Neut # (Auto) (2.2 - 4.8 x10 3/uL) 9.65 H Lymph # (Auto) (1.3 - 2.9 x10 3/uL) 2.72 [place] # (Auto) (0.3 - 0.8 x10 3/uL) 0.70 Eos # (Auto) (0.0 - 0.2 x10 3/uL) 0.07 Baso # (Auto) (0.0 - 0.1 x10 3/uL) 0.02 Immature Gran % (0.0 - 2.0 %) 0.3 Nucleated RBC % (0 - 1.0 %) 0.0 Free Text Obj Notes Free Text Obj Notes: Constitutional: Patient appears healthy, no acute distress, HR, BP, Saturation reviewed in records Eyes: pupils equal, round, reactive to light, no icterus HENT: normal cephalic, atraumatic, no facial ten derness or crepitus, normal external inspection of ears/nose, no septal hematoma Neck: trachea midline, no crepitus, thyroid with out mass CV: regular rate, rhythm, bi lateral radial pulses 2+, no cyanosis, no edema, no pulsatile abdominal mass Respiratory: lungs clear bilaterally, no tendern ess to palpation, normal inspection of chest Abdomen: soft, non-tender, no masses, no hernia noted : normal external genitalia, pelvis stable Lymph nodes: no cervical or supraclavicular mass es noted Musculoskeletal: -right upper extremity without focal tenderness , without deformity, with ROM intact -left upper extremity without focal tenderness , without deformity, with ROM intact -right lower extremity with focal tenderness the proximal thigh, without deformity, with ROM intact, but weak. Able to fl ex and extend thigh -left lower extremity with f ocal tenderness, without deformity, with ROM intact -no cervical spine tenderness with full ROM -no thoracic spine tenderness or step-off -no lumbar spine tenderness or step-off Vascular: radial, femoral, DP, PT pulses equal t o palpation bilaterally Skin: no lacerations, abrasions to head, skin wa rm to palpation Psychiatric: normal mood and affect, memory inta ct. Neurologic: bilateral upper sensation intact low er extremity sensation diminished to right lateral thigh but improveing , strength intact, GCS 15 Diagnosis, Assessment Plan Free Text A P: ASSESSMENT: fall Injuries/Acute Problems: -right iliacus/psoas hematoma, possible compartm ent syndrome Chronic Medical Problems/Comorbidities: -denies Consultants: Procedures: PLAN: -right iliacus/psoas hematoma, possible compartm ent syndrome no evident fracture Distal pulses are intact, neuro comprom ise to LLE lateral thigh. Patient with full ROM to RLE, but weak possible due to pain Will monitor with serial CK and compartment exa ms. 150cc/LR for now. OK for regualr diet CK down, but still above 22k. Will monitor over night again. Continue hydration -Tertiary survey negative for additional injury -PT/OT eval Cm consult. L/D/A: PIV DVT prophylaxis: SCDs Lovenox GI prophylaxis: diet Diet: clear Activity: WBAT Dispo: admit to trauma ICU Code Status: FULL Quality: Trauma Gen Surg Advanced Care Plan 65 or Older Discussed with: patient Current Medications Current medication review: I attest that the foregoing medication list in t he medical record is true, accurate, and complete to the best of my knowled ge. VTE Prophylaxis - General VTE prophylaxis initiated: yes, no pharmacologic , reason: (hematoma) at 1905 RPT #:[id number] END OF REPORT 2020-08-08 10:00:00-00:[address] [facility] ([facility]) Discharge Summary REPORT#:[id number] REPORT STATUS: Signed DATE:08/08/20 TIME: 1000 PATIENT: BILLY PEREZ UNIT #: [id number] ROOM/BED: [address] : 93 AGE: 25 SEX: M ATTEND: Amos Hand DO ADM AUTHOR: Jarrod Whyte * ALL edits or amendments must be made on the [employer]/computer document * General Information Free Text A P: Diagnosis, Assessment Plan Free Text A P: ASSESSMENT: fall Injuries/Acute Problems: -right iliacus/psoas hematoma, possible compartm ent syndrome Chronic Medical Problems/Comorbidities: -denies Consultants: Procedures: PLAN: -right iliacus/psoas hematoma, possible compartm ent syndrome no evident fracture Distal pulses are intact, neuro comprom ise to LLE lateral thigh. Patient with full ROM to RLE, but weak possible due to pain Will monitor with serial CK and compartment exa ms. continue 150cc/LR . OK for regualr diet CK down to 11k overnight but not back to 20k. W ill monitor overnight again. Continue hydration. -Tertiary survey negative for additional injury -PT/OT eval Cm consult. L/D/A: PIV DVT prophylaxis: SCDs Lovenox GI prophylaxis: diet Diet: clear Activity: WBAT Dispo: admit to trauma ICU Code Status: FULL Date of admission: Observation Start Date: Date of admission: 08/07/20 Discharge date: 08/09/20 Hospital course: patient admitted following a fall and suffering the above listed injuries. Patient was monitored with serial pulse checks a nd labs. Patient did not require operative intervention for his injuries. Patient was clear for discharge in stable conditio n with followup as needed and return precautions for worsening pain. Med Rec PCP PCP: PCP: No Primary or Family Physician Med Rec Discharge meds: Start taking the following new medications: METHOCARBAMOL (ROBAXIN) 750 MG TAB 750 MILLIGRAM ORAL EVERY 8 HOURS. Qty = 30 No Refills traMADol (ULTRAM) 50 MG TAB 50 MILLIGRAM ORAL EVERY 6 HOURS. Qty = 20 No Refills METHOCARBAMOL (ROBAXIN) 750 MG TAB 750 MILLIGRAM ORAL EVERY 8 HR NEEDED. as nee ded for acute pain Qty = 30 No Refills traMADol (ULTRAM) 50 MG TAB 50 MILLIGRAM ORAL EVERY 6 HOURS NEEDED. as n eeded for ACUTE PAIN Qty = 15 No Refills Objective VS/I O Last Documented: Result Date Time Pulse Ox 97 08/10 1114 FiO2 21 08/10 1114 O2 Delivery Room air 08/10 1114 B/P 151/88 08/10 1056 B/P Mean 109.3 08/10 1056 Temp 98.2 08/10 1056 Pulse 54 08/10 1056 Resp 17 08/10 1056 PATIENT WEIGHT: Weight (lb): 213 Weight (oz): 2.99 Weight (kg): 96.615 Constitutional: Patient appears healthy, no acute distress, HR, BP, Saturation reviewed in records Eyes: pupils equal, round, reactive to light, no icterus HENT: normal cephalic, atraumatic, no facial ten derness or crepitus, normal external inspection of ears/nose, no septal hematoma Neck: trachea midline, no crepitus, thyroid with out mass CV: regular rate, rhythm, bi lateral radial pulses 2+, no cyanosis, no edema, no pulsatile abdominal mass Respiratory: lungs clear bilaterally, no tendern ess to palpation, normal inspection of chest Abdomen: soft, non-tender, no masses, Lymph nodes: no cervical or supraclavicular mass es noted Musculoskeletal: -right lower extremity with focal tenderness the proximal thigh, without deformity, with ROM intact, but weak. Able to fl ex and extend thigh -left lower extremity with f ocal tenderness, without deformity, with ROM intact -no cervical spine tenderness with full ROM -no thoracic spine tenderness or step-off -no lumbar spine tenderness or step-off Vascular: radial, femoral, DP, PT pulses equal t o palpation bilaterally Skin: no lacerations, abrasions to head, skin wa rm to palpation Psychiatric: normal mood and affect, memory inta ct. Neurologic: bilateral upper sensation intact low er extremity sensation diminished to right lateral thigh but improveing , strength intact, GCS 15 Discharge Instructions PCP PCP: PCP: No Primary or Family Physician )( Discharge to: Home/Self Care Discharge Instructions Additional Discharge Routines: Attending Follow- Up )( Diet: Regular )( Activity: Resume Normal Activity, As Tolerate d Prescriptions: on chart Discharge management: greater than 30 mins Time spent: Time spent with patient (minutes): 30 Follow-up Appointments Attending Physician: Attending Physician: Heath Hand DO Attending physician follow up timeframe: as nee ded Quality: Gen Med Crit Care Current Medications Current medication review: I attest that the foregoing medication list in t he medical record is true, accurate, and complete to the best of my knowled ge. VTE Prophylaxis VTE prophylaxis initiated: yes, no pharmacologic , reason: (hematoma) Advanced Care Plan 65 or Older Discussed with: patient at 0020 RPT #:[id number] END OF REPORT 2020-08-08 10:00:00-00:[address] [facility] ([facility]) Discharge Summary REPORT#:[id number] REPORT STATUS: Signed DATE:08/08/20 TIME: 999 PATIENT: BILLY PEREZ UNIT #: [id number] ROOM/BED: [address] : [birth year] AGE: 25 SEX: M ATTEND: Yumiko Hand DO ADM AUTHOR: Jarrod Whyte * ALL edits or amendments must be made on the [employer]/computer document * Jarrod Whyte 08/08/20 1000: General Information Free Text A P: Diagnosis, Assessment Plan Free Text A P: ASSESSMENT: fall Injuries/Acute Problems: -right iliacus/psoas hematoma, possible compartm ent syndrome Chronic Medical Problems/Comorbidities: -denies Consultants: Procedures: PLAN: -right iliacus/psoas hematoma, possible compartm ent syndrome no evident fracture Distal pulses are intact, neuro comprom ise to LLE lateral thigh. Patient with full ROM to RLE, but weak possible due to pain Will monitor with serial CK and compartment exa ms. continue 150cc/LR . OK for regualr diet CK down to 11k overnight but not back to 20k. W ill monitor overnight again. Continue hydration. -Tertiary survey negative for additional injury -PT/OT eval Cm consult. L/D/A: PIV DVT prophylaxis: SCDs Lovenox GI prophylaxis: diet Diet: clear Activity: WBAT Dispo: admit to trauma ICU Code Status: FULL Date of admission: Observation Start Date: Date of admission: 08/07/20 Discharge date: 08/09/20 Hospital course: patient admitted following a fall and suffering the above listed injuries. Patient was monitored with serial pulse checks a nd labs. Patient did not require operative intervention for his injuries. Patient was clear for discharge in stable conditio n with followup as needed and return precautions for worsening pain. Med Rec PCP PCP: PCP: No Primary or Family Physician Med Rec Discharge meds: Start taking the following new medications: METHOCARBAMOL (ROBAXIN) 750 MG TAB 750 MILLIGRAM ORAL EVERY 8 HOURS. Qty = 30 No Refills traMADol (ULTRAM) 50 MG TAB 50 MILLIGRAM ORAL EVERY 6 HOURS. Qty = 20 No Refills METHOCARBAMOL (ROBAXIN) 750 MG TAB 750 MILLIGRAM ORAL EVERY 8 HR NEEDED. as nee ded for acute pain Qty = 30 No Refills traMADol (ULTRAM) 50 MG TAB 50 MILLIGRAM ORAL EVERY 6 HOURS NEEDED. as n eeded for ACUTE PAIN Qty = 15 No Refills Objective VS/I O Last Documented: Result Date Time Pulse Ox 97 08/10 1114 FiO2 21 08/10 1114 O2 Delivery Room air 08/10 1114 B/P 151/88 08/10 1056 B/P Mean 109.3 08/10 1056 Temp 98.2 08/10 1056 Pulse 54 08/10 1056 Resp 17 08/10 1056 PATIENT WEIGHT: Weight (lb): 213 Weight (oz): 2.99 Weight (kg): 96.615 Constitutional: Patient appears healthy, no acute distress, HR, BP, Saturation reviewed in records Eyes: pupils equal, round, reactive to light, no icterus HENT: normal cephalic, atraumatic, no facial ten derness or crepitus, normal external inspection of ears/nose, no septal hematoma Neck: trachea midline, no crepitus, thyroid with out mass CV: regular rate, rhythm, bi lateral radial pulses 2+, no cyanosis, no edema, no pulsatile abdominal mass Respiratory: lungs clear bilaterally, no tendern ess to palpation, normal inspection of chest Abdomen: soft, non-tender, no masses, Lymph nodes: no cervical or supraclavicular mass es noted Musculoskeletal: -right lower extremity with focal tenderness the proximal thigh, without deformity, with ROM intact, but weak. Able to fl ex and extend thigh -left lower extremity with f ocal tenderness, without deformity, with ROM intact -no cervical spine tenderness with full ROM -no thoracic spine tenderness or step-off -no lumbar spine tenderness or step-off Vascular: radial, femoral, DP, PT pulses equal t o palpation bilaterally Skin: no lacerations, abrasions to head, skin wa rm to palpation Psychiatric: normal mood and affect, memory inta ct. Neurologic: bilateral upper sensation intact low er extremity sensation diminished to right lateral thigh but improveing , strength intact, GCS 15 Discharge Instructions PCP PCP: PCP: No Primary or Family Physician )( Discharge to: Home/Self Care Discharge Instructions Additional Discharge Routines: Attending Follow- Up )( Diet: Regular )( Activity: Resume Normal Activity, As Tolerate d Prescriptions: on chart Discharge management: greater than 30 mins Time spent: Time spent with patient (minutes): 30 Follow-up Appointments Attending Physician: Attending Physician: Heath Hand DO Attending physician follow up timeframe: as sheron ded Quality: Gen Med Crit Care Current Medications Current medication review: I attest that the foregoing medication list in t he medical record is true, accurate, and complete to the best of my knowled ge. VTE Prophylaxis VTE prophylaxis initiated: yes, no pharmacologic , reason: (hematoma) Advanced Care Plan 65 or Older Discussed with: patient Heath Hand 09/01/20 0053: Attestations Physician Attestation Agree w/findings plan: Agree with the findings and plan as documented Lexii Whyte; however, despite elevated CK there is no signs of compartment syndrome [ ] at 0020 RPT #:[id number] END OF REPORT 2020-08-08 10:00:00-00:[address] [facility] ([facility]) Discharge Summary REPORT#:[id number] REPORT STATUS: Signed DATE:08/08/20 TIME: 999 PATIENT: BILLY PEREZ UNIT #: [id number] ROOM/BED: [address] : [birth year] AGE: 25 SEX: M ATTEND: Yumiko Hand DO ADM AUTHOR: Jarrod Whyte * ALL edits or amendments must be made on the [employer]/computer document * Jarrod Whyte 08/08/20 1000: General Information Free Text A P: Diagnosis, Assessment Plan Free Text A P: ASSESSMENT: fall Injuries/Acute Problems: -right iliacus/psoas hematoma, possible compartm ent syndrome Chronic Medical Problems/Comorbidities: -denies Consultants: Procedures: PLAN: -right iliacus/psoas hematoma, possible compartm ent syndrome no evident fracture Distal pulses are intact, neuro comprom ise to LLE lateral thigh. Patient with full ROM to RLE, but weak possible due to pain Will monitor with serial CK and compartment exa ms. continue 150cc/LR . OK for regualr diet CK down to 11k overnight but not back to 20k. W ill monitor overnight again. Continue hydration. -Tertiary survey negative for additional injury -PT/OT eval Cm consult. L/D/A: PIV DVT prophylaxis: SCDs Lovenox GI prophylaxis: diet Diet: clear Activity: WBAT Dispo: admit to trauma ICU Code Status: FULL Date of admission: Observation Start Date: Date of admission: 08/07/20 Discharge date: 08/09/20 Hospital course: patient admitted following a fall and suffering the above listed injuries. Patient was monitored with serial pulse checks a nd labs. Patient did not require operative intervention for his injuries. Patient was clear for discharge in stable conditio n with followup as needed and return precautions for worsening pain. Med Rec PCP PCP: PCP: No Primary or Family Physician Med Rec Discharge meds: Start taking the following new medications: METHOCARBAMOL (ROBAXIN) 750 MG TAB 750 MILLIGRAM ORAL EVERY 8 HOURS. Qty = 30 No Refills traMADol (ULTRAM) 50 MG TAB 50 MILLIGRAM ORAL EVERY 6 HOURS. Qty = 20 No Refills METHOCARBAMOL (ROBAXIN) 750 MG TAB 750 MILLIGRAM ORAL EVERY 8 HR NEEDED. as nee ded for acute pain Qty = 30 No Refills traMADol (ULTRAM) 50 MG TAB 50 MILLIGRAM ORAL EVERY 6 HOURS NEEDED. as n eeded for ACUTE PAIN Qty = 15 No Refills Objective VS/I O Last Documented: Result Date Time Pulse Ox 97 08/10 1114 FiO2 21 08/10 1114 O2 Delivery Room air 08/10 1114 B/P 151/88 08/10 1056 B/P Mean 109.3 08/10 1056 Temp 98.2 08/10 1056 Pulse 54 08/10 1056 Resp 17 08/10 1056 PATIENT WEIGHT: Weight (lb): 213 Weight (oz): 2.99 Weight (kg): 96.615 Constitutional: Patient appears healthy, no acute distress, HR, BP, Saturation reviewed in records Eyes: pupils equal, round, reactive to light, no icterus HENT: normal cephalic, atraumatic, no facial ten derness or crepitus, normal external inspection of ears/nose, no septal hematoma Neck: trachea midline, no crepitus, thyroid with out mass CV: regular rate, rhythm, bi lateral radial pulses 2+, no cyanosis, no edema, no pulsatile abdominal mass Respiratory: lungs clear bilaterally, no tendern ess to palpation, normal inspection of chest Abdomen: soft, non-tender, no masses, Lymph nodes: no cervical or supraclavicular mass es noted Musculoskeletal: -right lower extremity with focal tenderness th e proximal thigh, without deformity, with ROM intact, but weak. Able to fl ex and extend thigh -left lower extremity with f ocal tenderness, without deformity, with ROM intact -no cervical spine tenderness with full ROM -no thoracic spine tenderness or step-off -no lumbar spine tenderness or step-off Vascular: radial, femoral, DP, PT pulses equal t o palpation bilaterally Skin: no lacerations, abrasions to head, skin wa rm to palpation Psychiatric: normal mood and affect, memory inta ct. Neurologic: bilateral upper sensation intact low er extremity sensation diminished to right lateral thigh but improveing , strength intact, GCS 15 Discharge Instructions PCP PCP: PCP: No Primary or Family Physician )( Discharge to: Home/Self Care Discharge Instructions Additional Discharge Routines: Attending Follow- Up )( Diet: Regular )( Activity: Resume Normal Activity, As Tolerate d Prescriptions: on chart Discharge management: greater than 30 mins Time spent: Time spent with patient (minutes): 30 Follow-up Appointments Attending Physician: Attending Physician: Heath Hand DO Attending physician follow up timeframe: as sheron darling Quality: Gen Med Crit Care Current Medications Current medication review: I attest that the foregoing medication list in t he medical record is true, accurate, and complete to the best of my knowled ge. VTE Prophylaxis VTE prophylaxis initiated: yes, no pharmacologic , reason: (hematoma) Advanced Care Plan 65 or Older Discussed with: patient YazanHeath Dorsey 09/01/20 0053: Attestations Physician Attestation Agree w/findings plan: Agree with the findings and plan as documented Lexii Whyte; however, despite elevated CK there is no signs of compartment syndrome [ ] at 0020 at 0118 RPT #:[id number] END OF REPORT 2020-08-07 18:24:00-00:[address] [facility] ([facility]) Trauma - History Physical REPORT#:[id number] REPORT STATUS: Signed DATE:08/07/20 TIME: 1823 PATIENT: BILLY EPREZ UNIT #: [id number] ROOM/BED: [address] : [birth year] AGE: 25 SEX: M ATTEND: Amos Hand DO ADM AUTHOR: Jarrod Whyte * ALL edits or amendments must be made on the [employer]/computer document * Jarrod Whyte 08/07/201823: History of Present Illness Pre-hospital Mechanism of injury: Fall: same level HPI Chief complaint: right leg ain and lateral thigh numbness HPI: CC: right eg pain and numbness HPI: Patient reports that he fell last night with dri nking. Patient had LOC and remained there the rest of t he evening. patien woke up in the morning with pain to the left leg. Pain progre ssing to numbness to the lateral aspect of the left proximal leg. Pain With palpation and movement. Pain radiates somewhat down his left leg. Pain made somewhat better with med iations. Patient denies head neck or chest pain. Patient was a trauma non-act ivation. ROS: ROS negative unless noted in above HPI of the following systems: constitutional, eyes, HENT, neck, neuro, CV, resp, GI, , msk, skin History Additional medical history: etoh abuse Alcohol use: Alcohol use Smoking status: Smoking status for patients 13 years old or old er: Unknown,if ever smoked Medication/Allergy-Vaccine Hx Allergies: Coded Allergies: No Known Allergies (08/07/20) Physical Exam VS/I O Last Documented: Result Date Time Pulse Ox 94 08/07 1809 B/P 145/70 08/07 1809 B/P Mean 95 08/07 1809 O2 Delivery Room air 08/07 1809 Temp 98.0 08/07 1809 Pulse 85 08/07 1809 Resp 16 08/07 1809 PATIENT WEIGHT: Weight (lb): Weight (oz): Weight (kg): 95.000 Results Findings/Data: Laboratory Tests: 08/07 08/07 08/07 08/07 1749 1624 1548 1457 Chemistry POC Creatinine (0.51 - 1.19 mg/dL) 0.90 Lactic Acid (0.7 - 2.0 mmol/L) 2.0 Hematology WBC (5.0 - 12.0 x10 3/uL) 20.0 H RBC (4.70 - 6.10 x10 6/uL) 4.11 L Hgb (14.0 - 18.0 g/dL) 12.7 L Hct (37.0 - 49.0 %) 37.1 MCV (80 - 94 fL) 90 MCH (27 - 31 pg) 30.9 MCHC (33 - 37 g/dL) 34.2 RDW (11.5 - 15.5 %) 12.9 Plt Count (130 - 400 x10 3/uL) 260 MPV (9.4 - 16.4 fL) 9.2 L Neut % (Auto) (43 - 65 %) 82.8 H Lymph % (Auto) (20.5 - 45.5 %) 10.8 L [place] % (Auto) (5.5 - 11.7 %) 5.6 Eos % (Auto) (0.9 - 2.9 %) 0.0 L Baso % (Auto) (0.2 - 1.0 %) 0.1 L Neut # (Auto) (2.2 - 4.8 x10 3/uL) 16.53 H Lymph # (Auto) (1.3 - 2.9 x10 3/uL) 2.15 [place] # (Auto) (0.3 - 0.8 x10 3/uL) 1.12 H Eos # (Auto) (0.0 - 0.2 x10 3/uL) 0.00 Baso # (Auto) (0.0 - 0.1 x10 3/uL) 0.02 Immature Gran % (0.0 - 2.0 %) 0.7 Nucleated RBC % (0 - 1.0 %) 0.0 Serology SARS CoV-2 RNA Rapid PATI (NEGATIVE) Negative Toxicology Urine Opiates Screen (NEGATIVE) NEGATIVE Ur Barbiturates, Qual (NEGATIVE) NEGATIVE Ur Phencyclidine Scrn (NEGATIVE) NEGATIVE Ur Amphetamines Screen (NEGATIVE) NEGATIVE U Benzodiazepines Scrn (NEGATIVE) POSITIVE Urine Cocaine Screen (NEGATIVE) NEGATIVE Urine Cannabinoids (NEGATIVE) POSITIVE Urines Urine Color (Yellow) Straw Urine Appearance (Clear) Clear Urine pH (5.0 - 8.0) 5.0 Ur Specific [place] (<1.030) 1.012 Urine Protein (Negative mg/dL) NEGATIVE Urine Glucose (UA) (Negative) Negative Urine Ketones (Negative mg/dL) Negative Urine Blood (Negative) 3+ H Urine Nitrite (Negative) Negative Urine Bilirubin (Negative) Negative Urine Urobilinogen (Negative mg/dL) Negative Ur Leukocyte Esterase (Negative) NEGATIVE Urine RBC (<4 - 5 /HPF) 0-3 Urine WBC (<4 - 5 /HPF) 0-3 Ur Squamous Epith Cells (0 - 5 (RARE) 0-5 (RAR E) /HPF) Urine Bacteria (None - Rare /HPF) None Urine Mucus (<Rare /LPF) Rare 08/07 1456 Chemistry Sodium (137 - 145 mmol/L) 139 Potassium (3.4 - 5.0 mmol/L) 4.1 Chloride (98 - 107 mmol/L) 103 Carbon Dioxide (22 - 30 mmol/L) 29 BUN (9 - 20 mg/dL) 13 Creatinine (0.7 - 1.3 mg/dL) 0.9 Glomerular Filtr Rate (>60) 108 Glucose (74 - 106 mg/dL) 84 Calcium (8.4 - 10.2 mg/dL) 9.0 Total Bilirubin (0.2 - 1.3 mg/dL) 0.4 Conjugated Bilirubin (0 - 0.3 mg/dL) 0 Unconjugated Bilirubin (0 - 1.1 mg/dL) 0.4 AST (15 - 46 U/L) 494 H ALT (0 - 34 U/L) 111 H Total Alk Phosphatase (38 - 126 U/L) 54 Total Creatine Kinase (55 - 170 U/L) 53783 *H Total Protein (6.3 - 8.2 g/dL) 6.7 Albumin (3.5 - 5.0 g/dL) 4.4 Coagulation INR 1.2 PTT (Grand) (23.4 - 37.0 SECONDS) 26.0 PT Patient/Control Mix (9.2 - 12.1 SECONDS) 13. 2 H Toxicology Ethyl Alcohol (<10 mg/dL) < 10 Radiology data: Recent Impressions: RADIOLOGY - XR FOOT 3 + V RT 08/07 1426 Report Impression - Status: SIGNED Entered: 08/07/2020 1525 IMPRESSION: No acute osseous abnormality identified. Impression By: Harley Snider M.D. RADIOLOGY - XR ANKLE 3 + V LT 08/07 1426 Report Impression - Status: SIGNED Entered: 08/07/2020 1524 IMPRESSION: No acute osseous abnormality identified. Impression By: Harley Snider M.D. RADIOLOGY - XR TIBIA/FIBULA 2 V RT 08/07 1426 Report Impression - Status: SIGNED Entered: 08/07/2020 1525 IMPRESSION: No acute osseous abnormality identified. Impression By: Harley Snider M.D. RADIOLOGY - XR KNEE 3 V LT 08/07 1426 Report Impression - Status: SIGNED Entered: 08/07/2020 1523 IMPRESSION: No acute osseous abnormality identified. Impression By: Harley Snider M.D. RADIOLOGY - XR FEMUR MIN 2 VW RT 08/07 142 Report Impression - Status: SIGNED Entered: 08/07/2020 1524 IMPRESSION: No acute osseous abnormality identified. Impression By: Harley Snider M.D. RADIOLOGY - XR PELVIS 1/2 VIEWS 08/07 1426 Report Impression - Status: SIGNED Entered: 08/07/2020 1522 IMPRESSION: No acute osseous abnormality identified. Impression By: Harley Snider M.D. RADIOLOGY - XR CHEST 1 V 08/07 1426 Report Impression - Status: SIGNED Entered: 08/07/2020 1521 IMPRESSION: No acute abnormality identified. Impression By: Harley Snider M.D. CAT SCAN - CT CHEST W/CONTRAST 08/07 1540 Report Impression - Status: SIGNED Entered: 08/07/2020 1645 IMPRESSION: Asymmetric enlargement of right iliacus muscle w ith surrounding stranding. Bilateral lower lobe and right upper lobe depend ent groundglass airspace opacities, nonspecific, may represent a spiration pneumonia in the appropriate clinical setting. Other findings as above. Findings discussed with Kavin Styles MD at 08/07/2020 4:31 PM. Impression By: Michelle Martin MD CAT SCAN - CT L-SPINE W/O CONTRAST 08/07 1540 Report Impression - Status: SIGNED Entered: 08/07/2020 1645 IMPRESSION: Asymmetric enlargement of right iliacus muscle w ith surrounding stranding. Bilateral lower lobe and right upper lobe depend ent groundglass airspace opacities, nonspecific, may represent a spiration pneumonia in the appropriate clinical setting. Other findings as above. Findings discussed with Kavin Styles MD at 08/07/2020 4:31 PM. Impression By: Michelle Martin MD CAT SCAN - CT T-SPINE W/O CONTRAST 08/07 1540 Report Impression - Status: SIGNED Entered: 08/07/2020 1645 IMPRESSION: Asymmetric enlargement of right iliacus muscle w ith surrounding stranding. Bilateral lower lobe and right upper lobe depend ent groundglass airspace opacities, nonspecific, may represent a spiration pneumonia in the appropriate clinical setting. Other findings as above. Findings discussed with Kavin Styles MD at 08/07/2020 4:31 PM. Impression By: Michelle Martin MD CAT SCAN - CT ABD PELVIS W/CONT 08/07 154 Report Impression - Status: SIGNED Entered: 08/07/2020 1645 IMPRESSION: Asymmetric enlargement of right iliacus muscle w ith surrounding stranding. Bilateral lower lobe and right upper lobe depend ent groundglass airspace opacities, nonspecific, may represent a spiration pneumonia in the appropriate clinical setting. Other findings as above. Findings discussed with Kavin Styles MD at 08/07/2020 4:31 PM. Impression By: Michelle Martin MD CAT SCAN - CT C-SPINE W/O CONT 08/07 1540 Report Impression - Status: SIGNED Entered: 08/07/2020 1626 IMPRESSION: 1. No acute intracranial abnormality identified. 2. No cervical fracture identified. Impression By: Harley Snider M.D. CAT SCAN - CT HEAD/BRAIN W/O CONT 08/07 1540 Report Impression - Status: SIGNED Entered: 08/07/2020 1626 IMPRESSION: 1. No acute intracranial abnormality identified. 2. No cervical fracture identified. Impression By: [email or web address] - Singh Snider M.D. Free Text Obj Notes Free Text Obj Notes: Constitutional: Patient appears healthy, no acute distress, HR, BP, Saturation reviewed in records Eyes: pupils equal, round, reactive to light, no icterus HENT: normal cephalic, atraumatic, no facial ten derness or crepitus, normal external inspection of ears/nose, no septal hematoma Neck: trachea midline, no crepitus, thyroid with out mass CV: regular rate, rhythm, bi lateral radial pulses 2+, no cyanosis, no edema, no pulsatile abdominal mass Respiratory: lungs clear bilaterally, no tendern ess to palpation, normal inspection of chest Abdomen: soft, non-tender, no masses, no hernia noted : normal external genitalia, pelvis stable Lymph nodes: no cervical or supraclavicular mass es noted Musculoskeletal: -right upper extremity without focal tenderness , without deformity, with ROM intact -left upper extremity without focal tenderness , without deformity, with ROM intact -right lower extremity with focal tenderness the proximal thigh, without deformity, with ROM intact, but weak. Able to fl ex and extend thigh -left lower extremity with f ocal tenderness, without deformity, with ROM intact -no cervical spine tenderness with full ROM -no thoracic spine tenderness or step-off -no lumbar spine tenderness or step-off Vascular: radial, femoral, DP, PT pulses equal t o palpation bilaterally Skin: no lacerations, abrasions to head, skin wa rm to palpation Psychiatric: normal mood and affect, memory inta ct. Neurologic: bilateral upper sensation intact low er extremity sensation diminished to right lateral thigh, strength inta ct, GCS 15 Diagnosis, Assessment Plan Free Text DxA P Notes Free Text DxA P Notes: ASSESSMENT: fall Injuries/Acute Problems: -right iliacus/psoas hematoma, possible compartm ent syndrome Chronic Medical Problems/Comorbidities: -denies Consultants: Procedures: PLAN: -right iliacus/psoas hematoma, possible compartm ent syndrome no evident fracture Distal pulses are intact, neuro comprom ise to LLE lateral thigh. Patient with full ROM to RLE, but weak possible due to pain Will monitor with serial CK and compartment exa ms. 150cc/LR for now. OK for clear liquid diet No emergent surgical intervention at this time, will monitor closely. -Tertiary survey -PT/OT eval Cm consult. L/D/A: PIV DVT prophylaxis: SCDs Lovenox GI prophylaxis: diet Diet: clear Activity: WBAT Dispo: admit to trauma ICU Code Status: FULL Quality: Trauma Gen Surg Advanced Care Plan 65 or Older Discussed with: patient Current Medications Current medication review: I attest that the foregoing medication list in t he medical record is true, accurate, and complete to the best of my knowled ge. VTE Prophylaxis - General VTE prophylaxis initiated: yes, no pharmacologic , reason: (hematoma) Heath Hand 08/23/20 1748: Attestations Physician Attestation Agree w/findings plan: I performed an H P and agree with the findings and plan as documented by HALIMA Whyte at 1843 RPT #:[id number] END OF REPORT 2020-08-07 18:24:00-00:[address] [facility] ([facility]) Trauma - History Physical REPORT#:[id number] REPORT STATUS: Signed DATE:08/07/20 TIME: 1823 PATIENT: BILLY PEREZ UNIT #: [id number] ROOM/BED: [address] : [birth year] AGE: 25 SEX: M ATTEND: Amos Hand DO ADM AUTHOR: Jarrod Whyte * ALL edits or amendments must be made on the [employer]/computer document * Jarrod Whyte 08/07/201823: History of Present Illness Pre-hospital Mechanism of injury: Fall: same level HPI Chief complaint: right leg ain and lateral thigh numbness HPI: CC: right eg pain and numbness HPI: Patient reports that he fell last night with kaye andrea. Patient had LOC and remained there the rest of t he evening. patien woke up in the morning with pain to the left leg. Pain progre ssing to numbness to the lateral aspect of the left proximal leg. Pain With palpation and movement. Pain radiates somewhat down his left leg. Pain made somewhat better with med iations. Patient denies head neck or chest pain. Patient was a trauma non-act ivation. ROS: ROS negative unless noted in above HPI of the following systems: constitutional, eyes, HENT, neck, neuro, CV, resp, GI, , msk, skin History Additional medical history: etoh abuse Alcohol use: Alcohol use Smoking status: Smoking status for patients 13 years old or old er: Unknown,if ever smoked Medication/Allergy-Vaccine Hx Allergies: Coded Allergies: No Known Allergies (08/07/20) Physical Exam VS/I O Last Documented: Result Date Time Pulse Ox 94 08/07 1809 B/P 145/70 08/07 1809 B/P Mean 95 08/07 1809 O2 Delivery Room air 08/07 1809 Temp 98.0 08/07 1809 Pulse 85 08/07 1809 Resp 16 08/07 1809 PATIENT WEIGHT: Weight (lb): Weight (oz): Weight (kg): 95.000 Results Findings/Data: Laboratory Tests: 08/07 08/07 08/07 08/07 1749 1624 1548 1457 Chemistry POC Creatinine (0.51 - 1.19 mg/dL) 0.90 Lactic Acid (0.7 - 2.0 mmol/L) 2.0 Hematology WBC (5.0 - 12.0 x10 3/uL) 20.0 H RBC (4.70 - 6.10 x10 6/uL) 4.11 L Hgb (14.0 - 18.0 g/dL) 12.7 L Hct (37.0 - 49.0 %) 37.1 MCV (80 - 94 fL) 90 MCH (27 - 31 pg) 30.9 MCHC (33 - 37 g/dL) 34.2 RDW (11.5 - 15.5 %) 12.9 Plt Count (130 - 400 x10 3/uL) 260 MPV (9.4 - 16.4 fL) 9.2 L Neut % (Auto) (43 - 65 %) 82.8 H Lymph % (Auto) (20.5 - 45.5 %) 10.8 L [place] % (Auto) (5.5 - 11.7 %) 5.6 Eos % (Auto) (0.9 - 2.9 %) 0.0 L Baso % (Auto) (0.2 - 1.0 %) 0.1 L Neut # (Auto) (2.2 - 4.8 x10 3/uL) 16.53 H Lymph # (Auto) (1.3 - 2.9 x10 3/uL) 2.15 [place] # (Auto) (0.3 - 0.8 x10 3/uL) 1.12 H Eos # (Auto) (0.0 - 0.2 x10 3/uL) 0.00 Baso # (Auto) (0.0 - 0.1 x10 3/uL) 0.02 Immature Gran % (0.0 - 2.0 %) 0.7 Nucleated RBC % (0 - 1.0 %) 0.0 Serology SARS CoV-2 RNA Rapid PATI (NEGATIVE) Negative Toxicology Urine Opiates Screen (NEGATIVE) NEGATIVE Ur Barbiturates, Qual (NEGATIVE) NEGATIVE Ur Phencyclidine Scrn (NEGATIVE) NEGATIVE Ur Amphetamines Screen (NEGATIVE) NEGATIVE U Benzodiazepines Scrn (NEGATIVE) POSITIVE Urine Cocaine Screen (NEGATIVE) NEGATIVE Urine Cannabinoids (NEGATIVE) POSITIVE Urines Urine Color (Yellow) Straw Urine Appearance (Clear) Clear Urine pH (5.0 - 8.0) 5.0 Ur Specific [place] (<1.030) 1.012 Urine Protein (Negative mg/dL) NEGATIVE Urine Glucose (UA) (Negative) Negative Urine Ketones (Negative mg/dL) Negative Urine Blood (Negative) 3+ H Urine Nitrite (Negative) Negative Urine Bilirubin (Negative) Negative Urine Urobilinogen (Negative mg/dL) Negative Ur Leukocyte Esterase (Negative) NEGATIVE Urine RBC (<4 - 5 /HPF) 0-3 Urine WBC (<4 - 5 /HPF) 0-3 Ur Squamous Epith Cells (0 - 5 (RARE) 0-5 (RARE ) /HPF) Urine Bacteria (None - Rare /HPF) None Urine Mucus (<Rare /LPF) Rare 08/07 1456 Chemistry Sodium (137 - 145 mmol/L) 139 Potassium (3.4 - 5.0 mmol/L) 4.1 Chloride (98 - 107 mmol/L) 103 Carbon Dioxide (22 - 30 mmol/L) 29 BUN (9 - 20 mg/dL) 13 Creatinine (0.7 - 1.3 mg/dL) 0.9 Glomerular Filtr Rate (>60) 108 Glucose (74 - 106 mg/dL) 84 Calcium (8.4 - 10.2 mg/dL) 9.0 Total Bilirubin (0.2 - 1.3 mg/dL) 0.4 Conjugated Bilirubin (0 - 0.3 mg/dL) 0 Unconjugated Bilirubin (0 - 1.1 mg/dL) 0.4 AST (15 - 46 U/L) 494 H ALT (0 - 34 U/L) 111 H Total Alk Phosphatase (38 - 126 U/L) 54 Total Creatine Kinase (55 - 170 U/L) 02119 *H Total Protein (6.3 - 8.2 g/dL) 6.7 Albumin (3.5 - 5.0 g/dL) 4.4 Coagulation INR 1.2 PTT (Rach) (23.4 - 37.0 SECONDS) 26.0 PT Patient/Control Mix (9.2 - 12.1 SECONDS) 13. 2 H Toxicology Ethyl Alcohol (<10 mg/dL) < 10 Radiology data: Recent Impressions: RADIOLOGY - XR FOOT 3 + V RT 08/07 1425 Report Impression - Status: SIGNED Entered: 08/07/2020 152 IMPRESSION: No acute osseous abnormality identified. Impression By: Harley Snider M.D. RADIOLOGY - XR ANKLE 3 + V LT 08/07 1425 Report Impression - Status: SIGNED Entered: 08/07/2020 1524 IMPRESSION: No acute osseous abnormality identified. Impression By: Harley Snider M.D. RADIOLOGY - XR TIBIA/FIBULA 2 V RT 08/07 1425 Report Impression - Status: SIGNED Entered: 08/07/2020 1525 IMPRESSION: No acute osseous abnormality identified. Impression By: Harley Snider M.D. RADIOLOGY - XR KNEE 3 V LT 08/07 1425 Report Impression - Status: SIGNED Entered: 08/07/2020 1523 IMPRESSION: No acute osseous abnormality identified. Impression By: Harley Snider M.D. RADIOLOGY - XR FEMUR MIN 2 VW RT 08/07 1425 Report Impression - Status: SIGNED Entered: 08/07/2020 1524 IMPRESSION: No acute osseous abnormality identified. Impression By: Harley Snider M.D. RADIOLOGY - XR PELVIS 1/2 VIEWS 08/07 1425 Report Impression - Status: SIGNED Entered: 08/07/2020 1522 IMPRESSION: No acute osseous abnormality identified. Impression By: Harley Snider M.D. RADIOLOGY - XR CHEST 1 V 08/07 1426 Report Impression - Status: SIGNED Entered: 08/07/2020 1521 IMPRESSION: No acute abnormality identified. Impression By: Harley Snider M.D. CAT SCAN - CT CHEST W/CONTRAST 08/07 1540 Report Impression - Status: SIGNED Entered: 08/07/2020 1645 IMPRESSION: Asymmetric enlargement of right iliacus muscle w ith surrounding stranding. Bilateral lower lobe and right upper lobe depend ent groundglass airspace opacities, nonspecific, may represent a spiration pneumonia in the appropriate clinical setting. Other findings as above. Findings discussed with Kavin Styles MD at 08/07/2020 4:31 PM. Impression By: Michelle Martin MD CAT SCAN - CT L-SPINE W/O CONTRAST 08/07 1540 Report Impression - Status: SIGNED Entered: 08/07/2020 1645 IMPRESSION: Asymmetric enlargement of right iliacus muscle w ith surrounding stranding. Bilateral lower lobe and right upper lobe depend ent groundglass airspace opacities, nonspecific, may represent a spiration pneumonia in the appropriate clinical setting. Other findings as above. Findings discussed with Kavin Styles MD at 08/07/2020 4:31 PM. Impression By: Michelle Martin MD CAT SCAN - CT T-SPINE W/O CONTRAST 08/07 1540 Report Impression - Status: SIGNED Entered: 08/07/2020 1645 IMPRESSION: Asymmetric enlargement of right iliacus muscle w ith surrounding stranding. Bilateral lower lobe and right upper lobe depend ent groundglass airspace opacities, nonspecific, may represent a spiration pneumonia in the appropriate clinical setting. Other findings as above. Findings discussed with Kavin Styles MD at 08/07/2020 4:31 PM. Impression By: Michelle Martin MD CAT SCAN - CT ABD PELVIS W/CONT 08/07 1540 Report Impression - Status: SIGNED Entered: 08/07/2020 1645 IMPRESSION: Asymmetric enlargement of right iliacus muscle w ith surrounding stranding. Bilateral lower lobe and right upper lobe depend ent groundglass airspace opacities, nonspecific, may represent a spiration pneumonia in the appropriate clinical setting. Other findings as above. Findings discussed with Kavin Styles MD at 08/07/2020 4:31 PM. Impression By: [email or web address] - Vikki Martin MD CAT SCAN - CT C-SPINE W/O CONT 08/08 1539 Report Impression - Status: SIGNED Entered: 08/07/20201625 IMPRESSION: 1. No acute intracranial abnormality identified. 2. No cervical fracture identified. Impression By: Harley Snider M.D. CAT SCAN - CT HEAD/BRAIN W/O CONT 08/08 1539 Report Impression - Status: SIGNED Entered: 08/07/20201625 IMPRESSION: 1. No acute intracranial abnormality identified. 2. No cervical fracture identified. Impression By: Harley Snider M.D. Free Text Obj Notes Free Text Obj Notes: Constitutional: Patient appears healthy, no acute distress, HR, BP, Saturation reviewed in records Eyes: pupils equal, round, reactive to light, no icterus HENT: normal cephalic, atraumatic, no facial ten derness or crepitus, normal external inspection of ears/nose, no septal hematoma Neck: trachea midline, no crepitus, thyroid with out mass CV: regular rate, rhythm, bi lateral radial pulses 2+, no cyanosis, no edema, no pulsatile abdominal mass Respiratory: lungs clear bilaterally, no tendern ess to palpation, normal inspection of chest Abdomen: soft, non-tender, no masses, no hernia noted : normal external genitalia, pelvis stable Lymph nodes: no cervical or supraclavicular mass es noted Musculoskeletal: -right upper extremity without focal tenderness , without deformity, with ROM intact -left upper extremity without focal tenderness , without deformity, with ROM intact -right lower extremity with focal tenderness the proximal thigh, without deformity, with ROM intact, but weak. Able to fl ex and extend thigh -left lower extremity with f ocal tenderness, without deformity, with ROM intact -no cervical spine tenderness with full ROM -no thoracic spine tenderness or step-off -no lumbar spine tenderness or step-off Vascular: radial, femoral, DP, PT pulses equal t o palpation bilaterally Skin: no lacerations, abrasions to head, skin wa rm to palpation Psychiatric: normal mood and affect, memory inta ct. Neurologic: bilateral upper sensation intact low er extremity sensation diminished to right lateral thigh, strength inta ct, GCS 15 Diagnosis, Assessment Plan Free Text DxA P Notes Free Text DxA P Notes: ASSESSMENT: fall Injuries/Acute Problems: -right iliacus/psoas hematoma, possible compartm ent syndrome Chronic Medical Problems/Comorbidities: -denies Consultants: Procedures: PLAN: -right iliacus/psoas hematoma, possible compartm ent syndrome no evident fracture Distal pulses are intact, neuro comprom ise to LLE lateral thigh. Patient with full ROM to RLE, but weak possible due to pain Will monitor with serial CK and compartment exa ms. 150cc/LR for now. OK for clear liquid diet No emergent surgical intervention at this time, will monitor closely. -Tertiary survey -PT/OT eval Cm consult. L/D/A: PIV DVT prophylaxis: SCDs Lovenox GI prophylaxis: diet Diet: clear Activity: WBAT Dispo: admit to trauma ICU Code Status: FULL Quality: Trauma Gen Surg Advanced Care Plan 65 or Older Discussed with: patient Current Medications Current medication review: I attest that the foregoing medication list in t he medical record is true, accurate, and complete to the best of my knowled ge. VTE Prophylaxis - General VTE prophylaxis initiated: yes, no pharmacologic , reason: (hematoma) Heath Hand 08/23/20 1748: Attestations Physician Attestation Agree w/findings plan: I performed an H P and agree with the findings and plan as documented by HALIMA Whyte at 1843 at 1823 RPT #:[id number] END OF REPORT 2020-08-07 18:24:00-00:[address] [facility] ([facility]) Trauma - History Physical REPORT#:[id number] REPORT STATUS: Signed DATE:08/07/20 TIME: 1823 PATIENT: BILLY PEREZ UNIT #: [id number] ROOM/BED: : 93 AGE: 25 SEX: M ATTEND: Nga Styles MD ADM DT: AUTHOR: Jarrod Whyte * ALL edits or amendments must be made on the [employer]/computer document * History of Present Illness Pre-hospital Mechanism of injury: Fall: same level HPI Chief complaint: right leg ain and lateral thigh numbness HPI: CC: right eg pain and numbness HPI: Patient reports that he fell last night with dri zully. Patient had LOC and remained there the rest of t he evening. patien woke up in the morning with pain to the left leg. Pain progre ssing to numbness to the lateral aspect of the left proximal leg. Pain With palpation and movement. Pain radiates somewhat down his left leg. Pain made somewhat better with med iations. Patient denies head neck or chest pain. Patient was a trauma non-act ivation. ROS: ROS negative unless noted in above HPI of the following systems: constitutional, eyes, HENT, neck, neuro, CV, resp, GI, , msk, skin History Additional medical history: etoh abuse Alcohol use: Alcohol use Smoking status: Smoking status for patients 13 years old or old er: Unknown,if ever smoked Medication/Allergy-Vaccine Hx Allergies: Coded Allergies: No Known Allergies (08/07/20) Physical Exam VS/I O Last Documented: Result Date Time Pulse Ox 94 08/07 1809 B/P 145/70 08/07 1809 B/P Mean 95 08/07 1809 O2 Delivery Room air 08/07 1809 Temp 98.0 08/07 1809 Pulse 85 08/07 1809 Resp 16 08/07 1809 PATIENT WEIGHT: Weight (lb): Weight (oz): Weight (kg): 95.000 Results Findings/Data: Laboratory Tests: 08/07 08/07 08/07 08/07 1749 1624 1548 1457 Chemistry POC Creatinine (0.51 - 1.19 mg/dL) 0.90 Lactic Acid (0.7 - 2.0 mmol/L) 2.0 Hematology WBC (5.0 - 12.0 x10 3/uL) 20.0 H RBC (4.70 - 6.10 x10 6/uL) 4.11 L Hgb (14.0 - 18.0 g/dL) 12.7 L Hct (37.0 - 49.0 %) 37.1 MCV (80 - 94 fL) 90 MCH (27 - 31 pg) 30.9 MCHC (33 - 37 g/dL) 34.2 RDW (11.5 - 15.5 %) 12.9 Plt Count (130 - 400 x10 3/uL) 260 MPV (9.4 - 16.4 fL) 9.2 L Neut % (Auto) (43 - 65 %) 82.8 H Lymph % (Auto) (20.5 - 45.5 %) 10.8 L [place] % (Auto) (5.5 - 11.7 %) 5.6 Eos % (Auto) (0.9 - 2.9 %) 0.0 L Baso % (Auto) (0.2 - 1.0 %) 0.1 L Neut # (Auto) (2.2 - 4.8 x10 3/uL) 16.53 H Lymph # (Auto) (1.3 - 2.9 x10 3/uL) 2.15 [place] # (Auto) (0.3 - 0.8 x10 3/uL) 1.12 H Eos # (Auto) (0.0 - 0.2 x10 3/uL) 0.00 Baso # (Auto) (0.0 - 0.1 x10 3/uL) 0.02 Immature Gran % (0.0 - 2.0 %) 0.7 Nucleated RBC % (0 - 1.0 %) 0.0 Serology SARS CoV-2 RNA Rapid PATI (NEGATIVE) Negative Toxicology Urine Opiates Screen (NEGATIVE) NEGATIVE Ur Barbiturates, Qual (NEGATIVE) NEGATIVE Ur Phencyclidine Scrn (NEGATIVE) NEGATIVE Ur Amphetamines Screen (NEGATIVE) NEGATIVE U Benzodiazepines Scrn (NEGATIVE) POSITIVE Urine Cocaine Screen (NEGATIVE) NEGATIVE Urine Cannabinoids (NEGATIVE) POSITIVE Urines Urine Color (Yellow) Straw Urine Appearance (Clear) Clear Urine pH (5.0 - 8.0) 5.0 Ur Specific [place] (<1.030) 1.012 Urine Protein (Negative mg/dL) NEGATIVE Urine Glucose (UA) (Negative) Negative Urine Ketones (Negative mg/dL) Negative Urine Blood (Negative) 3+ H Urine Nitrite (Negative) Negative Urine Bilirubin (Negative) Negative Urine Urobilinogen (Negative mg/dL) Negative Ur Leukocyte Esterase (Negative) NEGATIVE Urine RBC (<4 - 5 /HPF) 0-3 Urine WBC (<4 - 5 /HPF) 0-3 Ur Squamous Epith Cells (0 - 5 (RARE) 0-5 (RARE ) /HPF) Urine Bacteria (None - Rare /HPF) None Urine Mucus (<Rare /LPF) Rare 08/07 1456 Chemistry Sodium (137 - 145 mmol/L) 139 Potassium (3.4 - 5.0 mmol/L) 4.1 Chloride (98 - 107 mmol/L) 103 Carbon Dioxide (22 - 30 mmol/L) 29 BUN (9 - 20 mg/dL) 13 Creatinine (0.7 - 1.3 mg/dL) 0.9 Glomerular Filtr Rate (>60) 108 Glucose (74 - 106 mg/dL) 84 Calcium (8.4 - 10.2 mg/dL) 9.0 Total Bilirubin (0.2 - 1.3 mg/dL) 0.4 Conjugated Bilirubin (0 - 0.3 mg/dL) 0 Unconjugated Bilirubin (0 - 1.1 mg/dL) 0.4 AST (15 - 46 U/L) 494 H ALT (0 - 34 U/L) 111 H Total Alk Phosphatase (38 - 126 U/L) 54 Total Creatine Kinase (55 - 170 U/L) 02921 *H Total Protein (6.3 - 8.2 g/dL) 6.7 Albumin (3.5 - 5.0 g/dL) 4.4 Coagulation INR 1.2 PTT (Rach) (23.4 - 37.0 SECONDS) 26.0 PT Patient/Control Mix (9.2 - 12.1 SECONDS) 13. 2 H Toxicology Ethyl Alcohol (<10 mg/dL) < 10 Radiology data: Recent Impressions: RADIOLOGY - XR FOOT 3 + V RT 08/07 1425 Report Impression - Status: SIGNED Entered: 08/07/2020 1525 IMPRESSION: No acute osseous abnormality identified. Impression By: Harley Snider M.D. RADIOLOGY - XR ANKLE 3 + V LT 08/07 1425 Report Impression - Status: SIGNED Entered: 08/07/2020 1524 IMPRESSION: No acute osseous abnormality identified. Impression By: Harley Snider M.D. RADIOLOGY - XR TIBIA/FIBULA 2 V RT 08/07 1425 Report Impression - Status: SIGNED Entered: 08/07/2020 1525 IMPRESSION: No acute osseous abnormality identified. Impression By: Harley Snider M.D. RADIOLOGY - XR KNEE 3 V LT 08/07 1425 Report Impression - Status: SIGNED Entered: 08/07/2020 1523 IMPRESSION: No acute osseous abnormality identified. Impression By: Harley Snider M.D. RADIOLOGY - XR FEMUR MIN 2 VW RT 08/07 1425 Report Impression - Status: SIGNED Entered: 08/07/2020 1524 IMPRESSION: No acute osseous abnormality identified. Impression By: Harely Snider M.D. RADIOLOGY - XR PELVIS 1/2 VIEWS 08/07 1425 Report Impression - Status: SIGNED Entered: 08/07/2020 1522 IMPRESSION: No acute osseous abnormality identified. Impression By: Harley Snider M.D. RADIOLOGY - XR CHEST 1 V 08/07 1425 Report Impression - Status: SIGNED Entered: 08/07/2020 1521 IMPRESSION: No acute abnormality identified. Impression By: Harley Snider M.D. CAT SCAN - CT CHEST W/CONTRAST 08/07 1540 Report Impression - Status: SIGNED Entered: 08/07/2020 1645 IMPRESSION: Asymmetric enlargement of right iliacus muscle w ith surrounding stranding. Bilateral lower lobe and right upper lobe depend ent groundglass airspace opacities, nonspecific, may represent a spiration pneumonia in the appropriate clinical setting. Other findings as above. Findings discussed with Kavin Styles MD at 08/07/2020 4:31 PM. Impression By: Michelle Martin MD CAT SCAN - CT L-SPINE W/O CONTRAST 08/07 1540 Report Impression - Status: SIGNED Entered: 08/07/2020 1645 IMPRESSION: Asymmetric enlargement of right iliacus muscle w ith surrounding stranding. Bilateral lower lobe and right upper lobe depend ent groundglass airspace opacities, nonspecific, may represent a spiration pneumonia in the appropriate clinical setting. Other findings as above. Findings discussed with Kavin Styles MD at 08/07/2020 4:31 PM. Impression By: Michelle Martin MD CAT SCAN - CT T-SPINE W/O CONTRAST 08/08 1539 Report Impression - Status: SIGNED Entered: 08/07/2020 1645 IMPRESSION: Asymmetric enlargement of right iliacus muscle w ith surrounding stranding. Bilateral lower lobe and right upper lobe depend ent groundglass airspace opacities, nonspecific, may represent a spiration pneumonia in the appropriate clinical setting. Other findings as above. Findings discussed with Kavin Styles MD at 08/07/2020 4:31 PM. Impression By: Michelle Martin MD CAT SCAN - CT ABD PELVIS W/CONT 08/07 154 Report Impression - Status: SIGNED Entered: 08/07/2020 1645 IMPRESSION: Asymmetric enlargement of right iliacus muscle w ith surrounding stranding. Bilateral lower lobe and right upper lobe depend ent groundglass airspace opacities, nonspecific, may represent a spiration pneumonia in the appropriate clinical setting. Other findings as above. Findings discussed with Kavin Styles MD at 08/07/2020 4:31 PM. Impression By: Michelle Martin MD CAT SCAN - CT C-SPINE W/O CONT 08/08 1539 Report Impression - Status: SIGNED Entered: 08/07/2020 1626 IMPRESSION: 1. No acute intracranial abnormality identified. 2. No cervical fracture identified. Impression By: Harley Snider M.D. CAT SCAN - CT HEAD/BRAIN W/O CONT 08/08 1539 Report Impression - Status: SIGNED Entered: 08/07/2020 1626 IMPRESSION: 1. No acute intracranial abnormality identified. 2. No cervical fracture identified. Impression By: Harley Snider M.D. Free Text Obj Notes Free Text Obj Notes: Constitutional: Patient appears healthy, no acute distress, HR, BP, Saturation reviewed in records Eyes: pupils equal, round, reactive to light, no icterus HENT: normal cephalic, atraumatic, no facial ten derness or crepitus, normal external inspection of ears/nose, no septal hematoma Neck: trachea midline, no crepitus, thyroid with out mass CV: regular rate, rhythm, bi lateral radial pulses 2+, no cyanosis, no edema, no pulsatile abdominal mass Respiratory: lungs clear bilaterally, no tendern ess to palpation, normal inspection of chest Abdomen: soft, non-tender, no masses, no hernia noted : normal external genitalia, pelvis stable Lymph nodes: no cervical or supraclavicular mass es noted Musculoskeletal: -right upper extremity without focal tenderness , without deformity, with ROM intact -left upper extremity without focal tenderness , without deformity, with ROM intact -right lower extremity with focal tenderness the proximal thigh, without deformity, with ROM intact, but weak. Able to fl ex and extend thigh -left lower extremity with f ocal tenderness, without deformity, with ROM intact -no cervical spine tenderness with full ROM -no thoracic spine tenderness or step-off -no lumbar spine tenderness or step-off Vascular: radial, femoral, DP, PT pulses equal t o palpation bilaterally Skin: no lacerations, abrasions to head, skin wa rm to palpation Psychiatric: normal mood and affect, memory inta ct. Neurologic: bilateral upper sensation intact low er extremity sensation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 lung nodules. HEART / MEDIASTINUM: No card iomegaly. Unremarkable hilar / mediastinal contours. BONES / SOFT TISSUES: No acu te fracture. Skeletal degenerative changes, extent expected for age. No significant soft tissue abnormality. IMPRESSION: Minimal pulmonary edema. No infiltrates. SL: [id number] 2018-06-18 10:01:00-00:00 Patient Name: BILLY PEREZ [facility] : 1995. Age: 23 years. Gender: Male. MR: [id number]. Location: [facility]. Provider: Bebeto Schaefer MD. EXAM: Chest 1view DX, ordered 06/18/2018 10:01 CS T PROVIDED CLINICAL HISTORY: Cough. TECHNIQUE: Single portable semi-erect AP view. COMPARISON: No relevant exam available at the ti me of interpretation. FINDINGS: LUNGS / PLEURAL SPACES: Mild ly hypoventilated lungs, which can simulate, exaggerate, or obscure interstitial disease. Minimal pulmonary interstitial edema. No definite focal airspace consolidation. No p leural effusion. No pneumoth orax. Limited plain-film sensitivity / specificity for subtle lung nodules. HEART / MEDIASTINUM: No card iomegaly. Unremarkable hilar / mediastinal contours. BONES / SOFT TISSUES: No acu te fracture. Skeletal degenerative changes, extent expected for age. No significant soft tissue abnormality. IMPRESSION: Minimal pulmonary edema. No infiltrates. SL: [id number]
[2022-11-09 16:10] LABS: Barbiturates NEGATIVE (NEGATIVE); Benzodiazepines POSITIVE (NEGATIVE); Cocaine NEGATIVE (NEGATIVE); METHAMPHETAM NEGATIVE (NEGATIVE); Methadone NEGATIVE (NEGATIVE); Opiates NEGATIVE (NEGATIVE); Phencyclidine NEGATIVE (NEGATIVE); THC Cannibis POSITIVE (NEGATIVE)
[2022-11-09] MEDS ORDERED: HALOPERIDOL LACT 5 MG/ML INJ ONE (16:11)
[2022-11-09 16:19] LABS: ALT/SGPT 23 U/L (16-61); AST/SGOT 12 U/L (15-37); Albumin 4.2 g/dL (3.4-5.0); Alkaline Phosphatase 60 U/L (45-117); BUN Blood Urea Nitrogen 12 mg/dL (7-18); Bicarbonate 28 mEq/L (21-32); Bilirubin Total 0.1 mg/dL (0.2-1.0); Glomerular Filtration Rate 123 ml/min (=/>90); Glucose Level 97 mg/dL (74-106); Magnesium 2.4 mg/dL (1.6-2.4); NT PRO-BNP 8 pg/mL (<125); Potassium 4.1 mEq/L (3.5-5.1); Protein, Total 7.3 g/dL (6.4-8.2); Sodium Level 140 mEq/L (136-145)
[2022-11-09 16:23] LABS: Bilirubin Direct < 0.1 mg/dL (0-0.2); Bilirubin Indirect, Calculated ND mg/dL (0.2-0.8); Troponin High Sensitivity < 3.0 pg/mL (<58.9)
--- NOTE | 2022-11-09 16:24 | RAD REPORT ---
EXAM DESCRIPTION: RAD - Chest Single View - 11/09/2022 4:18 pm CLINICAL HISTORY: COUGH COMPARISON: No comparisons FINDINGS: Lines: None. Lungs: No evidence of edema or pneumonia. Pleural: No significant pleural effusions or pneumothorax. Cardiac: The heart size is within normal limits. Mediastinum: Within normal limits. Bones: No acute fractures. Other: None IMPRESSION: No acute cardiopulmonary disease.
--- NOTE | 2022-11-09 16:44 | ER ---
Nurse's Notes [facility] Name: Arcadio Velasquez Age: 27 yrs Sex: Male : 1995 Arrival Date: 11/09/2022 Time: 15:23 Bed 15 Private MD: Diagnosis: Adverse effect of other narcotics;Opioid dependence with withdrawal Presentation: 11/09 15:55 Chief complaint: EMS states: pt is from rehab facility in [place]. reports heroin and kc6 xanax use 5x day and is currenlty 4-5 days in detox. reports 10/10 pain all over. Coronavirus screen: At this time, the client does not indicate any symptoms associated with coronavirus-19. Ebola Screen: No symptoms or risks identified at this time. Initial Sepsis Screen: Does the patient meet any 2 criteria? Yes Does the patient have a suspected source of infection? No. Patient's initial sepsis screen is negative. Risk Assessment: Do you want to hurt yourself or someone else? Patient reports no desire to harm self or others. Onset of symptoms was November 09, 2022. 15:55 Method Of Arrival: EMS: [place] [facility] 6 15:55 Acuity: LUPE 3 kc6 Triage Assessment: 15:57 General: Appears distressed, uncomfortable, Behavior is cooperative, appropriate for kc6 age, crying. Pain: Complains of pain in "all over" Pain does not radiate. Pain currently is 10 out of 10 on a pain scale. Quality of pain is described as sharp, shooting, stabbing, Pain began 2-3 days ago. Is continuous. EENT: No signs and/or symptoms were reported regarding the EENT system. Neuro: Level of Consciousness is awake, alert, obeys commands, Oriented to person, place, time, situation, Appropriate for age. Cardiovascular: Capillary refill < 3 seconds. Respiratory: Airway is patent Trachea midline Respiratory effort is even, unlabored, Respiratory pattern is regular, symmetrical. GI: No signs and/or symptoms were reported involving the gastrointestinal system. : No signs and/or symptoms were reported regarding the genitourinary system. Derm: No signs and/or symptoms reported regarding the dermatologic system. Skin is intact, is healthy with good turgor, Skin is pink, warm \\T\\ dry. Musculoskeletal: No signs and/or symptoms reported regarding the musculoskeletal system. Circulation, motion, and sensation intact. Capillary refill < 3 seconds, Range of motion: intact in all extremities. Historical: - Allergies: 15:57 No Known Allergies; kc6 - PMHx: 15:57 Drug abuse; Drug dependence; 6 - PSHx: 15:57 None; kc6 - Immunization history:: Client reports having NOT received the Covid vaccine. Flu vaccine is not up to date. - Social history:: Smoking status: Patient reports the use of cigarette tobacco products, smokes one-half pack cigarettes per day. Screenin:55 [facility] ED Fall Risk Assessment (Adult) History of falling in the last 3 months, [facility] including since admission No falls in past 3 months (0 pts) Confusion or Disorientation No (0 pts) Intoxicated or Sedated No (0 pts) Impaired Gait No (0 pts) Mobility Assist Device Used No (0 pt) Altered Elimination No (0 pt) Score/Fall Risk Level 0 - 2 = Low Risk Oriented to surroundings, Maintained a safe environment, Educated pt \\T\\ family on fall prevention, incl call for assistance when getting out of bed, Assessed \\T\\ reinforced patient's understanding of fall precautions, Hourly rounding (assess needs \\T\\ fall precautionary measures) done. Abuse screen: Denies threats or abuse. Denies injuries from another. Nutritional screening: No deficits noted. Tuberculosis screening: No symptoms or risk factors identified. Assessment: 15:55 Reassessment: please see triage assessment. [facility] 16:53 Reassessment: pt appears to have pulled out his own IV, blood and IV fluids on the [facility] floor. pt requesting to go back to rehab. stated we are not helping his pain here. Dr. Mckeon and Della, RN notified. 16:58 Reassessment: transport ETA 30min, spoke with Annemarie. [facility] Vital Signs: 15:55 BP 148 / 92; Pulse 91; Resp 18 S; Temp 97.8(O); Pulse Ox 100% on R/A; Weight 86.18 kg [facility] (R); Height 5 ft. 9 in. (R); Pain 10/10; 15:55 Body Mass Index 28.06 (86.18 kg, 175.26 cm) [facility] 15:55 Pain Scale: Adult [facility] [place] Coma Score: 16:45 Eye Response: spontaneous(4). Motor Response: obeys commands(6). Verbal Response: ozzy oriented(5). Total: 15. ED Course: 15:26 Patient arrived in ED. ds4 15:26 Lisseth Perez, DESIRAE is Primary Nurse. kc6 15:27 John Mckeon MD is Attending Physician. ozzy 15:55 Patient has correct armband on for positive identification. Bed in low position. Call kc6 light in reach. Side rails up X2. 15:56 Triage completed. kc6 15:57 Arm band placed on. kc6 16:19 XRAY Chest (1 view) In Process Unspecified. EDMS 16:42 Delta Rees MD is Referral Physician. ozzy 16:53 IV discontinued, intact, bleeding controlled, No redness/swelling at site. Pressure kc6 dressing applied. 17:45 No provider procedures requiring assistance completed. kc6 Administered Medications: 17:06 Discontinued: NS 0.9% IV 1000 ml IV at 1 bolus Per protocol; 1000 mL bolus kc6 17:06 Discontinued: NS 0.9% IV 1000 ml IV at 1 bolus Per protocol; 1000 mL bolus kc6 15:54 Drug: NS 0.9% IV 1000 ml Route: IV; Rate: 1 bolus; Site: right antecubital; kc6 15:54 Drug: NS 0.9% IV 1000 ml Route: IV; Rate: 1 bolus; Site: right antecubital; kc6 15:55 Drug: Ondansetron IVP 8 mg Route: IVP; Site: right antecubital; kc6 17:06 Follow up: Response: No adverse reaction kc6 15:55 Drug: cloNIDine PO 0.2 mg Route: PO; kc6 17:06 Follow up: Response: No adverse reaction kc6 16:08 Drug: Haloperidol IVP 5 mg Route: IVP; Site: right antecubital; kc6 17:06 Follow up: Response: No adverse reaction; Anxiety unchanged; RASS: Alert and Calm (0) kc6 17:02 Drug: cloNIDine Transdermal Patch 0.2 mg/24 hr 1 patches Route: Transdermal; Site: [facility] affected area; Medication: 17:46 VIS not applicable for this client. kc6 Outcome: 16:43 Discharge ordered by . ozzy 17:45 Discharged to Rehab Facility kc6 17:45 Condition: stable 17:45 Discharge instructions given to patient, Instructed on discharge instructions, follow up and referral plans. medication usage, Demonstrated understanding of instructions, follow-up care, medications, Prescriptions given X 1. 17:46 Patient left the ED. kc6 Signatures: Dispatcher [employer] John Brink MD MD cha Swanson, Donovan ds4 Lisseth Perez RN RN kc6 Corrections: (The following items were deleted from the chart) 17:05 16:53 Reassessment: pt appears to have pulled out his own IV. kc6 kc6 17:05 16:58 Reassessment: transport ETA 30min kc6 kc6
--- NOTE | 2022-11-09 16:44 | EDPHYS ---
Physician Documentation [facility] Name: Arcadio Velasquez Age: 27 yrs Sex: Male : 1995 Arrival Date: 11/09/2022 Time: 15:23 Bed 15 Private MD: ED Physician John Mckeon HPI: 11/09 16:34 This 27 yrs old Male presents to ER via EMS with complaints of HEROINE AND ozzy XANAX ABUSE ADDICTION. 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 Onset: The symptoms/episode ozzy began/occurred 3 day(s) ago. Severity of symptoms: At their worst the symptoms were moderate in the emergency department the symptoms are unchanged. The patient has experienced similar episodes in the past, a few times. Historical: - Allergies: 15:57 No Known Allergies; kc6 - PMHx: 15:57 Drug abuse; Drug dependence; kc6 - PSHx: 15:57 None; kc6 - Immunization history:: Client reports having NOT received the Covid vaccine. Flu vaccine is not up to date. - Social history:: Smoking status: Patient reports the use of cigarette tobacco products, smokes one-half pack cigarettes per day. ROS: 16:37 Constitutional: Negative for fever, chills, and weight loss, Eyes: Negative for injury, ozzy pain, redness, and discharge, ENT: Negative for injury, pain, and discharge, Neck: Negative for injury, pain, and swelling, Cardiovascular: Negative for chest pain, palpitations, and edema, Respiratory: Negative for shortness of breath, cough, wheezing, and pleuritic chest pain, Abdomen/GI: Negative for abdominal pain, nausea, vomiting, diarrhea, and constipation, Back: Negative for injury and pain, : Negative for injury, bleeding, discharge, and swelling, Skin: Negative for injury, rash, and discoloration, Neuro: Negative for headache, weakness, numbness, tingling, and seizure, Psych: Negative for depression, anxiety, suicide ideation, homicidal ideation, and hallucinations, Allergy/Immunology: Negative for hives, rash, and allergies, Endocrine: Negative for neck swelling, polydipsia, polyuria, polyphagia, and marked weight changes, Hematologic/Lymphatic: Negative for swollen nodes, abnormal bleeding, and unusual bruising. 16:37 MS/extremity: Positive for pain, of the back, chest, abdomen, right arm, left arm, right leg and left leg. Exam: 16:37 Constitutional: This is a well developed, well nourished patient who is awake, alert, ozzy and in no acute distress. Head/Face: Normocephalic, atraumatic. Eyes: Pupils equal round and reactive to light, extra-ocular motions intact. Lids and lashes normal. Conjunctiva and sclera are non-icteric and not injected. Cornea within normal limits. Periorbital areas with no swelling, redness, or edema. ENT: Nares patent. No nasal discharge, no septal abnormalities noted. Tympanic membranes are normal and external auditory canals are clear. Oropharynx with no redness, swelling, or masses, exudates, or evidence of obstruction, uvula midline. Mucous membranes moist. Neck: Trachea midline, no thyromegaly or masses palpated, and no cervical lymphadenopathy. Supple, full range of motion without nuchal rigidity, or vertebral point tenderness. No Meningismus. Chest/axilla: Normal chest wall appearance and motion. Nontender with no deformity. No lesions are appreciated. Cardiovascular: Regular rate and rhythm with a normal S1 and S2. No gallops, murmurs, or rubs. Normal PMI, no JVD. No pulse deficits. Respiratory: Lungs have equal breath sounds bilaterally, clear to auscultation and percussion. No rales, rhonchi or wheezes noted. No increased work of breathing, no retractions or nasal flaring. Abdomen/GI: Soft, non-tender, with normal bowel sounds. No distension or tympany. No guarding or rebound. No evidence of tenderness throughout. Back: No spinal tenderness. No costovertebral tenderness. Full range of motion. Male : Normal genitalia with no discharge or lesions. Skin: Warm, dry with normal turgor. Normal color with no rashes, no lesions, and no evidence of cellulitis. 16:45 ECG was reviewed by the Attending Physician. [facility] Vital Signs: 15:55 BP 148 / 92; Pulse 91; Resp 18 S; Temp 97.8(O); Pulse Ox 100% on R/A; Weight 86.18 kg kc6 (R); Height 5 ft. 9 in. (R); Pain 10/10; 15:55 Body Mass Index 28.06 (86.18 kg, 175.26 cm) 6 15:55 Pain Scale: Adult kc6 [place] Coma Score: 16:45 Eye Response: spontaneous(4). Motor Response: obeys commands(6). Verbal Response: ozzy oriented(5). Total: 15. MDM: 15:[address] [facility] 16:37 Differential Diagnosis altered mental status. Data reviewed: vital signs, nurses notes, [facility] lab test result(s), EKG, radiologic studies, CT scan. Consideration of Admission/Observation Escalation of care including admission/observation considered. I considered the following discharge prescriptions or medication management in the emergency department Medications were administered in the Emergency Department. See MAR. Test considered but Not performed: CT: NO CT BRAIN. Historians other than the Patient: EMS: EMS , WELL INFORMED. Care significantly affected by the following chronic conditions: DRUG AND DRUG DEPENDENCY. Counseling: I had a detailed discussion with the patient and/or guardian regarding: the historical points, exam findings, and any diagnostic results supporting the discharge/admit diagnosis, the presence of at least one elevated blood pressure reading (>120/80) during this emergency department visit, lab results, radiology results, the need for outpatient follow up, for definitive care, a family practitioner, a psychiatrist. 16:45 Independent interpretation of the following test(s) in the Emergency Department EKG: ozzy See my EKG interpretation above. 11/09 15:29 Order name: Basic Metabolic Panel; Complete Time: 16:44 [facility] 11/09 15:29 Order name: CBC with Diff ozzy 11/09 15:29 Order name: LFT's; Complete Time: 16:44 [facility] 11/09 15:29 Order name: Magnesium; Complete Time: 16:44 [facility] 11/09 15:29 Order name: NT PRO-BNP; Complete Time: 16:44 [facility] 11/09 15:29 Order name: PT-INR [facility] 11/09 15:29 Order name: Troponin HS; Complete Time: 16:44 [facility] 11/09 15:29 Order name: UDS; Complete Time: 16:44 [facility] 11/09 15:29 Order name: Urinalysis w/ reflexes; Complete Time: 16:44 [facility] 11/09 16:00 Order name: CPK [facility] 11/09 15:29 Order name: XRAY Chest (1 view); Complete Time: 16:44 [facility] 11/09 15:29 Order name: EKG; Complete Time: 15:29 [facility] 11/09 15:29 Order name: Cardiac monitoring; Complete Time: 15:31 [facility] 11/09 15:29 Order name: EKG - Nurse/Tech; Complete Time: 15:54 [facility] 11/09 15:29 Order name: IV Saline Lock; Complete Time: 15:54 [facility] 11/09 15:29 Order name: Labs collected and sent; Complete Time: 15:54 [facility] 11/09 15:29 Order name: O2 Per Protocol; Complete Time: 15:31 [facility] 11/09 15:29 Order name: O2 Sat Monitoring; Complete Time: 15:31 [facility] EC:45 Rate is 78 beats/min. Rhythm is regular. QRS [place] is Normal. ID interval is normal. QRS ozzy interval is normal. QT interval is normal. No Q waves. T waves are Normal. No ST changes noted. Clinical impression: Normal ECG and No evidence of ischemia. Interpreted by me. Reviewed by me. Administered Medications: 17:06 Discontinued: NS 0.9% IV 1000 ml IV at 1 bolus Per protocol; 1000 mL bolus kc6 17:06 Discontinued: NS 0.9% IV 1000 ml IV at 1 bolus Per protocol; 1000 mL bolus kc6 15:54 Drug: NS 0.9% IV 1000 ml Route: IV; Rate: 1 bolus; Site: right antecubital; kc6 15:54 Drug: NS 0.9% IV 1000 ml Route: IV; Rate: 1 bolus; Site: right antecubital; kc6 15:55 Drug: Ondansetron IVP 8 mg Route: IVP; Site: right antecubital; kc6 17:06 Follow up: Response: No adverse reaction kc6 15:55 Drug: cloNIDine PO 0.2 mg Route: PO; kc6 17:06 Follow up: Response: No adverse reaction kc6 16:08 Drug: Haloperidol IVP 5 mg Route: IVP; Site: right antecubital; kc6 17:06 Follow up: Response: No adverse reaction; Anxiety unchanged; RASS: Alert and Calm (0) kc6 17:02 Drug: cloNIDine Transdermal Patch 0.2 mg/24 hr 1 patches Route: Transdermal; Site: [facility] affected area; Disposition Summary: 11/09/22 16:43 Discharge Ordered Location: Home ozzy Problem: new ozzy Symptoms: have improved ozzy Condition: Stable ozzy Diagnosis - Adverse effect of other narcotics ozzy - Opioid dependence with withdrawal ozzy Followup: ozzy - With: Private Physician - When: 2 - 3 days - Reason: Recheck today's complaints, Continuance of care, Re-evaluation by your physician Followup: ozzy - With: Delta Rees MD - When: 2 - 3 days - Reason: Recheck today's complaints, Re-evaluation by your physician Discharge Instructions: - Discharge Summary Sheet ozzy - Finding Treatment for Addiction ozzy - Opioid Withdrawal ozzy - Opioid Use Disorder ozzy - Opioid Withdrawal Treatment ozzy Forms: - Medication Reconciliation Form ozzy - Thank You Letter ozzy - Antibiotic Education ozzy - Prescription Opioid Use ozzy - Patient Portal Instructions.htm ozzy Prescriptions: - ondansetron 4 mg Oral Tablet,disintegrating - take 1 tablet by ORAL route every 6 to 8 hours as needed for nausea and ozzy vomiting; 20 tablet; Refills: 0, Product Selection Permitted Signatures: Dispatcher [employer] John Brink MD MD cha Campbell, Kaitlyn RN RN kc6
[2022-11-09] MEDS ORDERED: CLONIDINE 0.2 MG/PATCH TD ONE (17:00)
[2022-11-09 17:52] VITALS: BP 148/92; TEMP 97.8; O2SAT 100
[2022-11-09 22:26] LABS: Protime INR ND
--- NOTE | 2022-11-10 15:45 | EKG ---
Test Date: 2022-11-09 Test Time: 15:39:17 Deployment Specialist: POPEYE MEASUREMENT RESULTS: Intervals: Rate: 78 TX: 126 QRSD: 86 QT: 358 QTc: 408 [place]: P: 56 TX: 126 QRS: 82 T: 14 INTERPRETIVE STATEMENTS: Normal sinus rhythm Normal ECG No previous ECG available for comparison Electronically Signed On 11-10-22 15:44:20 CDT by Brandon Peralta
== END 2022-11-09 17:46 | disposition home or self-care (01) ==
LOC: ER 15:23
DX: F11.23 Opioid dependence with withdrawal (principal); T40.695A Adverse effect of other narcotics, initial encounter
CPT/HCPCS: 36415; 71045; 80048; 80076; 80307; 81001; 82550; 83735; 83880; 84484; 85025; 85610; 93005; J1630; J2405; J7030